=== PATIENT | male | born 1945 | race Caucasian/White ===

== ENCOUNTER 2024-11-17 19:44 | Inpatient (IN) | payer MEDICARE, OTHER, SELFPAY ==
--- NOTE | ~2024-11-17 | XR_ITS ---
EXAMINATION: XR chest 1V portable DATE: 11/17/2024 20:12 INDICATION: Cough and congestion. TECHNIQUE: A single frontal view of the chest was obtained. COMPARISON: None. FINDINGS: There is no pneumonia, pleural effusion, or pneumothorax. The heart size is normal. Median sternotomy wires and mediastinal surgical clips are seen, likely from prior coronary artery bypass gr afting. IMPRESSION: 1. No acute cardiopulmonary disease. Reviewed, dictated and finalized at location A. O JOURNALIST
[2024-11-17 19:53] VITALS: BP 142/80; PULSE 105; RESP 20; TEMP 37.6; O2SAT 100
--- OUTSIDE RECORDS SUMMARY | 2024-11-17 19:53 | XMS_ITS ---
Author Organization [facility] Ryan hernández ([facility]) Address [address] [place] [id number] Care Team Providers Care Lead Project Manager Name Role Phone Unavailable Unavailable Unavailable Allergies, Adverse Reactions, Alerts Allergy Name Allergy Type Status Severity Reaction(s) Onset Date Inactive Date Treating Clinician Comments Viagra Allergy Active Severe Allergy Shortness of Breath 2022-12 14:09:1 9 Viagra Allergy Active Severe Allergy 2022-12 14:09:1 9 Viagra Allergy Active Severe Allergy Irregular Heartbeat 2022-12 14:09:1 9 Ritalin Allergy Active Moderate Allergy 2022-12 14:08:5 2 Nitrates, Organic Allergy Active Moderate Allergy 2022-12 14:08:2 9 Clonidine Allergy Active Moderate Allergy 2022-12 14:07:4 0 Aggie Allergy Active Unknown 2022-12 14:07:2 0 Medications Ordered Medication Name Filled Medication Name Start Date Stop Date Current Medication? Ordering Clinician Indication Dosage Frequency Signature (SIG) Comments Components Mircera 11-07 20:30: 45 Yes [id number] Number of Repeats Allowed: Frequency: MELISSA dosing, every three to four weeks Venofer 2023-09 18:35: 12 Yes [id number] Number of Repeats Allowed: Frequency: Two times a monthDoses Ordered: Maintenanc e Dose 200 Milligram Route: Intravenou s Cardura 05-02 15:38: 37 Yes Number of Repeats Allowed: Frequency: Two times a day Furosemide 01-26 17:16: 15 Yes Number of Repeats Allowed: Frequency: One time a day Benadryl Allergy 2022-09 15:06: 41 Yes Number of Repeats Allowed: Frequency: As needed Vitamin D3 2022-09 15:05: 59 Yes Number of Repeats Allowed: Frequency: One time a day Aspirin 81 2022-09 15:04: 37 Yes Number of Repeats Allowed: Frequency: One time a day Dialyvite 2022-09 15:03: 52 Yes Number of Repeats Allowed: Frequency: One time a day Atorvastati n Calcium 2022-09 15:03: 20 Yes Number of Repeats Allowed: Frequency: One time a day HumaLOG 2022-09 15:02: 39 Yes Number of Repeats Allowed: Frequency: Three times a day Lantus 2022-09 15:00: 08 Yes Number of Repeats Allowed: Frequency: One time a day amLODIPine Besylate 2022-09 14:59: 27 Yes Number of Repeats Allowed: Frequency: Every evening Januvia 2022-09 14:55: 29 Yes Number of Repeats Allowed: Frequency: Every evening Pantoprazol e Sodium 2022-09 13:55: 10 Yes Number of Repeats Allowed: Frequency: One time a day Synthroid 2022-09 13:54: 20 Yes Number of Repeats Allowed: Frequency: One time a day Problems This patient has no known problems. Procedures Procedure Date / Time Performed Performing Clinician Ammy marcelino Details PD Catheter 2022-09-03 05:00:00 Access Surgeon MARTITA SAEED A..M ([id number]),KELLI HUSAIN Access Site Middle Quadrant (Rig ht) Access Use Start Date 2022-10-08 05:00:0 0 AV [id number] 04:00:00 Access Surgeon MARTITA SAEED A..M ([id number]),KELLI HUSAIN Access Site Forearm (Left) Access Use Start Date 2022-07-29 04:00:0 0 DIALYSIS TREATMENT INFORMATION Conventional Hemodialysis Date Type Treatment Start Date Treatment End Date Pre-Treatment Vitals Post-Treatment Vitals Weight Gain BFR DFR Actual UF Dialysis Access November 16, 2024 CAPD November 14, 2024 CAPD BP Sitting (Pre-Dialysis) 165/62 mmHg Sitting Heart Rate Pre-Dialysis 70 BPM Temperature Pre-Dialysis 97.9 degF Weight Pre-Dialysis 114.3 kg November 14, 2024 CAPD November 11, 2024 CAPD November 09, 2024 CAPD November 07, 2024 CAPD November 04, 2024 CAPD November 02, 2024 CAP BP Sitting (Pre-Dialysis) 180/65 mmHg BP Standing (Pre-Dialysis) 155/64 mmHg Sitting Heart Rate Pre-Dialysis 73 BPM Standing Heart Rate Pre-Dialysis 80 BPM Temperature Pre-Dialysis 98.4 degF Weight Pre-Dialysis 115.6 kg November 02, 2024 CAPD October 31, 2024 CAPD October 28, 2024 CAPD October 26, 2024 CAPD October 24, 2024 CAPD October 21, 2024 CAPD October 20, 2024 CAPD BP Sitting (Pre-Dialysis) 156/59 mmHg Sitting Heart Rate Pre-Dialysis 79 BPM Temperature Pre-Dialysis 98.1 degF Weight Pre-Dialysis 114 kg October 19, 2024 CAPD October 17, 2024 CAPD October 14, 2024 CAPD October 12, 2024 CAPD October 10, 2024 CAPD October 07, 2024 CAPD October 05, 2024 CAPD BP Sitting (Pre-Dialysis) 153/64 mmHg BP Standing (Pre-Dialysis) 126/61 mmHg Sitting Heart Rate Pre-Dialysis 80 BPM Standing Heart Rate Pre-Dialysis 88 BPM Temperature Pre-Dialysis 98.8 degF Weight Pre-Dialysis 111.2 kg October 05, 2024 CAPD October 03, 2024 CAPD September 30, 2024 CAPD September 28, 2024 CAPD September 26, 2024 CAPD September 23, 2024 CAPD September 21, 2024 CAPD September 19, 2024 CAPD September 16, 2024 CAPD September 15, 2024 CAPD BP Sitting (Pre-Dialysis) 179/62 mmHg BP Standing (Pre-Dialysis) 134/51 mmHg Sitting Heart Rate Pre-Dialysis 84 BPM Standing Heart Rate Pre-Dialysis 93 BPM Temperature Pre-Dialysis 98.4 degF Weight Pre-Dialysis 110.6 kg September 14, 2024 CAPD September 12, 2024 CAPD September 09, 2024 CAPD September 07, 2024 CAPD September 05, 2024 CAPD September 02, 2024 CAPD August 31, 2024 CAPD August 29, 2024 CAPD August 26, 2024 CAPD August 24, 2024 CAPD August 22, 2024 CAPD August 19, 2024 CAPD August 17, 2024 CAPD August 15, 2024 CAPD August 12, 2024 CAPD August 10, 2024 CAPD August 08, 2024 CAPD August 05, 2024 CAPD August 03, 2024 CAPD August 02, 2024 CAP BP Sitting (Pre-Dialysis) 163/88 mmHg BP Standing (Pre-Dialysis) 161/87 mmHg Sitting Heart Rate Pre-Dialysis 82 BPM Standing Heart Rate Pre-Dialysis 89 BPM Temperature Pre-Dialysis 97.9 degF Weight Pre-Dialysis 116.9 kg August 01, 2024 CAPD July 29, 2024 CAPD July 27, 2024 CAPD July 25, 2024 CAPD July 22, 2024 CAPD July 20, 2024 CAPD July 18, 2024 CAPD July 15, 2024 CAPD July 13, 2024 CAPD July 11, 2024 CAPD July 08, 2024 CAPD July 06, 2024 CAPD July 04, 2024 CAPD July 01, 2024 CAPD June 29, 2024 CAP BP Sitting (Pre-Dialysis) 152/65 mmHg BP Standing (Pre-Dialysis) 144/61 mmHg Sitting Heart Rate Pre-Dialysis 78 BPM Standing Heart Rate Pre-Dialysis 86 BPM Temperature Pre-Dialysis 97.7 degF Weight Pre-Dialysis 115.1 kg June 29, 2024 CAPD June 27, 2024 CAPD June 24, 2024 CAPD June 22, 2024 CAPD June 20, 2024 CAP BP Sitting (Pre-Dialysis) 165/68 mmH g BP Standing (Pre-Dialysis) 160/68 mmHg Sitting Heart Rate Pre-Dialysis 76 BPM Standing Heart Rate Pre-Dialysis 82 BPM Temperature Pre-Dialysis 99.3 degF Weight Pre-Dialysis 114.3 kg June 20, 2024 CAPD June 17, 2024 CAPD June 15, 2024 CAPD June 13, 2024 CAPD June 10, 2024 CAPD June 08, 2024 CAPD June 06, 2024 CAPD June 03, 2024 CAPD June 01, 2024 CAP BP Sitting (Pre-Dialysis) 156/70 mmH g BP Standing (Pre-Dialysis) 134/68 mmHg Sitting Heart Rate Pre-Dialysis 84 BPM Standing Heart Rate Pre-Dialysis 84 BPM Temperature Pre-Dialysis 98.1 degF Weight Pre-Dialysis 113.4 kg June 01, 2024 CAPD May 30, 2024 CAPD May 27, 2024 CAPD May 25, 2024 CAPD May 23, 2024 CAPD May 20, 2024 CAPD May 18, 2024 CAPD May 16, 2024 CAPD May 13, 2024 CAPD May 11, 2024 CAPD May 09, 2024 CAPD May 06, 2024 CAPD May 04, 2024 CAPD May 02, 2024 CAP BP Sitting (Pre-Dialysis) 150/71 mmHg BP Standing (Pre-Dialysis) 139/63 mmHg Sitting Heart Rate Pre-Dialysis 75 BPM Standing Heart Rate Pre-Dialysis 80 BPM Temperature Pre-Dialysis 99.5 degF Weight Pre-Dialysis 113.2 kg May 02, 2024 CAPD April 29, 2024 CAPD April 27, 2024 CAPD April 25, 2024 CAPD April 22, 2024 CAPD April 20, 2024 CAPD April 18, 2024 CAPD April 15, 2024 CAPD April 13, 2024 CAPD April 11, 2024 CAPD April 08, 2024 CAPD April 06, 2024 CAPD April 04, 2024 CAPD April 01, 2024 CAPD March 30, 2024 CAPD March 28, 2024 CAPD BP Sitting (Pre-Dialysis) 161/80 mmHg BP Standing (Pre-Dialysis) 157/78 mmHg Sitting Heart Rate Pre-Dialysis 77 BPM Standing Heart Rate Pre-Dialysis 86 BPM Temperature Pre-Dialysis 97.9 degF Weight Pre-Dialysis 112.7 kg March 28, 2024 CAPD March 25, 2024 CAPD March 23, 2024 CAPD March 21, 2024 CAPD March 18, 2024 CAPD March 16, 2024 CAPD March 15, 2024 CAPD BP Sitting (Pre-Dialysis) 157/70 mmHg BP Standing (Pre-Dialysis) 148/73 mmHg Sitting Heart Rate Pre-Dialysis 77 BPM Standing Heart Rate Pre-Dialysis 77 BPM Temperature Pre-Dialysis 97.8 degF Weight Pre-Dialysis 113 kg March 14, 2024 CAPD March 11, 2024 CAPD March 09, 2024 CAPD March 07, 2024 CAPD March 04, 2024 CAPD March 02, 2024 CAPD February 29, 2024 CAPD February 26, 2024 CAPD February 24, 2024 CAPD February 22, 2024 CAPD February 19, 2024 CAPD February 17, 2024 CAPD February 15, 2024 CAPD February 12, 2024 CAPD February 10, 2024 CAPD February 08, 2024 CAPD February 05, 2024 CAPD February 03, 2024 CAPD February 01, 2024 CAPD January 29, 2024 CAPD January 27, 2024 CAPD BP Sitting (Pre-Dialysis) 165/81 mmHg BP Standing (Pre-Dialysis) 174/71 mmHg Sitting Heart Rate Pre-Dialysis 82 BPM Standing Heart Rate Pre-Dialysis 82 BPM Temperature Pre-Dialysis 99.5 degF Weight Pre-Dialysis 113.6 kg January 27, 2024 CAPD January 25, 2024 CAPD January 22, 2024 CAPD January 20, 2024 CAPD BP Sitting (Pre-Dialysis) 172/67 mmHg BP Standing (Pre-Dialysis) 162/68 mmHg Sitting Heart Rate Pre-Dialysis 74 BPM Standing Heart Rate Pre-Dialysis 82 BPM Temperature Pre-Dialysis 98.2 degF Weight Pre-Dialysis 113 kg January 20, 2024 CAPD January 18, 2024 CAPD January 15, 2024 CAPD January 13, 2024 CAPD January 11, 2024 CAPD January 08, 2024 CAPD January 06, 2024 CAPD January 04, 2024 CAPD BP Sitting (Pre-Dialysis) 161/71 mmHg BP Standing (Pre-Dialysis) 160/69 mmHg Sitting Heart Rate Pre-Dialysis 74 BPM Standing Heart Rate Pre-Dialysis 79 BPM Temperature Pre-Dialysis 98.6 degF Weight Pre-Dialysis 116.3 kg January 04, 2024 CAPD January 01, 2024 CAPD December 30, 2023 CAPD December 28, 2023 CAPD December 25, 2023 CAPD December 23, 2023 CAPD December 21, 2023 CAPD December 18, 2023 CAPD December 16, 2023 CAPD December 14, 2023 CAPD December 11, 2023 CAPD December 09, 2023 CAPD BP Sitting (Pre-Dialysis) 155/80 mmHg BP Standing (Pre-Dialysis) 154/70 mmHg Sitting Heart Rate Pre-Dialysis 70 BPM Standing Heart Rate Pre-Dialysis 76 BPM Temperature Pre-Dialysis 98.4 degF Weight Pre-Dialysis 113 kg December 09, 2023 CAPD December 07, 2023 CAPD December 04, 2023 CAPD December 02, 2023 CAPD December 01, 2023 CAPD BP Sitting (Pre-Dialysis) 152/70 mmHg BP Standing (Pre-Dialysis) 156/74 mmHg Sitting Heart Rate Pre-Dialysis 79 BPM Standing Heart Rate Pre-Dialysis 85 BPM Temperature Pre-Dialysis 98.1 degF Weight Pre-Dialysis 115 kg November 30, 2023 CAPD November 27, 2023 CAPD November 25, 2023 CAPD November 23, 2023 CAPD November 20, 2023 CAPD November 18, 2023 CAPD November 16, 2023 CAPD November 13, 2023 CAPD November 11, 2023 CAPD BP Sitting (Pre-Dialysis) 157/69 mmHg BP Standing (Pre-Dialysis) 148/74 mmHg Sitting Heart Rate Pre-Dialysis 77 BPM Standing Heart Rate Pre-Dialysis 82 BPM Temperature Pre-Dialysis 99.7 degF Weight Pre-Dialysis 112.6 kg November 11, 2023 CAPD November 09, 2023 CAPD November 06, 2023 CAPD November 04, 2023 CAPD November 02, 2023 CAPD October 30, 2023 CAPD October 28, 2023 CAPD October 26, 2023 CAPD October 23, 2023 CAPD October 21, 2023 CAPD October 19, 2023 CAPD October 16, 2023 CAPD October 15, 2023 CAPD Retraining BP Sitting (Pre-Dialysis ) 162/80 mmHg Weight Post-Dialysi s 112.5 kg BP Standing (Pre-Dialysis) 161/73 mmHg Sitting Heart Rate Pre-Dialysis 78 BPM Standing Heart Rate Pre-Dialysis 78 BPM Temperature Pre-Dialysis 98.4 degF Weight Pre-Dialysis 112.6 kg October 14, 2023 CAPD Retraining BP Sitting (Pre-Dialysis) 180/69 mmHg Weight Post-Dialysis 112.7 kg BP Standing (Pre-Dialysis) 155/69 mmHg Sitting Heart Rate Pre-Dialysis 76 BPM Standing Heart Rate Pre-Dialysis 80 BPM Temperature Pre-Dialysis 97.7 degF Weight Pre-Dialysis 112.7 kg October 14, 2023 CAPD October 12, 2023 CAPD October 09, 2023 CAPD October 07, 2023 CAPD October 05, 2023 CAPD October 02, 2023 CAPD September 30, 2023 CAPD BP Sitting (Pre-Dialysis) 143/65 mmHg BP Standing (Pre-Dialysis) 123/62 mmHg Sitting Heart Rate Pre-Dialysis 72 BPM Standing Heart Rate Pre-Dialysis 85 BPM Temperature Pre-Dialysis 98.1 degF Weight Pre-Dialysis 114.2 kg September 30, 2023 CAPD September 28, 2023 CAPD September 25, 2023 CAPD September 23, 2023 CAPD September 21, 2023 CAPD September 18, 2023 CAPD September 16, 2023 CAPD September 14, 2023 CAPD September 11, 2023 CAPD September 09, 2023 CAPD September 07, 2023 CAPD September 04, 2023 CAPD September 02, 2023 CAP BP Sitting (Pre-Dialysis) 164/70 mmHg BP Standing (Pre-Dialysis) 149/70 mmHg Sitting Heart Rate Pre-Dialysis 74 BPM Standing Heart Rate Pre-Dialysis 78 BPM Temperature Pre-Dialysis 97.3 degF Weight Pre-Dialysis 109.9 kg September 02, 2023 CAPD August 31, 2023 CAPD August 28, 2023 CAPD August 26, 2023 CAPD August 24, 2023 CAPD August 21, 2023 CAPD August 19, 2023 CAPD August 18, 2023 CAPD August 17, 2023 CAPD August 14, 2023 CAP BP Sitting (Pre-Dialysis) 188/73 mmHg BP Standing (Pre-Dialysis) 170/73 mmHg Sitting Heart Rate Pre-Dialysis 74 BPM Standing Heart Rate Pre-Dialysis 79 BPM Temperature Pre-Dialysis 98.4 degF Weight Pre-Dialysis 114.1 kg August 14, 2023 CAPD August 12, 2023 CAPD August 10, 2023 CAPD August 07, 2023 CAPD August 05, 2023 CAPD August 03, 2023 CAPD July 31, 2023 CAPD July 29, 2023 CAP BP Sitting (Pre-Dialysis) 156/73 mmHg BP Standing (Pre-Dialysis) 144/75 mmHg Sitting Heart Rate Pre-Dialysis 83 BPM Standing Heart Rate Pre-Dialysis 88 BPM Temperature Pre-Dialysis 97.5 degF Weight Pre-Dialysis 111.5 kg July 29, 2023 CAPD July 27, 2023 CAPD July 24, 2023 CAPD July 22, 2023 CAPD July 20, 2023 CAPD July 17, 2023 CAPD July 15, 2023 CAPD July 13, 2023 CAPD July 10, 2023 CAPD July 08, 2023 CAPD July 06, 2023 CAPD July 03, 2023 CAPD July 01, 2023 CAPD BP Sitting (Pre-Dialysis) 159/83 mmHg BP Standing (Pre-Dialysis) 154/77 mmHg Sitting Heart Rate Pre-Dialysis 80 BPM Standing Heart Rate Pre-Dialysis 80 BPM Temperature Pre-Dialysis 98.1 degF Weight Pre-Dialysis 113.3 kg July 01, 2023 CAPD June 29, 2023 CAPD June 26, 2023 CAPD June 24, 2023 CAPD June 22, 2023 CAPD June 19, 2023 CAPD June 17, 2023 CAPD June 15, 2023 CAPD June 12, 2023 CAPD June 10, 2023 CAP BP Sitting (Pre-Dialysis) 140/71 mmH g BP Standing (Pre-Dialysis) 134/70 mmHg Sitting Heart Rate Pre-Dialysis 80 BPM Standing Heart Rate Pre-Dialysis 87 BPM Temperature Pre-Dialysis 97.3 degF Weight Pre-Dialysis 110.4 kg June 10, 2023 CAPD June 08, 2023 CAPD June 05, 2023 CAPD June 03, 2023 CAP BP Sitting (Pre-Dialysis) 156/67 mmH g BP Standing (Pre-Dialysis) 152/66 mmHg Sitting Heart Rate Pre-Dialysis 76 BPM Standing Heart Rate Pre-Dialysis 82 BPM Temperature Pre-Dialysis 98.4 degF Weight Pre-Dialysis 112.9 kg June 03, 2023 CAPD June 01, 2023 CAPD May 29, 2023 CAPD May 27, 2023 CAPD May 25, 2023 CAPD May 22, 2023 CAPD May 20, 2023 CAPD May 19, 2023 CAP BP Sitting (Pre-Dialysis) 174/76 mmHg BP Standing (Pre-Dialysis) 159/69 mmHg Sitting Heart Rate Pre-Dialysis 79 BPM Standing Heart Rate Pre-Dialysis 85 BPM Temperature Pre-Dialysis 98.1 degF Weight Pre-Dialysis 116 kg May 18, 2023 CAPD May 15, 2023 CAPD May 13, 2023 CAPD May 11, 2023 CAPD May 08, 2023 CAPD May 06, 2023 CAPD May 05, 2023 CAPD BP Sitting (Pre-Dialysis) 153/64 mmHg BP Standing (Pre-Dialysis) 140/66 mmHg Sitting Heart Rate Pre-Dialysis 80 BPM Standing Heart Rate Pre-Dialysis 85 BPM Temperature Pre-Dialysis 98.9 degF Weight Pre-Dialysis 113.4 kg May 04, 2023 CAPD May 01, 2023 CAPD April 29, 2023 CAPD April 27, 2023 CAPD April 24, 2023 CAPD April 22, 2023 CAPD April 20, 2023 CAPD April 17, 2023 CAPD April 15, 2023 CAPD April 14, 2023 CAPD BP Sitting (Pre-Dialysis) 151/70 mmHg BP Standing (Pre-Dialysis) 177/66 mmHg Sitting Heart Rate Pre-Dialysis 77 BPM Standing Heart Rate Pre-Dialysis 84 BPM Temperature Pre-Dialysis 98.2 degF Weight Pre-Dialysis 115.7 kg April 13, 2023 CAPD April 10, 2023 CAPD April 08, 2023 CAPD April 06, 2023 CAPD April 03, 2023 CAPD April 02, 2023 CAPD BP Sitting (Pre-Dialysis) 133/60 mmHg BP Standing (Pre-Dialysis) 139/61 mmHg Sitting Heart Rate Pre-Dialysis 75 BPM Standing Heart Rate Pre-Dialysis 81 BPM Temperature Pre-Dialysis 98.4 degF Weight Pre-Dialysis 113 kg April 01, 2023 CAPD March 30, 2023 CAPD March 27, 2023 CAPD March 25, 2023 CAPD March 24, 2023 CAPD BP Sitting (Pre-Dialysis) 127/65 mmHg BP Standing (Pre-Dialysis) 121/61 mmHg Sitting Heart Rate Pre-Dialysis 74 BPM Standing Heart Rate Pre-Dialysis 81 BPM Temperature Pre-Dialysis 99.5 degF Weight Pre-Dialysis 113 kg March 23, 2023 CAPD March 21, 2023 CAPD March 20, 2023 CAPD March 18, 2023 CAPD March 16, 2023 CAPD March 14, 2023 CAPD March 13, 2023 CAPD March 11, 2023 CAPD March 09, 2023 CAPD March 07, 2023 CAPD March 06, 2023 CAPD March 04, 2023 CAPD March 03, 2023 CAPD BP Sitting (Pre-Dialysis) 154/70 mmHg BP Standing (Pre-Dialysis) 143/75 mmHg Sitting Heart Rate Pre-Dialysis 73 BPM Standing Heart Rate Pre-Dialysis 75 BPM Temperature Pre-Dialysis 98.1 degF Weight Pre-Dialysis 114.3 kg March 02, 2023 CAPD DIALYSIS ORDER Dialysis Procedure Orders Type of Dialysis Procedure Order Order Date/Time Observations CAPD March 29, 2024 Target Weight 111 kg Ordered Access Type Peritoneal dialysis catheter Vendor [employer] Total Fill Volume per 24 Hour 1500 mL Treatment Location Display At Patient's Home Target Weight with Prescribed Day Fill N o Training Element No Training Incremental Increase Flag No Day Exchange Delivery Method Manual Day Exchange Number of Exchanges 1 Day Exchange Calcium 2.5 mEq/L Day Exchange Magnesium 0.5 mEq/L Day Exchange Target Dwell Time 4 hr 0 Mi n Overnight Exchange Delivery MethodDaytim e Exchange Info No Overnight Exchange Fill Number: 1 pd_solution_strength_[email or web address] Varied-See Instruction(s) fill_instruction based on weight and blood pressures Results Adequacy Description Draw Date Result/Unit Status Ref Range Result Comments NPCR PD MALE 2024-11-04 08:31:29 1.18 G/KG/D F PNA (PD) 2024-11-04 08:31:29 123.9 g/day F nPNA (PD MALE) 2024-11-04 08:31:29 1.33 G/KG/D F PCR PD MALE 2024-11-04 08:31:29 110 g/day F Urea Gen Rate 2024-11-04 08:31:29 21.7 GM/D F CRE CLR UR/BSA 2024-11-04 08:31:29 22 mL/min F 85.0-125.0 UREA CLR UR/BSA 2024-11-04 08:31:29 12.5 mL/min F 64.0-99.0 UREA CLR UR 2024-11-04 08:31:29 17.4 mL/min F CRE CLR UR 2024-11-04 08:31:29 30 mL/min F 97.0-137.0 L/WK/1.73 RESID 2024-11-04 08:31:29 171.5 L/WK/B F L/WK/1.73 TOTAL 2024-11-04 08:31:29 178.11 L/WK/B F KT/V RESID (M) 2024-11-04 08:31:29 3.24 Kt/V F L/WK RESID CC 2024-11-04 08:31:29 239.04 L/wk F KT/V TOTAL (M) 2024-11-04 08:31:29 3.49 Kt/V F Urea nitrogen [Mass/volume] in Urine 2024-11-04 08:30:14 541 mg/dL F Creatinine [Mass/volume] in Urine 2024-11-04 08:30:14 79.06 mg/dL F L/WK PDF CC 2024-11-04 08:23:13 9.21 L/wk F KT/V PDF (M) 2024-11-04 08:23:13 0.25 Kt/V F L/WK/1.73 PDF 2024-11-04 08:23:13 6.61 L/WK/B F Creatinine [Mass/volume] in Peritoneal dialysis fluid 2024-11-04 08:16:15 3.34 mg/dL F Urea nitrogen [Mass/volume] in Peritoneal fluid --24 hours post peritoneal dialysis 2024-11-04 08:16:15 58 mg/dL F BUN/CREAT 2024-11-04 05:25:22 11.8 Calc F 6.9-32.9 BSA EMMANUEL 2024-11-04 05:25:22 2.41 sq m F TBW RENEE MALE 2024-11-04 05:25:22 54.16 Liters F Urea nitrogen [Mass/volume] in Serum or Plasma 2024-11-04 05:24:24 54 mg/dL F 9.0-23.0 Creatinine [Mass/volume] in Serum or Plasma 2024-11-04 05:24:24 4.57 mg/dL F 0.7-1.3 COLLECTION TIME FOR URINE 2024-11-02 18:05:04 1440 min F TOTAL VOLUME-24 HR URINE 2024-11-02 18:05:04 2500 mL F Total Volume of EFFL/DIAL 2024-11-02 18:05:04 1800 mLs F MINIMUM GOAL: KT/V PD 2024-11-02 18:05:04 1.7 F PATIENT AGE 2024-11-02 18:05:04 79 Years F HEIGHT IN INCHES 2024-11-02 18:05:04 74 Inches F BODY WEIGHT (LBS) 2024-11-02 18:05:04 254.9 lbs F AMPUTATE FACTOR 2024-11-02 18:05:04 0 F BUN/CREAT 2024-10-07 00:57:21 12 Calc F 6.9-32.9 Urea nitrogen [Mass/volume] in Serum or Plasma 2024-10-07 00:55:28 52 mg/dL F 9.0-23.0 Creatinine [Mass/volume] in Serum or Plasma 2024-10-07 00:55:28 4.35 mg/dL F 0.7-1.3 UREA CLR UR/BSA 2024-09-17 01:03:01 13.4 mL/min F 64.0-99.0 CRE CLR UR/BSA 2024-09-17 01:03:01 25 mL/min F 85.0-125.0 UREA CLR UR 2024-09-17 01:03:01 18.4 mL/min F CRE CLR UR 2024-09-17 01:03:01 34 mL/min F 97.0-137.0 L/WK/1.73 RESID 2024-09-17 01:03:01 191.85 L/WK/B F L/WK/1.73 TOTAL 2024-09-17 01:03:01 197.81 L/WK/B F KT/V RESID (M) 2024-09-17 01:03:01 3.53 Kt/V F KT/V TOTAL (M) 2024-09-17 01:03:01 3.71 Kt/V F L/WK RESID CC 2024-09-17 01:03:01 262.3 L/wk F NPCR PD MALE 2024-09-17 01:03:01 1.39 G/KG/D F PNA (PD) 2024-09-17 01:03:01 141.7 g/day F nPNA (PD MALE) 2024-09-17 01:03:01 1.57 G/KG/D F PCR PD MALE 2024-09-17 01:03:01 126 g/day F Urea Gen Rate 2024-09-17 01:03:01 25.2 GM/D F Urea nitrogen [Mass/volume] in Urine 2024-09-17 01:02:15 645 mg/dL F Creatinine [Mass/volume] in Urine 2024-09-17 01:02:15 81.88 mg/dL F L/WK PDF CC 2024-09-17 00:09:44 8.15 L/wk F KT/V PDF (M) 2024-09-17 00:09:44 0.18 Kt/V F L/WK/1.73 PDF 2024-09-17 00:09:44 5.96 L/WK/B F Creatinine [Mass/volume] in Peritoneal dialysis fluid 2024-09-17 00:08:18 3.51 mg/dL F Urea nitrogen [Mass/volume] in Peritoneal fluid --24 hours post peritoneal dialysis 2024-09-17 00:08:18 60 mg/dL F BUN/CREAT 2024-09-16 16:55:42 14.5 Calc F 6.9-32.9 BSA EMMANUEL 2024-09-16 16:55:42 2.37 sq m F TBW VÍCTOR MALE 2024-09-16 16:55:42 52.44 Liters F Creatinine [Mass/volume] in Serum or Plasma 2024-09-16 16:53:25 4.22 mg/dL F 0.7-1.3 Urea nitrogen [Mass/volume] in Serum or Plasma 2024-09-16 16:53:23 61 mg/dL F 9.0-23.0 PATIENT AGE 2024-09-15 17:41:36 79 Years F BODY WEIGHT (LBS) 2024-09-15 17:41:36 243.6 lbs F HEIGHT IN INCHES 2024-09-15 17:41:36 74 Inches F AMPUTATE FACTOR 2024-09-15 17:41:36 0 F Total Volume of EFFL/DIAL 2024-09-15 17:41:36 1400 mLs F MINIMUM GOAL: KT/V PD 2024-09-15 17:41:36 1.7 F COLLECTION TIME FOR URINE 2024-09-15 17:41:36 1440 min F TOTAL VOLUME-24 HR URINE 2024-09-15 17:41:36 2500 mL F BUN/CREAT 2024-08-04 02:02:01 12.3 Calc F 6.9-32.9 BUN/CREAT 2024-08-04 02:02:01 12.3 Calc F 6.9-32.9 Creatinine [Mass/volume] in Serum or Plasma 2024-08-04 02:01:20 4.57 mg/dL F 0.7-1.3 Urea nitrogen [Mass/volume] in Serum or Plasma 2024-08-04 02:01:20 56 mg/dL F 9.0-23.0 Urea nitrogen [Mass/volume] in Serum or Plasma 2024-08-04 02:01:20 56 mg/dL F 9.0-23.0 Creatinine [Mass/volume] in Serum or Plasma 2024-08-04 02:01:20 4.57 mg/dL F 0.7-1.3 BUN/CREAT 2024-06-30 14:27:57 12.1 Calc F 6.9-32.9 BUN/CREAT 2024-06-30 14:27:57 12.1 Calc F 6.9-32.9 BUN/CREAT 2024-06-30 14:27:57 12.1 Calc F 6.9-32.9 Creatinine [Mass/volume] in Serum or Plasma 2024-06-30 14:27:10 4.37 mg/dL F 0.7-1.3 Urea nitrogen [Mass/volume] in Serum or Plasma 2024-06-30 14:27:10 53 mg/dL F 9.0-23.0 Urea nitrogen [Mass/volume] in Serum or Plasma 2024-06-30 14:27:10 53 mg/dL F 9.0-23.0 Creatinine [Mass/volume] in Serum or Plasma 2024-06-30 14:27:10 4.37 mg/dL F 0.7-1.3 Urea nitrogen [Mass/volume] in Serum or Plasma 2024-06-30 14:27:10 53 mg/dL F 9.0-23.0 Creatinine [Mass/volume] in Serum or Plasma 2024-06-30 14:27:10 4.37 mg/dL F 0.7-1.3 NPCR PD MALE 2024-06-04 15:10:16 1.31 G/KG/D F PNA (PD) 2024-06-04 15:10:16 136.1 g/day F nPNA (PD MALE) 2024-06-04 15:10:16 1.48 G/KG/D F PCR PD MALE 2024-06-04 15:10:16 121 g/day F Urea Gen Rate 2024-06-04 15:10:16 24.1 GM/D F L/WK PDF CC 2024-06-04 15:10:16 7.76 L/wk F L/WK/1.73 TOTAL 2024-06-04 15:10:16 195.43 L/WK/B F KT/V PDF (M) 2024-06-04 15:10:16 0.2 Kt/V F KT/V TOTAL (M) 2024-06-04 15:10:16 3.8 Kt/V F L/WK/1.73 PDF 2024-06-04 15:10:16 5.62 L/WK/B F Creatinine [Mass/volume] in Peritoneal dialysis fluid 2024-06-04 15:09:20 3.2 mg/dL F Urea nitrogen [Mass/volume] in Peritoneal fluid --24 hours post peritoneal dialysis 2024-06-04 15:09:20 57 mg/dL F CRE CLR UR 2024-06-04 14:16:33 33 mL/min F 97.0-137.0 UREA CLR UR/BSA 2024-06-04 14:16:33 13.8 mL/min F 64.0-99.0 CRE CLR UR/BSA 2024-06-04 14:16:33 24 mL/min F 85.0-125.0 UREA CLR UR 2024-06-04 14:16:33 19 mL/min F L/WK/1.73 RESID 2024-06-04 14:16:33 189.81 L/WK/B F KT/V RESID (M) 2024-06-04 14:16:33 3.6 Kt/V F L/WK RESID CC 2024-06-04 14:16:33 262.21 L/wk F Urea nitrogen [Mass/volume] in Urine 2024-06-04 14:16:20 512 mg/dL F Creatinine [Mass/volume] in Urine 2024-06-04 14:16:20 68.54 mg/dL F BUN/CREAT 2024-06-04 06:18:03 12.9 Calc F 6.9-32.9 TBW RENEE MALE 2024-06-04 06:18:03 53.35 Liters F BSA EMMANUEL 2024-06-04 06:18:03 2.39 sq m F Urea nitrogen [Mass/volume] in Serum or Plasma 2024-06-04 06:08:34 56 mg/dL F 9.0-23.0 Creatinine [Mass/volume] in Serum or Plasma 2024-06-04 06:08:34 4.33 mg/dL F 0.7-1.3 COLLECTION TIME FOR URINE 2024-06-02 17:41:47 1440 min F Total Volume of EFFL/DIAL 2024-06-02 17:41:47 1500 mLs F TOTAL VOLUME-24 HR URINE 2024-06-02 17:41:47 3000 mL F PATIENT AGE 2024-06-02 17:41:47 79 Years F BODY WEIGHT (LBS) 2024-06-02 17:41:47 249.6 lbs F HEIGHT IN INCHES 2024-06-02 17:41:47 74 Inches F AMPUTATE FACTOR 2024-06-02 17:41:47 0 F MINIMUM GOAL: KT/V PD 2024-06-02 17:41:47 1.7 F BUN/CREAT 2024-05-03 16:38:19 12.6 Calc F 6.9-32.9 BUN/CREAT 2024-05-03 16:38:19 12.6 Calc F 6.9-32.9 Urea nitrogen [Mass/volume] in Serum or Plasma 2024-05-03 16:37:31 53 mg/dL F 9.0-23.0 Creatinine [Mass/volume] in Serum or Plasma 2024-05-03 16:37:31 4.21 mg/dL F 0.7-1.3 Urea nitrogen [Mass/volume] in Serum or Plasma 2024-05-03 16:37:31 53 mg/dL F 9.0-23.0 Creatinine [Mass/volume] in Serum or Plasma 2024-05-03 16:37:31 4.21 mg/dL F 0.7-1.3 BUN/CREAT 2024-03-29 18:01:57 13.8 Calc F 6.9-32.9 BUN/CREAT 2024-03-29 18:01:57 13.8 Calc F 6.9-32.9 BUN/CREAT 2024-03-29 18:01:57 13.8 Calc F 6.9-32.9 Creatinine [Mass/volume] in Serum or Plasma 2024-03-29 18:01:29 4.06 mg/dL F 0.7-1.3 Urea nitrogen [Mass/volume] in Serum or Plasma 2024-03-29 18:01:29 56 mg/dL F 9.0-23.0 Creatinine [Mass/volume] in Serum or Plasma 2024-03-29 18:01:29 4.06 mg/dL F 0.7-1.3 Urea nitrogen [Mass/volume] in Serum or Plasma 2024-03-29 18:01:29 56 mg/dL F 9.0-23.0 Urea nitrogen [Mass/volume] in Serum or Plasma 2024-03-29 18:01:29 56 mg/dL F 9.0-23.0 Creatinine [Mass/volume] in Serum or Plasma 2024-03-29 18:01:29 4.06 mg/dL F 0.7-1.3 KT/V PDF (M) 2024-03-17 01:53:55 0.23 Kt/V F L/WK/1.73 PDF 2024-03-17 01:53:55 5.35 L/WK/B F L/WK/1.73 RESID 2024-03-17 01:53:55 198.05 L/WK/B F KT/V TOTAL () 2024-03-17 01:53:55 4.25 Kt/V F L/WK PDF CC 2024-03-17 01:53:55 7.38 L/wk F L/WK RESID CC 2024-03-17 01:53:55 273.3 L/wk F UREA CLR UR 2024-03-17 01:53:55 21.2 mL/min F L/WK/1.73 TOTAL 2024-03-17 01:53:55 203.39 L/WK/B F KT/V RESID () 2024-03-17 01:53:55 4.02 Kt/V F BUN/CREAT 2024-03-17 01:53:55 13 Calc F 6.9-32.9 UREA CLR UR/BSA 2024-03-17 01:53:55 15.4 mL/min F 64.0-99.0 CRE CLR UR/BSA 2024-03-17 01:53:55 24 mL/min F 85.0-125.0 CRE CLR UR 2024-03-17 01:53:55 33 mL/min F 97.0-137.0 BUN/CREAT 2024-03-17 01:53:55 13 Calc F 6.9-32.9 UREA CLR UR/BSA 2024-03-17 01:53:55 15.4 mL/min F 64.0-99.0 UREA CLR UR 2024-03-17 01:53:55 21.2 mL/min F CRE CLR UR/BSA 2024-03-17 01:53:55 24 mL/min F 85.0-125.0 CRE CLR UR 2024-03-17 01:53:55 33 mL/min F 97.0-137.0 L/WK/1.73 RESID 2024-03-17 01:53:55 198.05 L/WK/B F L/WK PDF CC 2024-03-17 01:53:55 7.38 L/wk F L/WK/1.73 TOTAL 2024-03-17 01:53:55 203.39 L/WK/B F KT/V PDF (M) 2024-03-17 01:53:55 0.23 Kt/V F KT/V RESID (M) 2024-03-17 01:53:55 4.02 Kt/V F L/WK RESID CC 2024-03-17 01:53:55 273.3 L/wk F L/WK/1.73 PDF 2024-03-17 01:53:55 5.35 L/WK/B F KT/V TOTAL (M) 2024-03-17 01:53:55 4.25 Kt/V F CRE CLR UR 2024-03-17 01:53:55 33 mL/min F 97.0-137.0 BUN/CREAT 2024-03-17 01:53:55 13 Calc F 6.9-32.9 UREA CLR UR/BSA 2024-03-17 01:53:55 15.4 mL/min F 64.0-99.0 UREA CLR UR 2024-03-17 01:53:55 21.2 mL/min F CRE CLR UR/BSA 2024-03-17 01:53:55 24 mL/min F 85.0-125.0 L/WK/1.73 RESID 2024-03-17 01:53:55 198.05 L/WK/B F L/WK PDF CC 2024-03-17 01:53:55 7.38 L/wk F L/WK/.73 TOTAL 2024-03-17 01:53:55 203.39 L/WK/B F L/WK RESID CC 2024-03-17 01:53:55 273.3 L/wk F KT/V TOTAL (M) 2024-03-17 01:53:55 4.25 Kt/V F KT/V PDF (M) 2024-03-17 01:53:55 0.23 Kt/V F KT/V RESID (M) 2024-03-17 01:53:55 4.02 Kt/V F L/WK/1.73 PDF 2024-03-17 01:53:55 5.35 L/WK/B F Creatinine [Mass/volume] in Serum or Plasma 2024-03-17 01:53:28 4.08 mg/dL F 0.7-1.3 Urea nitrogen [Mass/volume] in Serum or Plasma 2024-03-17 01:53:28 53 mg/dL F 9.0-23.0 Urea nitrogen [Mass/volume] in Serum or Plasma 2024-03-17 01:53:28 53 mg/dL F 9.0-23.0 Creatinine [Mass/volume] in Serum or Plasma 2024-03-17 01:53:28 4.08 mg/dL F 0.7-1.3 Urea nitrogen [Mass/volume] in Serum or Plasma 2024-03-17 01:53:28 53 mg/dL F 9.0-23.0 Creatinine [Mass/volume] in Serum or Plasma 2024-03-17 01:53:28 4.08 mg/dL F 0.7-1.3 NPCR PD MALE 2024-03-16 17:12:17 1.38 G/KG/D F Urea Gen Rate 2024-03-16 17:12:17 25.5 GM/D F PCR PD MALE 2024-03-16 17:12:17 127 g/day F PNA (PD) 2024-03-16 17:12:17 143 g/day F nPNA (PD MALE) 2024-03-16 17:12:17 1.56 G/KG/D F NPCR PD MALE 2024-03-16 17:12:17 1.38 G/KG/D F PNA (PD) 2024-03-16 17:12:17 143 g/day F nPNA (PD MALE) 2024-03-16 17:12:17 1.56 G/KG/D F PCR PD MALE 2024-03-16 17:12:17 127 g/day F Urea Gen Rate 2024-03-16 17:12:17 25.5 GM/D F NPCR PD MALE 2024-03-16 17:12:17 1.38 G/KG/D F PNA (PD) 2024-03-16 17:12:17 143 g/day F nPNA (PD MALE) 2024-03-16 17:12:17 1.56 G/KG/D F PCR PD MALE 2024-03-16 17:12:17 127 g/day F Urea Gen Rate 2024-03-16 17:12:17 25.5 GM/D F Urea nitrogen [Mass/volume] in Urine 2024-03-16 17:11:34 579 mg/dL F Creatinine [Mass/volume] in Urine 2024-03-16 17:11:34 69.21 mg/dL F Urea nitrogen [Mass/volume] in Urine 2024-03-16 17:11:34 579 mg/dL F Creatinine [Mass/volume] in Urine 2024-03-16 17:11:34 69.21 mg/dL F Urea nitrogen [Mass/volume] in Urine 2024-03-16 17:11:34 579 mg/dL F Creatinine [Mass/volume] in Urine 2024-03-16 17:11:34 69.21 mg/dL F BSA EMMANUEL 2024-03-16 14:37:45 2.39 sq m F TBW VÍCTOR MALE 2024-03-16 14:37:45 53.26 Liters F ADEN BENITEZ 2024-03-16 14:37:45 2.39 sq m F TBW VÍCTOR MALE 2024-03-16 14:37:45 53.26 Liters F TBW VÍCTOR MALE 2024-03-16 14:37:45 53.26 Liters F BSA EMMANUEL 2024-03-16 14:37:45 2.39 sq m F Creatinine [Mass/volume] in Peritoneal dialysis fluid 2024-03-16 14:37:36 2.53 mg/dL F Urea nitrogen [Mass/volume] in Peritoneal fluid --24 hours post peritoneal dialysis 2024-03-16 14:37:36 55 mg/dL F Creatinine [Mass/volume] in Peritoneal dialysis fluid 2024-03-16 14:37:36 2.53 mg/dL F Urea nitrogen [Mass/volume] in Peritoneal fluid --24 hours post peritoneal dialysis 2024-03-16 14:37:36 55 mg/dL F Urea nitrogen [Mass/volume] in Peritoneal fluid --24 hours post peritoneal dialysis 2024-03-16 14:37:36 55 mg/dL F Creatinine [Mass/volume] in Peritoneal dialysis fluid 2024-03-16 14:37:36 2.53 mg/dL F PATIENT AGE 2024-03-15 18:37:13 79 Years F HEIGHT IN INCHES 2024-03-15 18:37:13 74 Inches F BODY WEIGHT (LBS) 2024-03-15 18:37:13 249 lbs F AMPUTATE FACTOR 2024-03-15 18:37:13 0 F PATIENT AGE 2024-03-15 18:37:13 79 Years F BODY WEIGHT (LBS) 2024-03-15 18:37:13 249 lbs F HEIGHT IN INCHES 2024-03-15 18:37:13 74 Inches F AMPUTATE FACTOR 2024-03-15 18:37:13 0 F PATIENT AGE 2024-03-15 18:37:13 79 Years F BODY WEIGHT (LBS) 2024-03-15 18:37:13 249 lbs F HEIGHT IN INCHES 2024-03-15 18:37:13 74 Inches F AMPUTATE FACTOR 2024-03-15 18:37:13 0 F COLLECTION TIME FOR URINE 2024-03-15 18:37:13 1440 min F TOTAL VOLUME-24 HR URINE 2024-03-15 18:37:13 2800 mL F TOTAL VOLUME-24 HR URINE 2024-03-15 18:37:13 2800 mL F COLLECTION TIME FOR URINE 2024-03-15 18:37:13 1440 min F TOTAL VOLUME-24 HR URINE 2024-03-15 18:37:13 2800 mL F COLLECTION TIME FOR URINE 2024-03-15 18:37:13 1440 min F MINIMUM GOAL: KT/V PD 2024-03-15 18:37:13 1.7 F Total Volume of EFFL/DIAL 2024-03-15 18:37:13 1700 mLs F Total Volume of EFFL/DIAL 2024-03-15 18:37:13 1700 mLs F MINIMUM GOAL: KT/V PD 2024-03-15 18:37:13 1.7 F Total Volume of EFFL/DIAL 2024-03-15 18:37:13 1700 mLs F MINIMUM GOAL: KT/V PD 2024-03-15 18:37:13 1.7 F BUN/CREAT 2024-01-29 02:16:12 15.7 Calc F 6.9-32.9 BUN/CREAT 2024-01-29 02:16:12 15.7 Calc F 6.9-32.9 BUN/CREAT 2024-01-29 02:16:12 15.7 Calc F 6.9-32.9 Urea nitrogen [Mass/volume] in Serum or Plasma 2024-01-29 02:15:28 64 mg/dL F 9.0-23.0 Creatinine [Mass/volume] in Serum or Plasma 2024-01-29 02:15:28 4.08 mg/dL F 0.7-1.3 Urea nitrogen [Mass/volume] in Serum or Plasma 2024-01-29 02:15:28 64 mg/dL F 9.0-23.0 Creatinine [Mass/volume] in Serum or Plasma 2024-01-29 02:15:28 4.08 mg/dL F 0.7-1.3 Urea nitrogen [Mass/volume] in Serum or Plasma 2024-01-29 02:15:28 64 mg/dL F 9.0-23.0 Creatinine [Mass/volume] in Serum or Plasma 2024-01-29 02:15:28 4.08 mg/dL F 0.7-1.3 BUN/CREAT 2024-01-05 22:42:25 12.7 Calc F 6.9-32.9 BUN/CREAT 2024-01-05 22:42:25 12.7 Calc F 6.9-32.9 BUN/CREAT 2024-01-05 22:42:25 12.7 Calc F 6.9-32.9 Urea nitrogen [Mass/volume] in Serum or Plasma 2024-01-05 22:41:34 51 mg/dL F 9.0-23.0 Creatinine [Mass/volume] in Serum or Plasma 2024-01-05 22:41:34 4.03 mg/dL F 0.7-1.3 Creatinine [Mass/volume] in Serum or Plasma 2024-01-05 22:41:34 4.03 mg/dL F 0.7-1.3 Urea nitrogen [Mass/volume] in Serum or Plasma 2024-01-05 22:41:34 51 mg/dL F 9.0-23.0 Urea nitrogen [Mass/volume] in Serum or Plasma 2024-01-05 22:41:34 51 mg/dL F 9.0-23.0 Creatinine [Mass/volume] in Serum or Plasma 2024-01-05 22:41:34 4.03 mg/dL F 0.7-1.3 L/WK RESID CC 2023-12-02 18:05:34 284.45 L/wk F UREA CLR UR/BSA 2023-12-02 18:05:34 15.1 mL/min F 64.0-99.0 CRE CLR UR/BSA 2023-12-02 18:05:34 25 mL/min F 85.0-125.0 CRE CLR UR 2023-12-02 18:05:34 35 mL/min F 97.0-137.0 KT/V RESID (M) 2023-12-02 18:05:34 3.93 Kt/V F L/WK/1.73 RESID 2023-12-02 18:05:34 204.7 L/WK/B F L/WK/1.73 TOTAL 2023-12-02 18:05:34 210.13 L/WK/B F UREA CLR UR 2023-12-02 18:05:34 21 mL/min F KT/V TOTAL (M) 2023-12-02 18:05:34 4.14 Kt/V F UREA CLR UR/BSA 2023-12-02 18:05:34 15.1 mL/min F 64.0-99.0 CRE CLR UR/BSA 2023-12-02 18:05:34 25 mL/min F 85.0-125.0 UREA CLR UR 2023-12-02 18:05:34 21 mL/min F CRE CLR UR 2023-12-02 18:05:34 35 mL/min F 97.0-137.0 L/WK/1.73 RESID 2023-12-02 18:05:34 204.7 L/WK/B F L/WK/1.73 TOTAL 2023-12-02 18:05:34 210.13 L/WK/B F KT/V RESID (M) 2023-12-02 18:05:34 3.93 Kt/V F KT/V TOTAL (M) 2023-12-02 18:05:34 4.14 Kt/V F L/WK RESID CC 2023-12-02 18:05:34 284.45 L/wk F UREA CLR UR/BSA 2023-12-02 18:05:34 15.1 mL/min F 64.0-99.0 CRE CLR UR/BSA 2023-12-02 18:05:34 25 mL/min F 85.0-125.0 UREA CLR UR 2023-12-02 18:05:34 21 mL/min F CRE CLR UR 2023-12-02 18:05:34 35 mL/min F 97.0-137.0 L/WK/1.73 RESID 2023-12-02 18:05:34 204.7 L/WK/B F L/WK/1.73 TOTAL 2023-12-02 18:05:34 210.13 L/WK/B F KT/V RESID (M) 2023-12-02 18:05:34 3.93 Kt/V F L/WK RESID CC 2023-12-02 18:05:34 284.45 L/wk F KT/V TOTAL (M) 2023-12-02 18:05:34 4.14 Kt/V F Urea Gen Rate 2023-12-02 18:05:34 24.7 GM/D F NPCR PD MALE 2023-12-02 18:05:34 1.33 G/KG/D F PNA (PD) 2023-12-02 18:05:34 138.9 g/day F PCR PD MALE 2023-12-02 18:05:34 124 g/day F nPNA (PD MALE) 2023-12-02 18:05:34 1.49 G/KG/D F NPCR PD MALE 2023-12-02 18:05:34 1.33 G/KG/D F PNA (PD) 2023-12-02 18:05:34 138.9 g/day F nPNA (PD MALE) 2023-12-02 18:05:34 1.49 G/KG/D F PCR PD MALE 2023-12-02 18:05:34 124 g/day F Urea Gen Rate 2023-12-02 18:05:34 24.7 GM/D F NPCR PD MALE 2023-12-02 18:05:34 1.33 G/KG/D F PNA (PD) 2023-12-02 18:05:34 138.9 g/day F nPNA (PD MALE) 2023-12-02 18:05:34 1.49 G/KG/D F Urea Gen Rate 2023-12-02 18:05:34 24.7 GM/D F PCR PD MALE 2023-12-02 18:05:34 124 g/day F Urea nitrogen [Mass/volume] in Urine 2023-12-02 18:05:17 477 mg/dL F Creatinine [Mass/volume] in Urine 2023-12-02 18:05:17 62.9 mg/dL F Urea nitrogen [Mass/volume] in Urine 2023-12-02 18:05:17 477 mg/dL F Creatinine [Mass/volume] in Urine 2023-12-02 18:05:17 62.9 mg/dL F Urea nitrogen [Mass/volume] in Urine 2023-12-02 18:05:17 477 mg/dL F Creatinine [Mass/volume] in Urine 2023-12-02 18:05:17 62.9 mg/dL F L/WK [facility] 2023-12-02 15:35:07 7.55 L/wk F L/WK/1.73 [facility] 2023-12-02 15:35:07 5.43 L/WK/B F KT/V PDF (M) 2023-12-02 15:35:07 0.21 Kt/V F L/WK [facility] 2023-12-02 15:35:07 7.55 L/wk F KT/V PDF (M) 2023-12-02 15:35:07 0.21 Kt/V F L/WK/1.73 [facility] 2023-12-02 15:35:07 5.43 L/WK/B F L/WK [facility] 2023-12-02 15:35:07 7.55 L/wk F KT/V PDF (M) 2023-12-02 15:35:07 0.21 Kt/V F L/WK/1.73 PDF 2023-12-02 15:35:07 5.43 L/WK/B F Urea nitrogen [Mass/volume] in Peritoneal fluid --24 hours post peritoneal dialysis 2023-12-02 15:34:53 52 mg/dL F Creatinine [Mass/volume] in Peritoneal dialysis fluid 2023-12-02 15:34:53 2.66 mg/dL F Creatinine [Mass/volume] in Peritoneal dialysis fluid 2023-12-02 15:34:53 2.66 mg/dL F Urea nitrogen [Mass/volume] in Peritoneal fluid --24 hours post peritoneal dialysis 2023-12-02 15:34:53 52 mg/dL F Urea nitrogen [Mass/volume] in Peritoneal fluid --24 hours post peritoneal dialysis 2023-12-02 15:34:53 52 mg/dL F Creatinine [Mass/volume] in Peritoneal dialysis fluid 2023-12-02 15:34:53 2.66 mg/dL F TBW VÍCTOR TAPIA 2023-12-02 14:38:44 53.98 Liters F BUN/CREAT 2023-12-02 14:38:44 12.8 Calc F 6.9-32.9 BSA EMMANUEL 2023-12-02 14:38:44 2.4 sq m F BUN/CREAT 2023-12-02 14:38:44 12.8 Calc F 6.9-32.9 BSA FILLMORE 2023-12-02 14:38:44 2.4 sq m F TBW VÍCTOR TAPIA 2023-12-02 14:38:44 53.98 Liters F BUN/CREAT 2023-12-02 14:38:44 12.8 Calc F 6.9-32.9 BSA FILLMORE 2023-12-02 14:38:44 2.4 sq m F TBW VÍCTOR TAPIA 2023-12-02 14:38:44 53.98 Liters F Urea nitrogen [Mass/volume] in Serum or Plasma 2023-12-02 14:38:33 52 mg/dL F 9.0-23.0 Urea nitrogen [Mass/volume] in Serum or Plasma 2023-12-02 14:38:33 52 mg/dL F 9.0-23.0 Urea nitrogen [Mass/volume] in Serum or Plasma 2023-12-02 14:38:33 52 mg/dL F 9.0-23.0 Creatinine [Mass/volume] in Serum or Plasma 2023-12-02 14:38:32 4.07 mg/dL F 0.7-1.3 Creatinine [Mass/volume] in Serum or Plasma 2023-12-02 14:38:32 4.07 mg/dL F 0.7-1.3 Creatinine [Mass/volume] in Serum or Plasma 2023-12-02 14:38:32 4.07 mg/dL F 0.7-1.3 AMPUTATE FACTOR 2023-12-01 18:00:58 0 F BODY WEIGHT (LBS) 2023-12-01 18:00:58 253.1 lbs F PATIENT AGE 2023-12-01 18:00:58 78 Years F HEIGHT IN INCHES 2023-12-01 18:00:58 74 Inches F PATIENT AGE 2023-12-01 18:00:58 78 Years F BODY WEIGHT (LBS) 2023-12-01 18:00:58 253.1 lbs F HEIGHT IN INCHES 2023-12-01 18:00:58 74 Inches F AMPUTATE FACTOR 2023-12-01 18:00:58 0 F PATIENT AGE 2023-12-01 18:00:58 78 Years F BODY WEIGHT (LBS) 2023-12-01 18:00:58 253.1 lbs F HEIGHT IN INCHES 2023-12-01 18:00:58 74 Inches F AMPUTATE FACTOR 2023-12-01 18:00:58 0 F MINIMUM GOAL: KT/V PD 2023-12-01 18:00:58 1.7 F Total Volume of EFFL/DIAL 2023-12-01 18:00:58 1650 mLs F Total Volume of EFFL/DIAL 2023-12-01 18:00:58 1650 mLs F MINIMUM GOAL: KT/V PD 2023-12-01 18:00:58 1.7 F Total Volume of EFFL/DIAL 2023-12-01 18:00:58 1650 mLs F MINIMUM GOAL: KT/V PD 2023-12-01 18:00:58 1.7 F COLLECTION TIME FOR URINE 2023-12-01 18:00:58 1440 min F TOTAL VOLUME-24 HR URINE 2023-12-01 18:00:58 3300 mL F TOTAL VOLUME-24 HR URINE 2023-12-01 18:00:58 3300 mL F COLLECTION TIME FOR URINE 2023-12-01 18:00:58 1440 min F TOTAL VOLUME-24 HR URINE 2023-12-01 18:00:58 3300 mL F COLLECTION TIME FOR URINE 2023-12-01 18:00:58 1440 min F BUN/CREAT 2023-11-12 15:23:15 16.3 Calc F 6.9-32.9 BUN/CREAT 2023-11-12 15:23:15 16.3 Calc F 6.9-32.9 BUN/CREAT 2023-11-12 15:23:15 16.3 Calc F 6.9-32.9 Creatinine [Mass/volume] in Serum or Plasma 2023-11-12 15:23:04 3.86 mg/dL F 0.7-1.3 Creatinine [Mass/volume] in Serum or Plasma 2023-11-12 15:23:04 3.86 mg/dL F 0.7-1.3 Creatinine [Mass/volume] in Serum or Plasma 2023-11-12 15:23:04 3.86 mg/dL F 0.7-1.3 Urea nitrogen [Mass/volume] in Serum or Plasma 2023-11-12 15:23:03 63 mg/dL F 9.0-23.0 Urea nitrogen [Mass/volume] in Serum or Plasma 2023-11-12 15:23:03 63 mg/dL F 9.0-23.0 Urea nitrogen [Mass/volume] in Serum or Plasma 2023-11-12 15:23:03 63 mg/dL F 9.0-23.0 UREA CLR UR/BSA 2023-10-02 00:40:25 13.6 mL/min F 64.0-99.0 UREA CLR UR 2023-10-02 00:40:25 18.8 mL/min F CRE CLR UR/BSA 2023-10-02 00:40:25 29 mL/min F 85.0-125.0 CRE CLR UR 2023-10-02 00:40:25 41 mL/min F 97.0-137.0 L/WK/1.73 RESID 2023-10-02 00:40:25 216.93 L/WK/B F L/WK/1.73 TOTAL 2023-10-02 00:40:25 224.35 L/WK/B F KT/V RESID (M) 2023-10-02 00:40:25 3.53 Kt/V F KT/V TOTAL (M) 2023-10-02 00:40:25 3.81 Kt/V F L/WK RESID CC 2023-10-02 00:40:25 300.79 L/wk F L/WK RESID CC 2023-10-02 00:40:25 300.79 L/wk F L/WK/1.73 RESID 2023-10-02 00:40:25 216.93 L/WK/B F L/WK/1.73 TOTAL 2023-10-02 00:40:25 224.35 L/WK/B F UREA CLR UR 2023-10-02 00:40:25 18.8 mL/min F KT/V TOTAL (M) 2023-10-02 00:40:25 3.81 Kt/V F KT/V RESID (M) 2023-10-02 00:40:25 3.53 Kt/V F UREA CLR UR/BSA 2023-10-02 00:40:25 13.6 mL/min F 64.0-99.0 CRE CLR UR/BSA 2023-10-02 00:40:25 29 mL/min F 85.0-125.0 CRE CLR UR 2023-10-02 00:40:25 41 mL/min F 97.0-137.0 L/WK/1.73 TOTAL 2023-10-02 00:40:25 224.35 L/WK/B F KT/V RESID (M) 2023-10-02 00:40:25 3.53 Kt/V F UREA CLR UR 2023-10-02 00:40:25 18.8 mL/min F KT/V TOTAL (M) 2023-10-02 00:40:25 3.81 Kt/V F L/WK RESID CC 2023-10-02 00:40:25 300.79 L/wk F L/WK/1.73 RESID 2023-10-02 00:40:25 216.93 L/WK/B F UREA CLR UR/BSA 2023-10-02 00:40:25 13.6 mL/min F 64.0-99.0 CRE CLR UR/BSA 2023-10-02 00:40:25 29 mL/min F 85.0-125.0 CRE CLR UR 2023-10-02 00:40:25 41 mL/min F 97.0-137.0 UREA CLR UR/BSA 2023-10-02 00:40:25 13.6 mL/min F 64.0-99.0 CRE CLR UR/BSA 2023-10-02 00:40:25 29 mL/min F 85.0-125.0 UREA CLR UR 2023-10-02 00:40:25 18.8 mL/min F CRE CLR UR 2023-10-02 00:40:25 41 mL/min F 97.0-137.0 L/WK/1.73 RESID 2023-10-02 00:40:25 216.93 L/WK/B F KT/V RESID (M) 2023-10-02 00:40:25 3.53 Kt/V F KT/V TOTAL (M) 2023-10-02 00:40:25 3.81 Kt/V F L/WK/1.73 TOTAL 2023-10-02 00:40:25 224.35 L/WK/B F L/WK RESID CC 2023-10-02 00:40:25 300.79 L/wk F CRE CLR UR/BSA 2023-10-02 00:40:25 29 mL/min F 85.0-125.0 UREA CLR UR/BSA 2023-10-02 00:40:25 13.6 mL/min F 64.0-99.0 UREA CLR UR 2023-10-02 00:40:25 18.8 mL/min F L/WK/1.73 TOTAL 2023-10-02 00:40:25 224.35 L/WK/B F KT/V RESID (M) 2023-10-02 00:40:25 3.53 Kt/V F CRE CLR UR 2023-10-02 00:40:25 41 mL/min F 97.0-137.0 L/WK/1.73 RESID 2023-10-02 00:40:25 216.93 L/WK/B F KT/V TOTAL (M) 2023-10-02 00:40:25 3.81 Kt/V F L/WK RESID CC 2023-10-02 00:40:25 300.79 L/wk F NPCR PD MALE 2023-10-02 00:40:25 1.2 G/KG/D F PNA (PD) 2023-10-02 00:40:25 124.5 g/day F PCR PD MALE 2023-10-02 00:40:25 111 g/day F nPNA (PD MALE) 2023-10-02 00:40:25 1.34 G/KG/D F Urea Gen Rate 2023-10-02 00:40:25 21.8 GM/D F PNA (PD) 2023-10-02 00:40:25 124.5 g/day F nPNA (PD MALE) 2023-10-02 00:40:25 1.34 G/KG/D F PCR PD MALE 2023-10-02 00:40:25 111 g/day F Urea Gen Rate 2023-10-02 00:40:25 21.8 GM/D F NPCR PD MALE 2023-10-02 00:40:25 1.2 G/KG/D F PCR PD MALE 2023-10-02 00:40:25 111 g/day F nPNA (PD MALE) 2023-10-02 00:40:25 1.34 G/KG/D F NPCR PD MALE 2023-10-02 00:40:25 1.2 G/KG/D F PNA (PD) 2023-10-02 00:40:25 124.5 g/day F Urea Gen Rate 2023-10-02 00:40:25 21.8 GM/D F NPCR PD MALE 2023-10-02 00:40:25 1.2 G/KG/D F PNA (PD) 2023-10-02 00:40:25 124.5 g/day F nPNA (PD MALE) 2023-10-02 00:40:25 1.34 G/KG/D F PCR PD MALE 2023-10-02 00:40:25 111 g/day F Urea Gen Rate 2023-10-02 00:40:25 21.8 GM/D F nPNA (PD MALE) 2023-10-02 00:40:25 1.34 G/KG/D F PNA (PD) 2023-10-02 00:40:25 124.5 g/day F PCR PD MALE 2023-10-02 00:40:25 111 g/day F Urea Gen Rate 2023-10-02 00:40:25 21.8 GM/D F NPCR PD MALE 2023-10-02 00:40:25 1.2 G/KG/D F Urea nitrogen [Mass/volume] in Urine 2023-10-02 00:40:02 437 mg/dL F Creatinine [Mass/volume] in Urine 2023-10-02 00:40:02 74.41 mg/dL F Urea nitrogen [Mass/volume] in Urine 2023-10-02 00:40:02 437 mg/dL F Creatinine [Mass/volume] in Urine 2023-10-02 00:40:02 74.41 mg/dL F Creatinine [Mass/volume] in Urine 2023-10-02 00:40:02 74.41 mg/dL F Urea nitrogen [Mass/volume] in Urine 2023-10-02 00:40:02 437 mg/dL F Urea nitrogen [Mass/volume] in Urine 2023-10-02 00:40:02 437 mg/dL F Creatinine [Mass/volume] in Urine 2023-10-02 00:40:02 74.41 mg/dL F Urea nitrogen [Mass/volume] in Urine 2023-10-02 00:40:02 437 mg/dL F Creatinine [Mass/volume] in Urine 2023-10-02 00:40:02 74.41 mg/dL F L/WK PDF CC 2023-10-01 21:30:05 10.29 L/wk F KT/V PDF (M) 2023-10-01 21:30:05 0.29 Kt/V F L/WK/1.73 PDF 2023-10-01 21:30:05 7.42 L/WK/B F L/WK/1.73 PDF 2023-10-01 21:30:05 7.42 L/WK/B F KT/V PDF () 2023-10-01 21:30:05 0.29 Kt/V F L/WK [facility] 2023-10-01 21:30:05 10.29 L/wk F L/WK/1.73 [facility] 2023-10-01 21:30:05 7.42 L/WK/B F KT/V [facility] () 2023-10-01 21:30:05 0.29 Kt/V F L/WK [facility] 2023-10-01 21:30:05 10.29 L/wk F L/WK [facility] 2023-10-01 21:30:05 10.29 L/wk F KT/V [facility] () 2023-10-01 21:30:05 0.29 Kt/V F L/WK/1.73 [facility] 2023-10-01 21:30:05 7.42 L/WK/B F L/WK [facility] 2023-10-01 21:30:05 10.29 L/wk F KT/V [facility] () 2023-10-01 21:30:05 0.29 Kt/V F L/WK/1.73 [facility] 2023-10-01 21:30:05 7.42 L/WK/B F Creatinine [Mass/volume] in Peritoneal dialysis fluid 2023-10-01 21:29:31 2.62 mg/dL F Urea nitrogen [Mass/volume] in Peritoneal fluid --24 hours post peritoneal dialysis 2023-10-01 21:29:31 50 mg/dL F Urea nitrogen [Mass/volume] in Peritoneal fluid --24 hours post peritoneal dialysis 2023-10-01 21:29:31 50 mg/dL F Creatinine [Mass/volume] in Peritoneal dialysis fluid 2023-10-01 21:29:31 2.62 mg/dL F Urea nitrogen [Mass/volume] in Peritoneal fluid --24 hours post peritoneal dialysis 2023-10-01 21:29:31 50 mg/dL F Creatinine [Mass/volume] in Peritoneal dialysis fluid 2023-10-01 21:29:31 2.62 mg/dL F Creatinine [Mass/volume] in Peritoneal dialysis fluid 2023-10-01 21:29:31 2.62 mg/dL F Urea nitrogen [Mass/volume] in Peritoneal fluid --24 hours post peritoneal dialysis 2023-10-01 21:29:31 50 mg/dL F Urea nitrogen [Mass/volume] in Peritoneal fluid --24 hours post peritoneal dialysis 2023-10-01 21:29:31 50 mg/dL F Creatinine [Mass/volume] in Peritoneal dialysis fluid 2023-10-01 21:29:31 2.62 mg/dL F BUN/CREAT 2023-10-01 17:02:01 12.8 Calc F 6.9-32.9 BSA EMMANUEL 2023-10-01 17:02:01 2.4 sq m F TBW VÍCTOR TAPIA 2023-10-01 17:02:01 53.79 Liters F BSA EMMANUEL 2023-10-01 17:02:01 2.4 sq m F TBW VÍCTOR TAPIA 2023-10-01 17:02:01 53.79 Liters F BUN/CREAT 2023-10-01 17:02:01 12.8 Calc F 6.9-32.9 BSA EMMANUEL 2023-10-01 17:02:01 2.4 sq m F TBW VÍCTOR TAPIA 2023-10-01 17:02:01 53.79 Liters F BUN/CREAT 2023-10-01 17:02:01 12.8 Calc F 6.9-32.9 BUN/CREAT 2023-10-01 17:02:01 12.8 Calc F 6.9-32.9 BSA EMMANUEL 2023-10-01 17:02:01 2.4 sq m F TBW VÍCTOR TAPIA 2023-10-01 17:02:01 53.79 Liters F BUN/CREAT 2023-10-01 17:02:01 12.8 Calc F 6.9-32.9 TBW VÍCTOR TAPIA 2023-10-01 17:02:01 53.79 Liters F BSA EMMANUEL 2023-10-01 17:02:01 2.4 sq m F Creatinine [Mass/volume] in Serum or Plasma 2023-10-01 17:01:07 3.92 mg/dL F 0.7-1.3 Creatinine [Mass/volume] in Serum or Plasma 2023-10-01 17:01:07 3.92 mg/dL F 0.7-1.3 Creatinine [Mass/volume] in Serum or Plasma 2023-10-01 17:01:07 3.92 mg/dL F 0.7-1.3 Creatinine [Mass/volume] in Serum or Plasma 2023-10-01 17:01:07 3.92 mg/dL F 0.7-1.3 Creatinine [Mass/volume] in Serum or Plasma 2023-10-01 17:01:07 3.92 mg/dL F 0.7-1.3 Urea nitrogen [Mass/volume] in Serum or Plasma 2023-10-01 17:01:05 50 mg/dL F 9.0-23.0 Urea nitrogen [Mass/volume] in Serum or Plasma 2023-10-01 17:01:05 50 mg/dL F 9.0-23.0 Urea nitrogen [Mass/volume] in Serum or Plasma 2023-10-01 17:01:05 50 mg/dL F 9.0-23.0 Urea nitrogen [Mass/volume] in Serum or Plasma 2023-10-01 17:01:05 50 mg/dL F 9.0-23.0 Urea nitrogen [Mass/volume] in Serum or Plasma 2023-10-01 17:01:05 50 mg/dL F 9.0-23.0 BODY WEIGHT (LBS) 2023-09-30 19:32:32 251.8 lbs F BODY WEIGHT (LBS) 2023-09-30 19:32:32 251.8 lbs F BODY WEIGHT (LBS) 2023-09-30 19:32:32 251.8 lbs F BODY WEIGHT (LBS) 2023-09-30 19:32:32 251.8 lbs F BODY WEIGHT (LBS) 2023-09-30 19:32:32 251.8 lbs F PATIENT AGE 2023-09-30 18:46:42 78 Years F HEIGHT IN INCHES 2023-09-30 18:46:42 74 Inches F AMPUTATE FACTOR 2023-09-30 18:46:42 0 F AMPUTATE FACTOR 2023-09-30 18:46:42 0 F PATIENT AGE 2023-09-30 18:46:42 78 Years F HEIGHT IN INCHES 2023-09-30 18:46:42 74 Inches F PATIENT AGE 2023-09-30 18:46:42 78 Years F HEIGHT IN INCHES 2023-09-30 18:46:42 74 Inches F AMPUTATE FACTOR 2023-09-30 18:46:42 0 F PATIENT AGE 2023-09-30 18:46:42 78 Years F HEIGHT IN INCHES 2023-09-30 18:46:42 74 Inches F AMPUTATE FACTOR 2023-09-30 18:46:42 0 F PATIENT AGE 2023-09-30 18:46:42 78 Years F HEIGHT IN INCHES 2023-09-30 18:46:42 74 Inches F AMPUTATE FACTOR 2023-09-30 18:46:42 0 F COLLECTION TIME FOR URINE 2023-09-30 18:46:42 1440 min F TOTAL VOLUME-24 HR URINE 2023-09-30 18:46:42 3100 mL F TOTAL VOLUME-24 HR URINE 2023-09-30 18:46:42 3100 mL F COLLECTION TIME FOR URINE 2023-09-30 18:46:42 1440 min F TOTAL VOLUME-24 HR URINE 2023-09-30 18:46:42 3100 mL F COLLECTION TIME FOR URINE 2023-09-30 18:46:42 1440 min F COLLECTION TIME FOR URINE 2023-09-30 18:46:42 1440 min F TOTAL VOLUME-24 HR URINE 2023-09-30 18:46:42 3100 mL F TOTAL VOLUME-24 HR URINE 2023-09-30 18:46:42 3100 mL F COLLECTION TIME FOR URINE 2023-09-30 18:46:42 1440 min F Total Volume of EFFL/DIAL 2023-09-30 18:46:42 2200 mLs F MINIMUM GOAL: KT/V PD 2023-09-30 18:46:42 1.7 F MINIMUM GOAL: KT/V PD 2023-09-30 18:46:42 1.7 F Total Volume of EFFL/DIAL 2023-09-30 18:46:42 2200 mLs F Total Volume of EFFL/DIAL 2023-09-30 18:46:42 2200 mLs F MINIMUM GOAL: KT/V PD 2023-09-30 18:46:42 1.7 F Total Volume of EFFL/DIAL 2023-09-30 18:46:42 2200 mLs F MINIMUM GOAL: KT/V PD 2023-09-30 18:46:42 1.7 F Total Volume of EFFL/DIAL 2023-09-30 18:46:42 2200 mLs F MINIMUM GOAL: KT/V PD 2023-09-30 18:46:42 1.7 F BUN/CREAT 2023-09-03 13:40:17 14.7 Calc F 6.9-32.9 BUN/CREAT 2023-09-03 13:40:17 14.7 Calc F 6.9-32.9 BUN/CREAT 2023-09-03 13:40:17 14.7 Calc F 6.9-32.9 Creatinine [Mass/volume] in Serum or Plasma 2023-09-03 13:39:31 4.15 mg/dL F 0.7-1.3 Urea nitrogen [Mass/volume] in Serum or Plasma 2023-09-03 13:39:31 61 mg/dL F 9.0-23.0 Urea nitrogen [Mass/volume] in Serum or Plasma 2023-09-03 13:39:31 61 mg/dL F 9.0-23.0 Creatinine [Mass/volume] in Serum or Plasma 2023-09-03 13:39:31 4.15 mg/dL F 0.7-1.3 Urea nitrogen [Mass/volume] in Serum or Plasma 2023-09-03 13:39:31 61 mg/dL F 9.0-23.0 Creatinine [Mass/volume] in Serum or Plasma 2023-09-03 13:39:31 4.15 mg/dL F 0.7-1.3 BUN/CREAT 2023-07-30 19:25:52 13.8 Calc F 6.9-32.9 Urea nitrogen [Mass/volume] in Serum or Plasma 2023-07-30 19:25:39 52 mg/dL F 9.0-23.0 Creatinine [Mass/volume] in Serum or Plasma 2023-07-30 19:25:39 3.77 mg/dL F 0.7-1.3 BUN/CREAT 2023-07-02 18:16:45 13.1 Calc F 6.9-32.9 UREA CLR UR/BSA 2023-07-02 18:16:45 17.7 mL/min F 64.0-99.0 CRE CLR UR/BSA 2023-07-02 18:16:45 30 mL/min F 85.0-125.0 UREA CLR UR 2023-07-02 18:16:45 24.4 mL/min F L/WK/1.73 RESID 2023-07-02 18:16:45 240.2 L/WK/B F CRE CLR UR 2023-07-02 18:16:45 41 mL/min F 97.0-137.0 L/WK PDF CC 2023-07-02 18:16:45 11.65 L/wk F KT/V PDF (M) 2023-07-02 18:16:45 0.31 Kt/V F L/WK/1.73 TOTAL 2023-07-02 18:16:45 248.63 L/WK/B F KT/V RESID (M) 2023-07-02 18:16:45 4.61 Kt/V F L/WK/1.73 PDF 2023-07-02 18:16:45 8.43 L/WK/B F KT/V TOTAL (M) 2023-07-02 18:16:45 4.91 Kt/V F L/WK RESID CC 2023-07-02 18:16:45 331.93 L/wk F L/WK RESID CC 2023-07-02 18:16:45 331.93 L/wk F UREA CLR UR 2023-07-02 18:16:45 24.4 mL/min F KT/V PDF (M) 2023-07-02 18:16:45 0.31 Kt/V F KT/V RESID (M) 2023-07-02 18:16:45 4.61 Kt/V F L/WK/1.73 TOTAL 2023-07-02 18:16:45 248.63 L/WK/B F BUN/CREAT 2023-07-02 18:16:45 13.1 Calc F 6.9-32.9 L/WK/1.73 PDF 2023-07-02 18:16:45 8.43 L/WK/B F KT/V TOTAL (M) 2023-07-02 18:16:45 4.91 Kt/V F L/WK/1.73 RESID 2023-07-02 18:16:45 240.2 L/WK/B F L/WK PDF CC 2023-07-02 18:16:45 11.65 L/wk F UREA CLR UR/BSA 2023-07-02 18:16:45 17.7 mL/min F 64.0-99.0 CRE CLR UR/BSA 2023-07-02 18:16:45 30 mL/min F 85.0-125.0 CRE CLR UR 2023-07-02 18:16:45 41 mL/min F 97.0-137.0 BUN/CREAT 2023-07-02 18:16:45 13.1 Calc F 6.9-32.9 UREA CLR UR/BSA 2023-07-02 18:16:45 17.7 mL/min F 64.0-99.0 CRE CLR UR/BSA 2023-07-02 18:16:45 30 mL/min F 85.0-125.0 UREA CLR UR 2023-07-02 18:16:45 24.4 mL/min F CRE CLR UR 2023-07-02 18:16:45 41 mL/min F 97.0-137.0 L/WK/1.73 RESID 2023-07-02 18:16:45 240.2 L/WK/B F L/WK PDF CC 2023-07-02 18:16:45 11.65 L/wk F L/WK/1.73 TOTAL 2023-07-02 18:16:45 248.63 L/WK/B F KT/V PDF (M) 2023-07-02 18:16:45 0.31 Kt/V F KT/V RESID (M) 2023-07-02 18:16:45 4.61 Kt/V F L/WK RESID CC 2023-07-02 18:16:45 331.93 L/wk F L/WK/1.73 PDF 2023-07-02 18:16:45 8.43 L/WK/B F KT/V TOTAL (M) 2023-07-02 18:16:45 4.91 Kt/V F Urea nitrogen [Mass/volume] in Serum or Plasma 2023-07-02 18:16:29 51 mg/dL F 9.0-23.0 Creatinine [Mass/volume] in Serum or Plasma 2023-07-02 18:16:29 3.88 mg/dL F 0.7-1.3 Creatinine [Mass/volume] in Serum or Plasma 2023-07-02 18:16:29 3.88 mg/dL F 0.7-1.3 Urea nitrogen [Mass/volume] in Serum or Plasma 2023-07-02 18:16:29 51 mg/dL F 9.0-23.0 Urea nitrogen [Mass/volume] in Serum or Plasma 2023-07-02 18:16:29 51 mg/dL F 9.0-23.0 Creatinine [Mass/volume] in Serum or Plasma 2023-07-02 18:16:29 3.88 mg/dL F 0.7-1.3 NPCR PD MALE 2023-07-02 16:47:45 1.52 G/KG/D F PNA (PD) 2023-07-02 16:47:45 157.9 g/day F nPNA (PD MALE) 2023-07-02 16:47:45 1.71 G/KG/D F PCR PD MALE 2023-07-02 16:47:45 140 g/day F Urea Gen Rate 2023-07-02 16:47:45 28.5 GM/D F PCR PD MALE 2023-07-02 16:47:45 140 g/day F NPCR PD MALE 2023-07-02 16:47:45 1.52 G/KG/D F nPNA (PD MALE) 2023-07-02 16:47:45 1.71 G/KG/D F PNA (PD) 2023-07-02 16:47:45 157.9 g/day F Urea Gen Rate 2023-07-02 16:47:45 28.5 GM/D F NPCR PD MALE 2023-07-02 16:47:45 1.52 G/KG/D F PNA (PD) 2023-07-02 16:47:45 157.9 g/day F nPNA (PD MALE) 2023-07-02 16:47:45 1.71 G/KG/D F PCR PD MALE 2023-07-02 16:47:45 140 g/day F Urea Gen Rate 2023-07-02 16:47:45 28.5 GM/D F Creatinine [Mass/volume] in Peritoneal dialysis fluid 2023-07-02 16:47:32 2.69 mg/dL F Urea nitrogen [Mass/volume] in Peritoneal fluid --24 hours post peritoneal dialysis 2023-07-02 16:47:32 50 mg/dL F Creatinine [Mass/volume] in Peritoneal dialysis fluid 2023-07-02 16:47:32 2.69 mg/dL F Urea nitrogen [Mass/volume] in Peritoneal fluid --24 hours post peritoneal dialysis 2023-07-02 16:47:32 50 mg/dL F Creatinine [Mass/volume] in Peritoneal dialysis fluid 2023-07-02 16:47:32 2.69 mg/dL F Urea nitrogen [Mass/volume] in Peritoneal fluid --24 hours post peritoneal dialysis 2023-07-02 16:47:32 50 mg/dL F BSA EMMANUEL 2023-07-02 16:46:03 2.39 sq m F TBW VÍCTOR TAPIA 2023-07-02 16:46:03 53.48 Liters F ADEN BENITEZ 2023-07-02 16:46:03 2.39 sq m F TBW VÍCTOR TAPIA 2023-07-02 16:46:03 53.48 Liters F ADEN BENITEZ 2023-07-02 16:46:03 2.39 sq m F TBW VÍCTOR TAPIA 2023-07-02 16:46:03 53.48 Liters F Urea nitrogen [Mass/volume] in Urine 2023-07-02 16:45:29 579 mg/dL F Creatinine [Mass/volume] in Urine 2023-07-02 16:45:29 74.65 mg/dL F Creatinine [Mass/volume] in Urine 2023-07-02 16:45:29 74.65 mg/dL F Urea nitrogen [Mass/volume] in Urine 2023-07-02 16:45:29 579 mg/dL F Creatinine [Mass/volume] in Urine 2023-07-02 16:45:29 74.65 mg/dL F Urea nitrogen [Mass/volume] in Urine 2023-07-02 16:45:29 579 mg/dL F PATIENT AGE 2023-07-01 18:18:39 78 Years F BODY WEIGHT (LBS) 2023-07-01 18:18:39 249.8 lbs F HEIGHT IN INCHES 2023-07-01 18:18:39 74 Inches F AMPUTATE FACTOR 2023-07-01 18:18:39 0 F PATIENT AGE 2023-07-01 18:18:39 78 Years F AMPUTATE FACTOR 2023-07-01 18:18:39 0 F HEIGHT IN INCHES 2023-07-01 18:18:39 74 Inches F BODY WEIGHT (LBS) 2023-07-01 18:18:39 249.8 lbs F PATIENT AGE 2023-07-01 18:18:39 78 Years F BODY WEIGHT (LBS) 2023-07-01 18:18:39 249.8 lbs F HEIGHT IN INCHES 2023-07-01 18:18:39 74 Inches F AMPUTATE FACTOR 2023-07-01 18:18:39 0 F Total Volume of EFFL/DIAL 2023-07-01 18:18:39 2400 mLs F MINIMUM GOAL: KT/V PD 2023-07-01 18:18:39 1.7 F MINIMUM GOAL: KT/V PD 2023-07-01 18:18:39 1.7 F Total Volume of EFFL/DIAL 2023-07-01 18:18:39 2400 mLs F Total Volume of EFFL/DIAL 2023-07-01 18:18:39 2400 mLs F MINIMUM GOAL: KT/V PD 2023-07-01 18:18:39 1.7 F COLLECTION TIME FOR URINE 2023-07-01 18:18:39 1440 min F TOTAL VOLUME-24 HR URINE 2023-07-01 18:18:39 3100 mL F COLLECTION TIME FOR URINE 2023-07-01 18:18:39 1440 min F TOTAL VOLUME-24 HR URINE 2023-07-01 18:18:39 3100 mL F TOTAL VOLUME-24 HR URINE 2023-07-01 18:18:39 3100 mL F COLLECTION TIME FOR URINE 2023-07-01 18:18:39 1440 min F BUN/CREAT 2023-06-05 20:45:01 13.4 Calc F 6.9-32.9 BUN/CREAT 2023-06-05 20:45:01 13.4 Calc F 6.9-32.9 BUN/CREAT 2023-06-05 20:45:01 13.4 Calc F 6.9-32.9 BUN/CREAT 2023-06-05 20:45:01 13.4 Calc F 6.9-32.9 Creatinine [Mass/volume] in Serum or Plasma 2023-06-05 20:44:27 3.95 mg/dL F 0.7-1.3 Urea nitrogen [Mass/volume] in Serum or Plasma 2023-06-05 20:44:27 53 mg/dL F 9.0-23.0 Urea nitrogen [Mass/volume] in Serum or Plasma 2023-06-05 20:44:27 53 mg/dL F 9.0-23.0 Creatinine [Mass/volume] in Serum or Plasma 2023-06-05 20:44:27 3.95 mg/dL F 0.7-1.3 Urea nitrogen [Mass/volume] in Serum or Plasma 2023-06-05 20:44:27 53 mg/dL F 9.0-23.0 Creatinine [Mass/volume] in Serum or Plasma 2023-06-05 20:44:27 3.95 mg/dL F 0.7-1.3 Urea nitrogen [Mass/volume] in Serum or Plasma 2023-06-05 20:44:27 53 mg/dL F 9.0-23.0 Creatinine [Mass/volume] in Serum or Plasma 2023-06-05 20:44:27 3.95 mg/dL F 0.7-1.3 BSA EMMANUEL 2023-06-05 05:04:09 0 sq m F TBW VÍCTOR MALE 2023-06-05 05:04:09 15.31 Liters F TBW VÍCTOR MALE 2023-06-05 05:04:09 15.31 Liters F BSA EMMANUEL 2023-06-05 05:04:09 0 sq m F BSA EMMANUEL 2023-06-05 05:04:09 0 sq m F TBW VÍCTOR MALE 2023-06-05 05:04:09 15.31 Liters F BSA EMMANUEL 2023-06-05 05:04:09 0 sq m F TBW VÍCTOR TAPIA 2023-06-05 05:04:09 15.31 Liters F BUN/CREAT 2023-05-06 21:17:16 14.6 Calc F 6.9-32.9 BUN/CREAT 2023-05-06 21:17:16 14.6 Calc F 6.9-32.9 BUN/CREAT 2023-05-06 21:17:16 14.6 Calc F 6.9-32.9 Creatinine [Mass/volume] in Serum or Plasma 2023-05-06 21:16:32 3.77 mg/dL F 0.7-1.3 Urea nitrogen [Mass/volume] in Serum or Plasma 2023-05-06 21:16:32 55 mg/dL F 9.0-23.0 Urea nitrogen [Mass/volume] in Serum or Plasma 2023-05-06 21:16:32 55 mg/dL F 9.0-23.0 Creatinine [Mass/volume] in Serum or Plasma 2023-05-06 21:16:32 3.77 mg/dL F 0.7-1.3 Urea nitrogen [Mass/volume] in Serum or Plasma 2023-05-06 21:16:32 55 mg/dL F 9.0-23.0 Creatinine [Mass/volume] in Serum or Plasma 2023-05-06 21:16:32 3.77 mg/dL F 0.7-1.3 BUN/CREAT 2023-04-04 20:06:33 13.3 Calc F 6.9-32.9 BUN/CREAT 2023-04-04 20:06:33 13.3 Calc F 6.9-32.9 BUN/CREAT 2023-04-04 20:06:33 13.3 Calc F 6.9-32.9 BUN/CREAT 2023-04-04 20:06:33 13.3 Calc F 6.9-32.9 Creatinine [Mass/volume] in Serum or Plasma 2023-04-04 20:06:14 3.84 mg/dL F 0.7-1.3 Urea nitrogen [Mass/volume] in Serum or Plasma 2023-04-04 20:06:14 51 mg/dL F 9.0-23.0 Urea nitrogen [Mass/volume] in Serum or Plasma 2023-04-04 20:06:14 51 mg/dL F 9.0-23.0 Creatinine [Mass/volume] in Serum or Plasma 2023-04-04 20:06:14 3.84 mg/dL F 0.7-1.3 Urea nitrogen [Mass/volume] in Serum or Plasma 2023-04-04 20:06:14 51 mg/dL F 9.0-23.0 Creatinine [Mass/volume] in Serum or Plasma 2023-04-04 20:06:14 3.84 mg/dL F 0.7-1.3 Urea nitrogen [Mass/volume] in Serum or Plasma 2023-04-04 20:06:14 51 mg/dL F 9.0-23.0 Creatinine [Mass/volume] in Serum or Plasma 2023-04-04 20:06:14 3.84 mg/dL F 0.7-1.3 UREA CLR UR/BSA 2023-03-06 00:42:18 see comments F 64.0-99.0 Unable to Calculate.Clearanc e is reported PER 1.73m^2 if height and weight are provided. CRE CLR UR/BSA 2023-03-06 00:42:18 see comments F 85.0-125.0 Unable to Calculate.Clearanc e is reported PER 1.73m^2 if height and weight are provided. UREA CLR UR 2023-03-06 00:42:18 19.7 mL/min F CRE CLR UR 2023-03-06 00:42:18 34 mL/min F 97.0-137.0 L/WK PDF CC 2023-03-06 00:42:18 10.08 L/wk F KT/V PDF (M) 2023-03-06 00:42:18 0.95 Kt/V F L/WK RESID CC 2023-03-06 00:42:18 271.75 L/wk F KT/V TOTAL (M) 2023-03-06 00:42:18 13.93 Kt/V F KT/V RESID (M) 2023-03-06 00:42:18 12.98 Kt/V F KT/V RESID (M) 2023-03-06 00:42:18 12.98 Kt/V F UREA CLR UR 2023-03-06 00:42:18 19.7 mL/min F KT/V TOTAL (M) 2023-03-06 00:42:18 13.93 Kt/V F L/WK RESID CC 2023-03-06 00:42:18 271.75 L/wk F KT/V PDF (M) 2023-03-06 00:42:18 0.95 Kt/V F L/WK PDF CC 2023-03-06 00:42:18 10.08 L/wk F UREA CLR UR/BSA 2023-03-06 00:42:18 see comments F 64.0-99.0 Unable to Calculate.Clearanc e is reported PER 1.73m^2 if height and weight are provided. CRE CLR UR/BSA 2023-03-06 00:42:18 see comments F 85.0-125.0 Unable to Calculate.Clearanc e is reported PER 1.73m^2 if height and weight are provided. CRE CLR UR 2023-03-06 00:42:18 34 mL/min F 97.0-137.0 UREA CLR UR/BSA 2023-03-06 00:42:18 see comments F 64.0-99.0 Unable to Calculate.Clearanc e is reported PER 1.73m^2 if height and weight are provided. UREA CLR UR 2023-03-06 00:42:18 19.7 mL/min F CRE CLR UR/BSA 2023-03-06 00:42:18 see comments F 85.0-125.0 Unable to Calculate.Clearanc e is reported PER 1.73m^2 if height and weight are provided. CRE CLR UR 2023-03-06 00:42:18 34 mL/min F 97.0-137.0 L/WK PDF 2023-03-06 00:42:18 10.08 L/wk F KT/V RESID (M) 2023-03-06 00:42:18 12.98 Kt/V F KT/V PDF (M) 2023-03-06 00:42:18 0.95 Kt/V F L/WK RESID 2023-03-06 00:42:18 271.75 L/wk F KT/V TOTAL (M) 2023-03-06 00:42:18 13.93 Kt/V F KT/V PDF (M) 2023-03-06 00:42:18 0.95 Kt/V F UREA CLR UR/BSA 2023-03-06 00:42:18 see comments F 64.0-99.0 Unable to Calculate.Clearanc e is reported PER 1.73m^2 if height and weight are provided. CRE CLR UR/BSA 2023-03-06 00:42:18 see comments F 85.0-125.0 Unable to Calculate.Clearanc e is reported PER 1.73m^2 if height and weight are provided. UREA CLR UR 2023-03-06 00:42:18 19.7 mL/min F CRE CLR UR 2023-03-06 00:42:18 34 mL/min F 97.0-137.0 L/WK PDF CC 2023-03-06 00:42:18 10.08 L/wk F KT/V TOTAL (M) 2023-03-06 00:42:18 13.93 Kt/V F KT/V RESID (M) 2023-03-06 00:42:18 12.98 Kt/V F L/WK RESID CC 2023-03-06 00:42:18 271.75 L/wk F Urea nitrogen [Mass/volume] in Serum or Plasma 2023-03-06 00:42:07 57 mg/dL F 9.0-23.0 Creatinine [Mass/volume] in Serum or Plasma 2023-03-06 00:42:07 4.04 mg/dL F 0.7-1.3 BUN/CREAT 2023-03-06 00:42:07 14.1 Calc F 6.9-32.9 Creatinine [Mass/volume] in Serum or Plasma 2023-03-06 00:42:07 4.04 mg/dL F 0.7-1.3 BUN/CREAT 2023-03-06 00:42:07 14.1 Calc F 6.9-32.9 Urea nitrogen [Mass/volume] in Serum or Plasma 2023-03-06 00:42:07 57 mg/dL F 9.0-23.0 Urea nitrogen [Mass/volume] in Serum or Plasma 2023-03-06 00:42:07 57 mg/dL F 9.0-23.0 Creatinine [Mass/volume] in Serum or Plasma 2023-03-06 00:42:07 4.04 mg/dL F 0.7-1.3 BUN/CREAT 2023-03-06 00:42:07 14.1 Calc F 6.9-32.9 Urea nitrogen [Mass/volume] in Serum or Plasma 2023-03-06 00:42:07 57 mg/dL F 9.0-23.0 Creatinine [Mass/volume] in Serum or Plasma 2023-03-06 00:42:07 4.04 mg/dL F 0.7-1.3 BUN/CREAT 2023-03-06 00:42:07 14.1 Calc F 6.9-32.9 NPCR PD MALE 2023-03-05 21:42:19 4.44 G/KG/D F nPNA (PD MALE) 2023-03-05 21:42:19 5.48 G/KG/D F PNA (PD) 2023-03-05 21:42:19 144.6 g/day F PCR PD MALE 2023-03-05 21:42:19 117 g/day F Urea Gen Rate 2023-03-05 21:42:19 25.8 GM/D F PCR PD MALE 2023-03-05 21:42:19 117 g/day F PNA (PD) 2023-03-05 21:42:19 144.6 g/day F NPCR PD MALE 2023-03-05 21:42:19 4.44 G/KG/D F Urea Gen Rate 2023-03-05 21:42:19 25.8 GM/D F nPNA (PD MALE) 2023-03-05 21:42:19 5.48 G/KG/D F NPCR PD MALE 2023-03-05 21:42:19 4.44 G/KG/D F PNA (PD) 2023-03-05 21:42:19 144.6 g/day F nPNA (PD MALE) 2023-03-05 21:42:19 5.48 G/KG/D F PCR PD MALE 2023-03-05 21:42:19 117 g/day F Urea Gen Rate 2023-03-05 21:42:19 25.8 GM/D F NPCR PD MALE 2023-03-05 21:42:19 4.44 G/KG/D F PNA (PD) 2023-03-05 21:42:19 144.6 g/day F PCR PD MALE 2023-03-05 21:42:19 117 g/day F nPNA (PD MALE) 2023-03-05 21:42:19 5.48 G/KG/D F Urea Gen Rate 2023-03-05 21:42:19 25.8 GM/D F Urea nitrogen [Mass/volume] in Urine 2023-03-05 21:41:09 522 mg/dL F Creatinine [Mass/volume] in Urine 2023-03-05 21:41:09 64.19 mg/dL F Urea nitrogen [Mass/volume] in Urine 2023-03-05 21:41:09 522 mg/dL F Creatinine [Mass/volume] in Urine 2023-03-05 21:41:09 64.19 mg/dL F Urea nitrogen [Mass/volume] in Urine 2023-03-05 21:41:09 522 mg/dL F Creatinine [Mass/volume] in Urine 2023-03-05 21:41:09 64.19 mg/dL F Creatinine [Mass/volume] in Urine 2023-03-05 21:41:09 64.19 mg/dL F Urea nitrogen [Mass/volume] in Urine 2023-03-05 21:41:09 522 mg/dL F L/WK/1.73 RESID 2023-03-05 17:27:49 see comments F Unable to Calculate. L/WK/1.73 TOTAL 2023-03-05 17:27:49 see comments F Unable to Calculate. L/WK/1.73 PDF 2023-03-05 17:27:49 see comments F Unable to Calculate. L/WK/1.73 PDF 2023-03-05 17:27:49 see comments F Unable to Calculate. L/WK/1.73 TOTAL 2023-03-05 17:27:49 see comments F Unable to Calculate. L/WK/1.73 RESID 2023-03-05 17:27:49 see comments F Unable to Calculate. L/WK/1.73 RESID 2023-03-05 17:27:49 see comments F Unable to Calculate. L/WK/1.73 TOTAL 2023-03-05 17:27:49 see comments F Unable to Calculate. L/WK/1.73 PDF 2023-03-05 17:27:49 see comments F Unable to Calculate. L/WK/1.73 RESID 2023-03-05 17:27:49 see comments F Unable to Calculate. L/WK/1.73 TOTAL 2023-03-05 17:27:49 see comments F Unable to Calculate. L/WK/1.73 PDF 2023-03-05 17:27:49 see comments F Unable to Calculate. Creatinine [Mass/volume] in Peritoneal dialysis fluid 2023-03-05 17:27:11 2.91 mg/dL F Urea nitrogen [Mass/volume] in Peritoneal fluid --24 hours post peritoneal dialysis 2023-03-05 17:27:11 59 mg/dL F Creatinine [Mass/volume] in Peritoneal dialysis fluid 2023-03-05 17:27:11 2.91 mg/dL F Urea nitrogen [Mass/volume] in Peritoneal fluid --24 hours post peritoneal dialysis 2023-03-05 17:27:11 59 mg/dL F Creatinine [Mass/volume] in Peritoneal dialysis fluid 2023-03-05 17:27:11 2.91 mg/dL F Urea nitrogen [Mass/volume] in Peritoneal fluid --24 hours post peritoneal dialysis 2023-03-05 17:27:11 59 mg/dL F Creatinine [Mass/volume] in Peritoneal dialysis fluid 2023-03-05 17:27:11 2.91 mg/dL F Urea nitrogen [Mass/volume] in Peritoneal fluid --24 hours post peritoneal dialysis 2023-03-05 17:27:11 59 mg/dL F BODY WEIGHT (LBS) 2023-03-04 07:29:16 0 lbs F HEIGHT IN INCHES 2023-03-04 07:29:16 74 Inches F PATIENT AGE 2023-03-04 07:29:16 78 Years F AMPUTATE FACTOR 2023-03-04 07:29:16 0 F HEIGHT IN INCHES 2023-03-04 07:29:16 74 Inches F BODY WEIGHT (LBS) 2023-03-04 07:29:16 0 lbs F PATIENT AGE 2023-03-04 07:29:16 78 Years F AMPUTATE FACTOR 2023-03-04 07:29:16 0 F PATIENT AGE 2023-03-04 07:29:16 78 Years F HEIGHT IN INCHES 2023-03-04 07:29:16 74 Inches F BODY WEIGHT (LBS) 2023-03-04 07:29:16 0 lbs F AMPUTATE FACTOR 2023-03-04 07:29:16 0 F PATIENT AGE 2023-03-04 07:29:16 78 Years F AMPUTATE FACTOR 2023-03-04 07:29:16 0 F BODY WEIGHT (LBS) 2023-03-04 07:29:16 0 lbs F HEIGHT IN INCHES 2023-03-04 07:29:16 74 Inches F Total Volume of EFFL/DIAL 2023-03-04 07:29:16 2000 mLs F MINIMUM GOAL: KT/V PD 2023-03-04 07:29:16 1.7 F Total Volume of EFFL/DIAL 2023-03-04 07:29:16 2000 mLs F MINIMUM GOAL: KT/V PD 2023-03-04 07:29:16 1.7 F Total Volume of EFFL/DIAL 2023-03-04 07:29:16 2000 mLs F MINIMUM GOAL: KT/V PD 2023-03-04 07:29:16 1.7 F MINIMUM GOAL: KT/V PD 2023-03-04 07:29:16 1.7 F Total Volume of EFFL/DIAL 2023-03-04 07:29:16 2000 mLs F COLLECTION TIME FOR URINE 2023-03-04 07:29:16 1440 min F TOTAL VOLUME-24 HR URINE 2023-03-04 07:29:16 3100 mL F TOTAL VOLUME-24 HR URINE 2023-03-04 07:29:16 3100 mL F COLLECTION TIME FOR URINE 2023-03-04 07:29:16 1440 min F COLLECTION TIME FOR URINE 2023-03-04 07:29:16 1440 min F TOTAL VOLUME-24 HR URINE 2023-03-04 07:29:16 3100 mL F COLLECTION TIME FOR URINE 2023-03-04 07:29:16 1440 min F TOTAL VOLUME-24 HR URINE 2023-03-04 07:29:16 3100 mL F Anemia Description Draw Date Result/Unit Status Ref Range Result Comments Ferritin [Mass/volume] in Serum or Plasma 2024-11-05 08:05:41 58 ng/mL F 22.0-322.0 IRON SATURATION 2024-11-04 08:26:52 11 % F 21.0-49.0 TIBC 2024-11-04 08:26:52 274 ug/dL F 250.0-425.0 Iron [Mass/volume] in Serum or Plasma 2024-11-04 08:25:16 31 ug/dL F 65.0-175.0 Iron binding capacity.unsaturated [Mass/volume] in Serum or Plasma 2024-11-04 08:25:16 243 ug/dL F 75.0-360.0 HCT CALC HGBX3 2024-11-04 08:23:13 29.7 % F 42.0-52.0 Erythrocyte distribution width [Ratio] by Automated count 2024-11-04 08:07:12 18 % F 11.0-15.0 Hematocrit [Volume Fraction] of Blood by Automated count 2024-11-04 08:07:12 32.6 % F 41.0-53.0 Erythrocytes [#/volume] in Blood by Automated count 2024-11-04 08:07:12 3.87 x 10^6 cells/uL F 4.6-6.2 Hemoglobin [Mass/volume] in Blood 2024-11-04 08:07:12 9.9 g/dL F 14.0-18.0 MCV [Entitic volume] by Automated count 2024-11-04 08:07:12 84.1 fL F 80.0-100.0 MCH [Entitic mass] by Automated count 2024-11-04 08:07:12 25.6 pg F 25.9-34.2 Platelets [#/volume] in Blood by Automated count 2024-11-04 08:07:12 181 x 10^3 cells/uL F 140.0-450.0 MCHC [Mass/volume] by Automated count 2024-11-04 08:07:12 30.5 g/dL F 29.6-35.3 Reticulocytes/100 erythrocytes in Blood by Automated count 2024-11-04 08:07:12 1.88 % F 0.7-2.5 IRON SATURATION 2024-10-07 09:00:02 4 % F 21.0-49.0 TIBC 2024-10-07 09:00:02 285 ug/dL F 250.0-425.0 Iron [Mass/volume] in Serum or Plasma 2024-10-07 08:26:39 12 ug/dL F 65.0-175.0 Iron binding capacity.unsaturated [Mass/volume] in Serum or Plasma 2024-10-07 08:26:37 273 ug/dL F 75.0-360.0 Ferritin [Mass/volume] in Serum or Plasma 2024-10-07 07:13:20 27 ng/mL F 22.0-322.0 HCT CALC HGBX3 2024-10-07 05:40:53 24.3 % F 42.0-52.0 Erythrocyte distribution width [Ratio] by Automated count 2024-10-07 05:39:09 16.9 % F 11.0-15.0 Hematocrit [Volume Fraction] of Blood by Automated count 2024-10-07 05:39:09 25.6 % F 41.0-53.0 Erythrocytes [#/volume] in Blood by Automated count 2024-10-07 05:39:09 2.96 x 10^6 cells/uL F 4.6-6.2 Hemoglobin [Mass/volume] in Blood 2024-10-07 05:39:09 8.1 g/dL F 14.0-18.0 MCV [Entitic volume] by Automated count 2024-10-07 05:39:09 86.5 fL F 80.0-100.0 MCH [Entitic mass] by Automated count 2024-10-07 05:39:09 27.2 pg F 25.9-34.2 Platelets [#/volume] in Blood by Automated count 2024-10-07 05:39:09 212 x 10^3 cells/uL F 140.0-450.0 MCHC [Mass/volume] by Automated count 2024-10-07 05:39:09 31.5 g/dL F 29.6-35.3 HCT CALC HGBX3 2024-09-17 07:37:47 24 % F 42.0-52.0 Erythrocyte distribution width [Ratio] by Automated count 2024-09-17 07:30:03 15.2 % F 11.0-15.0 Erythrocytes [#/volume] in Blood by Automated count 2024-09-17 07:30:03 2.8 x 10'6 cells/uL F 4.6-6.2 Hematocrit [Volume Fraction] of Blood by Automated count 2024-09-17 07:30:03 25.8 % F 41.0-53.0 MCV [Entitic volume] by Automated count 2024-09-17 07:30:03 92.4 fL F 80.0-100.0 MCH [Entitic mass] by Automated count 2024-09-17 07:30:03 28.8 pg F 25.9-34.2 MCHC [Mass/volume] by Automated count 2024-09-17 07:30:03 31.1 g/dL F 29.6-35.3 Platelets [#/volume] in Blood by Automated count 2024-09-17 07:30:03 191 x 10^3 cells/uL F 140.0-450.0 Hemoglobin [Mass/volume] in Blood 2024-09-17 07:30:03 8 g/dL F 14.0-18.0 Reticulocytes/100 erythrocytes in Blood by Automated count 2024-09-17 07:30:03 4.07 % F 0.7-2.5 Ferritin [Mass/volume] in Serum or Plasma 2024-09-17 06:18:01 33 ng/mL F 22.0-322.0 IRON SATURATION 2024-09-16 19:25:40 16 % F 21.0-49.0 TIBC 2024-09-16 19:25:40 254 ug/dL F 250.0-425.0 Iron [Mass/volume] in Serum or Plasma 2024-09-16 19:22:15 40 ug/dL F 65.0-175.0 Iron binding capacity.unsaturated [Mass/volume] in Serum or Plasma 2024-09-16 19:22:15 214 ug/dL F 75.0-360.0 Ferritin [Mass/volume] in Serum or Plasma 2024-08-05 07:44:20 57 ng/mL F 22.0-322.0 Ferritin [Mass/volume] in Serum or Plasma 2024-08-05 07:44:20 57 ng/mL F 22.0-322.0 IRON SATURATION 2024-08-04 08:11:48 29 % F 21.0-49.0 TIBC 2024-08-04 08:11:48 259 ug/dL F 250.0-425.0 TIBC 2024-08-04 08:11:48 259 ug/dL F 250.0-425.0 IRON SATURATION 2024-08-04 08:11:48 29 % F 21.0-49.0 Iron [Mass/volume] in Serum or Plasma 2024-08-04 07:43:39 75 ug/dL F 65.0-175.0 Iron binding capacity.unsaturated [Mass/volume] in Serum or Plasma 2024-08-04 07:43:39 184 ug/dL F 75.0-360.0 Iron [Mass/volume] in Serum or Plasma 2024-08-04 07:43:39 75 ug/dL F 65.0-175.0 Iron binding capacity.unsaturated [Mass/volume] in Serum or Plasma 2024-08-04 07:43:39 184 ug/dL F 75.0-360.0 HCT CALC HGBX3 2024-08-03 20:01:01 37.8 % F 42.0-52.0 HCT CALC HGBX3 2024-08-03 20:01:01 37.8 % F 42.0-52.0 Erythrocytes [#/volume] in Blood by Automated count 2024-08-03 19:59:13 4.34 x 10'6 cells/uL F 4.6-6.2 Erythrocyte distribution width [Ratio] by Automated count 2024-08-03 19:59:13 14.3 % F 11.0-15.0 Hemoglobin [Mass/volume] in Blood 2024-08-03 19:59:13 12.6 g/dL F 14.0-18.0 MCH [Entitic mass] by Automated count 2024-08-03 19:59:13 29.1 pg F 25.9-34.2 MCHC [Mass/volume] by Automated count 2024-08-03 19:59:13 32.2 g/dL F 29.6-35.3 Hematocrit [Volume Fraction] of Blood by Automated count 2024-08-03 19:59:13 39.2 % F 41.0-53.0 MCV [Entitic volume] by Automated count 2024-08-03 19:59:13 90.3 fL F 80.0-100.0 Platelets [#/volume] in Blood by Automated count 2024-08-03 19:59:13 207 x 10'3 cells/uL F 140.0-450.0 Erythrocyte distribution width [Ratio] by Automated count 2024-08-03 19:59:13 14.3 % F 11.0-15.0 Erythrocytes [#/volume] in Blood by Automated count 2024-08-03 19:59:13 4.34 x 10'6 cells/uL F 4.6-6.2 Hemoglobin [Mass/volume] in Blood 2024-08-03 19:59:13 12.6 g/dL F 14.0-18.0 Hematocrit [Volume Fraction] of Blood by Automated count 2024-08-03 19:59:13 39.2 % F 41.0-53.0 MCV [Entitic volume] by Automated count 2024-08-03 19:59:13 90.3 fL F 80.0-100.0 MCHC [Mass/volume] by Automated count 2024-08-03 19:59:13 32.2 g/dL F 29.6-35.3 Platelets [#/volume] in Blood by Automated count 2024-08-03 19:59:13 207 x 10^3 cells/uL F 140.0-450.0 MCH [Entitic mass] by Automated count 2024-08-03 19:59:13 29.1 pg F 25.9-34.2 Ferritin [Mass/volume] in Serum or Plasma 2024-07-01 04:47:22 99 ng/mL F 22.0-322.0 Ferritin [Mass/volume] in Serum or Plasma 2024-07-01 04:47:22 99 ng/mL F 22.0-322.0 Ferritin [Mass/volume] in Serum or Plasma 2024-07-01 04:47:22 99 ng/mL F 22.0-322.0 IRON SATURATION 2024-07-01 02:49:14 24 % F 21.0-49.0 TIBC 2024-07-01 02:49:14 237 ug/dL F 250.0-425.0 IRON SATURATION 2024-07-01 02:49:14 24 % F 21.0-49.0 TIBC 2024-07-01 02:49:14 237 ug/dL F 250.0-425.0 IRON SATURATION 2024-07-01 02:49:14 24 % F 21.0-49.0 TIBC 2024-07-01 02:49:14 237 ug/dL F 250.0-425.0 Iron [Mass/volume] in Serum or Plasma 2024-07-01 02:47:36 58 ug/dL F 65.0-175.0 Iron binding capacity.unsaturated [Mass/volume] in Serum or Plasma 2024-07-01 02:47:36 179 ug/dL F 75.0-360.0 Iron [Mass/volume] in Serum or Plasma 2024-07-01 02:47:36 58 ug/dL F 65.0-175.0 Iron binding capacity.unsaturated [Mass/volume] in Serum or Plasma 2024-07-01 02:47:36 179 ug/dL F 75.0-360.0 Iron [Mass/volume] in Serum or Plasma 2024-07-01 02:47:36 58 ug/dL F 65.0-175.0 Iron binding capacity.unsaturated [Mass/volume] in Serum or Plasma 2024-07-01 02:47:36 179 ug/dL F 75.0-360.0 HCT CALC HGBX3 2024-06-30 20:24:38 37.8 % F 42.0-52.0 HCT CALC HGBX3 2024-06-30 20:24:38 37.8 % F 42.0-52.0 HCT CALC HGBX3 2024-06-30 20:24:38 37.8 % F 42.0-52.0 Erythrocytes [#/volume] in Blood by Automated count 2024-06-30 20:24:12 4.36 x 10'6 cells/uL F 4.6-6.2 Erythrocyte distribution width [Ratio] by Automated count 2024-06-30 20:24:12 14.4 % F 11.0-15.0 Hemoglobin [Mass/volume] in Blood 2024-06-30 20:24:12 12.6 g/dL F 14.0-18.0 MCH [Entitic mass] by Automated count 2024-06-30 20:24:12 29 pg F 25.9-34.2 MCHC [Mass/volume] by Automated count 2024-06-30 20:24:12 31.7 g/dL F 29.6-35.3 Hematocrit [Volume Fraction] of Blood by Automated count 2024-06-30 20:24:12 39.9 % F 41.0-53.0 MCV [Entitic volume] by Automated count 2024-06-30 20:24:12 91.4 fL F 80.0-100.0 Platelets [#/volume] in Blood by Automated count 2024-06-30 20:24:12 186 x 10'3 cells/uL F 140.0-450.0 Erythrocyte distribution width [Ratio] by Automated count 2024-06-30 20:24:12 14.4 % F 11.0-15.0 Erythrocytes [#/volume] in Blood by Automated count 2024-06-30 20:24:12 4.36 x 10'6 cells/uL F 4.6-6.2 Hematocrit [Volume Fraction] of Blood by Automated count 2024-06-30 20:24:12 39.9 % F 41.0-53.0 Hemoglobin [Mass/volume] in Blood 2024-06-30 20:24:12 12.6 g/dL F 14.0-18.0 MCV [Entitic volume] by Automated count 2024-06-30 20:24:12 91.4 fL F 80.0-100.0 MCH [Entitic mass] by Automated count 2024-06-30 20:24:12 29 pg F 25.9-34.2 MCHC [Mass/volume] by Automated count 2024-06-30 20:24:12 31.7 g/dL F 29.6-35.3 Platelets [#/volume] in Blood by Automated count 2024-06-30 20:24:12 186 x 10^3 cells/uL F 140.0-450.0 Erythrocyte distribution width [Ratio] by Automated count 2024-06-30 20:24:12 14.4 % F 11.0-15.0 Erythrocytes [#/volume] in Blood by Automated count 2024-06-30 20:24:12 4.36 x 10'6 cells/uL F 4.6-6.2 Hematocrit [Volume Fraction] of Blood by Automated count 2024-06-30 20:24:12 39.9 % F 41.0-53.0 Hemoglobin [Mass/volume] in Blood 2024-06-30 20:24:12 12.6 g/dL F 14.0-18.0 MCH [Entitic mass] by Automated count 2024-06-30 20:24:12 29 pg F 25.9-34.2 MCV [Entitic volume] by Automated count 2024-06-30 20:24:12 91.4 fL F 80.0-100.0 Platelets [#/volume] in Blood by Automated count 2024-06-30 20:24:12 186 x 10'3 cells/uL F 140.0-450.0 MCHC [Mass/volume] by Automated count 2024-06-30 20:24:12 31.7 g/dL F 29.6-35.3 Ferritin [Mass/volume] in Serum or Plasma 2024-06-04 07:26:56 91 ng/mL F 22.0-322.0 TIBC 2024-06-04 06:18:03 248 ug/dL F 250.0-425.0 IRON SATURATION 2024-06-04 06:18:03 19 % F 21.0-49.0 Iron [Mass/volume] in Serum or Plasma 2024-06-04 06:13:13 48 ug/dL F 65.0-175.0 Iron binding capacity.unsaturated [Mass/volume] in Serum or Plasma 2024-06-04 06:13:13 200 ug/dL F 75.0-360.0 HCT CALC HGBX3 2024-06-04 03:47:29 39.3 % F 42.0-52.0 Reticulocytes/100 erythrocytes in Blood by Automated count 2024-06-04 03:47:21 F RECOLLECT - OUTDATED SPECIMEN MCV [Entitic volume] by Automated count 2024-06-04 03:46:45 91.2 fL F 80.0-100.0 Erythrocyte distribution width [Ratio] by Automated count 2024-06-04 03:46:42 14.2 % F 11.0-15.0 Erythrocytes [#/volume] in Blood by Automated count 2024-06-04 03:46:42 4.53 x 10'6 cells/uL F 4.6-6.2 Hematocrit [Volume Fraction] of Blood by Automated count 2024-06-04 03:46:42 41.3 % F 41.0-53.0 Hemoglobin [Mass/volume] in Blood 2024-06-04 03:46:42 13.1 g/dL F 14.0-18.0 MCH [Entitic mass] by Automated count 2024-06-04 03:46:42 28.8 pg F 25.9-34.2 Platelets [#/volume] in Blood by Automated count 2024-06-04 03:46:42 192 x 10^3 cells/uL F 140.0-450.0 MCHC [Mass/volume] by Automated count 2024-06-04 03:46:42 31.6 g/dL F 29.6-35.3 Ferritin [Mass/volume] in Serum or Plasma 2024-05-04 07:25:14 74 ng/mL F 22.0-322.0 Ferritin [Mass/volume] in Serum or Plasma 2024-05-04 07:25:14 74 ng/mL F 22.0-322.0 IRON SATURATION 2024-05-04 06:58:25 21 % F 21.0-49.0 TIBC 2024-05-04 06:58:25 255 ug/dL F 250.0-425.0 IRON SATURATION 2024-05-04 06:58:25 21 % F 21.0-49.0 TIBC 2024-05-04 06:58:25 255 ug/dL F 250.0-425.0 Iron [Mass/volume] in Serum or Plasma 2024-05-04 06:56:24 54 ug/dL F 65.0-175.0 Iron binding capacity.unsaturated [Mass/volume] in Serum or Plasma 2024-05-04 06:56:24 201 ug/dL F 75.0-360.0 Iron [Mass/volume] in Serum or Plasma 2024-05-04 06:56:24 54 ug/dL F 65.0-175.0 Iron binding capacity.unsaturated [Mass/volume] in Serum or Plasma 2024-05-04 06:56:24 201 ug/dL F 75.0-360.0 HCT CALC HGBX3 2024-05-03 20:28:16 39.9 % F 42.0-52.0 HCT CALC HGBX3 2024-05-03 20:28:16 39.9 % F 42.0-52.0 Erythrocyte distribution width [Ratio] by Automated count 2024-05-03 20:27:31 14 % F 11.0-15.0 Erythrocytes [#/volume] in Blood by Automated count 2024-05-03 20:27:31 4.63 x 10'6 cells/uL F 4.6-6.2 Hematocrit [Volume Fraction] of Blood by Automated count 2024-05-03 20:27:31 41 % F 41.0-53.0 MCV [Entitic volume] by Automated count 2024-05-03 20:27:31 88.5 fL F 80.0-100.0 Hemoglobin [Mass/volume] in Blood 2024-05-03 20:27:31 13.3 g/dL F 14.0-18.0 MCH [Entitic mass] by Automated count 2024-05-03 20:27:31 28.8 pg F 25.9-34.2 MCHC [Mass/volume] by Automated count 2024-05-03 20:27:31 32.5 g/dL F 29.6-35.3 Platelets [#/volume] in Blood by Automated count 2024-05-03 20:27:31 174 x 10^3 cells/uL F 140.0-450.0 Erythrocyte distribution width [Ratio] by Automated count 2024-05-03 20:27:31 14 % F 11.0-15.0 Erythrocytes [#/volume] in Blood by Automated count 2024-05-03 20:27:31 4.63 x 10'6 cells/uL F 4.6-6.2 MCV [Entitic volume] by Automated count 2024-05-03 20:27:31 88.5 fL F 80.0-100.0 Hemoglobin [Mass/volume] in Blood 2024-05-03 20:27:31 13.3 g/dL F 14.0-18.0 Hematocrit [Volume Fraction] of Blood by Automated count 2024-05-03 20:27:31 41 % F 41.0-53.0 MCH [Entitic mass] by Automated count 2024-05-03 20:27:31 28.8 pg F 25.9-34.2 MCHC [Mass/volume] by Automated count 2024-05-03 20:27:31 32.5 g/dL F 29.6-35.3 Platelets [#/volume] in Blood by Automated count 2024-05-03 20:27:31 174 x 10'3 cells/uL F 140.0-450.0 HCT CALC HGBX3 2024-03-31 12:56:08 38.7 % F 42.0-52.0 HCT CALC HGBX3 2024-03-31 12:56:08 38.7 % F 42.0-52.0 HCT CALC HGBX3 2024-03-31 12:56:08 38.7 % F 42.0-52.0 Erythrocytes [#/volume] in Blood by Automated count 2024-03-31 12:55:32 4.36 x 10'6 cells/uL F 4.6-6.2 Erythrocyte distribution width [Ratio] by Automated count 2024-03-31 12:55:32 15.1 % F 11.0-15.0 Hemoglobin [Mass/volume] in Blood 2024-03-31 12:55:32 12.9 g/dL F 14.0-18.0 Hematocrit [Volume Fraction] of Blood by Automated count 2024-03-31 12:55:32 40.8 % F 41.0-53.0 MCHC [Mass/volume] by Automated count 2024-03-31 12:55:32 31.7 g/dL F 29.6-35.3 Platelets [#/volume] in Blood by Automated count 2024-03-31 12:55:32 176 x 10'3 cells/uL F 140.0-450.0 MCH [Entitic mass] by Automated count 2024-03-31 12:55:32 29.7 pg F 25.9-34.2 MCV [Entitic volume] by Automated count 2024-03-31 12:55:32 93.5 fL F 80.0-100.0 Erythrocytes [#/volume] in Blood by Automated count 2024-03-31 12:55:32 4.36 x 10'6 cells/uL F 4.6-6.2 Hemoglobin [Mass/volume] in Blood 2024-03-31 12:55:32 12.9 g/dL F 14.0-18.0 Erythrocyte distribution width [Ratio] by Automated count 2024-03-31 12:55:32 15.1 % F 11.0-15.0 MCHC [Mass/volume] by Automated count 2024-03-31 12:55:32 31.7 g/dL F 29.6-35.3 Hematocrit [Volume Fraction] of Blood by Automated count 2024-03-31 12:55:32 40.8 % F 41.0-53.0 MCH [Entitic mass] by Automated count 2024-03-31 12:55:32 29.7 pg F 25.9-34.2 MCV [Entitic volume] by Automated count 2024-03-31 12:55:32 93.5 fL F 80.0-100.0 Platelets [#/volume] in Blood by Automated count 2024-03-31 12:55:32 176 x 10'3 cells/uL F 140.0-450.0 Erythrocyte distribution width [Ratio] by Automated count 2024-03-31 12:55:32 15.1 % F 11.0-15.0 Hematocrit [Volume Fraction] of Blood by Automated count 2024-03-31 12:55:32 40.8 % F 41.0-53.0 Hemoglobin [Mass/volume] in Blood 2024-03-31 12:55:32 12.9 g/dL F 14.0-18.0 Erythrocytes [#/volume] in Blood by Automated count 2024-03-31 12:55:32 4.36 x 10'6 cells/uL F 4.6-6.2 MCV [Entitic volume] by Automated count 2024-03-31 12:55:32 93.5 fL F 80.0-100.0 MCH [Entitic mass] by Automated count 2024-03-31 12:55:32 29.7 pg F 25.9-34.2 MCHC [Mass/volume] by Automated count 2024-03-31 12:55:32 31.7 g/dL F 29.6-35.3 Platelets [#/volume] in Blood by Automated count 2024-03-31 12:55:32 176 x 10^3 cells/uL F 140.0-450.0 Ferritin [Mass/volume] in Serum or Plasma 2024-03-31 07:11:42 91 ng/mL F 22.0-322.0 Ferritin [Mass/volume] in Serum or Plasma 2024-03-31 07:11:42 91 ng/mL F 22.0-322.0 Ferritin [Mass/volume] in Serum or Plasma 2024-03-31 07:11:42 91 ng/mL F 22.0-322.0 IRON SATURATION 2024-03-30 03:59:09 16 % F 21.0-49.0 TIBC 2024-03-30 03:59:09 239 ug/dL F 250.0-425.0 IRON SATURATION 2024-03-30 03:59:09 16 % F 21.0-49.0 TIBC 2024-03-30 03:59:09 239 ug/dL F 250.0-425.0 IRON SATURATION 2024-03-30 03:59:09 16 % F 21.0-49.0 TIBC 2024-03-30 03:59:09 239 ug/dL F 250.0-425.0 Iron binding capacity.unsaturated [Mass/volume] in Serum or Plasma 2024-03-30 03:55:41 201 ug/dL F 75.0-360.0 Iron [Mass/volume] in Serum or Plasma 2024-03-30 03:55:41 38 ug/dL F 65.0-175.0 Iron binding capacity.unsaturated [Mass/volume] in Serum or Plasma 2024-03-30 03:55:41 201 ug/dL F 75.0-360.0 Iron [Mass/volume] in Serum or Plasma 2024-03-30 03:55:41 38 ug/dL F 65.0-175.0 Iron [Mass/volume] in Serum or Plasma 2024-03-30 03:55:41 38 ug/dL F 65.0-175.0 Iron binding capacity.unsaturated [Mass/volume] in Serum or Plasma 2024-03-30 03:55:41 201 ug/dL F 75.0-360.0 Ferritin [Mass/volume] in Serum or Plasma 2024-03-17 05:18:01 120 ng/mL F 22.0-322.0 Ferritin [Mass/volume] in Serum or Plasma 2024-03-17 05:18:01 120 ng/mL F 22.0-322.0 Ferritin [Mass/volume] in Serum or Plasma 2024-03-17 05:18:01 120 ng/mL F 22.0-322.0 IRON SATURATION 2024-03-17 04:16:20 24 % F 21.0-49.0 TIBC 2024-03-17 04:16:20 252 ug/dL F 250.0-425.0 IRON SATURATION 2024-03-17 04:16:20 24 % F 21.0-49.0 TIBC 2024-03-17 04:16:20 252 ug/dL F 250.0-425.0 IRON SATURATION 2024-03-17 04:16:20 24 % F 21.0-49.0 TIBC 2024-03-17 04:16:20 252 ug/dL F 250.0-425.0 Iron [Mass/volume] in Serum or Plasma 2024-03-17 04:10:08 60 ug/dL F 65.0-175.0 Iron binding capacity.unsaturated [Mass/volume] in Serum or Plasma 2024-03-17 04:10:08 192 ug/dL F 75.0-360.0 Iron [Mass/volume] in Serum or Plasma 2024-03-17 04:10:08 60 ug/dL F 65.0-175.0 Iron binding capacity.unsaturated [Mass/volume] in Serum or Plasma 2024-03-17 04:10:08 192 ug/dL F 75.0-360.0 Iron [Mass/volume] in Serum or Plasma 2024-03-17 04:10:08 60 ug/dL F 65.0-175.0 Iron binding capacity.unsaturated [Mass/volume] in Serum or Plasma 2024-03-17 04:10:08 192 ug/dL F 75.0-360.0 HCT CALC HGBX3 2024-03-16 14:55:56 38.7 % F 42.0-52.0 HCT CALC HGBX3 2024-03-16 14:55:56 38.7 % F 42.0-52.0 HCT CALC HGBX3 2024-03-16 14:55:56 38.7 % F 42.0-52.0 Reticulocytes/100 erythrocytes in Blood by Automated count 2024-03-16 14:55:25 1.98 % F 0.7-2.5 Erythrocytes [#/volume] in Blood by Automated count 2024-03-16 14:55:25 4.48 x 10'6 cells/uL F 4.6-6.2 Erythrocyte distribution width [Ratio] by Automated count 2024-03-16 14:55:25 14.5 % F 11.0-15.0 Hemoglobin [Mass/volume] in Blood 2024-03-16 14:55:25 12.9 g/dL F 14.0-18.0 MCH [Entitic mass] by Automated count 2024-03-16 14:55:25 28.8 pg F 25.9-34.2 Hematocrit [Volume Fraction] of Blood by Automated count 2024-03-16 14:55:25 39.7 % F 41.0-53.0 MCHC [Mass/volume] by Automated count 2024-03-16 14:55:25 32.5 g/dL F 29.6-35.3 MCV [Entitic volume] by Automated count 2024-03-16 14:55:25 88.6 fL F 80.0-100.0 Platelets [#/volume] in Blood by Automated count 2024-03-16 14:55:25 203 x 10'3 cells/uL F 140.0-450.0 Erythrocyte distribution width [Ratio] by Automated count 2024-03-16 14:55:25 14.5 % F 11.0-15.0 Erythrocytes [#/volume] in Blood by Automated count 2024-03-16 14:55:25 4.48 x 10'6 cells/uL F 4.6-6.2 Hematocrit [Volume Fraction] of Blood by Automated count 2024-03-16 14:55:25 39.7 % F 41.0-53.0 Hemoglobin [Mass/volume] in Blood 2024-03-16 14:55:25 12.9 g/dL F 14.0-18.0 MCV [Entitic volume] by Automated count 2024-03-16 14:55:25 88.6 fL F 80.0-100.0 Platelets [#/volume] in Blood by Automated count 2024-03-16 14:55:25 203 x 10'3 cells/uL F 140.0-450.0 MCHC [Mass/volume] by Automated count 2024-03-16 14:55:25 32.5 g/dL F 29.6-35.3 MCH [Entitic mass] by Automated count 2024-03-16 14:55:25 28.8 pg F 25.9-34.2 Reticulocytes/100 erythrocytes in Blood by Automated count 2024-03-16 14:55:25 1.98 % F 0.7-2.5 Erythrocyte distribution width [Ratio] by Automated count 2024-03-16 14:55:25 14.5 % F 11.0-15.0 Erythrocytes [#/volume] in Blood by Automated count 2024-03-16 14:55:25 4.48 x 10'6 cells/uL F 4.6-6.2 Hemoglobin [Mass/volume] in Blood 2024-03-16 14:55:25 12.9 g/dL F 14.0-18.0 MCV [Entitic volume] by Automated count 2024-03-16 14:55:25 88.6 fL F 80.0-100.0 Hematocrit [Volume Fraction] of Blood by Automated count 2024-03-16 14:55:25 39.7 % F 41.0-53.0 Platelets [#/volume] in Blood by Automated count 2024-03-16 14:55:25 203 x 10^3 cells/uL F 140.0-450.0 MCHC [Mass/volume] by Automated count 2024-03-16 14:55:25 32.5 g/dL F 29.6-35.3 MCH [Entitic mass] by Automated count 2024-03-16 14:55:25 28.8 pg F 25.9-34.2 Reticulocytes/100 erythrocytes in Blood by Automated count 2024-03-16 14:55:25 1.98 % F 0.7-2.5 IRON SATURATION 2024-01-29 05:19:13 24 % F 21.0-49.0 TIBC 2024-01-29 05:19:13 247 ug/dL F 250.0-425.0 IRON SATURATION 2024-01-29 05:19:13 24 % F 21.0-49.0 TIBC 2024-01-29 05:19:13 247 ug/dL F 250.0-425.0 IRON SATURATION 2024-01-29 05:19:13 24 % F 21.0-49.0 TIBC 2024-01-29 05:19:13 247 ug/dL F 250.0-425.0 Ferritin [Mass/volume] in Serum or Plasma 2024-01-29 05:05:28 162 ng/mL F 22.0-322.0 Ferritin [Mass/volume] in Serum or Plasma 2024-01-29 05:05:28 162 ng/mL F 22.0-322.0 Ferritin [Mass/volume] in Serum or Plasma 2024-01-29 05:05:28 162 ng/mL F 22.0-322.0 Iron [Mass/volume] in Serum or Plasma 2024-01-29 04:56:42 59 ug/dL F 65.0-175.0 Iron binding capacity.unsaturated [Mass/volume] in Serum or Plasma 2024-01-29 04:56:42 188 ug/dL F 75.0-360.0 Iron [Mass/volume] in Serum or Plasma 2024-01-29 04:56:42 59 ug/dL F 65.0-175.0 Iron binding capacity.unsaturated [Mass/volume] in Serum or Plasma 2024-01-29 04:56:42 188 ug/dL F 75.0-360.0 Iron [Mass/volume] in Serum or Plasma 2024-01-29 04:56:42 59 ug/dL F 65.0-175.0 Iron binding capacity.unsaturated [Mass/volume] in Serum or Plasma 2024-01-29 04:56:42 188 ug/dL F 75.0-360.0 HCT CALC HGBX3 2024-01-28 13:17:47 38.7 % F 42.0-52.0 HCT CALC HGBX3 2024-01-28 13:17:47 38.7 % F 42.0-52.0 HCT CALC HGBX3 2024-01-28 13:17:47 38.7 % F 42.0-52.0 MCV [Entitic volume] by Automated count 2024-01-28 13:17:35 87.7 fL F 80.0-100.0 MCHC [Mass/volume] by Automated count 2024-01-28 13:17:35 32.6 g/dL F 29.6-35.3 MCH [Entitic mass] by Automated count 2024-01-28 13:17:35 28.6 pg F 25.9-34.2 MCV [Entitic volume] by Automated count 2024-01-28 13:17:35 87.7 fL F 80.0-100.0 MCHC [Mass/volume] by Automated count 2024-01-28 13:17:35 32.6 g/dL F 29.6-35.3 MCH [Entitic mass] by Automated count 2024-01-28 13:17:35 28.6 pg F 25.9-34.2 MCV [Entitic volume] by Automated count 2024-01-28 13:17:35 87.7 fL F 80.0-100.0 MCH [Entitic mass] by Automated count 2024-01-28 13:17:35 28.6 pg F 25.9-34.2 MCHC [Mass/volume] by Automated count 2024-01-28 13:17:35 32.6 g/dL F 29.6-35.3 Erythrocytes [#/volume] in Blood by Automated count 2024-01-28 13:17:34 4.51 x 10'6 cells/uL F 4.6-6.2 Erythrocyte distribution width [Ratio] by Automated count 2024-01-28 13:17:34 13.5 % F 11.0-15.0 Hematocrit [Volume Fraction] of Blood by Automated count 2024-01-28 13:17:34 39.5 % F 41.0-53.0 Hemoglobin [Mass/volume] in Blood 2024-01-28 13:17:34 12.9 g/dL F 14.0-18.0 Platelets [#/volume] in Blood by Automated count 2024-01-28 13:17:34 196 x 10'3 cells/uL F 140.0-450.0 Erythrocyte distribution width [Ratio] by Automated count 2024-01-28 13:17:34 13.5 % F 11.0-15.0 Erythrocytes [#/volume] in Blood by Automated count 2024-01-28 13:17:34 4.51 x 10'6 cells/uL F 4.6-6.2 Hematocrit [Volume Fraction] of Blood by Automated count 2024-01-28 13:17:34 39.5 % F 41.0-53.0 Hemoglobin [Mass/volume] in Blood 2024-01-28 13:17:34 12.9 g/dL F 14.0-18.0 Platelets [#/volume] in Blood by Automated count 2024-01-28 13:17:34 196 x 10^3 cells/uL F 140.0-450.0 Erythrocyte distribution width [Ratio] by Automated count 2024-01-28 13:17:34 13.5 % F 11.0-15.0 Erythrocytes [#/volume] in Blood by Automated count 2024-01-28 13:17:34 4.51 x 10'6 cells/uL F 4.6-6.2 Hematocrit [Volume Fraction] of Blood by Automated count 2024-01-28 13:17:34 39.5 % F 41.0-53.0 Hemoglobin [Mass/volume] in Blood 2024-01-28 13:17:34 12.9 g/dL F 14.0-18.0 Platelets [#/volume] in Blood by Automated count 2024-01-28 13:17:34 196 x 10'3 cells/uL F 140.0-450.0 HCT CALC HGBX3 2024-01-06 15:13:44 38.4 % F 42.0-52.0 HCT CALC HGBX3 2024-01-06 15:13:44 38.4 % F 42.0-52.0 HCT CALC HGBX3 2024-01-06 15:13:44 38.4 % F 42.0-52.0 Erythrocytes [#/volume] in Blood by Automated count 2024-01-06 15:13:31 4.49 x 10'6 cells/uL F 4.6-6.2 Hemoglobin [Mass/volume] in Blood 2024-01-06 15:13:31 12.8 g/dL F 14.0-18.0 Hematocrit [Volume Fraction] of Blood by Automated count 2024-01-06 15:13:31 41.3 % F 41.0-53.0 MCV [Entitic volume] by Automated count 2024-01-06 15:13:31 92 fL F 80.0-100.0 Erythrocyte distribution width [Ratio] by Automated count 2024-01-06 15:13:31 14.5 % F 11.0-15.0 MCH [Entitic mass] by Automated count 2024-01-06 15:13:31 28.4 pg F 25.9-34.2 MCHC [Mass/volume] by Automated count 2024-01-06 15:13:31 30.9 g/dL F 29.6-35.3 Platelets [#/volume] in Blood by Automated count 2024-01-06 15:13:31 174 x 10'3 cells/uL F 140.0-450.0 Erythrocytes [#/volume] in Blood by Automated count 2024-01-06 15:13:31 4.49 x 10'6 cells/uL F 4.6-6.2 Erythrocyte distribution width [Ratio] by Automated count 2024-01-06 15:13:31 14.5 % F 11.0-15.0 Hemoglobin [Mass/volume] in Blood 2024-01-06 15:13:31 12.8 g/dL F 14.0-18.0 MCH [Entitic mass] by Automated count 2024-01-06 15:13:31 28.4 pg F 25.9-34.2 MCHC [Mass/volume] by Automated count 2024-01-06 15:13:31 30.9 g/dL F 29.6-35.3 Hematocrit [Volume Fraction] of Blood by Automated count 2024-01-06 15:13:31 41.3 % F 41.0-53.0 MCV [Entitic volume] by Automated count 2024-01-06 15:13:31 92 fL F 80.0-100.0 Platelets [#/volume] in Blood by Automated count 2024-01-06 15:13:31 174 x 10'3 cells/uL F 140.0-450.0 Erythrocyte distribution width [Ratio] by Automated count 2024-01-06 15:13:31 14.5 % F 11.0-15.0 Erythrocytes [#/volume] in Blood by Automated count 2024-01-06 15:13:31 4.49 x 10'6 cells/uL F 4.6-6.2 Hematocrit [Volume Fraction] of Blood by Automated count 2024-01-06 15:13:31 41.3 % F 41.0-53.0 MCV [Entitic volume] by Automated count 2024-01-06 15:13:31 92 fL F 80.0-100.0 Hemoglobin [Mass/volume] in Blood 2024-01-06 15:13:31 12.8 g/dL F 14.0-18.0 MCH [Entitic mass] by Automated count 2024-01-06 15:13:31 28.4 pg F 25.9-34.2 MCHC [Mass/volume] by Automated count 2024-01-06 15:13:31 30.9 g/dL F 29.6-35.3 Platelets [#/volume] in Blood by Automated count 2024-01-06 15:13:31 174 x 10^3 cells/uL F 140.0-450.0 IRON SATURATION 2024-01-06 06:41:44 23 % F 21.0-49.0 TIBC 2024-01-06 06:41:44 238 ug/dL F 250.0-425.0 IRON SATURATION 2024-01-06 06:41:44 23 % F 21.0-49.0 TIBC 2024-01-06 06:41:44 238 ug/dL F 250.0-425.0 IRON SATURATION 2024-01-06 06:41:44 23 % F 21.0-49.0 TIBC 2024-01-06 06:41:44 238 ug/dL F 250.0-425.0 Iron binding capacity.unsaturated [Mass/volume] in Serum or Plasma 2024-01-06 06:38:35 183 ug/dL F 75.0-360.0 Iron [Mass/volume] in Serum or Plasma 2024-01-06 06:38:35 55 ug/dL F 65.0-175.0 Iron [Mass/volume] in Serum or Plasma 2024-01-06 06:38:35 55 ug/dL F 65.0-175.0 Iron binding capacity.unsaturated [Mass/volume] in Serum or Plasma 2024-01-06 06:38:35 183 ug/dL F 75.0-360.0 Iron [Mass/volume] in Serum or Plasma 2024-01-06 06:38:35 55 ug/dL F 65.0-175.0 Iron binding capacity.unsaturated [Mass/volume] in Serum or Plasma 2024-01-06 06:38:35 183 ug/dL F 75.0-360.0 Ferritin [Mass/volume] in Serum or Plasma 2024-01-06 04:19:05 152 ng/mL F 22.0-322.0 Ferritin [Mass/volume] in Serum or Plasma 2024-01-06 04:19:05 152 ng/mL F 22.0-322.0 Ferritin [Mass/volume] in Serum or Plasma 2024-01-06 04:19:05 152 ng/mL F 22.0-322.0 Ferritin [Mass/volume] in Serum or Plasma 2023-12-04 08:12:23 203 ng/mL F 22.0-322.0 Ferritin [Mass/volume] in Serum or Plasma 2023-12-04 08:12:23 203 ng/mL F 22.0-322.0 Ferritin [Mass/volume] in Serum or Plasma 2023-12-04 08:12:23 203 ng/mL F 22.0-322.0 TIBC 2023-12-03 03:48:39 246 ug/dL F 250.0-425.0 IRON SATURATION 2023-12-03 03:48:39 24 % F 21.0-49.0 IRON SATURATION 2023-12-03 03:48:39 24 % F 21.0-49.0 TIBC 2023-12-03 03:48:39 246 ug/dL F 250.0-425.0 IRON SATURATION 2023-12-03 03:48:39 24 % F 21.0-49.0 TIBC 2023-12-03 03:48:39 246 ug/dL F 250.0-425.0 Iron [Mass/volume] in Serum or Plasma 2023-12-03 03:46:31 60 ug/dL F 65.0-175.0 Iron binding capacity.unsaturated [Mass/volume] in Serum or Plasma 2023-12-03 03:46:31 186 ug/dL F 75.0-360.0 Iron [Mass/volume] in Serum or Plasma 2023-12-03 03:46:31 60 ug/dL F 65.0-175.0 Iron binding capacity.unsaturated [Mass/volume] in Serum or Plasma 2023-12-03 03:46:31 186 ug/dL F 75.0-360.0 Iron [Mass/volume] in Serum or Plasma 2023-12-03 03:46:31 60 ug/dL F 65.0-175.0 Iron binding capacity.unsaturated [Mass/volume] in Serum or Plasma 2023-12-03 03:46:31 186 ug/dL F 75.0-360.0 HCT CALC HGBX3 2023-12-02 22:41:12 38.7 % F 42.0-52.0 HCT CALC HGBX3 2023-12-02 22:41:12 38.7 % F 42.0-52.0 HCT CALC HGBX3 2023-12-02 22:41:12 38.7 % F 42.0-52.0 Reticulocytes/100 erythrocytes in Blood by Automated count 2023-12-02 22:40:35 2.39 % F 0.7-2.5 Erythrocytes [#/volume] in Blood by Automated count 2023-12-02 22:40:35 4.67 x 10'6 cells/uL F 4.6-6.2 MCH [Entitic mass] by Automated count 2023-12-02 22:40:35 27.7 pg F 25.9-34.2 MCV [Entitic volume] by Automated count 2023-12-02 22:40:35 90.2 fL F 80.0-100.0 Hemoglobin [Mass/volume] in Blood 2023-12-02 22:40:35 12.9 g/dL F 14.0-18.0 Erythrocyte distribution width [Ratio] by Automated count 2023-12-02 22:40:35 13.3 % F 11.0-15.0 MCHC [Mass/volume] by Automated count 2023-12-02 22:40:35 30.7 g/dL F 29.6-35.3 Hematocrit [Volume Fraction] of Blood by Automated count 2023-12-02 22:40:35 42.2 % F 41.0-53.0 Platelets [#/volume] in Blood by Automated count 2023-12-02 22:40:35 198 x 10'3 cells/uL F 140.0-450.0 Erythrocytes [#/volume] in Blood by Automated count 2023-12-02 22:40:35 4.67 x 10'6 cells/uL F 4.6-6.2 Erythrocyte distribution width [Ratio] by Automated count 2023-12-02 22:40:35 13.3 % F 11.0-15.0 Hemoglobin [Mass/volume] in Blood 2023-12-02 22:40:35 12.9 g/dL F 14.0-18.0 Hematocrit [Volume Fraction] of Blood by Automated count 2023-12-02 22:40:35 42.2 % F 41.0-53.0 MCV [Entitic volume] by Automated count 2023-12-02 22:40:35 90.2 fL F 80.0-100.0 MCH [Entitic mass] by Automated count 2023-12-02 22:40:35 27.7 pg F 25.9-34.2 MCHC [Mass/volume] by Automated count 2023-12-02 22:40:35 30.7 g/dL F 29.6-35.3 Platelets [#/volume] in Blood by Automated count 2023-12-02 22:40:35 198 x 10'3 cells/uL F 140.0-450.0 Reticulocytes/100 erythrocytes in Blood by Automated count 2023-12-02 22:40:35 2.39 % F 0.7-2.5 Erythrocyte distribution width [Ratio] by Automated count 2023-12-02 22:40:35 13.3 % F 11.0-15.0 Erythrocytes [#/volume] in Blood by Automated count 2023-12-02 22:40:35 4.67 x 10'6 cells/uL F 4.6-6.2 Hematocrit [Volume Fraction] of Blood by Automated count 2023-12-02 22:40:35 42.2 % F 41.0-53.0 MCH [Entitic mass] by Automated count 2023-12-02 22:40:35 27.7 pg F 25.9-34.2 Hemoglobin [Mass/volume] in Blood 2023-12-02 22:40:35 12.9 g/dL F 14.0-18.0 MCHC [Mass/volume] by Automated count 2023-12-02 22:40:35 30.7 g/dL F 29.6-35.3 MCV [Entitic volume] by Automated count 2023-12-02 22:40:35 90.2 fL F 80.0-100.0 Platelets [#/volume] in Blood by Automated count 2023-12-02 22:40:35 198 x 10^3 cells/uL F 140.0-450.0 Reticulocytes/100 erythrocytes in Blood by Automated count 2023-12-02 22:40:35 2.39 % F 0.7-2.5 Ferritin [Mass/volume] in Serum or Plasma 2023-11-13 05:06:24 206 ng/mL F 22.0-322.0 Ferritin [Mass/volume] in Serum or Plasma 2023-11-13 05:06:24 206 ng/mL F 22.0-322.0 Ferritin [Mass/volume] in Serum or Plasma 2023-11-13 05:06:24 206 ng/mL F 22.0-322.0 IRON SATURATION 2023-11-12 22:27:32 18 % F 21.0-49.0 TIBC 2023-11-12 22:27:32 248 ug/dL F 250.0-425.0 IRON SATURATION 2023-11-12 22:27:32 18 % F 21.0-49.0 TIBC 2023-11-12 22:27:32 248 ug/dL F 250.0-425.0 IRON SATURATION 2023-11-12 22:27:32 18 % F 21.0-49.0 TIBC 2023-11-12 22:27:32 248 ug/dL F 250.0-425.0 Iron binding capacity.unsaturated [Mass/volume] in Serum or Plasma 2023-11-12 22:24:47 204 ug/dL F 75.0-360.0 Iron [Mass/volume] in Serum or Plasma 2023-11-12 22:24:47 44 ug/dL F 65.0-175.0 Iron [Mass/volume] in Serum or Plasma 2023-11-12 22:24:47 44 ug/dL F 65.0-175.0 Iron binding capacity.unsaturated [Mass/volume] in Serum or Plasma 2023-11-12 22:24:47 204 ug/dL F 75.0-360.0 Iron [Mass/volume] in Serum or Plasma 2023-11-12 22:24:47 44 ug/dL F 65.0-175.0 Iron binding capacity.unsaturated [Mass/volume] in Serum or Plasma 2023-11-12 22:24:47 204 ug/dL F 75.0-360.0 HCT CALC HGBX3 2023-11-12 15:42:27 39 % F 42.0-52.0 HCT CALC HGBX3 2023-11-12 15:42:27 39 % F 42.0-52.0 HCT CALC HGBX3 2023-11-12 15:42:27 39 % F 42.0-52.0 Reticulocytes/100 erythrocytes in Blood by Automated count 2023-11-12 15:42:03 2.03 % F 0.7-2.5 MCHC [Mass/volume] by Automated count 2023-11-12 15:42:03 32.7 g/dL F 29.6-35.3 Hematocrit [Volume Fraction] of Blood by Automated count 2023-11-12 15:42:03 39.7 % F 41.0-53.0 MCV [Entitic volume] by Automated count 2023-11-12 15:42:03 88.4 fL F 80.0-100.0 Erythrocytes [#/volume] in Blood by Automated count 2023-11-12 15:42:03 4.49 x 10'6 cells/uL F 4.6-6.2 MCH [Entitic mass] by Automated count 2023-11-12 15:42:03 28.9 pg F 25.9-34.2 Erythrocytes [#/volume] in Blood by Automated count 2023-11-12 15:42:03 4.49 x 10'6 cells/uL F 4.6-6.2 Hematocrit [Volume Fraction] of Blood by Automated count 2023-11-12 15:42:03 39.7 % F 41.0-53.0 MCV [Entitic volume] by Automated count 2023-11-12 15:42:03 88.4 fL F 80.0-100.0 MCH [Entitic mass] by Automated count 2023-11-12 15:42:03 28.9 pg F 25.9-34.2 MCHC [Mass/volume] by Automated count 2023-11-12 15:42:03 32.7 g/dL F 29.6-35.3 Reticulocytes/100 erythrocytes in Blood by Automated count 2023-11-12 15:42:03 2.03 % F 0.7-2.5 Hematocrit [Volume Fraction] of Blood by Automated count 2023-11-12 15:42:03 39.7 % F 41.0-53.0 MCV [Entitic volume] by Automated count 2023-11-12 15:42:03 88.4 fL F 80.0-100.0 Erythrocytes [#/volume] in Blood by Automated count 2023-11-12 15:42:03 4.49 x 10'6 cells/uL F 4.6-6.2 MCH [Entitic mass] by Automated count 2023-11-12 15:42:03 28.9 pg F 25.9-34.2 MCHC [Mass/volume] by Automated count 2023-11-12 15:42:03 32.7 g/dL F 29.6-35.3 Reticulocytes/100 erythrocytes in Blood by Automated count 2023-11-12 15:42:03 2.03 % F 0.7-2.5 Hemoglobin [Mass/volume] in Blood 2023-11-12 15:42:02 13 g/dL F 14.0-18.0 Erythrocyte distribution width [Ratio] by Automated count 2023-11-12 15:42:02 13.5 % F 11.0-15.0 Platelets [#/volume] in Blood by Automated count 2023-11-12 15:42:02 184 x 10'3 cells/uL F 140.0-450.0 Erythrocyte distribution width [Ratio] by Automated count 2023-11-12 15:42:02 13.5 % F 11.0-15.0 Hemoglobin [Mass/volume] in Blood 2023-11-12 15:42:02 13 g/dL F 14.0-18.0 Platelets [#/volume] in Blood by Automated count 2023-11-12 15:42:02 184 x 10^3 cells/uL F 140.0-450.0 Hemoglobin [Mass/volume] in Blood 2023-11-12 15:42:02 13 g/dL F 14.0-18.0 Erythrocyte distribution width [Ratio] by Automated count 2023-11-12 15:42:02 13.5 % F 11.0-15.0 Platelets [#/volume] in Blood by Automated count 2023-11-12 15:42:02 184 x 10'3 cells/uL F 140.0-450.0 Ferritin [Mass/volume] in Serum or Plasma 2023-10-02 05:25:34 253 ng/mL F 22.0-322.0 Ferritin [Mass/volume] in Serum or Plasma 2023-10-02 05:25:34 253 ng/mL F 22.0-322.0 Ferritin [Mass/volume] in Serum or Plasma 2023-10-02 05:25:34 253 ng/mL F 22.0-322.0 Ferritin [Mass/volume] in Serum or Plasma 2023-10-02 05:25:34 253 ng/mL F 22.0-322.0 Ferritin [Mass/volume] in Serum or Plasma 2023-10-02 05:25:34 253 ng/mL F 22.0-322.0 HCT CALC HGBX3 2023-10-02 03:52:40 40.5 % F 42.0-52.0 HCT CALC HGBX3 2023-10-02 03:52:40 40.5 % F 42.0-52.0 HCT CALC HGBX3 2023-10-02 03:52:40 40.5 % F 42.0-52.0 HCT CALC HGBX3 2023-10-02 03:52:40 40.5 % F 42.0-52.0 HCT CALC HGBX3 2023-10-02 03:52:40 40.5 % F 42.0-52.0 Erythrocyte distribution width [Ratio] by Automated count 2023-10-02 03:52:21 14 % F 11.0-15.0 Hematocrit [Volume Fraction] of Blood by Automated count 2023-10-02 03:52:21 41 % F 41.0-53.0 Hemoglobin [Mass/volume] in Blood 2023-10-02 03:52:21 13.5 g/dL F 14.0-18.0 Erythrocytes [#/volume] in Blood by Automated count 2023-10-02 03:52:21 4.53 x 10'6 cells/uL F 4.6-6.2 MCH [Entitic mass] by Automated count 2023-10-02 03:52:21 29.8 pg F 25.9-34.2 MCV [Entitic volume] by Automated count 2023-10-02 03:52:21 90.5 fL F 80.0-100.0 MCHC [Mass/volume] by Automated count 2023-10-02 03:52:21 32.9 g/dL F 29.6-35.3 Platelets [#/volume] in Blood by Automated count 2023-10-02 03:52:21 169 x 10'3 cells/uL F 140.0-450.0 Erythrocyte distribution width [Ratio] by Automated count 2023-10-02 03:52:21 14 % F 11.0-15.0 MCH [Entitic mass] by Automated count 2023-10-02 03:52:21 29.8 pg F 25.9-34.2 MCV [Entitic volume] by Automated count 2023-10-02 03:52:21 90.5 fL F 80.0-100.0 Platelets [#/volume] in Blood by Automated count 2023-10-02 03:52:21 169 x 10^3 cells/uL F 140.0-450.0 Erythrocytes [#/volume] in Blood by Automated count 2023-10-02 03:52:21 4.53 x 10'6 cells/uL F 4.6-6.2 Hemoglobin [Mass/volume] in Blood 2023-10-02 03:52:21 13.5 g/dL F 14.0-18.0 MCHC [Mass/volume] by Automated count 2023-10-02 03:52:21 32.9 g/dL F 29.6-35.3 Hematocrit [Volume Fraction] of Blood by Automated count 2023-10-02 03:52:21 41 % F 41.0-53.0 Erythrocytes [#/volume] in Blood by Automated count 2023-10-02 03:52:21 4.53 x 10'6 cells/uL F 4.6-6.2 Erythrocyte distribution width [Ratio] by Automated count 2023-10-02 03:52:21 14 % F 11.0-15.0 Hemoglobin [Mass/volume] in Blood 2023-10-02 03:52:21 13.5 g/dL F 14.0-18.0 MCH [Entitic mass] by Automated count 2023-10-02 03:52:21 29.8 pg F 25.9-34.2 Hematocrit [Volume Fraction] of Blood by Automated count 2023-10-02 03:52:21 41 % F 41.0-53.0 MCHC [Mass/volume] by Automated count 2023-10-02 03:52:21 32.9 g/dL F 29.6-35.3 MCV [Entitic volume] by Automated count 2023-10-02 03:52:21 90.5 fL F 80.0-100.0 Platelets [#/volume] in Blood by Automated count 2023-10-02 03:52:21 169 x 10'3 cells/uL F 140.0-450.0 Erythrocyte distribution width [Ratio] by Automated count 2023-10-02 03:52:21 14 % F 11.0-15.0 Hematocrit [Volume Fraction] of Blood by Automated count 2023-10-02 03:52:21 41 % F 41.0-53.0 Erythrocytes [#/volume] in Blood by Automated count 2023-10-02 03:52:21 4.53 x 10'6 cells/uL F 4.6-6.2 MCV [Entitic volume] by Automated count 2023-10-02 03:52:21 90.5 fL F 80.0-100.0 Hemoglobin [Mass/volume] in Blood 2023-10-02 03:52:21 13.5 g/dL F 14.0-18.0 MCHC [Mass/volume] by Automated count 2023-10-02 03:52:21 32.9 g/dL F 29.6-35.3 Platelets [#/volume] in Blood by Automated count 2023-10-02 03:52:21 169 x 10'3 cells/uL F 140.0-450.0 MCH [Entitic mass] by Automated count 2023-10-02 03:52:21 29.8 pg F 25.9-34.2 Erythrocyte distribution width [Ratio] by Automated count 2023-10-02 03:52:21 14 % F 11.0-15.0 Hematocrit [Volume Fraction] of Blood by Automated count 2023-10-02 03:52:21 41 % F 41.0-53.0 Hemoglobin [Mass/volume] in Blood 2023-10-02 03:52:21 13.5 g/dL F 14.0-18.0 Erythrocytes [#/volume] in Blood by Automated count 2023-10-02 03:52:21 4.53 x 10'6 cells/uL F 4.6-6.2 MCV [Entitic volume] by Automated count 2023-10-02 03:52:21 90.5 fL F 80.0-100.0 MCH [Entitic mass] by Automated count 2023-10-02 03:52:21 29.8 pg F 25.9-34.2 MCHC [Mass/volume] by Automated count 2023-10-02 03:52:21 32.9 g/dL F 29.6-35.3 Platelets [#/volume] in Blood by Automated count 2023-10-02 03:52:21 169 x 10'3 cells/uL F 140.0-450.0 IRON SATURATION 2023-10-02 00:52:55 34 % F 21.0-49.0 TIBC 2023-10-02 00:52:55 250 ug/dL F 250.0-425.0 IRON SATURATION 2023-10-02 00:52:55 34 % F 21.0-49.0 TIBC 2023-10-02 00:52:55 250 ug/dL F 250.0-425.0 IRON SATURATION 2023-10-02 00:52:55 34 % F 21.0-49.0 TIBC 2023-10-02 00:52:55 250 ug/dL F 250.0-425.0 IRON SATURATION 2023-10-02 00:52:55 34 % F 21.0-49.0 TIBC 2023-10-02 00:52:55 250 ug/dL F 250.0-425.0 IRON SATURATION 2023-10-02 00:52:55 34 % F 21.0-49.0 TIBC 2023-10-02 00:52:55 250 ug/dL F 250.0-425.0 Iron [Mass/volume] in Serum or Plasma 2023-10-02 00:51:46 84 ug/dL F 65.0-175.0 Iron binding capacity.unsaturated [Mass/volume] in Serum or Plasma 2023-10-02 00:51:46 166 ug/dL F 75.0-360.0 Iron [Mass/volume] in Serum or Plasma 2023-10-02 00:51:46 84 ug/dL F 65.0-175.0 Iron binding capacity.unsaturated [Mass/volume] in Serum or Plasma 2023-10-02 00:51:46 166 ug/dL F 75.0-360.0 Iron [Mass/volume] in Serum or Plasma 2023-10-02 00:51:46 84 ug/dL F 65.0-175.0 Iron binding capacity.unsaturated [Mass/volume] in Serum or Plasma 2023-10-02 00:51:46 166 ug/dL F 75.0-360.0 Iron [Mass/volume] in Serum or Plasma 2023-10-02 00:51:46 84 ug/dL F 65.0-175.0 Iron binding capacity.unsaturated [Mass/volume] in Serum or Plasma 2023-10-02 00:51:46 166 ug/dL F 75.0-360.0 Iron [Mass/volume] in Serum or Plasma 2023-10-02 00:51:46 84 ug/dL F 65.0-175.0 Iron binding capacity.unsaturated [Mass/volume] in Serum or Plasma 2023-10-02 00:51:46 166 ug/dL F 75.0-360.0 HCT CALC HGBX3 2023-09-03 22:31:09 41.4 % F 42.0-52.0 HCT CALC HGBX3 2023-09-03 22:31:09 41.4 % F 42.0-52.0 HCT CALC HGBX3 2023-09-03 22:31:09 41.4 % F 42.0-52.0 Erythrocytes [#/volume] in Blood by Automated count 2023-09-03 22:30:32 4.61 x 10'6 cells/uL F 4.6-6.2 Erythrocyte distribution width [Ratio] by Automated count 2023-09-03 22:30:32 14.1 % F 11.0-15.0 Hematocrit [Volume Fraction] of Blood by Automated count 2023-09-03 22:30:32 40.7 % F 41.0-53.0 MCV [Entitic volume] by Automated count 2023-09-03 22:30:32 88.3 fL F 80.0-100.0 Reticulocytes/100 erythrocytes in Blood by Automated count 2023-09-03 22:30:32 1.79 % F 0.7-2.5 Hemoglobin [Mass/volume] in Blood 2023-09-03 22:30:32 13.8 g/dL F 14.0-18.0 MCHC [Mass/volume] by Automated count 2023-09-03 22:30:32 33.8 g/dL F 29.6-35.3 MCH [Entitic mass] by Automated count 2023-09-03 22:30:32 29.8 pg F 25.9-34.2 Platelets [#/volume] in Blood by Automated count 2023-09-03 22:30:32 172 x 10'3 cells/uL F 140.0-450.0 Hemoglobin [Mass/volume] in Blood 2023-09-03 22:30:32 13.8 g/dL F 14.0-18.0 Erythrocyte distribution width [Ratio] by Automated count 2023-09-03 22:30:32 14.1 % F 11.0-15.0 Erythrocytes [#/volume] in Blood by Automated count 2023-09-03 22:30:32 4.61 x 10'6 cells/uL F 4.6-6.2 Hematocrit [Volume Fraction] of Blood by Automated count 2023-09-03 22:30:32 40.7 % F 41.0-53.0 MCH [Entitic mass] by Automated count 2023-09-03 22:30:32 29.8 pg F 25.9-34.2 MCV [Entitic volume] by Automated count 2023-09-03 22:30:32 88.3 fL F 80.0-100.0 Platelets [#/volume] in Blood by Automated count 2023-09-03 22:30:32 172 x 10^3 cells/uL F 140.0-450.0 MCHC [Mass/volume] by Automated count 2023-09-03 22:30:32 33.8 g/dL F 29.6-35.3 Reticulocytes/100 erythrocytes in Blood by Automated count 2023-09-03 22:30:32 1.79 % F 0.7-2.5 Erythrocyte distribution width [Ratio] by Automated count 2023-09-03 22:30:32 14.1 % F 11.0-15.0 Erythrocytes [#/volume] in Blood by Automated count 2023-09-03 22:30:32 4.61 x 10'6 cells/uL F 4.6-6.2 Hematocrit [Volume Fraction] of Blood by Automated count 2023-09-03 22:30:32 40.7 % F 41.0-53.0 MCV [Entitic volume] by Automated count 2023-09-03 22:30:32 88.3 fL F 80.0-100.0 MCH [Entitic mass] by Automated count 2023-09-03 22:30:32 29.8 pg F 25.9-34.2 Hemoglobin [Mass/volume] in Blood 2023-09-03 22:30:32 13.8 g/dL F 14.0-18.0 Platelets [#/volume] in Blood by Automated count 2023-09-03 22:30:32 172 x 10'3 cells/uL F 140.0-450.0 MCHC [Mass/volume] by Automated count 2023-09-03 22:30:32 33.8 g/dL F 29.6-35.3 Reticulocytes/100 erythrocytes in Blood by Automated count 2023-09-03 22:30:32 1.79 % F 0.7-2.5 Ferritin [Mass/volume] in Serum or Plasma 2023-09-03 21:13:50 310 ng/mL F 22.0-322.0 Ferritin [Mass/volume] in Serum or Plasma 2023-09-03 21:13:50 310 ng/mL F 22.0-322.0 Ferritin [Mass/volume] in Serum or Plasma 2023-09-03 21:13:50 310 ng/mL F 22.0-322.0 IRON SATURATION 2023-09-03 18:58:19 34 % F 21.0-49.0 TIBC 2023-09-03 18:58:19 238 ug/dL F 250.0-425.0 IRON SATURATION 2023-09-03 18:58:19 34 % F 21.0-49.0 TIBC 2023-09-03 18:58:19 238 ug/dL F 250.0-425.0 IRON SATURATION 2023-09-03 18:58:19 34 % F 21.0-49.0 TIBC 2023-09-03 18:58:19 238 ug/dL F 250.0-425.0 Iron binding capacity.unsaturated [Mass/volume] in Serum or Plasma 2023-09-03 18:58:05 157 ug/dL F 75.0-360.0 Iron [Mass/volume] in Serum or Plasma 2023-09-03 18:58:05 81 ug/dL F 65.0-175.0 Iron [Mass/volume] in Serum or Plasma 2023-09-03 18:58:05 81 ug/dL F 65.0-175.0 Iron binding capacity.unsaturated [Mass/volume] in Serum or Plasma 2023-09-03 18:58:05 157 ug/dL F 75.0-360.0 Iron [Mass/volume] in Serum or Plasma 2023-09-03 18:58:05 81 ug/dL F 65.0-175.0 Iron binding capacity.unsaturated [Mass/volume] in Serum or Plasma 2023-09-03 18:58:05 157 ug/dL F 75.0-360.0 Ferritin [Mass/volume] in Serum or Plasma 2023-07-31 05:01:12 318 ng/mL F 22.0-322.0 IRON SATURATION 2023-07-31 03:59:14 24 % F 21.0-49.0 TIBC 2023-07-31 03:59:14 255 ug/dL F 250.0-425.0 Iron [Mass/volume] in Serum or Plasma 2023-07-31 03:57:28 62 ug/dL F 65.0-175.0 Iron binding capacity.unsaturated [Mass/volume] in Serum or Plasma 2023-07-31 03:57:28 193 ug/dL F 75.0-360.0 HCT CALC HGBX3 2023-07-30 21:22:48 41.4 % F 42.0-52.0 Erythrocyte distribution width [Ratio] by Automated count 2023-07-30 21:22:40 14.6 % F 11.0-15.0 Erythrocytes [#/volume] in Blood by Automated count 2023-07-30 21:22:40 4.57 x 10'6 cells/uL F 4.6-6.2 Hemoglobin [Mass/volume] in Blood 2023-07-30 21:22:40 13.8 g/dL F 14.0-18.0 Hematocrit [Volume Fraction] of Blood by Automated count 2023-07-30 21:22:40 40.4 % F 41.0-53.0 MCV [Entitic volume] by Automated count 2023-07-30 21:22:40 88.4 fL F 80.0-100.0 MCH [Entitic mass] by Automated count 2023-07-30 21:22:40 30.2 pg F 25.9-34.2 MCHC [Mass/volume] by Automated count 2023-07-30 21:22:40 34.1 g/dL F 29.6-35.3 Platelets [#/volume] in Blood by Automated count 2023-07-30 21:22:40 173 x 10^3 cells/uL F 140.0-450.0 IRON SATURATION 2023-07-03 07:22:31 22 % F 21.0-49.0 TIBC 2023-07-03 07:22:31 254 ug/dL F 250.0-425.0 IRON SATURATION 2023-07-03 07:22:31 22 % F 21.0-49.0 TIBC 2023-07-03 07:22:31 254 ug/dL F 250.0-425.0 IRON SATURATION 2023-07-03 07:22:31 22 % F 21.0-49.0 TIBC 2023-07-03 07:22:31 254 ug/dL F 250.0-425.0 Iron [Mass/volume] in Serum or Plasma 2023-07-03 07:16:18 55 ug/dL F 65.0-175.0 Iron binding capacity.unsaturated [Mass/volume] in Serum or Plasma 2023-07-03 07:16:18 199 ug/dL F 75.0-360.0 Iron binding capacity.unsaturated [Mass/volume] in Serum or Plasma 2023-07-03 07:16:18 199 ug/dL F 75.0-360.0 Iron [Mass/volume] in Serum or Plasma 2023-07-03 07:16:18 55 ug/dL F 65.0-175.0 Iron [Mass/volume] in Serum or Plasma 2023-07-03 07:16:18 55 ug/dL F 65.0-175.0 Iron binding capacity.unsaturated [Mass/volume] in Serum or Plasma 2023-07-03 07:16:18 199 ug/dL F 75.0-360.0 HCT CALC HGBX3 2023-07-03 01:07:29 38.1 % F 42.0-52.0 HCT CALC HGBX3 2023-07-03 01:07:29 38.1 % F 42.0-52.0 HCT CALC HGBX3 2023-07-03 01:07:29 38.1 % F 42.0-52.0 Erythrocytes [#/volume] in Blood by Automated count 2023-07-03 01:06:27 4.33 x 10'6 cells/uL F 4.6-6.2 Erythrocyte distribution width [Ratio] by Automated count 2023-07-03 01:06:27 14.4 % F 11.0-15.0 Hematocrit [Volume Fraction] of Blood by Automated count 2023-07-03 01:06:27 39.5 % F 41.0-53.0 Hemoglobin [Mass/volume] in Blood 2023-07-03 01:06:27 12.7 g/dL F 14.0-18.0 MCV [Entitic volume] by Automated count 2023-07-03 01:06:27 91.1 fL F 80.0-100.0 MCH [Entitic mass] by Automated count 2023-07-03 01:06:27 29.2 pg F 25.9-34.2 Platelets [#/volume] in Blood by Automated count 2023-07-03 01:06:27 143 x 10^3 cells/uL F 140.0-450.0 MCHC [Mass/volume] by Automated count 2023-07-03 01:06:27 32.1 g/dL F 29.6-35.3 Hemoglobin [Mass/volume] in Blood 2023-07-03 01:06:27 12.7 g/dL F 14.0-18.0 MCH [Entitic mass] by Automated count 2023-07-03 01:06:27 29.2 pg F 25.9-34.2 MCHC [Mass/volume] by Automated count 2023-07-03 01:06:27 32.1 g/dL F 29.6-35.3 Erythrocytes [#/volume] in Blood by Automated count 2023-07-03 01:06:27 4.33 x 10'6 cells/uL F 4.6-6.2 Erythrocyte distribution width [Ratio] by Automated count 2023-07-03 01:06:27 14.4 % F 11.0-15.0 Hematocrit [Volume Fraction] of Blood by Automated count 2023-07-03 01:06:27 39.5 % F 41.0-53.0 MCV [Entitic volume] by Automated count 2023-07-03 01:06:27 91.1 fL F 80.0-100.0 Platelets [#/volume] in Blood by Automated count 2023-07-03 01:06:27 143 x 10'3 cells/uL F 140.0-450.0 Erythrocytes [#/volume] in Blood by Automated count 2023-07-03 01:06:27 4.33 x 10'6 cells/uL F 4.6-6.2 Erythrocyte distribution width [Ratio] by Automated count 2023-07-03 01:06:27 14.4 % F 11.0-15.0 Hematocrit [Volume Fraction] of Blood by Automated count 2023-07-03 01:06:27 39.5 % F 41.0-53.0 Hemoglobin [Mass/volume] in Blood 2023-07-03 01:06:27 12.7 g/dL F 14.0-18.0 MCV [Entitic volume] by Automated count 2023-07-03 01:06:27 91.1 fL F 80.0-100.0 MCH [Entitic mass] by Automated count 2023-07-03 01:06:27 29.2 pg F 25.9-34.2 Platelets [#/volume] in Blood by Automated count 2023-07-03 01:06:27 143 x 10'3 cells/uL F 140.0-450.0 MCHC [Mass/volume] by Automated count 2023-07-03 01:06:27 32.1 g/dL F 29.6-35.3 Ferritin [Mass/volume] in Serum or Plasma 2023-07-02 22:49:45 245 ng/mL F 22.0-322.0 Ferritin [Mass/volume] in Serum or Plasma 2023-07-02 22:49:45 245 ng/mL F 22.0-322.0 Ferritin [Mass/volume] in Serum or Plasma 2023-07-02 22:49:45 245 ng/mL F 22.0-322.0 IRON SATURATION 2023-06-05 21:47:21 29 % F 21.0-49.0 TIBC 2023-06-05 21:47:21 234 ug/dL F 250.0-425.0 IRON SATURATION 2023-06-05 21:47:21 29 % F 21.0-49.0 TIBC 2023-06-05 21:47:21 234 ug/dL F 250.0-425.0 IRON SATURATION 2023-06-05 21:47:21 29 % F 21.0-49.0 TIBC 2023-06-05 21:47:21 234 ug/dL F 250.0-425.0 IRON SATURATION 2023-06-05 21:47:21 29 % F 21.0-49.0 TIBC 2023-06-05 21:47:21 234 ug/dL F 250.0-425.0 Iron binding capacity.unsaturated [Mass/volume] in Serum or Plasma 2023-06-05 21:44:13 165 ug/dL F 75.0-360.0 Iron [Mass/volume] in Serum or Plasma 2023-06-05 21:44:13 69 ug/dL F 65.0-175.0 Iron binding capacity.unsaturated [Mass/volume] in Serum or Plasma 2023-06-05 21:44:13 165 ug/dL F 75.0-360.0 Iron [Mass/volume] in Serum or Plasma 2023-06-05 21:44:13 69 ug/dL F 65.0-175.0 Iron binding capacity.unsaturated [Mass/volume] in Serum or Plasma 2023-06-05 21:44:13 165 ug/dL F 75.0-360.0 Iron [Mass/volume] in Serum or Plasma 2023-06-05 21:44:13 69 ug/dL F 65.0-175.0 Iron binding capacity.unsaturated [Mass/volume] in Serum or Plasma 2023-06-05 21:44:13 165 ug/dL F 75.0-360.0 Iron [Mass/volume] in Serum or Plasma 2023-06-05 21:44:13 69 ug/dL F 65.0-175.0 Ferritin [Mass/volume] in Serum or Plasma 2023-06-05 05:04:17 257 ng/mL F 22.0-322.0 Ferritin [Mass/volume] in Serum or Plasma 2023-06-05 05:04:17 257 ng/mL F 22.0-322.0 Ferritin [Mass/volume] in Serum or Plasma 2023-06-05 05:04:17 257 ng/mL F 22.0-322.0 Ferritin [Mass/volume] in Serum or Plasma 2023-06-05 05:04:17 257 ng/mL F 22.0-322.0 HCT CALC HGBX3 2023-06-05 00:44:19 40.2 % F 42.0-52.0 HCT CALC HGBX3 2023-06-05 00:44:19 40.2 % F 42.0-52.0 HCT CALC HGBX3 2023-06-05 00:44:19 40.2 % F 42.0-52.0 HCT CALC HGBX3 2023-06-05 00:44:19 40.2 % F 42.0-52.0 Erythrocyte distribution width [Ratio] by Automated count 2023-06-05 00:43:40 14.3 % F 11.0-15.0 Hematocrit [Volume Fraction] of Blood by Automated count 2023-06-05 00:43:40 41 % F 41.0-53.0 Hemoglobin [Mass/volume] in Blood 2023-06-05 00:43:40 13.4 g/dL F 14.0-18.0 Erythrocytes [#/volume] in Blood by Automated count 2023-06-05 00:43:40 4.52 x 10'6 cells/uL F 4.6-6.2 MCH [Entitic mass] by Automated count 2023-06-05 00:43:40 29.6 pg F 25.9-34.2 MCV [Entitic volume] by Automated count 2023-06-05 00:43:40 90.9 fL F 80.0-100.0 MCHC [Mass/volume] by Automated count 2023-06-05 00:43:40 32.6 g/dL F 29.6-35.3 Platelets [#/volume] in Blood by Automated count 2023-06-05 00:43:40 182 x 10'3 cells/uL F 140.0-450.0 Reticulocytes/100 erythrocytes in Blood by Automated count 2023-06-05 00:43:40 2.15 % F 0.7-2.5 Reticulocytes/100 erythrocytes in Blood by Automated count 2023-06-05 00:43:40 2.15 % F 0.7-2.5 Erythrocytes [#/volume] in Blood by Automated count 2023-06-05 00:43:40 4.52 x 10'6 cells/uL F 4.6-6.2 Erythrocyte distribution width [Ratio] by Automated count 2023-06-05 00:43:40 14.3 % F 11.0-15.0 Hemoglobin [Mass/volume] in Blood 2023-06-05 00:43:40 13.4 g/dL F 14.0-18.0 MCH [Entitic mass] by Automated count 2023-06-05 00:43:40 29.6 pg F 25.9-34.2 MCHC [Mass/volume] by Automated count 2023-06-05 00:43:40 32.6 g/dL F 29.6-35.3 Hematocrit [Volume Fraction] of Blood by Automated count 2023-06-05 00:43:40 41 % F 41.0-53.0 MCV [Entitic volume] by Automated count 2023-06-05 00:43:40 90.9 fL F 80.0-100.0 Platelets [#/volume] in Blood by Automated count 2023-06-05 00:43:40 182 x 10'3 cells/uL F 140.0-450.0 Erythrocyte distribution width [Ratio] by Automated count 2023-06-05 00:43:40 14.3 % F 11.0-15.0 Erythrocytes [#/volume] in Blood by Automated count 2023-06-05 00:43:40 4.52 x 10'6 cells/uL F 4.6-6.2 Hemoglobin [Mass/volume] in Blood 2023-06-05 00:43:40 13.4 g/dL F 14.0-18.0 Hematocrit [Volume Fraction] of Blood by Automated count 2023-06-05 00:43:40 41 % F 41.0-53.0 MCV [Entitic volume] by Automated count 2023-06-05 00:43:40 90.9 fL F 80.0-100.0 MCH [Entitic mass] by Automated count 2023-06-05 00:43:40 29.6 pg F 25.9-34.2 Platelets [#/volume] in Blood by Automated count 2023-06-05 00:43:40 182 x 10^3 cells/uL F 140.0-450.0 MCHC [Mass/volume] by Automated count 2023-06-05 00:43:40 32.6 g/dL F 29.6-35.3 Reticulocytes/100 erythrocytes in Blood by Automated count 2023-06-05 00:43:40 2.15 % F 0.7-2.5 Erythrocyte distribution width [Ratio] by Automated count 2023-06-05 00:43:40 14.3 % F 11.0-15.0 Erythrocytes [#/volume] in Blood by Automated count 2023-06-05 00:43:40 4.52 x 10'6 cells/uL F 4.6-6.2 Hemoglobin [Mass/volume] in Blood 2023-06-05 00:43:40 13.4 g/dL F 14.0-18.0 Hematocrit [Volume Fraction] of Blood by Automated count 2023-06-05 00:43:40 41 % F 41.0-53.0 MCH [Entitic mass] by Automated count 2023-06-05 00:43:40 29.6 pg F 25.9-34.2 MCHC [Mass/volume] by Automated count 2023-06-05 00:43:40 32.6 g/dL F 29.6-35.3 Platelets [#/volume] in Blood by Automated count 2023-06-05 00:43:40 182 x 10'3 cells/uL F 140.0-450.0 MCV [Entitic volume] by Automated count 2023-06-05 00:43:40 90.9 fL F 80.0-100.0 Reticulocytes/100 erythrocytes in Blood by Automated count 2023-06-05 00:43:40 2.15 % F 0.7-2.5 IRON SATURATION 2023-05-07 05:08:58 27 % F 21.0-49.0 TIBC 2023-05-07 05:08:58 248 ug/dL F 250.0-425.0 IRON SATURATION 2023-05-07 05:08:58 27 % F 21.0-49.0 TIBC 2023-05-07 05:08:58 248 ug/dL F 250.0-425.0 IRON SATURATION 2023-05-07 05:08:58 27 % F 21.0-49.0 TIBC 2023-05-07 05:08:58 248 ug/dL F 250.0-425.0 Iron binding capacity.unsaturated [Mass/volume] in Serum or Plasma 2023-05-07 05:02:26 182 ug/dL F 75.0-360.0 Iron [Mass/volume] in Serum or Plasma 2023-05-07 05:02:26 66 ug/dL F 65.0-175.0 Iron [Mass/volume] in Serum or Plasma 2023-05-07 05:02:26 66 ug/dL F 65.0-175.0 Iron binding capacity.unsaturated [Mass/volume] in Serum or Plasma 2023-05-07 05:02:26 182 ug/dL F 75.0-360.0 Iron [Mass/volume] in Serum or Plasma 2023-05-07 05:02:26 66 ug/dL F 65.0-175.0 Iron binding capacity.unsaturated [Mass/volume] in Serum or Plasma 2023-05-07 05:02:26 182 ug/dL F 75.0-360.0 Ferritin [Mass/volume] in Serum or Plasma 2023-05-06 18:03:35 226 ng/mL F 22.0-322.0 Ferritin [Mass/volume] in Serum or Plasma 2023-05-06 18:03:35 226 ng/mL F 22.0-322.0 Ferritin [Mass/volume] in Serum or Plasma 2023-05-06 18:03:35 226 ng/mL F 22.0-322.0 HCT CALC HGBX3 2023-05-06 15:23:34 39.3 % F 42.0-52.0 HCT CALC HGBX3 2023-05-06 15:23:34 39.3 % F 42.0-52.0 HCT CALC HGBX3 2023-05-06 15:23:34 39.3 % F 42.0-52.0 Erythrocytes [#/volume] in Blood by Automated count 2023-05-06 15:23:25 4.47 x 10'6 cells/uL F 4.6-6.2 Erythrocyte distribution width [Ratio] by Automated count 2023-05-06 15:23:25 14.3 % F 11.0-15.0 Hemoglobin [Mass/volume] in Blood 2023-05-06 15:23:25 13.1 g/dL F 14.0-18.0 MCH [Entitic mass] by Automated count 2023-05-06 15:23:25 29.2 pg F 25.9-34.2 MCHC [Mass/volume] by Automated count 2023-05-06 15:23:25 32.9 g/dL F 29.6-35.3 Platelets [#/volume] in Blood by Automated count 2023-05-06 15:23:25 177 x 10'3 cells/uL F 140.0-450.0 MCV [Entitic volume] by Automated count 2023-05-06 15:23:25 89 fL F 80.0-100.0 Hematocrit [Volume Fraction] of Blood by Automated count 2023-05-06 15:23:25 39.8 % F 41.0-53.0 Erythrocyte distribution width [Ratio] by Automated count 2023-05-06 15:23:25 14.3 % F 11.0-15.0 Erythrocytes [#/volume] in Blood by Automated count 2023-05-06 15:23:25 4.47 x 10'6 cells/uL F 4.6-6.2 Hematocrit [Volume Fraction] of Blood by Automated count 2023-05-06 15:23:25 39.8 % F 41.0-53.0 Hemoglobin [Mass/volume] in Blood 2023-05-06 15:23:25 13.1 g/dL F 14.0-18.0 MCV [Entitic volume] by Automated count 2023-05-06 15:23:25 89 fL F 80.0-100.0 MCH [Entitic mass] by Automated count 2023-05-06 15:23:25 29.2 pg F 25.9-34.2 Platelets [#/volume] in Blood by Automated count 2023-05-06 15:23:25 177 x 10^3 cells/uL F 140.0-450.0 MCHC [Mass/volume] by Automated count 2023-05-06 15:23:25 32.9 g/dL F 29.6-35.3 Erythrocyte distribution width [Ratio] by Automated count 2023-05-06 15:23:25 14.3 % F 11.0-15.0 Hematocrit [Volume Fraction] of Blood by Automated count 2023-05-06 15:23:25 39.8 % F 41.0-53.0 Hemoglobin [Mass/volume] in Blood 2023-05-06 15:23:25 13.1 g/dL F 14.0-18.0 Erythrocytes [#/volume] in Blood by Automated count 2023-05-06 15:23:25 4.47 x 10'6 cells/uL F 4.6-6.2 MCV [Entitic volume] by Automated count 2023-05-06 15:23:25 89 fL F 80.0-100.0 MCH [Entitic mass] by Automated count 2023-05-06 15:23:25 29.2 pg F 25.9-34.2 Platelets [#/volume] in Blood by Automated count 2023-05-06 15:23:25 177 x 10'3 cells/uL F 140.0-450.0 MCHC [Mass/volume] by Automated count 2023-05-06 15:23:25 32.9 g/dL F 29.6-35.3 IRON SATURATION 2023-04-05 05:48:15 21 % F 21.0-49.0 TIBC 2023-04-05 05:48:15 257 ug/dL F 250.0-425.0 IRON SATURATION 2023-04-05 05:48:15 21 % F 21.0-49.0 TIBC 2023-04-05 05:48:15 257 ug/dL F 250.0-425.0 IRON SATURATION 2023-04-05 05:48:15 21 % F 21.0-49.0 TIBC 2023-04-05 05:48:15 257 ug/dL F 250.0-425.0 IRON SATURATION 2023-04-05 05:48:15 21 % F 21.0-49.0 TIBC 2023-04-05 05:48:15 257 ug/dL F 250.0-425.0 Iron [Mass/volume] in Serum or Plasma 2023-04-05 05:37:15 54 ug/dL F 65.0-175.0 Iron binding capacity.unsaturated [Mass/volume] in Serum or Plasma 2023-04-05 05:37:15 203 ug/dL F 75.0-360.0 Iron [Mass/volume] in Serum or Plasma 2023-04-05 05:37:15 54 ug/dL F 65.0-175.0 Iron binding capacity.unsaturated [Mass/volume] in Serum or Plasma 2023-04-05 05:37:15 203 ug/dL F 75.0-360.0 Iron [Mass/volume] in Serum or Plasma 2023-04-05 05:37:15 54 ug/dL F 65.0-175.0 Iron binding capacity.unsaturated [Mass/volume] in Serum or Plasma 2023-04-05 05:37:15 203 ug/dL F 75.0-360.0 Iron [Mass/volume] in Serum or Plasma 2023-04-05 05:37:15 54 ug/dL F 65.0-175.0 Iron binding capacity.unsaturated [Mass/volume] in Serum or Plasma 2023-04-05 05:37:15 203 ug/dL F 75.0-360.0 Ferritin [Mass/volume] in Serum or Plasma 2023-04-04 20:33:11 216 ng/mL F 22.0-322.0 Ferritin [Mass/volume] in Serum or Plasma 2023-04-04 20:33:11 216 ng/mL F 22.0-322.0 Ferritin [Mass/volume] in Serum or Plasma 2023-04-04 20:33:11 216 ng/mL F 22.0-322.0 Ferritin [Mass/volume] in Serum or Plasma 2023-04-04 20:33:11 216 ng/mL F 22.0-322.0 HCT CALC HGBX3 2023-04-04 15:11:58 37.5 % F 42.0-52.0 HCT CALC HGBX3 2023-04-04 15:11:58 37.5 % F 42.0-52.0 HCT CALC HGBX3 2023-04-04 15:11:58 37.5 % F 42.0-52.0 HCT CALC HGBX3 2023-04-04 15:11:58 37.5 % F 42.0-52.0 Reticulocytes/100 erythrocytes in Blood by Automated count 2023-04-04 15:11:20 2.76 % F 0.7-2.5 Erythrocytes [#/volume] in Blood by Automated count 2023-04-04 15:11:20 4.21 x 10'6 cells/uL F 4.6-6.2 Hemoglobin [Mass/volume] in Blood 2023-04-04 15:11:20 12.5 g/dL F 14.0-18.0 MCH [Entitic mass] by Automated count 2023-04-04 15:11:20 29.6 pg F 25.9-34.2 Hematocrit [Volume Fraction] of Blood by Automated count 2023-04-04 15:11:20 39.2 % F 41.0-53.0 Platelets [#/volume] in Blood by Automated count 2023-04-04 15:11:20 172 x 10^3 cells/uL F 140.0-450.0 Erythrocyte distribution width [Ratio] by Automated count 2023-04-04 15:11:20 13.5 % F 11.0-15.0 MCHC [Mass/volume] by Automated count 2023-04-04 15:11:20 31.8 g/dL F 29.6-35.3 MCV [Entitic volume] by Automated count 2023-04-04 15:11:20 93.1 fL F 80.0-100.0 Erythrocyte distribution width [Ratio] by Automated count 2023-04-04 15:11:20 13.5 % F 11.0-15.0 Hematocrit [Volume Fraction] of Blood by Automated count 2023-04-04 15:11:20 39.2 % F 41.0-53.0 Hemoglobin [Mass/volume] in Blood 2023-04-04 15:11:20 12.5 g/dL F 14.0-18.0 Erythrocytes [#/volume] in Blood by Automated count 2023-04-04 15:11:20 4.21 x 10'6 cells/uL F 4.6-6.2 MCV [Entitic volume] by Automated count 2023-04-04 15:11:20 93.1 fL F 80.0-100.0 MCH [Entitic mass] by Automated count 2023-04-04 15:11:20 29.6 pg F 25.9-34.2 MCHC [Mass/volume] by Automated count 2023-04-04 15:11:20 31.8 g/dL F 29.6-35.3 Platelets [#/volume] in Blood by Automated count 2023-04-04 15:11:20 172 x 10'3 cells/uL F 140.0-450.0 Reticulocytes/100 erythrocytes in Blood by Automated count 2023-04-04 15:11:20 2.76 % F 0.7-2.5 Erythrocyte distribution width [Ratio] by Automated count 2023-04-04 15:11:20 13.5 % F 11.0-15.0 Hematocrit [Volume Fraction] of Blood by Automated count 2023-04-04 15:11:20 39.2 % F 41.0-53.0 Erythrocytes [#/volume] in Blood by Automated count 2023-04-04 15:11:20 4.21 x 10'6 cells/uL F 4.6-6.2 MCV [Entitic volume] by Automated count 2023-04-04 15:11:20 93.1 fL F 80.0-100.0 MCH [Entitic mass] by Automated count 2023-04-04 15:11:20 29.6 pg F 25.9-34.2 Hemoglobin [Mass/volume] in Blood 2023-04-04 15:11:20 12.5 g/dL F 14.0-18.0 MCHC [Mass/volume] by Automated count 2023-04-04 15:11:20 31.8 g/dL F 29.6-35.3 Platelets [#/volume] in Blood by Automated count 2023-04-04 15:11:20 172 x 10'3 cells/uL F 140.0-450.0 Reticulocytes/100 erythrocytes in Blood by Automated count 2023-04-04 15:11:20 2.76 % F 0.7-2.5 Erythrocytes [#/volume] in Blood by Automated count 2023-04-04 15:11:20 4.21 x 10'6 cells/uL F 4.6-6.2 Erythrocyte distribution width [Ratio] by Automated count 2023-04-04 15:11:20 13.5 % F 11.0-15.0 Hematocrit [Volume Fraction] of Blood by Automated count 2023-04-04 15:11:20 39.2 % F 41.0-53.0 Hemoglobin [Mass/volume] in Blood 2023-04-04 15:11:20 12.5 g/dL F 14.0-18.0 MCV [Entitic volume] by Automated count 2023-04-04 15:11:20 93.1 fL F 80.0-100.0 MCH [Entitic mass] by Automated count 2023-04-04 15:11:20 29.6 pg F 25.9-34.2 MCHC [Mass/volume] by Automated count 2023-04-04 15:11:20 31.8 g/dL F 29.6-35.3 Platelets [#/volume] in Blood by Automated count 2023-04-04 15:11:20 172 x 10'3 cells/uL F 140.0-450.0 Reticulocytes/100 erythrocytes in Blood by Automated count 2023-04-04 15:11:20 2.76 % F 0.7-2.5 IRON SATURATION 2023-03-06 06:45:54 16 % F 21.0-49.0 TIBC 2023-03-06 06:45:54 252 ug/dL F 250.0-425.0 IRON SATURATION 2023-03-06 06:45:54 16 % F 21.0-49.0 TIBC 2023-03-06 06:45:54 252 ug/dL F 250.0-425.0 IRON SATURATION 2023-03-06 06:45:54 16 % F 21.0-49.0 TIBC 2023-03-06 06:45:54 252 ug/dL F 250.0-425.0 IRON SATURATION 2023-03-06 06:45:54 16 % F 21.0-49.0 TIBC 2023-03-06 06:45:54 252 ug/dL F 250.0-425.0 Iron [Mass/volume] in Serum or Plasma 2023-03-06 06:35:39 40 ug/dL F 65.0-175.0 Iron binding capacity.unsaturated [Mass/volume] in Serum or Plasma 2023-03-06 06:35:39 212 ug/dL F 75.0-360.0 Iron binding capacity.unsaturated [Mass/volume] in Serum or Plasma 2023-03-06 06:35:39 212 ug/dL F 75.0-360.0 Iron [Mass/volume] in Serum or Plasma 2023-03-06 06:35:39 40 ug/dL F 65.0-175.0 Iron [Mass/volume] in Serum or Plasma 2023-03-06 06:35:39 40 ug/dL F 65.0-175.0 Iron binding capacity.unsaturated [Mass/volume] in Serum or Plasma 2023-03-06 06:35:39 212 ug/dL F 75.0-360.0 Iron [Mass/volume] in Serum or Plasma 2023-03-06 06:35:39 40 ug/dL F 65.0-175.0 Iron binding capacity.unsaturated [Mass/volume] in Serum or Plasma 2023-03-06 06:35:39 212 ug/dL F 75.0-360.0 Ferritin [Mass/volume] in Serum or Plasma 2023-03-05 15:47:07 126 ng/mL F 22.0-322.0 Ferritin [Mass/volume] in Serum or Plasma 2023-03-05 15:47:07 126 ng/mL F 22.0-322.0 Ferritin [Mass/volume] in Serum or Plasma 2023-03-05 15:47:07 126 ng/mL F 22.0-322.0 Ferritin [Mass/volume] in Serum or Plasma 2023-03-05 15:47:07 126 ng/mL F 22.0-322.0 HCT CALC HGBX3 2023-03-05 14:34:57 35.7 % F 42.0-52.0 HCT CALC HGBX3 2023-03-05 14:34:57 35.7 % F 42.0-52.0 HCT CALC HGBX3 2023-03-05 14:34:57 35.7 % F 42.0-52.0 HCT CALC HGBX3 2023-03-05 14:34:57 35.7 % F 42.0-52.0 Erythrocyte distribution width [Ratio] by Automated count 2023-03-05 14:34:11 14 % F 11.0-15.0 Hematocrit [Volume Fraction] of Blood by Automated count 2023-03-05 14:34:11 37.4 % F 41.0-53.0 Erythrocytes [#/volume] in Blood by Automated count 2023-03-05 14:34:11 4.06 x 10'6 cells/uL F 4.6-6.2 Hemoglobin [Mass/volume] in Blood 2023-03-05 14:34:11 11.9 g/dL F 14.0-18.0 MCV [Entitic volume] by Automated count 2023-03-05 14:34:11 92 fL F 80.0-100.0 MCH [Entitic mass] by Automated count 2023-03-05 14:34:11 29.4 pg F 25.9-34.2 MCHC [Mass/volume] by Automated count 2023-03-05 14:34:11 31.9 g/dL F 29.6-35.3 Platelets [#/volume] in Blood by Automated count 2023-03-05 14:34:11 162 x 10'3 cells/uL F 140.0-450.0 Reticulocytes/100 erythrocytes in Blood by Automated count 2023-03-05 14:34:11 2.72 % F 0.7-2.5 Reticulocytes/100 erythrocytes in Blood by Automated count 2023-03-05 14:34:11 2.72 % F 0.7-2.5 Erythrocytes [#/volume] in Blood by Automated count 2023-03-05 14:34:11 4.06 x 10'6 cells/uL F 4.6-6.2 Erythrocyte distribution width [Ratio] by Automated count 2023-03-05 14:34:11 14 % F 11.0-15.0 Hemoglobin [Mass/volume] in Blood 2023-03-05 14:34:11 11.9 g/dL F 14.0-18.0 MCHC [Mass/volume] by Automated count 2023-03-05 14:34:11 31.9 g/dL F 29.6-35.3 MCH [Entitic mass] by Automated count 2023-03-05 14:34:11 29.4 pg F 25.9-34.2 Hematocrit [Volume Fraction] of Blood by Automated count 2023-03-05 14:34:11 37.4 % F 41.0-53.0 MCV [Entitic volume] by Automated count 2023-03-05 14:34:11 92 fL F 80.0-100.0 Platelets [#/volume] in Blood by Automated count 2023-03-05 14:34:11 162 x 10'3 cells/uL F 140.0-450.0 Erythrocyte distribution width [Ratio] by Automated count 2023-03-05 14:34:11 14 % F 11.0-15.0 Hematocrit [Volume Fraction] of Blood by Automated count 2023-03-05 14:34:11 37.4 % F 41.0-53.0 Erythrocytes [#/volume] in Blood by Automated count 2023-03-05 14:34:11 4.06 x 10'6 cells/uL F 4.6-6.2 Hemoglobin [Mass/volume] in Blood 2023-03-05 14:34:11 11.9 g/dL F 14.0-18.0 MCV [Entitic volume] by Automated count 2023-03-05 14:34:11 92 fL F 80.0-100.0 MCH [Entitic mass] by Automated count 2023-03-05 14:34:11 29.4 pg F 25.9-34.2 MCHC [Mass/volume] by Automated count 2023-03-05 14:34:11 31.9 g/dL F 29.6-35.3 Platelets [#/volume] in Blood by Automated count 2023-03-05 14:34:11 162 x 10^3 cells/uL F 140.0-450.0 Reticulocytes/100 erythrocytes in Blood by Automated count 2023-03-05 14:34:11 2.72 % F 0.7-2.5 Erythrocytes [#/volume] in Blood by Automated count 2023-03-05 14:34:11 4.06 x 10'6 cells/uL F 4.6-6.2 Erythrocyte distribution width [Ratio] by Automated count 2023-03-05 14:34:11 14 % F 11.0-15.0 Hematocrit [Volume Fraction] of Blood by Automated count 2023-03-05 14:34:11 37.4 % F 41.0-53.0 MCV [Entitic volume] by Automated count 2023-03-05 14:34:11 92 fL F 80.0-100.0 MCH [Entitic mass] by Automated count 2023-03-05 14:34:11 29.4 pg F 25.9-34.2 Hemoglobin [Mass/volume] in Blood 2023-03-05 14:34:11 11.9 g/dL F 14.0-18.0 MCHC [Mass/volume] by Automated count 2023-03-05 14:34:11 31.9 g/dL F 29.6-35.3 Platelets [#/volume] in Blood by Automated count 2023-03-05 14:34:11 162 x 10'3 cells/uL F 140.0-450.0 Reticulocytes/100 erythrocytes in Blood by Automated count 2023-03-05 14:34:11 2.72 % F 0.7-2.5 Comorbidities Description Draw Date Result/Unit Status Ref Range Result Comments Hemoglobin A1c/Hemoglobin.total in Blood 2024-09-17 16:37:15 5.6 %A1c F 0.0-5.6 Thyrotropin [Units/volume] in Serum or Plasma by Detection limit <= 0.05 mIU/L 2024-06-04 07:26:40 1.78 uIU/mL F 0.55-4.78 Hemoglobin A1c/Hemoglobin.total in Blood 2024-06-04 03:55:33 6.8 %A1c F 0.0-5.6 Hemoglobin A1c/Hemoglobin.total in Blood 2024-03-17 06:10:43 6.9 %A1c F 0.0-5.6 Hemoglobin A1c/Hemoglobin.total in Blood 2024-03-17 06:10:43 6.9 %A1c F 0.0-5.6 Hemoglobin A1c/Hemoglobin.total in Blood 2024-03-17 06:10:43 6.9 %A1c F 0.0-5.6 Hemoglobin A1c/Hemoglobin.total in Blood 2023-12-03 01:30:07 7.6 %A1c F 0.0-5.6 Hemoglobin A1c/Hemoglobin.total in Blood 2023-12-03 01:30:07 7.6 %A1c F 0.0-5.6 Hemoglobin A1c/Hemoglobin.total in Blood 2023-12-03 01:30:07 7.6 %A1c F 0.0-5.6 Hemoglobin A1c/Hemoglobin.total in Blood 2023-11-12 19:20:30 7.8 %A1c F 0.0-5.6 Hemoglobin A1c/Hemoglobin.total in Blood 2023-11-12 19:20:30 7.8 %A1c F 0.0-5.6 Hemoglobin A1c/Hemoglobin.total in Blood 2023-11-12 19:20:30 7.8 %A1c F 0.0-5.6 Hemoglobin A1c/Hemoglobin.total in Blood 2023-09-04 04:38:36 7.1 %A1c F 0.0-5.6 Hemoglobin A1c/Hemoglobin.total in Blood 2023-09-04 04:38:36 7.1 %A1c F 0.0-5.6 Hemoglobin A1c/Hemoglobin.total in Blood 2023-09-04 04:38:36 7.1 %A1c F 0.0-5.6 Hemoglobin A1c/Hemoglobin.total in Blood 2023-06-05 05:34:56 7.5 %A1c F 0.0-5.6 Hemoglobin A1c/Hemoglobin.total in Blood 2023-06-05 05:34:56 7.5 %A1c F 0.0-5.6 Hemoglobin A1c/Hemoglobin.total in Blood 2023-06-05 05:34:56 7.5 %A1c F 0.0-5.6 Hemoglobin A1c/Hemoglobin.total in Blood 2023-06-05 05:34:56 7.5 %A1c F 0.0-5.6 Thyrotropin [Units/volume] in Serum or Plasma by Detection limit <= 0.05 mIU/L 2023-06-05 05:03:44 2.13 uIU/mL F 0.55-4.78 Thyrotropin [Units/volume] in Serum or Plasma by Detection limit <= 0.05 mIU/L 2023-06-05 05:03:44 2.13 uIU/mL F 0.55-4.78 Thyrotropin [Units/volume] in Serum or Plasma by Detection limit <= 0.05 mIU/L 2023-06-05 05:03:44 2.13 uIU/mL F 0.55-4.78 Thyrotropin [Units/volume] in Serum or Plasma by Detection limit <= 0.05 mIU/L 2023-06-05 05:03:44 2.13 uIU/mL F 0.55-4.78 Hemoglobin A1c/Hemoglobin.total in Blood 2023-04-04 18:44:27 6.6 %A1c F 0.0-5.6 Hemoglobin A1c/Hemoglobin.total in Blood 2023-04-04 18:44:27 6.6 %A1c F 0.0-5.6 Hemoglobin A1c/Hemoglobin.total in Blood 2023-04-04 18:44:27 6.6 %A1c F 0.0-5.6 Hemoglobin A1c/Hemoglobin.total in Blood 2023-04-04 18:44:27 6.6 %A1c F 0.0-5.6 Hemoglobin A1c/Hemoglobin.total in Blood 2023-03-05 17:52:47 6.4 %A1c F 0.0-5.6 Hemoglobin A1c/Hemoglobin.total in Blood 2023-03-05 17:52:47 6.4 %A1c F 0.0-5.6 Hemoglobin A1c/Hemoglobin.total in Blood 2023-03-05 17:52:47 6.4 %A1c F 0.0-5.6 Hemoglobin A1c/Hemoglobin.total in Blood 2023-03-05 17:52:47 6.4 %A1c F 0.0-5.6 FluidBP Description Draw Date Result/Unit Status Ref Range Result Comments Sodium [Moles/volume] in Serum or Plasma 2024-11-04 08:25:16 139 mEq/L F 132.0-146.0 Sodium [Moles/volume] in Serum or Plasma 2024-10-07 08:26:39 140 mEq/L F 132.0-146.0 Sodium [Moles/volume] in Serum or Plasma 2024-09-17 05:26:36 141 mEq/L F 132.0-146.0 Sodium [Moles/volume] in Serum or Plasma 2024-08-04 07:43:39 136 mEq/L F 132.0-146.0 Sodium [Moles/volume] in Serum or Plasma 2024-08-04 07:43:39 136 mEq/L F 132.0-146.0 Sodium [Moles/volume] in Serum or Plasma 2024-07-01 02:47:36 139 mEq/L F 132.0-146.0 Sodium [Moles/volume] in Serum or Plasma 2024-07-01 02:47:36 139 mEq/L F 132.0-146.0 Sodium [Moles/volume] in Serum or Plasma 2024-07-01 02:47:36 139 mEq/L F 132.0-146.0 Sodium [Moles/volume] in Serum or Plasma 2024-06-04 06:13:13 137 mEq/L F 132.0-146.0 Sodium [Moles/volume] in Serum or Plasma 2024-05-04 06:56:24 141 mEq/L F 132.0-146.0 Sodium [Moles/volume] in Serum or Plasma 2024-05-04 06:56:24 141 mEq/L F 132.0-146.0 Sodium [Moles/volume] in Serum or Plasma 2024-03-30 03:55:41 138 mEq/L F 132.0-146.0 Sodium [Moles/volume] in Serum or Plasma 2024-03-30 03:55:41 138 mEq/L F 132.0-146.0 Sodium [Moles/volume] in Serum or Plasma 2024-03-30 03:55:41 138 mEq/L F 132.0-146.0 Sodium [Moles/volume] in Serum or Plasma 2024-03-17 04:10:08 140 mEq/L F 132.0-146.0 Sodium [Moles/volume] in Serum or Plasma 2024-03-17 04:10:08 140 mEq/L F 132.0-146.0 Sodium [Moles/volume] in Serum or Plasma 2024-03-17 04:10:08 140 mEq/L F 132.0-146.0 Sodium [Moles/volume] in Serum or Plasma 2024-01-29 04:56:42 138 mEq/L F 132.0-146.0 Sodium [Moles/volume] in Serum or Plasma 2024-01-29 04:56:42 138 mEq/L F 132.0-146.0 Sodium [Moles/volume] in Serum or Plasma 2024-01-29 04:56:42 138 mEq/L F 132.0-146.0 Sodium [Moles/volume] in Serum or Plasma 2024-01-06 06:38:35 139 mEq/L F 132.0-146.0 Sodium [Moles/volume] in Serum or Plasma 2024-01-06 06:38:35 139 mEq/L F 132.0-146.0 Sodium [Moles/volume] in Serum or Plasma 2024-01-06 06:38:35 139 mEq/L F 132.0-146.0 Sodium [Moles/volume] in Serum or Plasma 2023-12-03 03:46:31 140 mEq/L F 132.0-146.0 Sodium [Moles/volume] in Serum or Plasma 2023-12-03 03:46:31 140 mEq/L F 132.0-146.0 Sodium [Moles/volume] in Serum or Plasma 2023-12-03 03:46:31 140 mEq/L F 132.0-146.0 Sodium [Moles/volume] in Serum or Plasma 2023-11-12 22:24:47 140 mEq/L F 132.0-146.0 Sodium [Moles/volume] in Serum or Plasma 2023-11-12 22:24:47 140 mEq/L F 132.0-146.0 Sodium [Moles/volume] in Serum or Plasma 2023-11-12 22:24:47 140 mEq/L F 132.0-146.0 Sodium [Moles/volume] in Serum or Plasma 2023-10-02 00:51:46 142 mEq/L F 132.0-146.0 Sodium [Moles/volume] in Serum or Plasma 2023-10-02 00:51:46 142 mEq/L F 132.0-146.0 Sodium [Moles/volume] in Serum or Plasma 2023-10-02 00:51:46 142 mEq/L F 132.0-146.0 Sodium [Moles/volume] in Serum or Plasma 2023-10-02 00:51:46 142 mEq/L F 132.0-146.0 Sodium [Moles/volume] in Serum or Plasma 2023-10-02 00:51:46 142 mEq/L F 132.0-146.0 Sodium [Moles/volume] in Serum or Plasma 2023-09-03 18:58:05 139 mEq/L F 132.0-146.0 Sodium [Moles/volume] in Serum or Plasma 2023-09-03 18:58:05 139 mEq/L F 132.0-146.0 Sodium [Moles/volume] in Serum or Plasma 2023-09-03 18:58:05 139 mEq/L F 132.0-146.0 Sodium [Moles/volume] in Serum or Plasma 2023-07-30 19:25:39 138 mEq/L F 132.0-146.0 Sodium [Moles/volume] in Serum or Plasma 2023-07-02 18:16:29 139 mEq/L F 132.0-146.0 Sodium [Moles/volume] in Serum or Plasma 2023-07-02 18:16:29 139 mEq/L F 132.0-146.0 Sodium [Moles/volume] in Serum or Plasma 2023-07-02 18:16:29 139 mEq/L F 132.0-146.0 Sodium [Moles/volume] in Serum or Plasma 2023-06-05 20:44:27 137 mEq/L F 132.0-146.0 Sodium [Moles/volume] in Serum or Plasma 2023-06-05 20:44:27 137 mEq/L F 132.0-146.0 Sodium [Moles/volume] in Serum or Plasma 2023-06-05 20:44:27 137 mEq/L F 132.0-146.0 Sodium [Moles/volume] in Serum or Plasma 2023-06-05 20:44:27 137 mEq/L F 132.0-146.0 Sodium [Moles/volume] in Serum or Plasma 2023-05-06 21:16:32 137 mEq/L F 132.0-146.0 Sodium [Moles/volume] in Serum or Plasma 2023-05-06 21:16:32 137 mEq/L F 132.0-146.0 Sodium [Moles/volume] in Serum or Plasma 2023-05-06 21:16:32 137 mEq/L F 132.0-146.0 Sodium [Moles/volume] in Serum or Plasma 2023-04-04 20:06:14 136 mEq/L F 132.0-146.0 Sodium [Moles/volume] in Serum or Plasma 2023-04-04 20:06:14 136 mEq/L F 132.0-146.0 Sodium [Moles/volume] in Serum or Plasma 2023-04-04 20:06:14 136 mEq/L F 132.0-146.0 Sodium [Moles/volume] in Serum or Plasma 2023-04-04 20:06:14 136 mEq/L F 132.0-146.0 Sodium [Moles/volume] in Serum or Plasma 2023-03-06 00:42:07 140 mEq/L F 132.0-146.0 Sodium [Moles/volume] in Serum or Plasma 2023-03-06 00:42:07 140 mEq/L F 132.0-146.0 Sodium [Moles/volume] in Serum or Plasma 2023-03-06 00:42:07 140 mEq/L F 132.0-146.0 Sodium [Moles/volume] in Serum or Plasma 2023-03-06 00:42:07 140 mEq/L F 132.0-146.0 General Description Draw Date Result/Unit Status Ref Range Result Comments JESSICA PD 2024-11-04 08:31:29 14.6 g/day F Chloride [Moles/volume] in Serum or Plasma 2024-11-04 08:25:16 112 mEq/L F 99.0-109.0 Alanine aminotransferase [Enzymatic activity/volume] in Serum or Plasma 2024-11-04 05:24:24 18 U/L F 10.0-49.0 Aspartate aminotransferase [Enzymatic activity/volume] in Serum or Plasma 2024-11-04 05:24:24 18 U/L F 0.0-33.0 Chloride [Moles/volume] in Serum or Plasma 2024-10-07 08:26:39 111 mEq/L F 99.0-109.0 Alanine aminotransferase [Enzymatic activity/volume] in Serum or Plasma 2024-10-07 00:55:28 20 U/L F 10.0-49.0 Aspartate aminotransferase [Enzymatic activity/volume] in Serum or Plasma 2024-10-07 00:55:28 15 U/L F 0.0-33.0 Chloride [Moles/volume] in Serum or Plasma 2024-09-17 05:26:36 113 mEq/L F 99.0-109.0 JESSICA PD 2024-09-17 01:03:01 17 g/day F Alanine aminotransferase [Enzymatic activity/volume] in Serum or Plasma 2024-09-16 16:53:25 20 U/L F 10.0-49.0 Aspartate aminotransferase [Enzymatic activity/volume] in Serum or Plasma 2024-09-16 16:53:25 18 U/L F 0.0-33.0 Chloride [Moles/volume] in Serum or Plasma 2024-08-04 07:43:39 106 mEq/L F 99.0-109.0 Chloride [Moles/volume] in Serum or Plasma 2024-08-04 07:43:39 106 mEq/L F 99.0-109.0 Aspartate aminotransferase [Enzymatic activity/volume] in Serum or Plasma 2024-08-04 02:01:20 19 U/L F 0.0-33.0 Alanine aminotransferase [Enzymatic activity/volume] in Serum or Plasma 2024-08-04 02:01:20 25 U/L F 10.0-49.0 Alanine aminotransferase [Enzymatic activity/volume] in Serum or Plasma 2024-08-04 02:01:20 25 U/L F 10.0-49.0 Aspartate aminotransferase [Enzymatic activity/volume] in Serum or Plasma 2024-08-04 02:01:20 19 U/L F 0.0-33.0 Chloride [Moles/volume] in Serum or Plasma 2024-07-01 02:47:36 108 mEq/L F 99.0-109.0 Chloride [Moles/volume] in Serum or Plasma 2024-07-01 02:47:36 108 mEq/L F 99.0-109.0 Chloride [Moles/volume] in Serum or Plasma 2024-07-01 02:47:36 108 mEq/L F 99.0-109.0 Aspartate aminotransferase [Enzymatic activity/volume] in Serum or Plasma 2024-06-30 14:27:10 24 U/L F 0.0-33.0 Alanine aminotransferase [Enzymatic activity/volume] in Serum or Plasma 2024-06-30 14:27:10 30 U/L F 10.0-49.0 Alanine aminotransferase [Enzymatic activity/volume] in Serum or Plasma 2024-06-30 14:27:10 30 U/L F 10.0-49.0 Aspartate aminotransferase [Enzymatic activity/volume] in Serum or Plasma 2024-06-30 14:27:10 24 U/L F 0.0-33.0 Alanine aminotransferase [Enzymatic activity/volume] in Serum or Plasma 2024-06-30 14:27:10 30 U/L F 10.0-49.0 Aspartate aminotransferase [Enzymatic activity/volume] in Serum or Plasma 2024-06-30 14:27:10 24 U/L F 0.0-33.0 JESSICA PD 2024-06-04 15:10:16 16.2 g/day F Chloride [Moles/volume] in Serum or Plasma 2024-06-04 06:13:13 109 mEq/L F 99.0-109.0 Alanine aminotransferase [Enzymatic activity/volume] in Serum or Plasma 2024-06-04 06:08:34 33 U/L F 10.0-49.0 Aspartate aminotransferase [Enzymatic activity/volume] in Serum or Plasma 2024-06-04 06:08:34 23 U/L F 0.0-33.0 Aluminum [Mass/volume] in Serum or Plasma 2024-06-03 17:59:07 10 ug/L F 0.0-9.0 Chloride [Moles/volume] in Serum or Plasma 2024-05-04 06:56:24 110 mEq/L F 99.0-109.0 Chloride [Moles/volume] in Serum or Plasma 2024-05-04 06:56:24 110 mEq/L F 99.0-109.0 Alanine aminotransferase [Enzymatic activity/volume] in Serum or Plasma 2024-05-03 16:37:31 35 U/L F 10.0-49.0 Aspartate aminotransferase [Enzymatic activity/volume] in Serum or Plasma 2024-05-03 16:37:31 22 U/L F 0.0-33.0 Alanine aminotransferase [Enzymatic activity/volume] in Serum or Plasma 2024-05-03 16:37:31 35 U/L F 10.0-49.0 Aspartate aminotransferase [Enzymatic activity/volume] in Serum or Plasma 2024-05-03 16:37:31 22 U/L F 0.0-33.0 Chloride [Moles/volume] in Serum or Plasma 2024-03-30 03:55:41 107 mEq/L F 99.0-109.0 Chloride [Moles/volume] in Serum or Plasma 2024-03-30 03:55:41 107 mEq/L F 99.0-109.0 Chloride [Moles/volume] in Serum or Plasma 2024-03-30 03:55:41 107 mEq/L F 99.0-109.0 Aspartate aminotransferase [Enzymatic activity/volume] in Serum or Plasma 2024-03-29 18:01:29 25 U/L F 0.0-33.0 Alanine aminotransferase [Enzymatic activity/volume] in Serum or Plasma 2024-03-29 18:01:29 36 U/L F 10.0-49.0 Aspartate aminotransferase [Enzymatic activity/volume] in Serum or Plasma 2024-03-29 18:01:29 25 U/L F 0.0-33.0 Alanine aminotransferase [Enzymatic activity/volume] in Serum or Plasma 2024-03-29 18:01:29 36 U/L F 10.0-49.0 Alanine aminotransferase [Enzymatic activity/volume] in Serum or Plasma 2024-03-29 18:01:29 36 U/L F 10.0-49.0 Aspartate aminotransferase [Enzymatic activity/volume] in Serum or Plasma 2024-03-29 18:01:29 25 U/L F 0.0-33.0 Chloride [Moles/volume] in Serum or Plasma 2024-03-17 04:10:08 109 mEq/L F 99.0-109.0 Chloride [Moles/volume] in Serum or Plasma 2024-03-17 04:10:08 109 mEq/L F 99.0-109.0 Chloride [Moles/volume] in Serum or Plasma 2024-03-17 04:10:08 109 mEq/L F 99.0-109.0 Aspartate aminotransferase [Enzymatic activity/volume] in Serum or Plasma 2024-03-17 01:53:28 29 U/L F 0.0-33.0 Alanine aminotransferase [Enzymatic activity/volume] in Serum or Plasma 2024-03-17 01:53:28 32 U/L F 10.0-49.0 Alanine aminotransferase [Enzymatic activity/volume] in Serum or Plasma 2024-03-17 01:53:28 32 U/L F 10.0-49.0 Aspartate aminotransferase [Enzymatic activity/volume] in Serum or Plasma 2024-03-17 01:53:28 29 U/L F 0.0-33.0 Alanine aminotransferase [Enzymatic activity/volume] in Serum or Plasma 2024-03-17 01:53:28 32 U/L F 10.0-49.0 Aspartate aminotransferase [Enzymatic activity/volume] in Serum or Plasma 2024-03-17 01:53:28 29 U/L F 0.0-33.0 JESSICA PD 2024-03-16 17:12:17 17.1 g/day F JESSICA PD 2024-03-16 17:12:17 17.1 g/day F JESSICA PD 2024-03-16 17:12:17 17.1 g/day F Chloride [Moles/volume] in Serum or Plasma 2024-01-29 04:56:42 108 mEq/L F 99.0-109.0 Chloride [Moles/volume] in Serum or Plasma 2024-01-29 04:56:42 108 mEq/L F 99.0-109.0 Chloride [Moles/volume] in Serum or Plasma 2024-01-29 04:56:42 108 mEq/L F 99.0-109.0 Alanine aminotransferase [Enzymatic activity/volume] in Serum or Plasma 2024-01-29 02:15:28 36 U/L F 10.0-49.0 Aspartate aminotransferase [Enzymatic activity/volume] in Serum or Plasma 2024-01-29 02:15:28 29 U/L F 0.0-33.0 Alanine aminotransferase [Enzymatic activity/volume] in Serum or Plasma 2024-01-29 02:15:28 36 U/L F 10.0-49.0 Aspartate aminotransferase [Enzymatic activity/volume] in Serum or Plasma 2024-01-29 02:15:28 29 U/L F 0.0-33.0 Alanine aminotransferase [Enzymatic activity/volume] in Serum or Plasma 2024-01-29 02:15:28 36 U/L F 10.0-49.0 Aspartate aminotransferase [Enzymatic activity/volume] in Serum or Plasma 2024-01-29 02:15:28 29 U/L F 0.0-33.0 Chloride [Moles/volume] in Serum or Plasma 2024-01-06 06:38:35 109 mEq/L F 99.0-109.0 Chloride [Moles/volume] in Serum or Plasma 2024-01-06 06:38:35 109 mEq/L F 99.0-109.0 Chloride [Moles/volume] in Serum or Plasma 2024-01-06 06:38:35 109 mEq/L F 99.0-109.0 Aspartate aminotransferase [Enzymatic activity/volume] in Serum or Plasma 2024-01-05 22:41:34 28 U/L F 0.0-33.0 Alanine aminotransferase [Enzymatic activity/volume] in Serum or Plasma 2024-01-05 22:41:34 32 U/L F 10.0-49.0 Aspartate aminotransferase [Enzymatic activity/volume] in Serum or Plasma 2024-01-05 22:41:34 28 U/L F 0.0-33.0 Alanine aminotransferase [Enzymatic activity/volume] in Serum or Plasma 2024-01-05 22:41:34 32 U/L F 10.0-49.0 Alanine aminotransferase [Enzymatic activity/volume] in Serum or Plasma 2024-01-05 22:41:34 32 U/L F 10.0-49.0 Aspartate aminotransferase [Enzymatic activity/volume] in Serum or Plasma 2024-01-05 22:41:34 28 U/L F 0.0-33.0 Chloride [Moles/volume] in Serum or Plasma 2023-12-03 03:46:31 110 mEq/L F 99.0-109.0 Chloride [Moles/volume] in Serum or Plasma 2023-12-03 03:46:31 110 mEq/L F 99.0-109.0 Chloride [Moles/volume] in Serum or Plasma 2023-12-03 03:46:31 110 mEq/L F 99.0-109.0 Aluminum [Mass/volume] in Serum or Plasma 2023-12-02 18:19:17 10 ug/L F 0.0-9.0 Aluminum [Mass/volume] in Serum or Plasma 2023-12-02 18:19:17 10 ug/L F 0.0-9.0 Aluminum [Mass/volume] in Serum or Plasma 2023-12-02 18:19:17 10 ug/L F 0.0-9.0 JESSICA PD 2023-12-02 18:05:34 16.6 g/day F JESS[facility] PD 2023-12-02 18:05:34 16.6 g/day F JESSICA PD 2023-12-02 18:05:34 16.6 g/day F Aspartate aminotransferase [Enzymatic activity/volume] in Serum or Plasma 2023-12-02 14:38:33 31 U/L F 0.0-33.0 Alanine aminotransferase [Enzymatic activity/volume] in Serum or Plasma 2023-12-02 14:38:33 40 U/L F 10.0-49.0 Alanine aminotransferase [Enzymatic activity/volume] in Serum or Plasma 2023-12-02 14:38:33 40 U/L F 10.0-49.0 Aspartate aminotransferase [Enzymatic activity/volume] in Serum or Plasma 2023-12-02 14:38:33 31 U/L F 0.0-33.0 Alanine aminotransferase [Enzymatic activity/volume] in Serum or Plasma 2023-12-02 14:38:33 40 U/L F 10.0-49.0 Aspartate aminotransferase [Enzymatic activity/volume] in Serum or Plasma 2023-12-02 14:38:33 31 U/L F 0.0-33.0 Chloride [Moles/volume] in Serum or Plasma 2023-11-12 22:24:47 110 mEq/L F 99.0-109.0 Chloride [Moles/volume] in Serum or Plasma 2023-11-12 22:24:47 110 mEq/L F 99.0-109.0 Chloride [Moles/volume] in Serum or Plasma 2023-11-12 22:24:47 110 mEq/L F 99.0-109.0 Alanine aminotransferase [Enzymatic activity/volume] in Serum or Plasma 2023-11-12 15:23:03 38 U/L F 10.0-49.0 Aspartate aminotransferase [Enzymatic activity/volume] in Serum or Plasma 2023-11-12 15:23:03 27 U/L F 0.0-33.0 Alanine aminotransferase [Enzymatic activity/volume] in Serum or Plasma 2023-11-12 15:23:03 38 U/L F 10.0-49.0 Aspartate aminotransferase [Enzymatic activity/volume] in Serum or Plasma 2023-11-12 15:23:03 27 U/L F 0.0-33.0 Alanine aminotransferase [Enzymatic activity/volume] in Serum or Plasma 2023-11-12 15:23:03 38 U/L F 10.0-49.0 Aspartate aminotransferase [Enzymatic activity/volume] in Serum or Plasma 2023-11-12 15:23:03 27 U/L F 0.0-33.0 Chloride [Moles/volume] in Serum or Plasma 2023-10-02 00:51:46 111 mEq/L F 99.0-109.0 Chloride [Moles/volume] in Serum or Plasma 2023-10-02 00:51:46 111 mEq/L F 99.0-109.0 Chloride [Moles/volume] in Serum or Plasma 2023-10-02 00:51:46 111 mEq/L F 99.0-109.0 Chloride [Moles/volume] in Serum or Plasma 2023-10-02 00:51:46 111 mEq/L F 99.0-109.0 Chloride [Moles/volume] in Serum or Plasma 2023-10-02 00:51:46 111 mEq/L F 99.0-109.0 JESSICA PD 2023-10-02 00:40:25 14.6 g/day F JESS[facility] PD 2023-10-02 00:40:25 14.6 g/day F JESSICA PD 2023-10-02 00:40:25 14.6 g/day F JESSICA PD 2023-10-02 00:40:25 14.6 g/day F JESSICA PD 2023-10-02 00:40:25 14.6 g/day F Alanine aminotransferase [Enzymatic activity/volume] in Serum or Plasma 2023-10-01 17:01:07 35 U/L F 10.0-49.0 Aspartate aminotransferase [Enzymatic activity/volume] in Serum or Plasma 2023-10-01 17:01:07 27 U/L F 0.0-33.0 Aspartate aminotransferase [Enzymatic activity/volume] in Serum or Plasma 2023-10-01 17:01:07 27 U/L F 0.0-33.0 Alanine aminotransferase [Enzymatic activity/volume] in Serum or Plasma 2023-10-01 17:01:07 35 U/L F 10.0-49.0 Aspartate aminotransferase [Enzymatic activity/volume] in Serum or Plasma 2023-10-01 17:01:07 27 U/L F 0.0-33.0 Alanine aminotransferase [Enzymatic activity/volume] in Serum or Plasma 2023-10-01 17:01:07 35 U/L F 10.0-49.0 Alanine aminotransferase [Enzymatic activity/volume] in Serum or Plasma 2023-10-01 17:01:07 35 U/L F 10.0-49.0 Aspartate aminotransferase [Enzymatic activity/volume] in Serum or Plasma 2023-10-01 17:01:07 27 U/L F 0.0-33.0 Aspartate aminotransferase [Enzymatic activity/volume] in Serum or Plasma 2023-10-01 17:01:07 27 U/L F 0.0-33.0 Alanine aminotransferase [Enzymatic activity/volume] in Serum or Plasma 2023-10-01 17:01:07 35 U/L F 10.0-49.0 Chloride [Moles/volume] in Serum or Plasma 2023-09-03 18:58:05 107 mEq/L F 99.0-109.0 Chloride [Moles/volume] in Serum or Plasma 2023-09-03 18:58:05 107 mEq/L F 99.0-109.0 Chloride [Moles/volume] in Serum or Plasma 2023-09-03 18:58:05 107 mEq/L F 99.0-109.0 Aspartate aminotransferase [Enzymatic activity/volume] in Serum or Plasma 2023-09-03 13:39:31 25 U/L F 0.0-33.0 Aspartate aminotransferase [Enzymatic activity/volume] in Serum or Plasma 2023-09-03 13:39:31 25 U/L F 0.0-33.0 Aspartate aminotransferase [Enzymatic activity/volume] in Serum or Plasma 2023-09-03 13:39:31 25 U/L F 0.0-33.0 Chloride [Moles/volume] in Serum or Plasma 2023-07-30 19:25:39 109 mEq/L F 99.0-109.0 Alanine aminotransferase [Enzymatic activity/volume] in Serum or Plasma 2023-07-30 19:25:39 36 U/L F 10.0-49.0 Chloride [Moles/volume] in Serum or Plasma 2023-07-02 18:16:29 108 mEq/L F 99.0-109.0 Alanine aminotransferase [Enzymatic activity/volume] in Serum or Plasma 2023-07-02 18:16:29 37 U/L F 10.0-49.0 Aspartate aminotransferase [Enzymatic activity/volume] in Serum or Plasma 2023-07-02 18:16:29 27 U/L F 0.0-33.0 Aspartate aminotransferase [Enzymatic activity/volume] in Serum or Plasma 2023-07-02 18:16:29 27 U/L F 0.0-33.0 Alanine aminotransferase [Enzymatic activity/volume] in Serum or Plasma 2023-07-02 18:16:29 37 U/L F 10.0-49.0 Chloride [Moles/volume] in Serum or Plasma 2023-07-02 18:16:29 108 mEq/L F 99.0-109.0 Chloride [Moles/volume] in Serum or Plasma 2023-07-02 18:16:29 108 mEq/L F 99.0-109.0 Alanine aminotransferase [Enzymatic activity/volume] in Serum or Plasma 2023-07-02 18:16:29 37 U/L F 10.0-49.0 Aspartate aminotransferase [Enzymatic activity/volume] in Serum or Plasma 2023-07-02 18:16:29 27 U/L F 0.0-33.0 JESSICA PD 2023-07-02 16:47:45 19.1 g/day F JESS[facility] PD 2023-07-02 16:47:45 19.1 g/day F JESS[facility] PD 2023-07-02 16:47:45 19.1 g/day F Aspartate aminotransferase [Enzymatic activity/volume] in Serum or Plasma 2023-06-05 20:44:27 26 U/L F 0.0-33.0 Alanine aminotransferase [Enzymatic activity/volume] in Serum or Plasma 2023-06-05 20:44:27 33 U/L F 10.0-49.0 Chloride [Moles/volume] in Serum or Plasma 2023-06-05 20:44:27 107 mEq/L F 99.0-109.0 Chloride [Moles/volume] in Serum or Plasma 2023-06-05 20:44:27 107 mEq/L F 99.0-109.0 Alanine aminotransferase [Enzymatic activity/volume] in Serum or Plasma 2023-06-05 20:44:27 33 U/L F 10.0-49.0 Aspartate aminotransferase [Enzymatic activity/volume] in Serum or Plasma 2023-06-05 20:44:27 26 U/L F 0.0-33.0 Chloride [Moles/volume] in Serum or Plasma 2023-06-05 20:44:27 107 mEq/L F 99.0-109.0 Alanine aminotransferase [Enzymatic activity/volume] in Serum or Plasma 2023-06-05 20:44:27 33 U/L F 10.0-49.0 Aspartate aminotransferase [Enzymatic activity/volume] in Serum or Plasma 2023-06-05 20:44:27 26 U/L F 0.0-33.0 Chloride [Moles/volume] in Serum or Plasma 2023-06-05 20:44:27 107 mEq/L F 99.0-109.0 Alanine aminotransferase [Enzymatic activity/volume] in Serum or Plasma 2023-06-05 20:44:27 33 U/L F 10.0-49.0 Aspartate aminotransferase [Enzymatic activity/volume] in Serum or Plasma 2023-06-05 20:44:27 26 U/L F 0.0-33.0 Aluminum [Mass/volume] in Serum or Plasma 2023-06-04 17:32:34 10 ug/L F 0.0-9.0 Aluminum [Mass/volume] in Serum or Plasma 2023-06-04 17:32:34 10 ug/L F 0.0-9.0 Aluminum [Mass/volume] in Serum or Plasma 2023-06-04 17:32:34 10 ug/L F 0.0-9.0 Aluminum [Mass/volume] in Serum or Plasma 2023-06-04 17:32:34 10 ug/L F 0.0-9.0 Aspartate aminotransferase [Enzymatic activity/volume] in Serum or Plasma 2023-05-06 21:16:32 30 U/L F 0.0-33.0 Alanine aminotransferase [Enzymatic activity/volume] in Serum or Plasma 2023-05-06 21:16:32 39 U/L F 10.0-49.0 Chloride [Moles/volume] in Serum or Plasma 2023-05-06 21:16:32 105 mEq/L F 99.0-109.0 Chloride [Moles/volume] in Serum or Plasma 2023-05-06 21:16:32 105 mEq/L F 99.0-109.0 Alanine aminotransferase [Enzymatic activity/volume] in Serum or Plasma 2023-05-06 21:16:32 39 U/L F 10.0-49.0 Aspartate aminotransferase [Enzymatic activity/volume] in Serum or Plasma 2023-05-06 21:16:32 30 U/L F 0.0-33.0 Chloride [Moles/volume] in Serum or Plasma 2023-05-06 21:16:32 105 mEq/L F 99.0-109.0 Alanine aminotransferase [Enzymatic activity/volume] in Serum or Plasma 2023-05-06 21:16:32 39 U/L F 10.0-49.0 Aspartate aminotransferase [Enzymatic activity/volume] in Serum or Plasma 2023-05-06 21:16:32 30 U/L F 0.0-33.0 Aspartate aminotransferase [Enzymatic activity/volume] in Serum or Plasma 2023-04-04 20:06:14 26 U/L F 0.0-33.0 Chloride [Moles/volume] in Serum or Plasma 2023-04-04 20:06:14 106 mEq/L F 99.0-109.0 Alanine aminotransferase [Enzymatic activity/volume] in Serum or Plasma 2023-04-04 20:06:14 38 U/L F 10.0-49.0 Chloride [Moles/volume] in Serum or Plasma 2023-04-04 20:06:14 106 mEq/L F 99.0-109.0 Alanine aminotransferase [Enzymatic activity/volume] in Serum or Plasma 2023-04-04 20:06:14 38 U/L F 10.0-49.0 Aspartate aminotransferase [Enzymatic activity/volume] in Serum or Plasma 2023-04-04 20:06:14 26 U/L F 0.0-33.0 Chloride [Moles/volume] in Serum or Plasma 2023-04-04 20:06:14 106 mEq/L F 99.0-109.0 Alanine aminotransferase [Enzymatic activity/volume] in Serum or Plasma 2023-04-04 20:06:14 38 U/L F 10.0-49.0 Aspartate aminotransferase [Enzymatic activity/volume] in Serum or Plasma 2023-04-04 20:06:14 26 U/L F 0.0-33.0 Chloride [Moles/volume] in Serum or Plasma 2023-04-04 20:06:14 106 mEq/L F 99.0-109.0 Alanine aminotransferase [Enzymatic activity/volume] in Serum or Plasma 2023-04-04 20:06:14 38 U/L F 10.0-49.0 Aspartate aminotransferase [Enzymatic activity/volume] in Serum or Plasma 2023-04-04 20:06:14 26 U/L F 0.0-33.0 Chloride [Moles/volume] in Serum or Plasma 2023-03-06 00:42:07 115 mEq/L F 99.0-109.0 Aspartate aminotransferase [Enzymatic activity/volume] in Serum or Plasma 2023-03-06 00:42:07 22 U/L F 0.0-33.0 Aspartate aminotransferase [Enzymatic activity/volume] in Serum or Plasma 2023-03-06 00:42:07 22 U/L F 0.0-33.0 Chloride [Moles/volume] in Serum or Plasma 2023-03-06 00:42:07 115 mEq/L F 99.0-109.0 Chloride [Moles/volume] in Serum or Plasma 2023-03-06 00:42:07 115 mEq/L F 99.0-109.0 Aspartate aminotransferase [Enzymatic activity/volume] in Serum or Plasma 2023-03-06 00:42:07 22 U/L F 0.0-33.0 Chloride [Moles/volume] in Serum or Plasma 2023-03-06 00:42:07 115 mEq/L F 99.0-109.0 Aspartate aminotransferase [Enzymatic activity/volume] in Serum or Plasma 2023-03-06 00:42:07 22 U/L F 0.0-33.0 JESSICA PD 2023-03-05 21:42:19 17.4 g/day F JESSICA PD 2023-03-05 21:42:19 17.4 g/day F JESSICA PD 2023-03-05 21:42:19 17.4 g/day F JESSICA PD 2023-03-05 21:42:19 17.4 g/day F InfectionVaccination Description Draw Date Result/Unit Status Ref Range Result Comments Basophils/100 leukocytes in Blood by Automated count 2024-11-04 08:07:12 1.8 % F Neutrophils/100 leukocytes in Blood by Automated count 2024-11-04 08:07:12 77.7 % F Lymphocytes/100 leukocytes in Blood by Automated count 2024-11-04 08:07:12 8 % F Eosinophils/100 leukocytes in Blood by Automated count 2024-11-04 08:07:12 3.8 % F Leukocytes [#/volume] in Blood by Automated count 2024-11-04 08:07:12 7.5 x 10^3 cells/uL F 4.0-11.0 Monocytes/100 leukocytes in Blood by Automated count 2024-11-04 08:07:12 8.7 % F Lymphocytes [#/volume] in Blood by Automated count 2024-11-04 08:07:12 601 Cells/uL F 620.0-3660.0 Monocytes [#/volume] in Blood by Automated count 2024-11-04 08:07:12 653 Cells/uL F 0.0-1100.0 Neutrophils [#/volume] in Blood by Automated count 2024-11-04 08:07:12 5835 Cells/uL F 2000.0-8800.0 Basophils [#/volume] in Blood by Automated count 2024-11-04 08:07:12 135 Cells/uL F 0.0-400.0 Eosinophils [#/volume] in Blood by Automated count 2024-11-04 08:07:12 285 Cells/uL F 0.0-700.0 Basophils/100 leukocytes in Blood by Automated count 2024-10-07 05:39:09 2.5 % F Neutrophils/100 leukocytes in Blood by Automated count 2024-10-07 05:39:09 72.3 % F Lymphocytes/100 leukocytes in Blood by Automated count 2024-10-07 05:39:09 11 % F Monocytes/100 leukocytes in Blood by Automated count 2024-10-07 05:39:09 6.8 % F Eosinophils/100 leukocytes in Blood by Automated count 2024-10-07 05:39:09 7.5 % F Leukocytes [#/volume] in Blood by Automated count 2024-10-07 05:39:09 6.2 x 10^3 cells/uL F 4.0-11.0 Lymphocytes [#/volume] in Blood by Automated count 2024-10-07 05:39:09 679 Cells/uL F 620.0-3660.0 Neutrophils [#/volume] in Blood by Automated count 2024-10-07 05:39:09 4461 Cells/uL F 2000.0-8800.0 Monocytes [#/volume] in Blood by Automated count 2024-10-07 05:39:09 420 Cells/uL F 0.0-1100.0 Basophils [#/volume] in Blood by Automated count 2024-10-07 05:39:09 154 Cells/uL F 0.0-400.0 Eosinophils [#/volume] in Blood by Automated count 2024-10-07 05:39:09 463 Cells/uL F 0.0-700.0 Neutrophils/100 leukocytes in Blood by Automated count 2024-09-17 07:30:03 78.1 % F Basophils/100 leukocytes in Blood by Automated count 2024-09-17 07:30:03 1.5 % F Monocytes/100 leukocytes in Blood by Automated count 2024-09-17 07:30:03 5.6 % F Lymphocytes/100 leukocytes in Blood by Automated count 2024-09-17 07:30:03 9.6 % F Eosinophils/100 leukocytes in Blood by Automated count 2024-09-17 07:30:03 5.3 % F Leukocytes [#/volume] in Blood by Automated count 2024-09-17 07:30:03 6.5 x 10^3 cells/uL F 4.0-11.0 Neutrophils [#/volume] in Blood by Automated count 2024-09-17 07:30:03 5076 Cells/uL F 2000.0-8800.0 Lymphocytes [#/volume] in Blood by Automated count 2024-09-17 07:30:03 624 Cells/uL F 620.0-3660.0 Monocytes [#/volume] in Blood by Automated count 2024-09-17 07:30:03 364 Cells/uL F 0.0-1100.0 Basophils [#/volume] in Blood by Automated count 2024-09-17 07:30:03 98 Cells/uL F 0.0-400.0 Eosinophils [#/volume] in Blood by Automated count 2024-09-17 07:30:03 344 Cells/uL F 0.0-700.0 Lymphocytes/100 leukocytes in Blood by Automated count 2024-08-03 19:59:13 10.6 % F Eosinophils/100 leukocytes in Blood by Automated count 2024-08-03 19:59:13 6.5 % F Monocytes/100 leukocytes in Blood by Automated count 2024-08-03 19:59:13 6.2 % F Neutrophils/100 leukocytes in Blood by Automated count 2024-08-03 19:59:13 75.6 % F Basophils/100 leukocytes in Blood by Automated count 2024-08-03 19:59:13 1.1 % F Leukocytes [#/volume] in Blood by Automated count 2024-08-03 19:59:13 7.9 x 10'3 cells/uL F 4.0-11.0 Basophils [#/volume] in Blood by Automated count 2024-08-03 19:59:13 86 Cells/uL F 0.0-400.0 Eosinophils [#/volume] in Blood by Automated count 2024-08-03 19:59:13 511 Cells/uL F 0.0-700.0 Monocytes [#/volume] in Blood by Automated count 2024-08-03 19:59:13 487 Cells/uL F 0.0-1100.0 Lymphocytes [#/volume] in Blood by Automated count 2024-08-03 19:59:13 833 Cells/uL F 620.0-3660.0 Neutrophils [#/volume] in Blood by Automated count 2024-08-03 19:59:13 5942 Cells/uL F 2000.0-8800.0 Basophils/100 leukocytes in Blood by Automated count 2024-08-03 19:59:13 1.1 % F Lymphocytes/100 leukocytes in Blood by Automated count 2024-08-03 19:59:13 10.6 % F Neutrophils/100 leukocytes in Blood by Automated count 2024-08-03 19:59:13 75.6 % F Monocytes/100 leukocytes in Blood by Automated count 2024-08-03 19:59:13 6.2 % F Leukocytes [#/volume] in Blood by Automated count 2024-08-03 19:59:13 7.9 x 10^3 cells/uL F 4.0-11.0 Eosinophils/100 leukocytes in Blood by Automated count 2024-08-03 19:59:13 6.5 % F Neutrophils [#/volume] in Blood by Automated count 2024-08-03 19:59:13 5942 Cells/uL F 2000.0-8800.0 Lymphocytes [#/volume] in Blood by Automated count 2024-08-03 19:59:13 833 Cells/uL F 620.0-3660.0 Basophils [#/volume] in Blood by Automated count 2024-08-03 19:59:13 86 Cells/uL F 0.0-400.0 Monocytes [#/volume] in Blood by Automated count 2024-08-03 19:59:13 487 Cells/uL F 0.0-1100.0 Eosinophils [#/volume] in Blood by Automated count 2024-08-03 19:59:13 511 Cells/uL F 0.0-700.0 Neutrophils/100 leukocytes in Blood by Automated count 2024-06-30 20:24:12 80.1 % F Lymphocytes/100 leukocytes in Blood by Automated count 2024-06-30 20:24:12 9.5 % F Basophils/100 leukocytes in Blood by Automated count 2024-06-30 20:24:12 1.4 % F Monocytes/100 leukocytes in Blood by Automated count 2024-06-30 20:24:12 5 % F Eosinophils/100 leukocytes in Blood by Automated count 2024-06-30 20:24:12 4 % F Leukocytes [#/volume] in Blood by Automated count 2024-06-30 20:24:12 9.2 x 10'3 cells/uL F 4.0-11.0 Basophils [#/volume] in Blood by Automated count 2024-06-30 20:24:12 129 Cell/uL F 0.0-400.0 Eosinophils [#/volume] in Blood by Automated count 2024-06-30 20:24:12 368 Cell/uL F 0.0-700.0 Monocytes [#/volume] in Blood by Automated count 2024-06-30 20:24:12 460 Cell/uL F 0.0-1100.0 Lymphocytes [#/volume] in Blood by Automated count 2024-06-30 20:24:12 875 Cell/uL F 620.0-3660.0 Neutrophils [#/volume] in Blood by Automated count 2024-06-30 20:24:12 7377 Cell/uL F 2000.0-8800.0 Basophils/100 leukocytes in Blood by Automated count 2024-06-30 20:24:12 1.4 % F Neutrophils/100 leukocytes in Blood by Automated count 2024-06-30 20:24:12 80.1 % F Monocytes/100 leukocytes in Blood by Automated count 2024-06-30 20:24:12 5 % F Lymphocytes/100 leukocytes in Blood by Automated count 2024-06-30 20:24:12 9.5 % F Eosinophils/100 leukocytes in Blood by Automated count 2024-06-30 20:24:12 4 % F Leukocytes [#/volume] in Blood by Automated count 2024-06-30 20:24:12 9.2 x 10^3 cells/uL F 4.0-11.0 Neutrophils [#/volume] in Blood by Automated count 2024-06-30 20:24:12 7377 Cell/uL F 2000.0-8800.0 Monocytes [#/volume] in Blood by Automated count 2024-06-30 20:24:12 460 Cell/uL F 0.0-1100.0 Basophils [#/volume] in Blood by Automated count 2024-06-30 20:24:12 129 Cell/uL F 0.0-400.0 Lymphocytes [#/volume] in Blood by Automated count 2024-06-30 20:24:12 875 Cell/uL F 620.0-3660.0 Eosinophils [#/volume] in Blood by Automated count 2024-06-30 20:24:12 368 Cell/uL F 0.0-700.0 Basophils/100 leukocytes in Blood by Automated count 2024-06-30 20:24:12 1.4 % F Neutrophils/100 leukocytes in Blood by Automated count 2024-06-30 20:24:12 80.1 % F Lymphocytes/100 leukocytes in Blood by Automated count 2024-06-30 20:24:12 9.5 % F Monocytes/100 leukocytes in Blood by Automated count 2024-06-30 20:24:12 5 % F Eosinophils/100 leukocytes in Blood by Automated count 2024-06-30 20:24:12 4 % F Leukocytes [#/volume] in Blood by Automated count 2024-06-30 20:24:12 9.2 x 10'3 cells/uL F 4.0-11.0 Neutrophils [#/volume] in Blood by Automated count 2024-06-30 20:24:12 7377 Cell/uL F 2000.0-8800.0 Lymphocytes [#/volume] in Blood by Automated count 2024-06-30 20:24:12 875 Cell/uL F 620.0-3660.0 Monocytes [#/volume] in Blood by Automated count 2024-06-30 20:24:12 460 Cell/uL F 0.0-1100.0 Eosinophils [#/volume] in Blood by Automated count 2024-06-30 20:24:12 368 Cell/uL F 0.0-700.0 Basophils [#/volume] in Blood by Automated count 2024-06-30 20:24:12 129 Cell/uL F 0.0-400.0 Neutrophils/100 leukocytes in Blood by Automated count 2024-06-04 03:46:42 82.8 % F Basophils/100 leukocytes in Blood by Automated count 2024-06-04 03:46:42 1.2 % F Lymphocytes/100 leukocytes in Blood by Automated count 2024-06-04 03:46:42 7.3 % F Monocytes/100 leukocytes in Blood by Automated count 2024-06-04 03:46:42 5.4 % F Eosinophils/100 leukocytes in Blood by Automated count 2024-06-04 03:46:42 3.3 % F Leukocytes [#/volume] in Blood by Automated count 2024-06-04 03:46:42 9.7 x 10^3 cells/uL F 4.0-11.0 Neutrophils [#/volume] in Blood by Automated count 2024-06-04 03:46:42 8032 Cell/uL F 2000.0-8800.0 Lymphocytes [#/volume] in Blood by Automated count 2024-06-04 03:46:42 708 Cell/uL F 620.0-3660.0 Monocytes [#/volume] in Blood by Automated count 2024-06-04 03:46:42 524 Cell/uL F 0.0-1100.0 Basophils [#/volume] in Blood by Automated count 2024-06-04 03:46:42 116 Cell/uL F 0.0-400.0 Eosinophils [#/volume] in Blood by Automated count 2024-06-04 03:46:42 320 Cell/uL F 0.0-700.0 Basophils/100 leukocytes in Blood by Automated count 2024-05-03 20:27:31 0.9 % F Neutrophils/100 leukocytes in Blood by Automated count 2024-05-03 20:27:31 76.9 % F Lymphocytes/100 leukocytes in Blood by Automated count 2024-05-03 20:27:31 10.7 % F Monocytes/100 leukocytes in Blood by Automated count 2024-05-03 20:27:31 6.5 % F Eosinophils/100 leukocytes in Blood by Automated count 2024-05-03 20:27:31 5 % F Leukocytes [#/volume] in Blood by Automated count 2024-05-03 20:27:31 9.5 x 10^3 cells/uL F 4.0-11.0 Neutrophils [#/volume] in Blood by Automated count 2024-05-03 20:27:31 7282 Cell/uL F 2000.0-8800.0 Lymphocytes [#/volume] in Blood by Automated count 2024-05-03 20:27:31 1013 Cell/uL F 620.0-3660.0 Monocytes [#/volume] in Blood by Automated count 2024-05-03 20:27:31 616 Cell/uL F 0.0-1100.0 Basophils [#/volume] in Blood by Automated count 2024-05-03 20:27:31 85 Cell/uL F 0.0-400.0 Eosinophils [#/volume] in Blood by Automated count 2024-05-03 20:27:31 474 Cell/uL F 0.0-700.0 Monocytes/100 leukocytes in Blood by Automated count 2024-05-03 20:27:31 6.5 % F Eosinophils/100 leukocytes in Blood by Automated count 2024-05-03 20:27:31 5 % F Basophils/100 leukocytes in Blood by Automated count 2024-05-03 20:27:31 0.9 % F Neutrophils/100 leukocytes in Blood by Automated count 2024-05-03 20:27:31 76.9 % F Lymphocytes/100 leukocytes in Blood by Automated count 2024-05-03 20:27:31 10.7 % F Leukocytes [#/volume] in Blood by Automated count 2024-05-03 20:27:31 9.5 x 10'3 cells/uL F 4.0-11.0 Neutrophils [#/volume] in Blood by Automated count 2024-05-03 20:27:31 7282 Cell/uL F 2000.0-8800.0 Lymphocytes [#/volume] in Blood by Automated count 2024-05-03 20:27:31 1013 Cell/uL F 620.0-3660.0 Eosinophils [#/volume] in Blood by Automated count 2024-05-03 20:27:31 474 Cell/uL F 0.0-700.0 Monocytes [#/volume] in Blood by Automated count 2024-05-03 20:27:31 616 Cell/uL F 0.0-1100.0 Basophils [#/volume] in Blood by Automated count 2024-05-03 20:27:31 85 Cell/uL F 0.0-400.0 Lymphocytes/100 leukocytes in Blood by Automated count 2024-03-31 12:55:32 8.7 % F Neutrophils/100 leukocytes in Blood by Automated count 2024-03-31 12:55:32 79.4 % F Eosinophils/100 leukocytes in Blood by Automated count 2024-03-31 12:55:32 3.4 % F Monocytes/100 leukocytes in Blood by Automated count 2024-03-31 12:55:32 6.8 % F Basophils/100 leukocytes in Blood by Automated count 2024-03-31 12:55:32 1.7 % F Leukocytes [#/volume] in Blood by Automated count 2024-03-31 12:55:32 9.2 x 10'3 cells/uL F 4.0-11.0 Basophils [#/volume] in Blood by Automated count 2024-03-31 12:55:32 156 Cell/uL F 0.0-400.0 Eosinophils [#/volume] in Blood by Automated count 2024-03-31 12:55:32 312 Cell/uL F 0.0-700.0 Monocytes [#/volume] in Blood by Automated count 2024-03-31 12:55:32 624 Cell/uL F 0.0-1100.0 Lymphocytes [#/volume] in Blood by Automated count 2024-03-31 12:55:32 798 Cell/uL F 620.0-3660.0 Neutrophils [#/volume] in Blood by Automated count 2024-03-31 12:55:32 7281 Cell/uL F 2000.0-8800.0 Eosinophils/100 leukocytes in Blood by Automated count 2024-03-31 12:55:32 3.4 % F Monocytes/100 leukocytes in Blood by Automated count 2024-03-31 12:55:32 6.8 % F Neutrophils/100 leukocytes in Blood by Automated count 2024-03-31 12:55:32 79.4 % F Lymphocytes/100 leukocytes in Blood by Automated count 2024-03-31 12:55:32 8.7 % F Basophils/100 leukocytes in Blood by Automated count 2024-03-31 12:55:32 1.7 % F Leukocytes [#/volume] in Blood by Automated count 2024-03-31 12:55:32 9.2 x 10'3 cells/uL F 4.0-11.0 Basophils [#/volume] in Blood by Automated count 2024-03-31 12:55:32 156 Cell/uL F 0.0-400.0 Eosinophils [#/volume] in Blood by Automated count 2024-03-31 12:55:32 312 Cell/uL F 0.0-700.0 Monocytes [#/volume] in Blood by Automated count 2024-03-31 12:55:32 624 Cell/uL F 0.0-1100.0 Lymphocytes [#/volume] in Blood by Automated count 2024-03-31 12:55:32 798 Cell/uL F 620.0-3660.0 Neutrophils [#/volume] in Blood by Automated count 2024-03-31 12:55:32 7281 Cell/uL F 2000.0-8800.0 Neutrophils/100 leukocytes in Blood by Automated count 2024-03-31 12:55:32 79.4 % F Basophils/100 leukocytes in Blood by Automated count 2024-03-31 12:55:32 1.7 % F Lymphocytes/100 leukocytes in Blood by Automated count 2024-03-31 12:55:32 8.7 % F Monocytes/100 leukocytes in Blood by Automated count 2024-03-31 12:55:32 6.8 % F Eosinophils/100 leukocytes in Blood by Automated count 2024-03-31 12:55:32 3.4 % F Leukocytes [#/volume] in Blood by Automated count 2024-03-31 12:55:32 9.2 x 10^3 cells/uL F 4.0-11.0 Neutrophils [#/volume] in Blood by Automated count 2024-03-31 12:55:32 7281 Cell/uL F 2000.0-8800.0 Monocytes [#/volume] in Blood by Automated count 2024-03-31 12:55:32 624 Cell/uL F 0.0-1100.0 Basophils [#/volume] in Blood by Automated count 2024-03-31 12:55:32 156 Cell/uL F 0.0-400.0 Lymphocytes [#/volume] in Blood by Automated count 2024-03-31 12:55:32 798 Cell/uL F 620.0-3660.0 Eosinophils [#/volume] in Blood by Automated count 2024-03-31 12:55:32 312 Cell/uL F 0.0-700.0 Lymphocytes/100 leukocytes in Blood by Automated count 2024-03-16 14:55:25 9.9 % F Eosinophils/100 leukocytes in Blood by Automated count 2024-03-16 14:55:25 5.3 % F Neutrophils/100 leukocytes in Blood by Automated count 2024-03-16 14:55:25 78.6 % F Monocytes/100 leukocytes in Blood by Automated count 2024-03-16 14:55:25 5.4 % F Basophils/100 leukocytes in Blood by Automated count 2024-03-16 14:55:25 0.8 % F Leukocytes [#/volume] in Blood by Automated count 2024-03-16 14:55:25 10.5 x 10'3 cells/uL F 4.0-11.0 Basophils [#/volume] in Blood by Automated count 2024-03-16 14:55:25 84 Cell/uL F 0.0-400.0 Eosinophils [#/volume] in Blood by Automated count 2024-03-16 14:55:25 556 Cell/uL F 0.0-700.0 Monocytes [#/volume] in Blood by Automated count 2024-03-16 14:55:25 567 Cell/uL F 0.0-1100.0 Lymphocytes [#/volume] in Blood by Automated count 2024-03-16 14:55:25 1040 Cell/uL F 620.0-3660.0 Neutrophils [#/volume] in Blood by Automated count 2024-03-16 14:55:25 8253 Cell/uL F 2000.0-8800.0 Neutrophils/100 leukocytes in Blood by Automated count 2024-03-16 14:55:25 78.6 % F Basophils/100 leukocytes in Blood by Automated count 2024-03-16 14:55:25 0.8 % F Monocytes/100 leukocytes in Blood by Automated count 2024-03-16 14:55:25 5.4 % F Eosinophils/100 leukocytes in Blood by Automated count 2024-03-16 14:55:25 5.3 % F Lymphocytes/100 leukocytes in Blood by Automated count 2024-03-16 14:55:25 9.9 % F Leukocytes [#/volume] in Blood by Automated count 2024-03-16 14:55:25 10.5 x 10'3 cells/uL F 4.0-11.0 Neutrophils [#/volume] in Blood by Automated count 2024-03-16 14:55:25 8253 Cell/uL F 2000.0-8800.0 Lymphocytes [#/volume] in Blood by Automated count 2024-03-16 14:55:25 1040 Cell/uL F 620.0-3660.0 Monocytes [#/volume] in Blood by Automated count 2024-03-16 14:55:25 567 Cell/uL F 0.0-1100.0 Basophils [#/volume] in Blood by Automated count 2024-03-16 14:55:25 84 Cell/uL F 0.0-400.0 Eosinophils [#/volume] in Blood by Automated count 2024-03-16 14:55:25 556 Cell/uL F 0.0-700.0 Basophils/100 leukocytes in Blood by Automated count 2024-03-16 14:55:25 0.8 % F Neutrophils/100 leukocytes in Blood by Automated count 2024-03-16 14:55:25 78.6 % F Lymphocytes/100 leukocytes in Blood by Automated count 2024-03-16 14:55:25 9.9 % F Monocytes/100 leukocytes in Blood by Automated count 2024-03-16 14:55:25 5.4 % F Leukocytes [#/volume] in Blood by Automated count 2024-03-16 14:55:25 10.5 x 10^3 cells/uL F 4.0-11.0 Eosinophils/100 leukocytes in Blood by Automated count 2024-03-16 14:55:25 5.3 % F Neutrophils [#/volume] in Blood by Automated count 2024-03-16 14:55:25 8253 Cell/uL F 2000.0-8800.0 Lymphocytes [#/volume] in Blood by Automated count 2024-03-16 14:55:25 1040 Cell/uL F 620.0-3660.0 Basophils [#/volume] in Blood by Automated count 2024-03-16 14:55:25 84 Cell/uL F 0.0-400.0 Eosinophils [#/volume] in Blood by Automated count 2024-03-16 14:55:25 556 Cell/uL F 0.0-700.0 Monocytes [#/volume] in Blood by Automated count 2024-03-16 14:55:25 567 Cell/uL F 0.0-1100.0 Neutrophils [#/volume] in Blood by Automated count 2024-01-28 13:17:42 8111 Cell/uL F 2000.0-8800.0 Neutrophils [#/volume] in Blood by Automated count 2024-01-28 13:17:42 8111 Cell/uL F 2000.0-8800.0 Neutrophils [#/volume] in Blood by Automated count 2024-01-28 13:17:42 8111 Cell/uL F 2000.0-8800.0 Basophils/100 leukocytes in Blood by Automated count 2024-01-28 13:17:35 1.1 % F Monocytes/100 leukocytes in Blood by Automated count 2024-01-28 13:17:35 4.9 % F Lymphocytes [#/volume] in Blood by Automated count 2024-01-28 13:17:35 1090 Cell/uL F 620.0-3660.0 Basophils/100 leukocytes in Blood by Automated count 2024-01-28 13:17:35 1.1 % F Monocytes/100 leukocytes in Blood by Automated count 2024-01-28 13:17:35 4.9 % F Lymphocytes [#/volume] in Blood by Automated count 2024-01-28 13:17:35 1090 Cell/uL F 620.0-3660.0 Basophils/100 leukocytes in Blood by Automated count 2024-01-28 13:17:35 1.1 % F Monocytes/100 leukocytes in Blood by Automated count 2024-01-28 13:17:35 4.9 % F Lymphocytes [#/volume] in Blood by Automated count 2024-01-28 13:17:35 1090 Cell/uL F 620.0-3660.0 Neutrophils/100 leukocytes in Blood by Automated count 2024-01-28 13:17:34 78.9 % F Lymphocytes/100 leukocytes in Blood by Automated count 2024-01-28 13:17:34 10.6 % F Eosinophils/100 leukocytes in Blood by Automated count 2024-01-28 13:17:34 4.5 % F Leukocytes [#/volume] in Blood by Automated count 2024-01-28 13:17:34 10.3 x 10'3 cells/uL F 4.0-11.0 Monocytes [#/volume] in Blood by Automated count 2024-01-28 13:17:34 504 Cell/uL F 0.0-1100.0 Basophils [#/volume] in Blood by Automated count 2024-01-28 13:17:34 113 Cell/uL F 0.0-400.0 Eosinophils [#/volume] in Blood by Automated count 2024-01-28 13:17:34 463 Cell/uL F 0.0-700.0 Neutrophils/100 leukocytes in Blood by Automated count 2024-01-28 13:17:34 78.9 % F Lymphocytes/100 leukocytes in Blood by Automated count 2024-01-28 13:17:34 10.6 % F Leukocytes [#/volume] in Blood by Automated count 2024-01-28 13:17:34 10.3 x 10^3 cells/uL F 4.0-11.0 Eosinophils/100 leukocytes in Blood by Automated count 2024-01-28 13:17:34 4.5 % F Monocytes [#/volume] in Blood by Automated count 2024-01-28 13:17:34 504 Cell/uL F 0.0-1100.0 Basophils [#/volume] in Blood by Automated count 2024-01-28 13:17:34 113 Cell/uL F 0.0-400.0 Eosinophils [#/volume] in Blood by Automated count 2024-01-28 13:17:34 463 Cell/uL F 0.0-700.0 Neutrophils/100 leukocytes in Blood by Automated count 2024-01-28 13:17:34 78.9 % F Lymphocytes/100 leukocytes in Blood by Automated count 2024-01-28 13:17:34 10.6 % F Eosinophils/100 leukocytes in Blood by Automated count 2024-01-28 13:17:34 4.5 % F Leukocytes [#/volume] in Blood by Automated count 2024-01-28 13:17:34 10.3 x 10'3 cells/uL F 4.0-11.0 Monocytes [#/volume] in Blood by Automated count 2024-01-28 13:17:34 504 Cell/uL F 0.0-1100.0 Basophils [#/volume] in Blood by Automated count 2024-01-28 13:17:34 113 Cell/uL F 0.0-400.0 Eosinophils [#/volume] in Blood by Automated count 2024-01-28 13:17:34 463 Cell/uL F 0.0-700.0 Basophils/100 leukocytes in Blood by Automated count 2024-01-06 15:13:31 1.4 % F Neutrophils/100 leukocytes in Blood by Automated count 2024-01-06 15:13:31 81.6 % F Leukocytes [#/volume] in Blood by Automated count 2024-01-06 15:13:31 10.5 x 10'3 cells/uL F 4.0-11.0 Eosinophils [#/volume] in Blood by Automated count 2024-01-06 15:13:31 305 Cell/uL F 0.0-700.0 Monocytes [#/volume] in Blood by Automated count 2024-01-06 15:13:31 716 Cell/uL F 0.0-1100.0 Lymphocytes [#/volume] in Blood by Automated count 2024-01-06 15:13:31 779 Cell/uL F 620.0-3660.0 Eosinophils/100 leukocytes in Blood by Automated count 2024-01-06 15:13:31 2.9 % F Monocytes/100 leukocytes in Blood by Automated count 2024-01-06 15:13:31 6.8 % F Lymphocytes/100 leukocytes in Blood by Automated count 2024-01-06 15:13:31 7.4 % F Basophils [#/volume] in Blood by Automated count 2024-01-06 15:13:31 147 Cell/uL F 0.0-400.0 Neutrophils [#/volume] in Blood by Automated count 2024-01-06 15:13:31 8592 Cell/uL F 2000.0-8800.0 Basophils/100 leukocytes in Blood by Automated count 2024-01-06 15:13:31 1.4 % F Lymphocytes/100 leukocytes in Blood by Automated count 2024-01-06 15:13:31 7.4 % F Eosinophils/100 leukocytes in Blood by Automated count 2024-01-06 15:13:31 2.9 % F Monocytes/100 leukocytes in Blood by Automated count 2024-01-06 15:13:31 6.8 % F Neutrophils/100 leukocytes in Blood by Automated count 2024-01-06 15:13:31 81.6 % F Leukocytes [#/volume] in Blood by Automated count 2024-01-06 15:13:31 10.5 x 10'3 cells/uL F 4.0-11.0 Eosinophils [#/volume] in Blood by Automated count 2024-01-06 15:13:31 305 Cell/uL F 0.0-700.0 Basophils [#/volume] in Blood by Automated count 2024-01-06 15:13:31 147 Cell/uL F 0.0-400.0 Monocytes [#/volume] in Blood by Automated count 2024-01-06 15:13:31 716 Cell/uL F 0.0-1100.0 Lymphocytes [#/volume] in Blood by Automated count 2024-01-06 15:13:31 779 Cell/uL F 620.0-3660.0 Neutrophils [#/volume] in Blood by Automated count 2024-01-06 15:13:31 8592 Cell/uL F 2000.0-8800.0 Basophils/100 leukocytes in Blood by Automated count 2024-01-06 15:13:31 1.4 % F Neutrophils/100 leukocytes in Blood by Automated count 2024-01-06 15:13:31 81.6 % F Lymphocytes/100 leukocytes in Blood by Automated count 2024-01-06 15:13:31 7.4 % F Monocytes/100 leukocytes in Blood by Automated count 2024-01-06 15:13:31 6.8 % F Eosinophils/100 leukocytes in Blood by Automated count 2024-01-06 15:13:31 2.9 % F Leukocytes [#/volume] in Blood by Automated count 2024-01-06 15:13:31 10.5 x 10^3 cells/uL F 4.0-11.0 Neutrophils [#/volume] in Blood by Automated count 2024-01-06 15:13:31 8592 Cell/uL F 2000.0-8800.0 Lymphocytes [#/volume] in Blood by Automated count 2024-01-06 15:13:31 779 Cell/uL F 620.0-3660.0 Basophils [#/volume] in Blood by Automated count 2024-01-06 15:13:31 147 Cell/uL F 0.0-400.0 Monocytes [#/volume] in Blood by Automated count 2024-01-06 15:13:31 716 Cell/uL F 0.0-1100.0 Eosinophils [#/volume] in Blood by Automated count 2024-01-06 15:13:31 305 Cell/uL F 0.0-700.0 Lymphocytes/100 leukocytes in Blood by Automated count 2023-12-02 22:40:35 11 % F Eosinophils [#/volume] in Blood by Automated count 2023-12-02 22:40:35 402 Cell/uL F 0.0-700.0 Leukocytes [#/volume] in Blood by Automated count 2023-12-02 22:40:35 9.6 x 10'3 cells/uL F 4.0-11.0 Monocytes [#/volume] in Blood by Automated count 2023-12-02 22:40:35 632 Cell/uL F 0.0-1100.0 Lymphocytes [#/volume] in Blood by Automated count 2023-12-02 22:40:35 1054 Cell/uL F 620.0-3660.0 Monocytes/100 leukocytes in Blood by Automated count 2023-12-02 22:40:35 6.6 % F Basophils/100 leukocytes in Blood by Automated count 2023-12-02 22:40:35 0.9 % F Neutrophils/100 leukocytes in Blood by Automated count 2023-12-02 22:40:35 77.2 % F Eosinophils/100 leukocytes in Blood by Automated count 2023-12-02 22:40:35 4.2 % F Basophils [#/volume] in Blood by Automated count 2023-12-02 22:40:35 86 Cell/uL F 0.0-400.0 Neutrophils [#/volume] in Blood by Automated count 2023-12-02 22:40:35 7396 Cell/uL F 2000.0-8800.0 Basophils/100 leukocytes in Blood by Automated count 2023-12-02 22:40:35 0.9 % F Monocytes/100 leukocytes in Blood by Automated count 2023-12-02 22:40:35 6.6 % F Lymphocytes/100 leukocytes in Blood by Automated count 2023-12-02 22:40:35 11 % F Neutrophils/100 leukocytes in Blood by Automated count 2023-12-02 22:40:35 77.2 % F Eosinophils/100 leukocytes in Blood by Automated count 2023-12-02 22:40:35 4.2 % F Leukocytes [#/volume] in Blood by Automated count 2023-12-02 22:40:35 9.6 x 10'3 cells/uL F 4.0-11.0 Neutrophils [#/volume] in Blood by Automated count 2023-12-02 22:40:35 7396 Cell/uL F 2000.0-8800.0 Monocytes [#/volume] in Blood by Automated count 2023-12-02 22:40:35 632 Cell/uL F 0.0-1100.0 Basophils [#/volume] in Blood by Automated count 2023-12-02 22:40:35 86 Cell/uL F 0.0-400.0 Lymphocytes [#/volume] in Blood by Automated count 2023-12-02 22:40:35 1054 Cell/uL F 620.0-3660.0 Eosinophils [#/volume] in Blood by Automated count 2023-12-02 22:40:35 402 Cell/uL F 0.0-700.0 Basophils/100 leukocytes in Blood by Automated count 2023-12-02 22:40:35 0.9 % F Neutrophils/100 leukocytes in Blood by Automated count 2023-12-02 22:40:35 77.2 % F Lymphocytes/100 leukocytes in Blood by Automated count 2023-12-02 22:40:35 11 % F Eosinophils/100 leukocytes in Blood by Automated count 2023-12-02 22:40:35 4.2 % F Monocytes/100 leukocytes in Blood by Automated count 2023-12-02 22:40:35 6.6 % F Leukocytes [#/volume] in Blood by Automated count 2023-12-02 22:40:35 9.6 x 10^3 cells/uL F 4.0-11.0 Neutrophils [#/volume] in Blood by Automated count 2023-12-02 22:40:35 7396 Cell/uL F 2000.0-8800.0 Lymphocytes [#/volume] in Blood by Automated count 2023-12-02 22:40:35 1054 Cell/uL F 620.0-3660.0 Monocytes [#/volume] in Blood by Automated count 2023-12-02 22:40:35 632 Cell/uL F 0.0-1100.0 Basophils [#/volume] in Blood by Automated count 2023-12-02 22:40:35 86 Cell/uL F 0.0-400.0 Eosinophils [#/volume] in Blood by Automated count 2023-12-02 22:40:35 402 Cell/uL F 0.0-700.0 Leukocytes [#/volume] in Blood by Automated count 2023-11-12 15:42:03 9.4 x 10'3 cells/uL F 4.0-11.0 Basophils [#/volume] in Blood by Automated count 2023-11-12 15:42:03 75 Cell/uL F 0.0-400.0 Eosinophils [#/volume] in Blood by Automated count 2023-11-12 15:42:03 452 Cell/uL F 0.0-700.0 Monocytes [#/volume] in Blood by Automated count 2023-11-12 15:42:03 641 Cell/uL F 0.0-1100.0 Lymphocytes [#/volume] in Blood by Automated count 2023-11-12 15:42:03 1008 Cell/uL F 620.0-3660.0 Leukocytes [#/volume] in Blood by Automated count 2023-11-12 15:42:03 9.4 x 10^3 cells/uL F 4.0-11.0 Lymphocytes [#/volume] in Blood by Automated count 2023-11-12 15:42:03 1008 Cell/uL F 620.0-3660.0 Monocytes [#/volume] in Blood by Automated count 2023-11-12 15:42:03 641 Cell/uL F 0.0-1100.0 Eosinophils [#/volume] in Blood by Automated count 2023-11-12 15:42:03 452 Cell/uL F 0.0-700.0 Basophils [#/volume] in Blood by Automated count 2023-11-12 15:42:03 75 Cell/uL F 0.0-400.0 Leukocytes [#/volume] in Blood by Automated count 2023-11-12 15:42:03 9.4 x 10'3 cells/uL F 4.0-11.0 Lymphocytes [#/volume] in Blood by Automated count 2023-11-12 15:42:03 1008 Cell/uL F 620.0-3660.0 Monocytes [#/volume] in Blood by Automated count 2023-11-12 15:42:03 641 Cell/uL F 0.0-1100.0 Eosinophils [#/volume] in Blood by Automated count 2023-11-12 15:42:03 452 Cell/uL F 0.0-700.0 Basophils [#/volume] in Blood by Automated count 2023-11-12 15:42:03 75 Cell/uL F 0.0-400.0 Monocytes/100 leukocytes in Blood by Automated count 2023-11-12 15:42:02 6.8 % F Basophils/100 leukocytes in Blood by Automated count 2023-11-12 15:42:02 0.8 % F Lymphocytes/100 leukocytes in Blood by Automated count 2023-11-12 15:42:02 10.7 % F Eosinophils/100 leukocytes in Blood by Automated count 2023-11-12 15:42:02 4.8 % F Neutrophils/100 leukocytes in Blood by Automated count 2023-11-12 15:42:02 76.9 % F Neutrophils [#/volume] in Blood by Automated count 2023-11-12 15:42:02 7244 Cell/uL F 2000.0-8800.0 Neutrophils/100 leukocytes in Blood by Automated count 2023-11-12 15:42:02 76.9 % F Basophils/100 leukocytes in Blood by Automated count 2023-11-12 15:42:02 0.8 % F Lymphocytes/100 leukocytes in Blood by Automated count 2023-11-12 15:42:02 10.7 % F Monocytes/100 leukocytes in Blood by Automated count 2023-11-12 15:42:02 6.8 % F Eosinophils/100 leukocytes in Blood by Automated count 2023-11-12 15:42:02 4.8 % F Neutrophils [#/volume] in Blood by Automated count 2023-11-12 15:42:02 7244 Cell/uL F 2000.0-8800.0 Basophils/100 leukocytes in Blood by Automated count 2023-11-12 15:42:02 0.8 % F Neutrophils/100 leukocytes in Blood by Automated count 2023-11-12 15:42:02 76.9 % F Lymphocytes/100 leukocytes in Blood by Automated count 2023-11-12 15:42:02 10.7 % F Monocytes/100 leukocytes in Blood by Automated count 2023-11-12 15:42:02 6.8 % F Eosinophils/100 leukocytes in Blood by Automated count 2023-11-12 15:42:02 4.8 % F Neutrophils [#/volume] in Blood by Automated count 2023-11-12 15:42:02 7244 Cell/uL F 2000.0-8800.0 Neutrophils/100 leukocytes in Blood by Automated count 2023-10-02 03:52:21 81.6 % F Basophils/100 leukocytes in Blood by Automated count 2023-10-02 03:52:21 1.5 % F Lymphocytes/100 leukocytes in Blood by Automated count 2023-10-02 03:52:21 8.2 % F Monocytes/100 leukocytes in Blood by Automated count 2023-10-02 03:52:21 3.8 % F Eosinophils/100 leukocytes in Blood by Automated count 2023-10-02 03:52:21 4.8 % F Leukocytes [#/volume] in Blood by Automated count 2023-10-02 03:52:21 7.8 x 10'3 cells/uL F 4.0-11.0 Neutrophils [#/volume] in Blood by Automated count 2023-10-02 03:52:21 6348 Cell/uL F 2000.0-8800.0 Monocytes [#/volume] in Blood by Automated count 2023-10-02 03:52:21 296 Cell/uL F 0.0-1100.0 Eosinophils [#/volume] in Blood by Automated count 2023-10-02 03:52:21 373 Cell/uL F 0.0-700.0 Lymphocytes [#/volume] in Blood by Automated count 2023-10-02 03:52:21 638 Cell/uL F 620.0-3660.0 Basophils [#/volume] in Blood by Automated count 2023-10-02 03:52:21 117 Cell/uL F 0.0-400.0 Lymphocytes/100 leukocytes in Blood by Automated count 2023-10-02 03:52:21 8.2 % F Basophils/100 leukocytes in Blood by Automated count 2023-10-02 03:52:21 1.5 % F Lymphocytes [#/volume] in Blood by Automated count 2023-10-02 03:52:21 638 Cell/uL F 620.0-3660.0 Neutrophils [#/volume] in Blood by Automated count 2023-10-02 03:52:21 6348 Cell/uL F 2000.0-8800.0 Neutrophils/100 leukocytes in Blood by Automated count 2023-10-02 03:52:21 81.6 % F Monocytes/100 leukocytes in Blood by Automated count 2023-10-02 03:52:21 3.8 % F Eosinophils/100 leukocytes in Blood by Automated count 2023-10-02 03:52:21 4.8 % F Leukocytes [#/volume] in Blood by Automated count 2023-10-02 03:52:21 7.8 x 10^3 cells/uL F 4.0-11.0 Basophils [#/volume] in Blood by Automated count 2023-10-02 03:52:21 117 Cell/uL F 0.0-400.0 Eosinophils [#/volume] in Blood by Automated count 2023-10-02 03:52:21 373 Cell/uL F 0.0-700.0 Monocytes [#/volume] in Blood by Automated count 2023-10-02 03:52:21 296 Cell/uL F 0.0-1100.0 Neutrophils/100 leukocytes in Blood by Automated count 2023-10-02 03:52:21 81.6 % F Lymphocytes/100 leukocytes in Blood by Automated count 2023-10-02 03:52:21 8.2 % F Basophils/100 leukocytes in Blood by Automated count 2023-10-02 03:52:21 1.5 % F Eosinophils/100 leukocytes in Blood by Automated count 2023-10-02 03:52:21 4.8 % F Monocytes/100 leukocytes in Blood by Automated count 2023-10-02 03:52:21 3.8 % F Leukocytes [#/volume] in Blood by Automated count 2023-10-02 03:52:21 7.8 x 10'3 cells/uL F 4.0-11.0 Basophils [#/volume] in Blood by Automated count 2023-10-02 03:52:21 117 Cell/uL F 0.0-400.0 Eosinophils [#/volume] in Blood by Automated count 2023-10-02 03:52:21 373 Cell/uL F 0.0-700.0 Monocytes [#/volume] in Blood by Automated count 2023-10-02 03:52:21 296 Cell/uL F 0.0-1100.0 Neutrophils [#/volume] in Blood by Automated count 2023-10-02 03:52:21 6348 Cell/uL F 2000.0-8800.0 Lymphocytes [#/volume] in Blood by Automated count 2023-10-02 03:52:21 638 Cell/uL F 620.0-3660.0 Neutrophils/100 leukocytes in Blood by Automated count 2023-10-02 03:52:21 81.6 % F Monocytes/100 leukocytes in Blood by Automated count 2023-10-02 03:52:21 3.8 % F Eosinophils/100 leukocytes in Blood by Automated count 2023-10-02 03:52:21 4.8 % F Basophils/100 leukocytes in Blood by Automated count 2023-10-02 03:52:21 1.5 % F Lymphocytes/100 leukocytes in Blood by Automated count 2023-10-02 03:52:21 8.2 % F Leukocytes [#/volume] in Blood by Automated count 2023-10-02 03:52:21 7.8 x 10'3 cells/uL F 4.0-11.0 Neutrophils [#/volume] in Blood by Automated count 2023-10-02 03:52:21 6348 Cell/uL F 2000.0-8800.0 Lymphocytes [#/volume] in Blood by Automated count 2023-10-02 03:52:21 638 Cell/uL F 620.0-3660.0 Basophils [#/volume] in Blood by Automated count 2023-10-02 03:52:21 117 Cell/uL F 0.0-400.0 Eosinophils [#/volume] in Blood by Automated count 2023-10-02 03:52:21 373 Cell/uL F 0.0-700.0 Monocytes [#/volume] in Blood by Automated count 2023-10-02 03:52:21 296 Cell/uL F 0.0-1100.0 Monocytes/100 leukocytes in Blood by Automated count 2023-10-02 03:52:21 3.8 % F Neutrophils/100 leukocytes in Blood by Automated count 2023-10-02 03:52:21 81.6 % F Basophils/100 leukocytes in Blood by Automated count 2023-10-02 03:52:21 1.5 % F Lymphocytes/100 leukocytes in Blood by Automated count 2023-10-02 03:52:21 8.2 % F Eosinophils/100 leukocytes in Blood by Automated count 2023-10-02 03:52:21 4.8 % F Leukocytes [#/volume] in Blood by Automated count 2023-10-02 03:52:21 7.8 x 10'3 cells/uL F 4.0-11.0 Monocytes [#/volume] in Blood by Automated count 2023-10-02 03:52:21 296 Cell/uL F 0.0-1100.0 Neutrophils [#/volume] in Blood by Automated count 2023-10-02 03:52:21 6348 Cell/uL F 2000.0-8800.0 Lymphocytes [#/volume] in Blood by Automated count 2023-10-02 03:52:21 638 Cell/uL F 620.0-3660.0 Basophils [#/volume] in Blood by Automated count 2023-10-02 03:52:21 117 Cell/uL F 0.0-400.0 Eosinophils [#/volume] in Blood by Automated count 2023-10-02 03:52:21 373 Cell/uL F 0.0-700.0 Neutrophils/100 leukocytes in Blood by Automated count 2023-09-03 22:30:32 77.2 % F Basophils/100 leukocytes in Blood by Automated count 2023-09-03 22:30:32 2.7 % F Basophils [#/volume] in Blood by Automated count 2023-09-03 22:30:32 234 Cell/uL F 0.0-400.0 Monocytes [#/volume] in Blood by Automated count 2023-09-03 22:30:32 582 Cell/uL F 0.0-1100.0 Lymphocytes [#/volume] in Blood by Automated count 2023-09-03 22:30:32 703 Cell/uL F 620.0-3660.0 Lymphocytes/100 leukocytes in Blood by Automated count 2023-09-03 22:30:32 8.1 % F Eosinophils/100 leukocytes in Blood by Automated count 2023-09-03 22:30:32 5.3 % F Monocytes/100 leukocytes in Blood by Automated count 2023-09-03 22:30:32 6.7 % F Leukocytes [#/volume] in Blood by Automated count 2023-09-03 22:30:32 8.7 x 10'3 cells/uL F 4.0-11.0 Eosinophils [#/volume] in Blood by Automated count 2023-09-03 22:30:32 460 Cell/uL F 0.0-700.0 Neutrophils [#/volume] in Blood by Automated count 2023-09-03 22:30:32 6701 Cell/uL F 2000.0-8800.0 Basophils/100 leukocytes in Blood by Automated count 2023-09-03 22:30:32 2.7 % F Lymphocytes/100 leukocytes in Blood by Automated count 2023-09-03 22:30:32 8.1 % F Monocytes/100 leukocytes in Blood by Automated count 2023-09-03 22:30:32 6.7 % F Neutrophils/100 leukocytes in Blood by Automated count 2023-09-03 22:30:32 77.2 % F Eosinophils/100 leukocytes in Blood by Automated count 2023-09-03 22:30:32 5.3 % F Leukocytes [#/volume] in Blood by Automated count 2023-09-03 22:30:32 8.7 x 10^3 cells/uL F 4.0-11.0 Lymphocytes [#/volume] in Blood by Automated count 2023-09-03 22:30:32 703 Cell/uL F 620.0-3660.0 Neutrophils [#/volume] in Blood by Automated count 2023-09-03 22:30:32 6701 Cell/uL F 2000.0-8800.0 Monocytes [#/volume] in Blood by Automated count 2023-09-03 22:30:32 582 Cell/uL F 0.0-1100.0 Eosinophils [#/volume] in Blood by Automated count 2023-09-03 22:30:32 460 Cell/uL F 0.0-700.0 Basophils [#/volume] in Blood by Automated count 2023-09-03 22:30:32 234 Cell/uL F 0.0-400.0 Basophils/100 leukocytes in Blood by Automated count 2023-09-03 22:30:32 2.7 % F Lymphocytes/100 leukocytes in Blood by Automated count 2023-09-03 22:30:32 8.1 % F Monocytes/100 leukocytes in Blood by Automated count 2023-09-03 22:30:32 6.7 % F Neutrophils/100 leukocytes in Blood by Automated count 2023-09-03 22:30:32 77.2 % F Leukocytes [#/volume] in Blood by Automated count 2023-09-03 22:30:32 8.7 x 10'3 cells/uL F 4.0-11.0 Eosinophils/100 leukocytes in Blood by Automated count 2023-09-03 22:30:32 5.3 % F Neutrophils [#/volume] in Blood by Automated count 2023-09-03 22:30:32 6701 Cell/uL F 2000.0-8800.0 Lymphocytes [#/volume] in Blood by Automated count 2023-09-03 22:30:32 703 Cell/uL F 620.0-3660.0 Monocytes [#/volume] in Blood by Automated count 2023-09-03 22:30:32 582 Cell/uL F 0.0-1100.0 Basophils [#/volume] in Blood by Automated count 2023-09-03 22:30:32 234 Cell/uL F 0.0-400.0 Eosinophils [#/volume] in Blood by Automated count 2023-09-03 22:30:32 460 Cell/uL F 0.0-700.0 Basophils/100 leukocytes in Blood by Automated count 2023-07-30 21:22:40 1.3 % F Neutrophils/100 leukocytes in Blood by Automated count 2023-07-30 21:22:40 79.4 % F Lymphocytes/100 leukocytes in Blood by Automated count 2023-07-30 21:22:40 8.3 % F Monocytes/100 leukocytes in Blood by Automated count 2023-07-30 21:22:40 6.1 % F Eosinophils/100 leukocytes in Blood by Automated count 2023-07-30 21:22:40 4.9 % F Leukocytes [#/volume] in Blood by Automated count 2023-07-30 21:22:40 9.9 x 10^3 cells/uL F 4.0-11.0 Neutrophils [#/volume] in Blood by Automated count 2023-07-30 21:22:40 7829 Cell/uL F 2000.0-8800.0 Lymphocytes [#/volume] in Blood by Automated count 2023-07-30 21:22:40 818 Cell/uL F 620.0-3660.0 Monocytes [#/volume] in Blood by Automated count 2023-07-30 21:22:40 601 Cell/uL F 0.0-1100.0 Basophils [#/volume] in Blood by Automated count 2023-07-30 21:22:40 128 Cell/uL F 0.0-400.0 Eosinophils [#/volume] in Blood by Automated count 2023-07-30 21:22:40 483 Cell/uL F 0.0-700.0 Basophils/100 leukocytes in Blood by Automated count 2023-07-03 01:06:27 0.5 % F Neutrophils/100 leukocytes in Blood by Automated count 2023-07-03 01:06:27 83.3 % F Lymphocytes/100 leukocytes in Blood by Automated count 2023-07-03 01:06:27 8.4 % F Monocytes/100 leukocytes in Blood by Automated count 2023-07-03 01:06:27 4.5 % F Eosinophils/100 leukocytes in Blood by Automated count 2023-07-03 01:06:27 3.3 % F Leukocytes [#/volume] in Blood by Automated count 2023-07-03 01:06:27 8.5 x 10^3 cells/uL F 4.0-11.0 Neutrophils [#/volume] in Blood by Automated count 2023-07-03 01:06:27 7097 Cell/uL F 2000.0-8800.0 Lymphocytes [#/volume] in Blood by Automated count 2023-07-03 01:06:27 716 Cell/uL F 620.0-3660.0 Basophils [#/volume] in Blood by Automated count 2023-07-03 01:06:27 43 Cell/uL F 0.0-400.0 Monocytes [#/volume] in Blood by Automated count 2023-07-03 01:06:27 383 Cell/uL F 0.0-1100.0 Eosinophils [#/volume] in Blood by Automated count 2023-07-03 01:06:27 281 Cell/uL F 0.0-700.0 Monocytes/100 leukocytes in Blood by Automated count 2023-07-03 01:06:27 4.5 % F Eosinophils [#/volume] in Blood by Automated count 2023-07-03 01:06:27 281 Cell/uL F 0.0-700.0 Monocytes [#/volume] in Blood by Automated count 2023-07-03 01:06:27 383 Cell/uL F 0.0-1100.0 Eosinophils/100 leukocytes in Blood by Automated count 2023-07-03 01:06:27 3.3 % F Basophils/100 leukocytes in Blood by Automated count 2023-07-03 01:06:27 0.5 % F Neutrophils/100 leukocytes in Blood by Automated count 2023-07-03 01:06:27 83.3 % F Lymphocytes/100 leukocytes in Blood by Automated count 2023-07-03 01:06:27 8.4 % F Basophils [#/volume] in Blood by Automated count 2023-07-03 01:06:27 43 Cell/uL F 0.0-400.0 Leukocytes [#/volume] in Blood by Automated count 2023-07-03 01:06:27 8.5 x 10'3 cells/uL F 4.0-11.0 Neutrophils [#/volume] in Blood by Automated count 2023-07-03 01:06:27 7097 Cell/uL F 2000.0-8800.0 Lymphocytes [#/volume] in Blood by Automated count 2023-07-03 01:06:27 716 Cell/uL F 620.0-3660.0 Basophils/100 leukocytes in Blood by Automated count 2023-07-03 01:06:27 0.5 % F Neutrophils/100 leukocytes in Blood by Automated count 2023-07-03 01:06:27 83.3 % F Lymphocytes/100 leukocytes in Blood by Automated count 2023-07-03 01:06:27 8.4 % F Monocytes/100 leukocytes in Blood by Automated count 2023-07-03 01:06:27 4.5 % F Eosinophils/100 leukocytes in Blood by Automated count 2023-07-03 01:06:27 3.3 % F Leukocytes [#/volume] in Blood by Automated count 2023-07-03 01:06:27 8.5 x 10'3 cells/uL F 4.0-11.0 Neutrophils [#/volume] in Blood by Automated count 2023-07-03 01:06:27 7097 Cell/uL F 2000.0-8800.0 Lymphocytes [#/volume] in Blood by Automated count 2023-07-03 01:06:27 716 Cell/uL F 620.0-3660.0 Monocytes [#/volume] in Blood by Automated count 2023-07-03 01:06:27 383 Cell/uL F 0.0-1100.0 Basophils [#/volume] in Blood by Automated count 2023-07-03 01:06:27 43 Cell/uL F 0.0-400.0 Eosinophils [#/volume] in Blood by Automated count 2023-07-03 01:06:27 281 Cell/uL F 0.0-700.0 Basophils/100 leukocytes in Blood by Automated count 2023-06-05 00:43:40 0.9 % F Neutrophils/100 leukocytes in Blood by Automated count 2023-06-05 00:43:40 82.8 % F Eosinophils/100 leukocytes in Blood by Automated count 2023-06-05 00:43:40 4.6 % F Lymphocytes/100 leukocytes in Blood by Automated count 2023-06-05 00:43:40 8.7 % F Monocytes/100 leukocytes in Blood by Automated count 2023-06-05 00:43:40 3 % F Leukocytes [#/volume] in Blood by Automated count 2023-06-05 00:43:40 9.6 x 10'3 cells/uL F 4.0-11.0 Monocytes [#/volume] in Blood by Automated count 2023-06-05 00:43:40 286 Cell/uL F 0.0-1100.0 Lymphocytes [#/volume] in Blood by Automated count 2023-06-05 00:43:40 831 Cell/uL F 620.0-3660.0 Neutrophils [#/volume] in Blood by Automated count 2023-06-05 00:43:40 7907 Cell/uL F 2000.0-8800.0 Basophils [#/volume] in Blood by Automated count 2023-06-05 00:43:40 86 Cell/uL F 0.0-400.0 Eosinophils [#/volume] in Blood by Automated count 2023-06-05 00:43:40 439 Cell/uL F 0.0-700.0 Neutrophils/100 leukocytes in Blood by Automated count 2023-06-05 00:43:40 82.8 % F Lymphocytes/100 leukocytes in Blood by Automated count 2023-06-05 00:43:40 8.7 % F Basophils/100 leukocytes in Blood by Automated count 2023-06-05 00:43:40 0.9 % F Eosinophils/100 leukocytes in Blood by Automated count 2023-06-05 00:43:40 4.6 % F Monocytes/100 leukocytes in Blood by Automated count 2023-06-05 00:43:40 3 % F Leukocytes [#/volume] in Blood by Automated count 2023-06-05 00:43:40 9.6 x 10'3 cells/uL F 4.0-11.0 Eosinophils [#/volume] in Blood by Automated count 2023-06-05 00:43:40 439 Cell/uL F 0.0-700.0 Basophils [#/volume] in Blood by Automated count 2023-06-05 00:43:40 86 Cell/uL F 0.0-400.0 Monocytes [#/volume] in Blood by Automated count 2023-06-05 00:43:40 286 Cell/uL F 0.0-1100.0 Lymphocytes [#/volume] in Blood by Automated count 2023-06-05 00:43:40 831 Cell/uL F 620.0-3660.0 Neutrophils [#/volume] in Blood by Automated count 2023-06-05 00:43:40 7907 Cell/uL F 2000.0-8800.0 Basophils/100 leukocytes in Blood by Automated count 2023-06-05 00:43:40 0.9 % F Neutrophils/100 leukocytes in Blood by Automated count 2023-06-05 00:43:40 82.8 % F Eosinophils/100 leukocytes in Blood by Automated count 2023-06-05 00:43:40 4.6 % F Lymphocytes/100 leukocytes in Blood by Automated count 2023-06-05 00:43:40 8.7 % F Leukocytes [#/volume] in Blood by Automated count 2023-06-05 00:43:40 9.6 x 10^3 cells/uL F 4.0-11.0 Monocytes/100 leukocytes in Blood by Automated count 2023-06-05 00:43:40 3 % F Neutrophils [#/volume] in Blood by Automated count 2023-06-05 00:43:40 7907 Cell/uL F 2000.0-8800.0 Monocytes [#/volume] in Blood by Automated count 2023-06-05 00:43:40 286 Cell/uL F 0.0-1100.0 Lymphocytes [#/volume] in Blood by Automated count 2023-06-05 00:43:40 831 Cell/uL F 620.0-3660.0 Basophils [#/volume] in Blood by Automated count 2023-06-05 00:43:40 86 Cell/uL F 0.0-400.0 Eosinophils [#/volume] in Blood by Automated count 2023-06-05 00:43:40 439 Cell/uL F 0.0-700.0 Monocytes/100 leukocytes in Blood by Automated count 2023-06-05 00:43:40 3 % F Basophils/100 leukocytes in Blood by Automated count 2023-06-05 00:43:40 0.9 % F Lymphocytes/100 leukocytes in Blood by Automated count 2023-06-05 00:43:40 8.7 % F Eosinophils/100 leukocytes in Blood by Automated count 2023-06-05 00:43:40 4.6 % F Neutrophils/100 leukocytes in Blood by Automated count 2023-06-05 00:43:40 82.8 % F Leukocytes [#/volume] in Blood by Automated count 2023-06-05 00:43:40 9.6 x 10'3 cells/uL F 4.0-11.0 Neutrophils [#/volume] in Blood by Automated count 2023-06-05 00:43:40 7907 Cell/uL F 2000.0-8800.0 Monocytes [#/volume] in Blood by Automated count 2023-06-05 00:43:40 286 Cell/uL F 0.0-1100.0 Lymphocytes [#/volume] in Blood by Automated count 2023-06-05 00:43:40 831 Cell/uL F 620.0-3660.0 Basophils [#/volume] in Blood by Automated count 2023-06-05 00:43:40 86 Cell/uL F 0.0-400.0 Eosinophils [#/volume] in Blood by Automated count 2023-06-05 00:43:40 439 Cell/uL F 0.0-700.0 Basophils/100 leukocytes in Blood by Automated count 2023-05-06 15:23:25 0.9 % F Monocytes/100 leukocytes in Blood by Automated count 2023-05-06 15:23:25 6 % F Eosinophils [#/volume] in Blood by Automated count 2023-05-06 15:23:25 554 Cell/uL F 0.0-700.0 Basophils [#/volume] in Blood by Automated count 2023-05-06 15:23:25 86 Cell/uL F 0.0-400.0 Lymphocytes/100 leukocytes in Blood by Automated count 2023-05-06 15:23:25 9 % F Eosinophils/100 leukocytes in Blood by Automated count 2023-05-06 15:23:25 5.8 % F Neutrophils/100 leukocytes in Blood by Automated count 2023-05-06 15:23:25 78.2 % F Leukocytes [#/volume] in Blood by Automated count 2023-05-06 15:23:25 9.6 x 10'3 cells/uL F 4.0-11.0 Monocytes [#/volume] in Blood by Automated count 2023-05-06 15:23:25 573 Cell/uL F 0.0-1100.0 Lymphocytes [#/volume] in Blood by Automated count 2023-05-06 15:23:25 860 Cell/uL F 620.0-3660.0 Neutrophils [#/volume] in Blood by Automated count 2023-05-06 15:23:25 7468 Cell/uL F 2000.0-8800.0 Basophils/100 leukocytes in Blood by Automated count 2023-05-06 15:23:25 0.9 % F Neutrophils/100 leukocytes in Blood by Automated count 2023-05-06 15:23:25 78.2 % F Eosinophils/100 leukocytes in Blood by Automated count 2023-05-06 15:23:25 5.8 % F Lymphocytes/100 leukocytes in Blood by Automated count 2023-05-06 15:23:25 9 % F Monocytes/100 leukocytes in Blood by Automated count 2023-05-06 15:23:25 6 % F Leukocytes [#/volume] in Blood by Automated count 2023-05-06 15:23:25 9.6 x 10^3 cells/uL F 4.0-11.0 Neutrophils [#/volume] in Blood by Automated count 2023-05-06 15:23:25 7468 Cell/uL F 2000.0-8800.0 Basophils [#/volume] in Blood by Automated count 2023-05-06 15:23:25 86 Cell/uL F 0.0-400.0 Lymphocytes [#/volume] in Blood by Automated count 2023-05-06 15:23:25 860 Cell/uL F 620.0-3660.0 Monocytes [#/volume] in Blood by Automated count 2023-05-06 15:23:25 573 Cell/uL F 0.0-1100.0 Eosinophils [#/volume] in Blood by Automated count 2023-05-06 15:23:25 554 Cell/uL F 0.0-700.0 Neutrophils/100 leukocytes in Blood by Automated count 2023-05-06 15:23:25 78.2 % F Basophils/100 leukocytes in Blood by Automated count 2023-05-06 15:23:25 0.9 % F Lymphocytes/100 leukocytes in Blood by Automated count 2023-05-06 15:23:25 9 % F Monocytes/100 leukocytes in Blood by Automated count 2023-05-06 15:23:25 6 % F Leukocytes [#/volume] in Blood by Automated count 2023-05-06 15:23:25 9.6 x 10'3 cells/uL F 4.0-11.0 Eosinophils/100 leukocytes in Blood by Automated count 2023-05-06 15:23:25 5.8 % F Neutrophils [#/volume] in Blood by Automated count 2023-05-06 15:23:25 7468 Cell/uL F 2000.0-8800.0 Basophils [#/volume] in Blood by Automated count 2023-05-06 15:23:25 86 Cell/uL F 0.0-400.0 Monocytes [#/volume] in Blood by Automated count 2023-05-06 15:23:25 573 Cell/uL F 0.0-1100.0 Lymphocytes [#/volume] in Blood by Automated count 2023-05-06 15:23:25 860 Cell/uL F 620.0-3660.0 Eosinophils [#/volume] in Blood by Automated count 2023-05-06 15:23:25 554 Cell/uL F 0.0-700.0 Lymphocytes/100 leukocytes in Blood by Automated count 2023-04-04 15:11:20 10.9 % F Leukocytes [#/volume] in Blood by Automated count 2023-04-04 15:11:20 7.9 x 10^3 cells/uL F 4.0-11.0 Neutrophils/100 leukocytes in Blood by Automated count 2023-04-04 15:11:20 77.2 % F Basophils/100 leukocytes in Blood by Automated count 2023-04-04 15:11:20 0.8 % F Monocytes/100 leukocytes in Blood by Automated count 2023-04-04 15:11:20 6.5 % F Eosinophils/100 leukocytes in Blood by Automated count 2023-04-04 15:11:20 4.7 % F Eosinophils [#/volume] in Blood by Automated count 2023-04-04 15:11:20 372 Cell/uL F 0.0-700.0 Basophils [#/volume] in Blood by Automated count 2023-04-04 15:11:20 63 Cell/uL F 0.0-400.0 Monocytes [#/volume] in Blood by Automated count 2023-04-04 15:11:20 514 Cell/uL F 0.0-1100.0 Lymphocytes [#/volume] in Blood by Automated count 2023-04-04 15:11:20 862 Cell/uL F 620.0-3660.0 Neutrophils [#/volume] in Blood by Automated count 2023-04-04 15:11:20 6107 Cell/uL F 2000.0-8800.0 Basophils/100 leukocytes in Blood by Automated count 2023-04-04 15:11:20 0.8 % F Neutrophils/100 leukocytes in Blood by Automated count 2023-04-04 15:11:20 77.2 % F Lymphocytes/100 leukocytes in Blood by Automated count 2023-04-04 15:11:20 10.9 % F Monocytes/100 leukocytes in Blood by Automated count 2023-04-04 15:11:20 6.5 % F Eosinophils/100 leukocytes in Blood by Automated count 2023-04-04 15:11:20 4.7 % F Leukocytes [#/volume] in Blood by Automated count 2023-04-04 15:11:20 7.9 x 10'3 cells/uL F 4.0-11.0 Monocytes [#/volume] in Blood by Automated count 2023-04-04 15:11:20 514 Cell/uL F 0.0-1100.0 Basophils [#/volume] in Blood by Automated count 2023-04-04 15:11:20 63 Cell/uL F 0.0-400.0 Lymphocytes [#/volume] in Blood by Automated count 2023-04-04 15:11:20 862 Cell/uL F 620.0-3660.0 Neutrophils [#/volume] in Blood by Automated count 2023-04-04 15:11:20 6107 Cell/uL F 2000.0-8800.0 Eosinophils [#/volume] in Blood by Automated count 2023-04-04 15:11:20 372 Cell/uL F 0.0-700.0 Basophils/100 leukocytes in Blood by Automated count 2023-04-04 15:11:20 0.8 % F Neutrophils/100 leukocytes in Blood by Automated count 2023-04-04 15:11:20 77.2 % F Eosinophils/100 leukocytes in Blood by Automated count 2023-04-04 15:11:20 4.7 % F Lymphocytes/100 leukocytes in Blood by Automated count 2023-04-04 15:11:20 10.9 % F Leukocytes [#/volume] in Blood by Automated count 2023-04-04 15:11:20 7.9 x 10'3 cells/uL F 4.0-11.0 Monocytes/100 leukocytes in Blood by Automated count 2023-04-04 15:11:20 6.5 % F Neutrophils [#/volume] in Blood by Automated count 2023-04-04 15:11:20 6107 Cell/uL F 2000.0-8800.0 Lymphocytes [#/volume] in Blood by Automated count 2023-04-04 15:11:20 862 Cell/uL F 620.0-3660.0 Monocytes [#/volume] in Blood by Automated count 2023-04-04 15:11:20 514 Cell/uL F 0.0-1100.0 Basophils [#/volume] in Blood by Automated count 2023-04-04 15:11:20 63 Cell/uL F 0.0-400.0 Eosinophils [#/volume] in Blood by Automated count 2023-04-04 15:11:20 372 Cell/uL F 0.0-700.0 Neutrophils/100 leukocytes in Blood by Automated count 2023-04-04 15:11:20 77.2 % F Monocytes/100 leukocytes in Blood by Automated count 2023-04-04 15:11:20 6.5 % F Eosinophils/100 leukocytes in Blood by Automated count 2023-04-04 15:11:20 4.7 % F Lymphocytes/100 leukocytes in Blood by Automated count 2023-04-04 15:11:20 10.9 % F Basophils/100 leukocytes in Blood by Automated count 2023-04-04 15:11:20 0.8 % F Leukocytes [#/volume] in Blood by Automated count 2023-04-04 15:11:20 7.9 x 10'3 cells/uL F 4.0-11.0 Lymphocytes [#/volume] in Blood by Automated count 2023-04-04 15:11:20 862 Cell/uL F 620.0-3660.0 Neutrophils [#/volume] in Blood by Automated count 2023-04-04 15:11:20 6107 Cell/uL F 2000.0-8800.0 Monocytes [#/volume] in Blood by Automated count 2023-04-04 15:11:20 514 Cell/uL F 0.0-1100.0 Eosinophils [#/volume] in Blood by Automated count 2023-04-04 15:11:20 372 Cell/uL F 0.0-700.0 Basophils [#/volume] in Blood by Automated count 2023-04-04 15:11:20 63 Cell/uL F 0.0-400.0 Basophils/100 leukocytes in Blood by Automated count 2023-03-05 14:34:11 0.7 % F Neutrophils/100 leukocytes in Blood by Automated count 2023-03-05 14:34:11 76.3 % F Lymphocytes/100 leukocytes in Blood by Automated count 2023-03-05 14:34:11 10.6 % F Monocytes/100 leukocytes in Blood by Automated count 2023-03-05 14:34:11 5.5 % F Eosinophils/100 leukocytes in Blood by Automated count 2023-03-05 14:34:11 6.9 % F Leukocytes [#/volume] in Blood by Automated count 2023-03-05 14:34:11 8.2 x 10'3 cells/uL F 4.0-11.0 Neutrophils [#/volume] in Blood by Automated count 2023-03-05 14:34:11 6287.12 Cell/uL F 2000.0-8800.0 Lymphocytes [#/volume] in Blood by Automated count 2023-03-05 14:34:11 873.44 Cell/uL F 620.0-3660.0 Monocytes [#/volume] in Blood by Automated count 2023-03-05 14:34:11 453.2 Cell/uL F 0.0-1100.0 Basophils [#/volume] in Blood by Automated count 2023-03-05 14:34:11 57.68 Cell/uL F 0.0-400.0 Eosinophils [#/volume] in Blood by Automated count 2023-03-05 14:34:11 568.56 Cell/uL F 0.0-700.0 Lymphocytes/100 leukocytes in Blood by Automated count 2023-03-05 14:34:11 10.6 % F Monocytes/100 leukocytes in Blood by Automated count 2023-03-05 14:34:11 5.5 % F Eosinophils/100 leukocytes in Blood by Automated count 2023-03-05 14:34:11 6.9 % F Neutrophils/100 leukocytes in Blood by Automated count 2023-03-05 14:34:11 76.3 % F Basophils/100 leukocytes in Blood by Automated count 2023-03-05 14:34:11 0.7 % F Leukocytes [#/volume] in Blood by Automated count 2023-03-05 14:34:11 8.2 x 10'3 cells/uL F 4.0-11.0 Eosinophils [#/volume] in Blood by Automated count 2023-03-05 14:34:11 568.56 Cell/uL F 0.0-700.0 Basophils [#/volume] in Blood by Automated count 2023-03-05 14:34:11 57.68 Cell/uL F 0.0-400.0 Monocytes [#/volume] in Blood by Automated count 2023-03-05 14:34:11 453.2 Cell/uL F 0.0-1100.0 Neutrophils [#/volume] in Blood by Automated count 2023-03-05 14:34:11 6287.12 Cell/uL F 2000.0-8800.0 Lymphocytes [#/volume] in Blood by Automated count 2023-03-05 14:34:11 873.44 Cell/uL F 620.0-3660.0 Neutrophils/100 leukocytes in Blood by Automated count 2023-03-05 14:34:11 76.3 % F Lymphocytes/100 leukocytes in Blood by Automated count 2023-03-05 14:34:11 10.6 % F Basophils/100 leukocytes in Blood by Automated count 2023-03-05 14:34:11 0.7 % F Monocytes/100 leukocytes in Blood by Automated count 2023-03-05 14:34:11 5.5 % F Eosinophils/100 leukocytes in Blood by Automated count 2023-03-05 14:34:11 6.9 % F Leukocytes [#/volume] in Blood by Automated count 2023-03-05 14:34:11 8.2 x 10^3 cells/uL F 4.0-11.0 Neutrophils [#/volume] in Blood by Automated count 2023-03-05 14:34:11 6287.12 Cell/uL F 2000.0-8800.0 Lymphocytes [#/volume] in Blood by Automated count 2023-03-05 14:34:11 873.44 Cell/uL F 620.0-3660.0 Monocytes [#/volume] in Blood by Automated count 2023-03-05 14:34:11 453.2 Cell/uL F 0.0-1100.0 Basophils [#/volume] in Blood by Automated count 2023-03-05 14:34:11 57.68 Cell/uL F 0.0-400.0 Eosinophils [#/volume] in Blood by Automated count 2023-03-05 14:34:11 568.56 Cell/uL F 0.0-700.0 Basophils/100 leukocytes in Blood by Automated count 2023-03-05 14:34:11 0.7 % F Lymphocytes/100 leukocytes in Blood by Automated count 2023-03-05 14:34:11 10.6 % F Monocytes/100 leukocytes in Blood by Automated count 2023-03-05 14:34:11 5.5 % F Neutrophils/100 leukocytes in Blood by Automated count 2023-03-05 14:34:11 76.3 % F Eosinophils/100 leukocytes in Blood by Automated count 2023-03-05 14:34:11 6.9 % F Leukocytes [#/volume] in Blood by Automated count 2023-03-05 14:34:11 8.2 x 10'3 cells/uL F 4.0-11.0 Neutrophils [#/volume] in Blood by Automated count 2023-03-05 14:34:11 6287.12 Cell/uL F 2000.0-8800.0 Lymphocytes [#/volume] in Blood by Automated count 2023-03-05 14:34:11 873.44 Cell/uL F 620.0-3660.0 Monocytes [#/volume] in Blood by Automated count 2023-03-05 14:34:11 453.2 Cell/uL F 0.0-1100.0 Eosinophils [#/volume] in Blood by Automated count 2023-03-05 14:34:11 568.56 Cell/uL F 0.0-700.0 Basophils [#/volume] in Blood by Automated count 2023-03-05 14:34:11 57.68 Cell/uL F 0.0-400.0 MineralBone Disorder Description Draw Date Result/Unit Status Ref Range Result Comments CA CORRECTED 2024-11-04 08:30:00 8.6 mg/dL F CA/PHOS PRODUCT 2024-11-04 08:26:52 41.7 Calc F 21.0-53.0 CA*PO4 CORRCTD 2024-11-04 08:26:52 42 Calc F 21.0-53.0 Calcium [Mass/volume] in Serum or Plasma 2024-11-04 08:25:16 8.5 mg/dL F 8.7-10.4 Phosphate [Mass/volume] in Serum or Plasma 2024-11-04 08:25:16 4.9 mg/dL F 2.4-5.1 Parathyrin.intact [Mass/volume] in Serum or Plasma 2024-11-04 05:34:31 162 pg/mL F 18.0-80.0 Alkaline phosphatase [Enzymatic activity/volume] in Serum or Plasma 2024-11-04 05:24:24 57 U/L F 46.0-116.0 Magnesium [Mass/volume] in Serum or Plasma 2024-11-04 05:24:24 3.4 mg/dL F 1.3-2.7 CA CORRECTED 2024-10-07 09:03:30 8.3 mg/dL F CA/PHOS PRODUCT 2024-10-07 09:00:02 31.2 Calc F 21.0-53.0 CA*PO4 CORRCTD 2024-10-07 09:00:02 31.5 Calc F 21.0-53.0 Calcium [Mass/volume] in Serum or Plasma 2024-10-07 08:26:39 8.2 mg/dL F 8.7-10.4 Phosphate [Mass/volume] in Serum or Plasma 2024-10-07 08:26:39 3.8 mg/dL F 2.4-5.1 Parathyrin.intact [Mass/volume] in Serum or Plasma 2024-10-07 01:11:27 181 pg/mL F 18.0-80.0 Alkaline phosphatase [Enzymatic activity/volume] in Serum or Plasma 2024-10-07 00:55:28 66 U/L F 46.0-116.0 Magnesium [Mass/volume] in Serum or Plasma 2024-10-07 00:55:28 1.8 mg/dL F 1.3-2.7 25-Hydroxyvitamin D3+25-Hydroxyvitamin D2 [Mass/volume] in Serum or Plasma 2024-09-17 07:28:35 53.4 ng/mL F CA CORRECTED 2024-09-17 05:33:32 8.7 mg/dL F CA/PHOS PRODUCT 2024-09-17 05:31:20 29.1 Calc F 21.0-53.0 CA*PO4 CORRCTD 2024-09-17 05:31:20 30.5 Calc F 21.0-53.0 Calcium [Mass/volume] in Serum or Plasma 2024-09-17 05:26:36 8.3 mg/dL F 8.7-10.4 Phosphate [Mass/volume] in Serum or Plasma 2024-09-17 05:26:36 3.5 mg/dL F 2.4-5.1 Parathyrin.intact [Mass/volume] in Serum or Plasma 2024-09-16 22:10:19 134 pg/mL F 18.0-80.0 Alkaline phosphatase [Enzymatic activity/volume] in Serum or Plasma 2024-09-16 16:53:23 57 U/L F 46.0-116.0 Magnesium [Mass/volume] in Serum or Plasma 2024-09-16 16:53:23 2 mg/dL F 1.3-2.7 Parathyrin.intact [Mass/volume] in Serum or Plasma 2024-08-04 17:36:21 164 pg/mL F 18.0-80.0 Parathyrin.intact [Mass/volume] in Serum or Plasma 2024-08-04 17:36:21 164 pg/mL F 18.0-80.0 CA CORRECTED 2024-08-04 08:14:38 9.1 mg/dL F CA CORRECTED 2024-08-04 08:14:38 9.1 mg/dL F CA/PHOS PRODUCT 2024-08-04 08:11:48 33.3 Calc F 21.0-53.0 CA*PO4 CORRCTD 2024-08-04 08:11:48 33.6 Calc F 21.0-53.0 CA/PHOS PRODUCT 2024-08-04 08:11:48 33.3 Calc F 21.0-53.0 CA*PO4 CORRCTD 2024-08-04 08:11:48 33.6 Calc F 21.0-53.0 Calcium [Mass/volume] in Serum or Plasma 2024-08-04 07:43:39 9 mg/dL F 8.7-10.4 Calcium [Mass/volume] in Serum or Plasma 2024-08-04 07:43:39 9 mg/dL F 8.7-10.4 Magnesium [Mass/volume] in Serum or Plasma 2024-08-04 02:01:20 1.8 mg/dL F 1.3-2.7 Phosphate [Mass/volume] in Serum or Plasma 2024-08-04 02:01:20 3.7 mg/dL F 2.4-5.1 Alkaline phosphatase [Enzymatic activity/volume] in Serum or Plasma 2024-08-04 02:01:20 69 U/L F 46.0-116.0 Alkaline phosphatase [Enzymatic activity/volume] in Serum or Plasma 2024-08-04 02:01:20 69 U/L F 46.0-116.0 Phosphate [Mass/volume] in Serum or Plasma 2024-08-04 02:01:20 3.7 mg/dL F 2.4-5.1 Magnesium [Mass/volume] in Serum or Plasma 2024-08-04 02:01:20 1.8 mg/dL F 1.3-2.7 CA CORRECTED 2024-07-01 02:52:57 8.8 mg/dL F CA CORRECTED 2024-07-01 02:52:57 8.8 mg/dL F CA CORRECTED 2024-07-01 02:52:57 8.8 mg/dL F CA/PHOS PRODUCT 2024-07-01 02:49:14 33.4 Calc F 21.0-53.0 CA*PO4 CORRCTD 2024-07-01 02:49:14 33.4 Calc F 21.0-53.0 CA/PHOS PRODUCT 2024-07-01 02:49:14 33.4 Calc F 21.0-53.0 CA*PO4 CORRCTD 2024-07-01 02:49:14 33.4 Calc F 21.0-53.0 CA/PHOS PRODUCT 2024-07-01 02:49:14 33.4 Calc F 21.0-53.0 CA*PO4 CORRCTD 2024-07-01 02:49:14 33.4 Calc F 21.0-53.0 Calcium [Mass/volume] in Serum or Plasma 2024-07-01 02:47:36 8.8 mg/dL F 8.7-10.4 Calcium [Mass/volume] in Serum or Plasma 2024-07-01 02:47:36 8.8 mg/dL F 8.7-10.4 Calcium [Mass/volume] in Serum or Plasma 2024-07-01 02:47:36 8.8 mg/dL F 8.7-10.4 Parathyrin.intact [Mass/volume] in Serum or Plasma 2024-06-30 16:07:12 148 pg/mL F 18.0-80.0 Parathyrin.intact [Mass/volume] in Serum or Plasma 2024-06-30 16:07:12 148 pg/mL F 18.0-80.0 Parathyrin.intact [Mass/volume] in Serum or Plasma 2024-06-30 16:07:12 148 pg/mL F 18.0-80.0 Magnesium [Mass/volume] in Serum or Plasma 2024-06-30 14:27:10 1.8 mg/dL F 1.3-2.7 Phosphate [Mass/volume] in Serum or Plasma 2024-06-30 14:27:10 3.8 mg/dL F 2.4-5.1 Alkaline phosphatase [Enzymatic activity/volume] in Serum or Plasma 2024-06-30 14:27:10 64 U/L F 46.0-116.0 Alkaline phosphatase [Enzymatic activity/volume] in Serum or Plasma 2024-06-30 14:27:10 64 U/L F 46.0-116.0 Phosphate [Mass/volume] in Serum or Plasma 2024-06-30 14:27:10 3.8 mg/dL F 2.4-5.1 Magnesium [Mass/volume] in Serum or Plasma 2024-06-30 14:27:10 1.8 mg/dL F 1.3-2.7 Alkaline phosphatase [Enzymatic activity/volume] in Serum or Plasma 2024-06-30 14:27:10 64 U/L F 46.0-116.0 Phosphate [Mass/volume] in Serum or Plasma 2024-06-30 14:27:10 3.8 mg/dL F 2.4-5.1 Magnesium [Mass/volume] in Serum or Plasma 2024-06-30 14:27:10 1.8 mg/dL F 1.3-2.7 25-Hydroxyvitamin D3+25-Hydroxyvitamin D2 [Mass/volume] in Serum or Plasma 2024-06-04 07:26:32 51.3 ng/mL F CA CORRECTED 2024-06-04 06:37:16 8.6 mg/dL F CA/PHOS PRODUCT 2024-06-04 06:18:03 31 Calc F 21.0-53.0 CA*PO4 CORRCTD 2024-06-04 06:18:03 31 Calc F 21.0-53.0 Calcium [Mass/volume] in Serum or Plasma 2024-06-04 06:13:13 8.6 mg/dL F 8.7-10.4 Alkaline phosphatase [Enzymatic activity/volume] in Serum or Plasma 2024-06-04 06:08:34 69 U/L F 46.0-116.0 Phosphate [Mass/volume] in Serum or Plasma 2024-06-04 06:08:34 3.6 mg/dL F 2.4-5.1 Magnesium [Mass/volume] in Serum or Plasma 2024-06-04 06:08:34 1.8 mg/dL F 1.3-2.7 Parathyrin.intact [Mass/volume] in Serum or Plasma 2024-06-04 03:54:33 192 pg/mL F 18.0-80.0 CA CORRECTED 2024-05-04 07:03:13 8.4 mg/dL F CA CORRECTED 2024-05-04 07:03:13 8.4 mg/dL F CA/PHOS PRODUCT 2024-05-04 06:58:25 32.8 Calc F 21.0-53.0 CA*PO4 CORRCTD 2024-05-04 06:58:25 32.8 Calc F 21.0-53.0 CA/PHOS PRODUCT 2024-05-04 06:58:25 32.8 Calc F 21.0-53.0 CA*PO4 CORRCTD 2024-05-04 06:58:25 32.8 Calc F 21.0-53.0 Calcium [Mass/volume] in Serum or Plasma 2024-05-04 06:56:24 8.4 mg/dL F 8.7-10.4 Calcium [Mass/volume] in Serum or Plasma 2024-05-04 06:56:24 8.4 mg/dL F 8.7-10.4 Alkaline phosphatase [Enzymatic activity/volume] in Serum or Plasma 2024-05-03 16:37:31 76 U/L F 46.0-116.0 Phosphate [Mass/volume] in Serum or Plasma 2024-05-03 16:37:31 3.9 mg/dL F 2.4-5.1 Magnesium [Mass/volume] in Serum or Plasma 2024-05-03 16:37:31 1.8 mg/dL F 1.3-2.7 Alkaline phosphatase [Enzymatic activity/volume] in Serum or Plasma 2024-05-03 16:37:31 76 U/L F 46.0-116.0 Phosphate [Mass/volume] in Serum or Plasma 2024-05-03 16:37:31 3.9 mg/dL F 2.4-5.1 Magnesium [Mass/volume] in Serum or Plasma 2024-05-03 16:37:31 1.8 mg/dL F 1.3-2.7 Parathyrin.intact [Mass/volume] in Serum or Plasma 2024-03-30 20:44:10 190 pg/mL F 18.0-80.0 Parathyrin.intact [Mass/volume] in Serum or Plasma 2024-03-30 20:44:10 190 pg/mL F 18.0-80.0 Parathyrin.intact [Mass/volume] in Serum or Plasma 2024-03-30 20:44:10 190 pg/mL F 18.0-80.0 CA CORRECTED 2024-03-30 04:11:35 8.7 mg/dL F CA CORRECTED 2024-03-30 04:11:35 8.7 mg/dL F CA CORRECTED 2024-03-30 04:11:35 8.7 mg/dL F CA*PO4 CORRCTD 2024-03-30 03:59:09 32.2 Calc F 21.0-53.0 CA/PHOS PRODUCT 2024-03-30 03:59:09 32.2 Calc F 21.0-53.0 CA*PO4 CORRCTD 2024-03-30 03:59:09 32.2 Calc F 21.0-53.0 CA/PHOS PRODUCT 2024-03-30 03:59:09 32.2 Calc F 21.0-53.0 CA/PHOS PRODUCT 2024-03-30 03:59:09 32.2 Calc F 21.0-53.0 CA*PO4 CORRCTD 2024-03-30 03:59:09 32.2 Calc F 21.0-53.0 Calcium [Mass/volume] in Serum or Plasma 2024-03-30 03:55:41 8.7 mg/dL F 8.7-10.4 Calcium [Mass/volume] in Serum or Plasma 2024-03-30 03:55:41 8.7 mg/dL F 8.7-10.4 Calcium [Mass/volume] in Serum or Plasma 2024-03-30 03:55:41 8.7 mg/dL F 8.7-10.4 Phosphate [Mass/volume] in Serum or Plasma 2024-03-29 18:01:29 3.7 mg/dL F 2.4-5.1 Magnesium [Mass/volume] in Serum or Plasma 2024-03-29 18:01:29 1.8 mg/dL F 1.3-2.7 Alkaline phosphatase [Enzymatic activity/volume] in Serum or Plasma 2024-03-29 18:01:29 65 U/L F 46.0-116.0 Phosphate [Mass/volume] in Serum or Plasma 2024-03-29 18:01:29 3.7 mg/dL F 2.4-5.1 Magnesium [Mass/volume] in Serum or Plasma 2024-03-29 18:01:29 1.8 mg/dL F 1.3-2.7 Alkaline phosphatase [Enzymatic activity/volume] in Serum or Plasma 2024-03-29 18:01:29 65 U/L F 46.0-116.0 Alkaline phosphatase [Enzymatic activity/volume] in Serum or Plasma 2024-03-29 18:01:29 65 U/L F 46.0-116.0 Phosphate [Mass/volume] in Serum or Plasma 2024-03-29 18:01:29 3.7 mg/dL F 2.4-5.1 Magnesium [Mass/volume] in Serum or Plasma 2024-03-29 18:01:29 1.8 mg/dL F 1.3-2.7 Parathyrin.intact [Mass/volume] in Serum or Plasma 2024-03-17 05:18:01 299 pg/mL F 18.0-80.0 Parathyrin.intact [Mass/volume] in Serum or Plasma 2024-03-17 05:18:01 299 pg/mL F 18.0-80.0 Parathyrin.intact [Mass/volume] in Serum or Plasma 2024-03-17 05:18:01 299 pg/mL F 18.0-80.0 CA CORRECTED 2024-03-17 04:19:26 8.3 mg/dL F CA CORRECTED 2024-03-17 04:19:26 8.3 mg/dL F CA CORRECTED 2024-03-17 04:19:26 8.3 mg/dL F CA/PHOS PRODUCT 2024-03-17 04:16:20 31.5 Calc F 21.0-53.0 CA*PO4 CORRCTD 2024-03-17 04:16:20 31.5 Calc F 21.0-53.0 CA/PHOS PRODUCT 2024-03-17 04:16:20 31.5 Calc F 21.0-53.0 CA*PO4 CORRCTD 2024-03-17 04:16:20 31.5 Calc F 21.0-53.0 CA/PHOS PRODUCT 2024-03-17 04:16:20 31.5 Calc F 21.0-53.0 CA*PO4 CORRCTD 2024-03-17 04:16:20 31.5 Calc F 21.0-53.0 Calcium [Mass/volume] in Serum or Plasma 2024-03-17 04:10:08 8.3 mg/dL F 8.7-10.4 Calcium [Mass/volume] in Serum or Plasma 2024-03-17 04:10:08 8.3 mg/dL F 8.7-10.4 Calcium [Mass/volume] in Serum or Plasma 2024-03-17 04:10:08 8.3 mg/dL F 8.7-10.4 Phosphate [Mass/volume] in Serum or Plasma 2024-03-17 01:53:28 3.8 mg/dL F 2.4-5.1 Magnesium [Mass/volume] in Serum or Plasma 2024-03-17 01:53:28 1.7 mg/dL F 1.3-2.7 Alkaline phosphatase [Enzymatic activity/volume] in Serum or Plasma 2024-03-17 01:53:28 65 U/L F 46.0-116.0 Alkaline phosphatase [Enzymatic activity/volume] in Serum or Plasma 2024-03-17 01:53:28 65 U/L F 46.0-116.0 Phosphate [Mass/volume] in Serum or Plasma 2024-03-17 01:53:28 3.8 mg/dL F 2.4-5.1 Magnesium [Mass/volume] in Serum or Plasma 2024-03-17 01:53:28 1.7 mg/dL F 1.3-2.7 Alkaline phosphatase [Enzymatic activity/volume] in Serum or Plasma 2024-03-17 01:53:28 65 U/L F 46.0-116.0 Phosphate [Mass/volume] in Serum or Plasma 2024-03-17 01:53:28 3.8 mg/dL F 2.4-5.1 Magnesium [Mass/volume] in Serum or Plasma 2024-03-17 01:53:28 1.7 mg/dL F 1.3-2.7 CA CORRECTED 2024-01-29 05:22:23 8.5 mg/dL F CA CORRECTED 2024-01-29 05:22:23 8.5 mg/dL F CA CORRECTED 2024-01-29 05:22:23 8.5 mg/dL F CA/PHOS PRODUCT 2024-01-29 05:19:13 26.9 Calc F 21.0-53.0 CA*PO4 CORRCTD 2024-01-29 05:19:13 27.2 Calc F 21.0-53.0 CA*PO4 CORRCTD 2024-01-29 05:19:13 27.2 Calc F 21.0-53.0 CA/PHOS PRODUCT 2024-01-29 05:19:13 26.9 Calc F 21.0-53.0 CA/PHOS PRODUCT 2024-01-29 05:19:13 26.9 Calc F 21.0-53.0 CA*PO4 CORRCTD 2024-01-29 05:19:13 27.2 Calc F 21.0-53.0 Parathyrin.intact [Mass/volume] in Serum or Plasma 2024-01-29 05:05:28 223 pg/mL F 18.0-80.0 Parathyrin.intact [Mass/volume] in Serum or Plasma 2024-01-29 05:05:28 223 pg/mL F 18.0-80.0 Parathyrin.intact [Mass/volume] in Serum or Plasma 2024-01-29 05:05:28 223 pg/mL F 18.0-80.0 Calcium [Mass/volume] in Serum or Plasma 2024-01-29 04:56:42 8.4 mg/dL F 8.7-10.4 Calcium [Mass/volume] in Serum or Plasma 2024-01-29 04:56:42 8.4 mg/dL F 8.7-10.4 Calcium [Mass/volume] in Serum or Plasma 2024-01-29 04:56:42 8.4 mg/dL F 8.7-10.4 Alkaline phosphatase [Enzymatic activity/volume] in Serum or Plasma 2024-01-29 02:15:28 75 U/L F 46.0-116.0 Phosphate [Mass/volume] in Serum or Plasma 2024-01-29 02:15:28 3.2 mg/dL F 2.4-5.1 Magnesium [Mass/volume] in Serum or Plasma 2024-01-29 02:15:28 1.4 mg/dL F 1.3-2.7 Alkaline phosphatase [Enzymatic activity/volume] in Serum or Plasma 2024-01-29 02:15:28 75 U/L F 46.0-116.0 Phosphate [Mass/volume] in Serum or Plasma 2024-01-29 02:15:28 3.2 mg/dL F 2.4-5.1 Magnesium [Mass/volume] in Serum or Plasma 2024-01-29 02:15:28 1.4 mg/dL F 1.3-2.7 Alkaline phosphatase [Enzymatic activity/volume] in Serum or Plasma 2024-01-29 02:15:28 75 U/L F 46.0-116.0 Phosphate [Mass/volume] in Serum or Plasma 2024-01-29 02:15:28 3.2 mg/dL F 2.4-5.1 Magnesium [Mass/volume] in Serum or Plasma 2024-01-29 02:15:28 1.4 mg/dL F 1.3-2.7 CA CORRECTED 2024-01-06 06:45:02 8 mg/dL F CA CORRECTED 2024-01-06 06:45:02 8 mg/dL F CA CORRECTED 2024-01-06 06:45:02 8 mg/dL F CA*PO4 CORRCTD 2024-01-06 06:41:44 25.6 Calc F 21.0-53.0 CA/PHOS PRODUCT 2024-01-06 06:41:44 25 Calc F 21.0-53.0 CA*PO4 CORRCTD 2024-01-06 06:41:44 25.6 Calc F 21.0-53.0 CA/PHOS PRODUCT 2024-01-06 06:41:44 25 Calc F 21.0-53.0 CA/PHOS PRODUCT 2024-01-06 06:41:44 25 Calc F 21.0-53.0 CA*PO4 CORRCTD 2024-01-06 06:41:44 25.6 Calc F 21.0-53.0 Calcium [Mass/volume] in Serum or Plasma 2024-01-06 06:38:35 7.8 mg/dL F 8.7-10.4 Calcium [Mass/volume] in Serum or Plasma 2024-01-06 06:38:35 7.8 mg/dL F 8.7-10.4 Calcium [Mass/volume] in Serum or Plasma 2024-01-06 06:38:35 7.8 mg/dL F 8.7-10.4 Magnesium [Mass/volume] in Serum or Plasma 2024-01-05 22:41:34 1.3 mg/dL F 1.3-2.7 Phosphate [Mass/volume] in Serum or Plasma 2024-01-05 22:41:34 3.2 mg/dL F 2.4-5.1 Alkaline phosphatase [Enzymatic activity/volume] in Serum or Plasma 2024-01-05 22:41:34 67 U/L F 46.0-116.0 Magnesium [Mass/volume] in Serum or Plasma 2024-01-05 22:41:34 1.3 mg/dL F 1.3-2.7 Phosphate [Mass/volume] in Serum or Plasma 2024-01-05 22:41:34 3.2 mg/dL F 2.4-5.1 Alkaline phosphatase [Enzymatic activity/volume] in Serum or Plasma 2024-01-05 22:41:34 67 U/L F 46.0-116.0 Alkaline phosphatase [Enzymatic activity/volume] in Serum or Plasma 2024-01-05 22:41:34 67 U/L F 46.0-116.0 Phosphate [Mass/volume] in Serum or Plasma 2024-01-05 22:41:34 3.2 mg/dL F 2.4-5.1 Magnesium [Mass/volume] in Serum or Plasma 2024-01-05 22:41:34 1.3 mg/dL F 1.3-2.7 Parathyrin.intact [Mass/volume] in Serum or Plasma 2023-12-04 08:12:24 217 pg/mL F 18.0-80.0 Parathyrin.intact [Mass/volume] in Serum or Plasma 2023-12-04 08:12:24 217 pg/mL F 18.0-80.0 Parathyrin.intact [Mass/volume] in Serum or Plasma 2023-12-04 08:12:24 217 pg/mL F 18.0-80.0 25-Hydroxyvitamin D3+25-Hydroxyvitamin D2 [Mass/volume] in Serum or Plasma 2023-12-03 07:19:27 41.4 ng/mL F 25-Hydroxyvitamin D3+25-Hydroxyvitamin D2 [Mass/volume] in Serum or Plasma 2023-12-03 07:19:27 41.4 ng/mL F 25-Hydroxyvitamin D3+25-Hydroxyvitamin D2 [Mass/volume] in Serum or Plasma 2023-12-03 07:19:27 41.4 ng/mL F CA CORRECTED 2023-12-03 04:05:36 8.5 mg/dL F CA CORRECTED 2023-12-03 04:05:36 8.5 mg/dL F CA CORRECTED 2023-12-03 04:05:36 8.5 mg/dL F CA*PO4 CORRCTD 2023-12-03 03:48:39 27.2 Calc F 21.0-53.0 CA/PHOS PRODUCT 2023-12-03 03:48:39 27.2 Calc F 21.0-53.0 CA/PHOS PRODUCT 2023-12-03 03:48:39 27.2 Calc F 21.0-53.0 CA*PO4 CORRCTD 2023-12-03 03:48:39 27.2 Calc F 21.0-53.0 CA/PHOS PRODUCT 2023-12-03 03:48:39 27.2 Calc F 21.0-53.0 CA*PO4 CORRCTD 2023-12-03 03:48:39 27.2 Calc F 21.0-53.0 Calcium [Mass/volume] in Serum or Plasma 2023-12-03 03:46:31 8.5 mg/dL F 8.7-10.4 Calcium [Mass/volume] in Serum or Plasma 2023-12-03 03:46:31 8.5 mg/dL F 8.7-10.4 Calcium [Mass/volume] in Serum or Plasma 2023-12-03 03:46:31 8.5 mg/dL F 8.7-10.4 Magnesium [Mass/volume] in Serum or Plasma 2023-12-02 14:38:33 1.7 mg/dL F 1.3-2.7 Alkaline phosphatase [Enzymatic activity/volume] in Serum or Plasma 2023-12-02 14:38:33 77 U/L F 46.0-116.0 Alkaline phosphatase [Enzymatic activity/volume] in Serum or Plasma 2023-12-02 14:38:33 77 U/L F 46.0-116.0 Magnesium [Mass/volume] in Serum or Plasma 2023-12-02 14:38:33 1.7 mg/dL F 1.3-2.7 Alkaline phosphatase [Enzymatic activity/volume] in Serum or Plasma 2023-12-02 14:38:33 77 U/L F 46.0-116.0 Magnesium [Mass/volume] in Serum or Plasma 2023-12-02 14:38:33 1.7 mg/dL F 1.3-2.7 Phosphate [Mass/volume] in Serum or Plasma 2023-12-02 14:38:32 3.2 mg/dL F 2.4-5.1 Phosphate [Mass/volume] in Serum or Plasma 2023-12-02 14:38:32 3.2 mg/dL F 2.4-5.1 Phosphate [Mass/volume] in Serum or Plasma 2023-12-02 14:38:32 3.2 mg/dL F 2.4-5.1 Parathyrin.intact [Mass/volume] in Serum or Plasma 2023-11-13 05:06:07 300 pg/mL F 18.0-80.0 Parathyrin.intact [Mass/volume] in Serum or Plasma 2023-11-13 05:06:07 300 pg/mL F 18.0-80.0 Parathyrin.intact [Mass/volume] in Serum or Plasma 2023-11-13 05:06:07 300 pg/mL F 18.0-80.0 CA CORRECTED 2023-11-12 22:30:28 8.5 mg/dL F CA CORRECTED 2023-11-12 22:30:28 8.5 mg/dL F CA CORRECTED 2023-11-12 22:30:28 8.5 mg/dL F CA*PO4 CORRCTD 2023-11-12 22:27:32 28.9 Calc F 21.0-53.0 CA/PHOS PRODUCT 2023-11-12 22:27:32 28.9 Calc F 21.0-53.0 CA/PHOS PRODUCT 2023-11-12 22:27:32 28.9 Calc F 21.0-53.0 CA*PO4 CORRCTD 2023-11-12 22:27:32 28.9 Calc F 21.0-53.0 CA/PHOS PRODUCT 2023-11-12 22:27:32 28.9 Calc F 21.0-53.0 CA*PO4 CORRCTD 2023-11-12 22:27:32 28.9 Calc F 21.0-53.0 Calcium [Mass/volume] in Serum or Plasma 2023-11-12 22:24:47 8.5 mg/dL F 8.7-10.4 Calcium [Mass/volume] in Serum or Plasma 2023-11-12 22:24:47 8.5 mg/dL F 8.7-10.4 Calcium [Mass/volume] in Serum or Plasma 2023-11-12 22:24:47 8.5 mg/dL F 8.7-10.4 Phosphate [Mass/volume] in Serum or Plasma 2023-11-12 15:23:04 3.4 mg/dL F 2.4-5.1 Phosphate [Mass/volume] in Serum or Plasma 2023-11-12 15:23:04 3.4 mg/dL F 2.4-5.1 Phosphate [Mass/volume] in Serum or Plasma 2023-11-12 15:23:04 3.4 mg/dL F 2.4-5.1 Magnesium [Mass/volume] in Serum or Plasma 2023-11-12 15:23:03 1.7 mg/dL F 1.3-2.7 Alkaline phosphatase [Enzymatic activity/volume] in Serum or Plasma 2023-11-12 15:23:03 78 U/L F 46.0-116.0 Alkaline phosphatase [Enzymatic activity/volume] in Serum or Plasma 2023-11-12 15:23:03 78 U/L F 46.0-116.0 Magnesium [Mass/volume] in Serum or Plasma 2023-11-12 15:23:03 1.7 mg/dL F 1.3-2.7 Alkaline phosphatase [Enzymatic activity/volume] in Serum or Plasma 2023-11-12 15:23:03 78 U/L F 46.0-116.0 Magnesium [Mass/volume] in Serum or Plasma 2023-11-12 15:23:03 1.7 mg/dL F 1.3-2.7 Parathyrin.intact [Mass/volume] in Serum or Plasma 2023-10-02 05:25:34 219 pg/mL F 18.0-80.0 Parathyrin.intact [Mass/volume] in Serum or Plasma 2023-10-02 05:25:34 219 pg/mL F 18.0-80.0 Parathyrin.intact [Mass/volume] in Serum or Plasma 2023-10-02 05:25:34 219 pg/mL F 18.0-80.0 Parathyrin.intact [Mass/volume] in Serum or Plasma 2023-10-02 05:25:34 219 pg/mL F 18.0-80.0 Parathyrin.intact [Mass/volume] in Serum or Plasma 2023-10-02 05:25:34 219 pg/mL F 18.0-80.0 CA CORRECTED 2023-10-02 00:54:41 8.5 mg/dL F CA CORRECTED 2023-10-02 00:54:41 8.5 mg/dL F CA CORRECTED 2023-10-02 00:54:41 8.5 mg/dL F CA CORRECTED 2023-10-02 00:54:41 8.5 mg/dL F CA CORRECTED 2023-10-02 00:54:41 8.5 mg/dL F CA/PHOS PRODUCT 2023-10-02 00:52:55 28.1 Calc F 21.0-53.0 CA*PO4 CORRCTD 2023-10-02 00:52:55 28.1 Calc F 21.0-53.0 CA*PO4 CORRCTD 2023-10-02 00:52:55 28.1 Calc F 21.0-53.0 CA/PHOS PRODUCT 2023-10-02 00:52:55 28.1 Calc F 21.0-53.0 CA/PHOS PRODUCT 2023-10-02 00:52:55 28.1 Calc F 21.0-53.0 CA*PO4 CORRCTD 2023-10-02 00:52:55 28.1 Calc F 21.0-53.0 CA/PHOS PRODUCT 2023-10-02 00:52:55 28.1 Calc F 21.0-53.0 CA*PO4 CORRCTD 2023-10-02 00:52:55 28.1 Calc F 21.0-53.0 CA/PHOS PRODUCT 2023-10-02 00:52:55 28.1 Calc F 21.0-53.0 CA*PO4 CORRCTD 2023-10-02 00:52:55 28.1 Calc F 21.0-53.0 Calcium [Mass/volume] in Serum or Plasma 2023-10-02 00:51:46 8.5 mg/dL F 8.7-10.4 Calcium [Mass/volume] in Serum or Plasma 2023-10-02 00:51:46 8.5 mg/dL F 8.7-10.4 Calcium [Mass/volume] in Serum or Plasma 2023-10-02 00:51:46 8.5 mg/dL F 8.7-10.4 Calcium [Mass/volume] in Serum or Plasma 2023-10-02 00:51:46 8.5 mg/dL F 8.7-10.4 Calcium [Mass/volume] in Serum or Plasma 2023-10-02 00:51:46 8.5 mg/dL F 8.7-10.4 Phosphate [Mass/volume] in Serum or Plasma 2023-10-01 17:01:07 3.3 mg/dL F 2.4-5.1 Phosphate [Mass/volume] in Serum or Plasma 2023-10-01 17:01:07 3.3 mg/dL F 2.4-5.1 Phosphate [Mass/volume] in Serum or Plasma 2023-10-01 17:01:07 3.3 mg/dL F 2.4-5.1 Phosphate [Mass/volume] in Serum or Plasma 2023-10-01 17:01:07 3.3 mg/dL F 2.4-5.1 Phosphate [Mass/volume] in Serum or Plasma 2023-10-01 17:01:07 3.3 mg/dL F 2.4-5.1 Alkaline phosphatase [Enzymatic activity/volume] in Serum or Plasma 2023-10-01 17:01:05 81 U/L F 46.0-116.0 Magnesium [Mass/volume] in Serum or Plasma 2023-10-01 17:01:05 1.7 mg/dL F 1.3-2.7 Magnesium [Mass/volume] in Serum or Plasma 2023-10-01 17:01:05 1.7 mg/dL F 1.3-2.7 Alkaline phosphatase [Enzymatic activity/volume] in Serum or Plasma 2023-10-01 17:01:05 81 U/L F 46.0-116.0 Magnesium [Mass/volume] in Serum or Plasma 2023-10-01 17:01:05 1.7 mg/dL F 1.3-2.7 Alkaline phosphatase [Enzymatic activity/volume] in Serum or Plasma 2023-10-01 17:01:05 81 U/L F 46.0-116.0 Alkaline phosphatase [Enzymatic activity/volume] in Serum or Plasma 2023-10-01 17:01:05 81 U/L F 46.0-116.0 Magnesium [Mass/volume] in Serum or Plasma 2023-10-01 17:01:05 1.7 mg/dL F 1.3-2.7 Magnesium [Mass/volume] in Serum or Plasma 2023-10-01 17:01:05 1.7 mg/dL F 1.3-2.7 Alkaline phosphatase [Enzymatic activity/volume] in Serum or Plasma 2023-10-01 17:01:05 81 U/L F 46.0-116.0 25-Hydroxyvitamin D3+25-Hydroxyvitamin D2 [Mass/volume] in Serum or Plasma 2023-09-04 05:46:42 53.1 ng/mL F 25-Hydroxyvitamin D3+25-Hydroxyvitamin D2 [Mass/volume] in Serum or Plasma 2023-09-04 05:46:42 53.1 ng/mL F 25-Hydroxyvitamin D3+25-Hydroxyvitamin D2 [Mass/volume] in Serum or Plasma 2023-09-04 05:46:42 53.1 ng/mL F CA CORRECTED 2023-09-03 18:59:51 8.4 mg/dL F CA CORRECTED 2023-09-03 18:59:51 8.4 mg/dL F CA CORRECTED 2023-09-03 18:59:51 8.4 mg/dL F CA/PHOS PRODUCT 2023-09-03 18:58:19 27.7 Calc F 21.0-53.0 CA*PO4 CORRCTD 2023-09-03 18:58:19 27.7 Calc F 21.0-53.0 CA/PHOS PRODUCT 2023-09-03 18:58:19 27.7 Calc F 21.0-53.0 CA*PO4 CORRCTD 2023-09-03 18:58:19 27.7 Calc F 21.0-53.0 CA/PHOS PRODUCT 2023-09-03 18:58:19 27.7 Calc F 21.0-53.0 CA*PO4 CORRCTD 2023-09-03 18:58:19 27.7 Calc F 21.0-53.0 Calcium [Mass/volume] in Serum or Plasma 2023-09-03 18:58:05 8.4 mg/dL F 8.7-10.4 Calcium [Mass/volume] in Serum or Plasma 2023-09-03 18:58:05 8.4 mg/dL F 8.7-10.4 Calcium [Mass/volume] in Serum or Plasma 2023-09-03 18:58:05 8.4 mg/dL F 8.7-10.4 Phosphate [Mass/volume] in Serum or Plasma 2023-09-03 13:39:31 3.3 mg/dL F 2.4-5.1 Magnesium [Mass/volume] in Serum or Plasma 2023-09-03 13:39:31 1.9 mg/dL F 1.3-2.7 Alkaline phosphatase [Enzymatic activity/volume] in Serum or Plasma 2023-09-03 13:39:31 80 U/L F 46.0-116.0 Alkaline phosphatase [Enzymatic activity/volume] in Serum or Plasma 2023-09-03 13:39:31 80 U/L F 46.0-116.0 Phosphate [Mass/volume] in Serum or Plasma 2023-09-03 13:39:31 3.3 mg/dL F 2.4-5.1 Magnesium [Mass/volume] in Serum or Plasma 2023-09-03 13:39:31 1.9 mg/dL F 1.3-2.7 Alkaline phosphatase [Enzymatic activity/volume] in Serum or Plasma 2023-09-03 13:39:31 80 U/L F 46.0-116.0 Phosphate [Mass/volume] in Serum or Plasma 2023-09-03 13:39:31 3.3 mg/dL F 2.4-5.1 Magnesium [Mass/volume] in Serum or Plasma 2023-09-03 13:39:31 1.9 mg/dL F 1.3-2.7 Parathyrin.intact [Mass/volume] in Serum or Plasma 2023-07-31 05:01:12 335 pg/mL F 18.0-80.0 CA CORRECTED 2023-07-31 04:01:34 8.3 mg/dL F CA/PHOS PRODUCT 2023-07-31 03:59:14 23.2 Calc F 21.0-53.0 CA*PO4 CORRCTD 2023-07-31 03:59:14 23.2 Calc F 21.0-53.0 Calcium [Mass/volume] in Serum or Plasma 2023-07-31 03:57:28 8.3 mg/dL F 8.7-10.4 Phosphate [Mass/volume] in Serum or Plasma 2023-07-30 19:25:39 2.8 mg/dL F 2.4-5.1 Magnesium [Mass/volume] in Serum or Plasma 2023-07-30 19:25:39 1.8 mg/dL F 1.3-2.7 CA CORRECTED 2023-07-03 07:28:09 8.1 mg/dL F CA CORRECTED 2023-07-03 07:28:09 8.1 mg/dL F CA CORRECTED 2023-07-03 07:28:09 8.1 mg/dL F CA/PHOS PRODUCT 2023-07-03 07:22:31 21.3 Calc F 21.0-53.0 CA*PO4 CORRCTD 2023-07-03 07:22:31 21.9 Calc F 21.0-53.0 CA*PO4 CORRCTD 2023-07-03 07:22:31 21.9 Calc F 21.0-53.0 CA/PHOS PRODUCT 2023-07-03 07:22:31 21.3 Calc F 21.0-53.0 CA/PHOS PRODUCT 2023-07-03 07:22:31 21.3 Calc F 21.0-53.0 CA*PO4 CORRCTD 2023-07-03 07:22:31 21.9 Calc F 21.0-53.0 Calcium [Mass/volume] in Serum or Plasma 2023-07-03 07:16:18 7.9 mg/dL F 8.7-10.4 Calcium [Mass/volume] in Serum or Plasma 2023-07-03 07:16:18 7.9 mg/dL F 8.7-10.4 Calcium [Mass/volume] in Serum or Plasma 2023-07-03 07:16:18 7.9 mg/dL F 8.7-10.4 Alkaline phosphatase [Enzymatic activity/volume] in Serum or Plasma 2023-07-02 18:16:29 76 U/L F 46.0-116.0 Phosphate [Mass/volume] in Serum or Plasma 2023-07-02 18:16:29 2.7 mg/dL F 2.4-5.1 Magnesium [Mass/volume] in Serum or Plasma 2023-07-02 18:16:29 1.9 mg/dL F 1.3-2.7 Magnesium [Mass/volume] in Serum or Plasma 2023-07-02 18:16:29 1.9 mg/dL F 1.3-2.7 Phosphate [Mass/volume] in Serum or Plasma 2023-07-02 18:16:29 2.7 mg/dL F 2.4-5.1 Alkaline phosphatase [Enzymatic activity/volume] in Serum or Plasma 2023-07-02 18:16:29 76 U/L F 46.0-116.0 Phosphate [Mass/volume] in Serum or Plasma 2023-07-02 18:16:29 2.7 mg/dL F 2.4-5.1 Alkaline phosphatase [Enzymatic activity/volume] in Serum or Plasma 2023-07-02 18:16:29 76 U/L F 46.0-116.0 Magnesium [Mass/volume] in Serum or Plasma 2023-07-02 18:16:29 1.9 mg/dL F 1.3-2.7 CA CORRECTED 2023-06-05 22:02:24 8.4 mg/dL F CA CORRECTED 2023-06-05 22:02:24 8.4 mg/dL F CA CORRECTED 2023-06-05 22:02:24 8.4 mg/dL F CA CORRECTED 2023-06-05 22:02:24 8.4 mg/dL F CA*PO4 CORRCTD 2023-06-05 21:47:21 26 Calc F 21.0-53.0 CA/PHOS PRODUCT 2023-06-05 21:47:21 25.4 Calc F 21.0-53.0 CA/PHOS PRODUCT 2023-06-05 21:47:21 25.4 Calc F 21.0-53.0 CA*PO4 CORRCTD 2023-06-05 21:47:21 26 Calc F 21.0-53.0 CA/PHOS PRODUCT 2023-06-05 21:47:21 25.4 Calc F 21.0-53.0 CA*PO4 CORRCTD 2023-06-05 21:47:21 26 Calc F 21.0-53.0 CA/PHOS PRODUCT 2023-06-05 21:47:21 25.4 Calc F 21.0-53.0 CA*PO4 CORRCTD 2023-06-05 21:47:21 26 Calc F 21.0-53.0 Calcium [Mass/volume] in Serum or Plasma 2023-06-05 21:44:13 8.2 mg/dL F 8.7-10.4 Calcium [Mass/volume] in Serum or Plasma 2023-06-05 21:44:13 8.2 mg/dL F 8.7-10.4 Calcium [Mass/volume] in Serum or Plasma 2023-06-05 21:44:13 8.2 mg/dL F 8.7-10.4 Calcium [Mass/volume] in Serum or Plasma 2023-06-05 21:44:13 8.2 mg/dL F 8.7-10.4 Magnesium [Mass/volume] in Serum or Plasma 2023-06-05 20:44:27 1.7 mg/dL F 1.3-2.7 Phosphate [Mass/volume] in Serum or Plasma 2023-06-05 20:44:27 3.1 mg/dL F 2.4-5.1 Alkaline phosphatase [Enzymatic activity/volume] in Serum or Plasma 2023-06-05 20:44:27 86 U/L F 46.0-116.0 Alkaline phosphatase [Enzymatic activity/volume] in Serum or Plasma 2023-06-05 20:44:27 86 U/L F 46.0-116.0 Phosphate [Mass/volume] in Serum or Plasma 2023-06-05 20:44:27 3.1 mg/dL F 2.4-5.1 Magnesium [Mass/volume] in Serum or Plasma 2023-06-05 20:44:27 1.7 mg/dL F 1.3-2.7 Alkaline phosphatase [Enzymatic activity/volume] in Serum or Plasma 2023-06-05 20:44:27 86 U/L F 46.0-116.0 Phosphate [Mass/volume] in Serum or Plasma 2023-06-05 20:44:27 3.1 mg/dL F 2.4-5.1 Magnesium [Mass/volume] in Serum or Plasma 2023-06-05 20:44:27 1.7 mg/dL F 1.3-2.7 Alkaline phosphatase [Enzymatic activity/volume] in Serum or Plasma 2023-06-05 20:44:27 86 U/L F 46.0-116.0 Phosphate [Mass/volume] in Serum or Plasma 2023-06-05 20:44:27 3.1 mg/dL F 2.4-5.1 Magnesium [Mass/volume] in Serum or Plasma 2023-06-05 20:44:27 1.7 mg/dL F 1.3-2.7 Parathyrin.intact [Mass/volume] in Serum or Plasma 2023-06-05 05:04:17 231 pg/mL F 18.0-80.0 Parathyrin.intact [Mass/volume] in Serum or Plasma 2023-06-05 05:04:17 231 pg/mL F 18.0-80.0 Parathyrin.intact [Mass/volume] in Serum or Plasma 2023-06-05 05:04:17 231 pg/mL F 18.0-80.0 Parathyrin.intact [Mass/volume] in Serum or Plasma 2023-06-05 05:04:17 231 pg/mL F 18.0-80.0 CA CORRECTED 2023-05-07 05:19:59 8.3 mg/dL F CA CORRECTED 2023-05-07 05:19:59 8.3 mg/dL F CA CORRECTED 2023-05-07 05:19:59 8.3 mg/dL F CA*PO4 CORRCTD 2023-05-07 05:08:58 27.4 Calc F 21.0-53.0 CA/PHOS PRODUCT 2023-05-07 05:08:58 27.1 Calc F 21.0-53.0 CA/PHOS PRODUCT 2023-05-07 05:08:58 27.1 Calc F 21.0-53.0 CA*PO4 CORRCTD 2023-05-07 05:08:58 27.4 Calc F 21.0-53.0 CA/PHOS PRODUCT 2023-05-07 05:08:58 27.1 Calc F 21.0-53.0 CA*PO4 CORRCTD 2023-05-07 05:08:58 27.4 Calc F 21.0-53.0 Calcium [Mass/volume] in Serum or Plasma 2023-05-07 05:02:26 8.2 mg/dL F 8.7-10.4 Calcium [Mass/volume] in Serum or Plasma 2023-05-07 05:02:26 8.2 mg/dL F 8.7-10.4 Calcium [Mass/volume] in Serum or Plasma 2023-05-07 05:02:26 8.2 mg/dL F 8.7-10.4 Magnesium [Mass/volume] in Serum or Plasma 2023-05-06 21:16:32 1.8 mg/dL F 1.3-2.7 Phosphate [Mass/volume] in Serum or Plasma 2023-05-06 21:16:32 3.3 mg/dL F 2.4-5.1 Alkaline phosphatase [Enzymatic activity/volume] in Serum or Plasma 2023-05-06 21:16:32 80 U/L F 46.0-116.0 Alkaline phosphatase [Enzymatic activity/volume] in Serum or Plasma 2023-05-06 21:16:32 80 U/L F 46.0-116.0 Phosphate [Mass/volume] in Serum or Plasma 2023-05-06 21:16:32 3.3 mg/dL F 2.4-5.1 Magnesium [Mass/volume] in Serum or Plasma 2023-05-06 21:16:32 1.8 mg/dL F 1.3-2.7 Alkaline phosphatase [Enzymatic activity/volume] in Serum or Plasma 2023-05-06 21:16:32 80 U/L F 46.0-116.0 Phosphate [Mass/volume] in Serum or Plasma 2023-05-06 21:16:32 3.3 mg/dL F 2.4-5.1 Magnesium [Mass/volume] in Serum or Plasma 2023-05-06 21:16:32 1.8 mg/dL F 1.3-2.7 Parathyrin.intact [Mass/volume] in Serum or Plasma 2023-05-06 18:03:35 290 pg/mL F 18.0-80.0 Parathyrin.intact [Mass/volume] in Serum or Plasma 2023-05-06 18:03:35 290 pg/mL F 18.0-80.0 Parathyrin.intact [Mass/volume] in Serum or Plasma 2023-05-06 18:03:35 290 pg/mL F 18.0-80.0 CA CORRECTED 2023-04-05 05:52:07 8.2 mg/dL F CA CORRECTED 2023-04-05 05:52:07 8.2 mg/dL F CA CORRECTED 2023-04-05 05:52:07 8.2 mg/dL F CA CORRECTED 2023-04-05 05:52:07 8.2 mg/dL F CA/PHOS PRODUCT 2023-04-05 05:48:15 27.5 Calc F 21.0-53.0 CA*PO4 CORRCTD 2023-04-05 05:48:15 27.9 Calc F 21.0-53.0 CA/PHOS PRODUCT 2023-04-05 05:48:15 27.5 Calc F 21.0-53.0 CA*PO4 CORRCTD 2023-04-05 05:48:15 27.9 Calc F 21.0-53.0 CA/PHOS PRODUCT 2023-04-05 05:48:15 27.5 Calc F 21.0-53.0 CA*PO4 CORRCTD 2023-04-05 05:48:15 27.9 Calc F 21.0-53.0 CA/PHOS PRODUCT 2023-04-05 05:48:15 27.5 Calc F 21.0-53.0 CA*PO4 CORRCTD 2023-04-05 05:48:15 27.9 Calc F 21.0-53.0 Calcium [Mass/volume] in Serum or Plasma 2023-04-05 05:37:15 8.1 mg/dL F 8.7-10.4 Calcium [Mass/volume] in Serum or Plasma 2023-04-05 05:37:15 8.1 mg/dL F 8.7-10.4 Calcium [Mass/volume] in Serum or Plasma 2023-04-05 05:37:15 8.1 mg/dL F 8.7-10.4 Calcium [Mass/volume] in Serum or Plasma 2023-04-05 05:37:15 8.1 mg/dL F 8.7-10.4 Parathyrin.intact [Mass/volume] in Serum or Plasma 2023-04-04 20:33:11 306 pg/mL F 18.0-80.0 Parathyrin.intact [Mass/volume] in Serum or Plasma 2023-04-04 20:33:11 306 pg/mL F 18.0-80.0 Parathyrin.intact [Mass/volume] in Serum or Plasma 2023-04-04 20:33:11 306 pg/mL F 18.0-80.0 Parathyrin.intact [Mass/volume] in Serum or Plasma 2023-04-04 20:33:11 306 pg/mL F 18.0-80.0 Magnesium [Mass/volume] in Serum or Plasma 2023-04-04 20:06:14 1.8 mg/dL F 1.3-2.7 Phosphate [Mass/volume] in Serum or Plasma 2023-04-04 20:06:14 3.4 mg/dL F 2.4-5.1 Alkaline phosphatase [Enzymatic activity/volume] in Serum or Plasma 2023-04-04 20:06:14 71 U/L F 46.0-116.0 Alkaline phosphatase [Enzymatic activity/volume] in Serum or Plasma 2023-04-04 20:06:14 71 U/L F 46.0-116.0 Phosphate [Mass/volume] in Serum or Plasma 2023-04-04 20:06:14 3.4 mg/dL F 2.4-5.1 Magnesium [Mass/volume] in Serum or Plasma 2023-04-04 20:06:14 1.8 mg/dL F 1.3-2.7 Alkaline phosphatase [Enzymatic activity/volume] in Serum or Plasma 2023-04-04 20:06:14 71 U/L F 46.0-116.0 Phosphate [Mass/volume] in Serum or Plasma 2023-04-04 20:06:14 3.4 mg/dL F 2.4-5.1 Magnesium [Mass/volume] in Serum or Plasma 2023-04-04 20:06:14 1.8 mg/dL F 1.3-2.7 Alkaline phosphatase [Enzymatic activity/volume] in Serum or Plasma 2023-04-04 20:06:14 71 U/L F 46.0-116.0 Phosphate [Mass/volume] in Serum or Plasma 2023-04-04 20:06:14 3.4 mg/dL F 2.4-5.1 Magnesium [Mass/volume] in Serum or Plasma 2023-04-04 20:06:14 1.8 mg/dL F 1.3-2.7 25-Hydroxyvitamin D3+25-Hydroxyvitamin D2 [Mass/volume] in Serum or Plasma 2023-04-04 16:55:16 37.1 ng/mL F 25-Hydroxyvitamin D3+25-Hydroxyvitamin D2 [Mass/volume] in Serum or Plasma 2023-04-04 16:55:16 37.1 ng/mL F 25-Hydroxyvitamin D3+25-Hydroxyvitamin D2 [Mass/volume] in Serum or Plasma 2023-04-04 16:55:16 37.1 ng/mL F 25-Hydroxyvitamin D3+25-Hydroxyvitamin D2 [Mass/volume] in Serum or Plasma 2023-04-04 16:55:16 37.1 ng/mL F CA CORRECTED 2023-03-06 07:36:52 8.6 mg/dL F CA CORRECTED 2023-03-06 07:36:52 8.6 mg/dL F CA CORRECTED 2023-03-06 07:36:52 8.6 mg/dL F CA CORRECTED 2023-03-06 07:36:52 8.6 mg/dL F CA/PHOS PRODUCT 2023-03-06 06:45:54 27.7 Calc F 21.0-53.0 CA*PO4 CORRCTD 2023-03-06 06:45:54 28.4 Calc F 21.0-53.0 CA*PO4 CORRCTD 2023-03-06 06:45:54 28.4 Calc F 21.0-53.0 CA/PHOS PRODUCT 2023-03-06 06:45:54 27.7 Calc F 21.0-53.0 CA/PHOS PRODUCT 2023-03-06 06:45:54 27.7 Calc F 21.0-53.0 CA*PO4 CORRCTD 2023-03-06 06:45:54 28.4 Calc F 21.0-53.0 CA*PO4 CORRCTD 2023-03-06 06:45:54 28.4 Calc F 21.0-53.0 CA/PHOS PRODUCT 2023-03-06 06:45:54 27.7 Calc F 21.0-53.0 Calcium [Mass/volume] in Serum or Plasma 2023-03-06 06:35:39 8.4 mg/dL F 8.7-10.4 Calcium [Mass/volume] in Serum or Plasma 2023-03-06 06:35:39 8.4 mg/dL F 8.7-10.4 Calcium [Mass/volume] in Serum or Plasma 2023-03-06 06:35:39 8.4 mg/dL F 8.7-10.4 Calcium [Mass/volume] in Serum or Plasma 2023-03-06 06:35:39 8.4 mg/dL F 8.7-10.4 Alkaline phosphatase [Enzymatic activity/volume] in Serum or Plasma 2023-03-06 00:42:07 66 U/L F 46.0-116.0 Phosphate [Mass/volume] in Serum or Plasma 2023-03-06 00:42:07 3.3 mg/dL F 2.4-5.1 Magnesium [Mass/volume] in Serum or Plasma 2023-03-06 00:42:07 1.6 mg/dL F 1.3-2.7 Magnesium [Mass/volume] in Serum or Plasma 2023-03-06 00:42:07 1.6 mg/dL F 1.3-2.7 Phosphate [Mass/volume] in Serum or Plasma 2023-03-06 00:42:07 3.3 mg/dL F 2.4-5.1 Alkaline phosphatase [Enzymatic activity/volume] in Serum or Plasma 2023-03-06 00:42:07 66 U/L F 46.0-116.0 Alkaline phosphatase [Enzymatic activity/volume] in Serum or Plasma 2023-03-06 00:42:07 66 U/L F 46.0-116.0 Phosphate [Mass/volume] in Serum or Plasma 2023-03-06 00:42:07 3.3 mg/dL F 2.4-5.1 Magnesium [Mass/volume] in Serum or Plasma 2023-03-06 00:42:07 1.6 mg/dL F 1.3-2.7 Alkaline phosphatase [Enzymatic activity/volume] in Serum or Plasma 2023-03-06 00:42:07 66 U/L F 46.0-116.0 Phosphate [Mass/volume] in Serum or Plasma 2023-03-06 00:42:07 3.3 mg/dL F 2.4-5.1 Magnesium [Mass/volume] in Serum or Plasma 2023-03-06 00:42:07 1.6 mg/dL F 1.3-2.7 Parathyrin.intact [Mass/volume] in Serum or Plasma 2023-03-05 15:47:07 256 pg/mL F 18.0-80.0 Parathyrin.intact [Mass/volume] in Serum or Plasma 2023-03-05 15:47:07 256 pg/mL F 18.0-80.0 Parathyrin.intact [Mass/volume] in Serum or Plasma 2023-03-05 15:47:07 256 pg/mL F 18.0-80.0 Parathyrin.intact [Mass/volume] in Serum or Plasma 2023-03-05 15:47:07 256 pg/mL F 18.0-80.0 Parathyrin.intact [Mass/volume] in Serum or Plasma Parathyrin.intact [Mass/volume] in Serum or Plasma Parathyrin.intact [Mass/volume] in Serum or Plasma Nutrition Description Draw Date Result/Unit Status Ref Range Result Comments Potassium [Moles/volume] in Serum or Plasma 2024-11-04 08:25:16 4.7 mEq/L F 3.5-5.5 A/G RATIO 2024-11-04 05:25:22 1.7 Calc F 1.0-2.5 GLOBULIN 2024-11-04 05:25:22 2.3 g/dL F 0.9-5.0 Albumin [Mass/volume] in Serum or Plasma by Bromocresol green (BCG) dye binding method 2024-11-04 05:24:24 3.9 g/dL F 3.4-4.8 Bicarbonate [Moles/volume] in Serum or Plasma 2024-11-04 05:24:24 14 mEq/L F 20.0-31.0 Lactate dehydrogenase [Enzymatic activity/volume] in Serum or Plasma 2024-11-04 05:24:24 229 U/L F 120.0-246.0 Protein [Mass/volume] in Serum or Plasma 2024-11-04 05:24:24 6.2 g/dL F 5.7-8.2 Potassium [Moles/volume] in Serum or Plasma 2024-10-07 08:26:39 4.3 mEq/L F 3.5-5.5 A/G RATIO 2024-10-07 00:57:21 2 Calc F 1.0-2.5 GLOBULIN 2024-10-07 00:57:21 2 g/dL F 0.9-5.0 VLDL-CHOL(CALC) 2024-10-07 00:57:21 44 mg/dL F 0.0-29.0 LDL-CHOLESTEROL 2024-10-07 00:57:21 45 mg/dL F 0.0-99.0 CHOL/HDL RATIO 2024-10-07 00:57:21 4.3 Calc F 3.3-5.0 Albumin [Mass/volume] in Serum or Plasma by Bromocresol green (BCG) dye binding method 2024-10-07 00:55:28 3.9 g/dL F 3.4-4.8 Cholesterol [Mass/volume] in Serum or Plasma 2024-10-07 00:55:28 116 mg/dL F 0.0-199.0 Bicarbonate [Moles/volume] in Serum or Plasma 2024-10-07 00:55:28 19 mEq/L F 20.0-31.0 Lactate dehydrogenase [Enzymatic activity/volume] in Serum or Plasma 2024-10-07 00:55:28 221 U/L F 120.0-246.0 Protein [Mass/volume] in Serum or Plasma 2024-10-07 00:55:28 220 mg/dL F 0.0-149.0 Protein [Mass/volume] in Serum or Plasma 2024-10-07 00:55:28 5.9 g/dL F 5.7-8.2 Cholesterol in HDL [Mass/volume] in Serum or Plasma 2024-10-07 00:55:28 27 mg/dL F 40.0-60.0 Potassium [Moles/volume] in Serum or Plasma 2024-09-17 05:26:36 4 mEq/L F 3.5-5.5 A/G RATIO 2024-09-16 16:55:42 1.9 Calc F 1.0-2.5 GLOBULIN 2024-09-16 16:55:42 1.8 g/dL F 0.9-5.0 Albumin [Mass/volume] in Serum or Plasma by Bromocresol green (BCG) dye binding method 2024-09-16 16:53:25 3.5 g/dL F 3.4-4.8 Bicarbonate [Moles/volume] in Serum or Plasma 2024-09-16 16:53:23 18 mEq/L F 20.0-31.0 Lactate dehydrogenase [Enzymatic activity/volume] in Serum or Plasma 2024-09-16 16:53:23 221 U/L F 120.0-246.0 Protein [Mass/volume] in Serum or Plasma 2024-09-16 16:53:23 5.3 g/dL F 5.7-8.2 Potassium [Moles/volume] in Serum or Plasma 2024-08-04 07:43:39 4.2 mEq/L F 3.5-5.5 Potassium [Moles/volume] in Serum or Plasma 2024-08-04 07:43:39 4.2 mEq/L F 3.5-5.5 GLOBULIN 2024-08-04 02:02:01 2.4 g/dL F 0.9-5.0 A/G RATIO 2024-08-04 02:02:01 1.6 Calc F 1.0-2.5 A/G RATIO 2024-08-04 02:02:01 1.6 Calc F 1.0-2.5 GLOBULIN 2024-08-04 02:02:01 2.4 g/dL F 0.9-5.0 Albumin [Mass/volume] in Serum or Plasma by Bromocresol green (BCG) dye binding method 2024-08-04 02:01:20 3.9 g/dL F 3.4-4.8 Protein [Mass/volume] in Serum or Plasma 2024-08-04 02:01:20 6.3 g/dL F 5.7-8.2 Bicarbonate [Moles/volume] in Serum or Plasma 2024-08-04 02:01:20 18 mEq/L F 20.0-31.0 Lactate dehydrogenase [Enzymatic activity/volume] in Serum or Plasma 2024-08-04 02:01:20 237 U/L F 120.0-246.0 Albumin [Mass/volume] in Serum or Plasma by Bromocresol green (BCG) dye binding method 2024-08-04 02:01:20 3.9 g/dL F 3.4-4.8 Bicarbonate [Moles/volume] in Serum or Plasma 2024-08-04 02:01:20 18 mEq/L F 20.0-31.0 Lactate dehydrogenase [Enzymatic activity/volume] in Serum or Plasma 2024-08-04 02:01:20 237 U/L F 120.0-246.0 Protein [Mass/volume] in Serum or Plasma 2024-08-04 02:01:20 6.3 g/dL F 5.7-8.2 Potassium [Moles/volume] in Serum or Plasma 2024-07-01 02:47:36 4.2 mEq/L F 3.5-5.5 Potassium [Moles/volume] in Serum or Plasma 2024-07-01 02:47:36 4.2 mEq/L F 3.5-5.5 Potassium [Moles/volume] in Serum or Plasma 2024-07-01 02:47:36 4.2 mEq/L F 3.5-5.5 GLOBULIN 2024-06-30 14:27:57 2.4 g/dL F 0.9-5.0 A/G RATIO 2024-06-30 14:27:57 1.7 Calc F 1.0-2.5 A/G RATIO 2024-06-30 14:27:57 1.7 Calc F 1.0-2.5 GLOBULIN 2024-06-30 14:27:57 2.4 g/dL F 0.9-5.0 A/G RATIO 2024-06-30 14:27:57 1.7 Calc F 1.0-2.5 GLOBULIN 2024-06-30 14:27:57 2.4 g/dL F 0.9-5.0 Albumin [Mass/volume] in Serum or Plasma by Bromocresol green (BCG) dye binding method 2024-06-30 14:27:10 4 g/dL F 3.4-4.8 Protein [Mass/volume] in Serum or Plasma 2024-06-30 14:27:10 6.4 g/dL F 5.7-8.2 Bicarbonate [Moles/volume] in Serum or Plasma 2024-06-30 14:27:10 21 mEq/L F 20.0-31.0 Lactate dehydrogenase [Enzymatic activity/volume] in Serum or Plasma 2024-06-30 14:27:10 239 U/L F 120.0-246.0 Albumin [Mass/volume] in Serum or Plasma by Bromocresol green (BCG) dye binding method 2024-06-30 14:27:10 4 g/dL F 3.4-4.8 Bicarbonate [Moles/volume] in Serum or Plasma 2024-06-30 14:27:10 21 mEq/L F 20.0-31.0 Lactate dehydrogenase [Enzymatic activity/volume] in Serum or Plasma 2024-06-30 14:27:10 239 U/L F 120.0-246.0 Protein [Mass/volume] in Serum or Plasma 2024-06-30 14:27:10 6.4 g/dL F 5.7-8.2 Albumin [Mass/volume] in Serum or Plasma by Bromocresol green (BCG) dye binding method 2024-06-30 14:27:10 4 g/dL F 3.4-4.8 Bicarbonate [Moles/volume] in Serum or Plasma 2024-06-30 14:27:10 21 mEq/L F 20.0-31.0 Lactate dehydrogenase [Enzymatic activity/volume] in Serum or Plasma 2024-06-30 14:27:10 239 U/L F 120.0-246.0 Protein [Mass/volume] in Serum or Plasma 2024-06-30 14:27:10 6.4 g/dL F 5.7-8.2 Folate [Mass/volume] in Serum or Plasma 2024-06-04 07:26:40 15.6 ng/mL F 5.5-16.0 Cobalamin (Vitamin B12) [Mass/volume] in Serum or Plasma 2024-06-04 07:26:34 654 pg/mL F 211.0-911.0 A/G RATIO 2024-06-04 06:18:03 1.8 Calc F 1.0-2.5 GLOBULIN 2024-06-04 06:18:03 2.3 g/dL F 0.9-5.0 LDL-CHOLESTEROL 2024-06-04 06:18:03 45 mg/dL F 0.0-99.0 VLDL-CHOL(CALC) 2024-06-04 06:18:03 77 mg/dL F 0.0-29.0 CHOL/HDL RATIO 2024-06-04 06:18:03 5.5 Calc F 3.3-5.0 Potassium [Moles/volume] in Serum or Plasma 2024-06-04 06:13:13 4.6 mEq/L F 3.5-5.5 Albumin [Mass/volume] in Serum or Plasma by Bromocresol green (BCG) dye binding method 2024-06-04 06:08:34 4.2 g/dL F 3.4-4.8 Cholesterol [Mass/volume] in Serum or Plasma 2024-06-04 06:08:34 149 mg/dL F 0.0-199.0 Bicarbonate [Moles/volume] in Serum or Plasma 2024-06-04 06:08:34 19 mEq/L F 20.0-31.0 Lactate dehydrogenase [Enzymatic activity/volume] in Serum or Plasma 2024-06-04 06:08:34 225 U/L F 120.0-246.0 Protein [Mass/volume] in Serum or Plasma 2024-06-04 06:08:34 383 mg/dL F 0.0-149.0 Protein [Mass/volume] in Serum or Plasma 2024-06-04 06:08:34 6.5 g/dL F 5.7-8.2 Cholesterol in HDL [Mass/volume] in Serum or Plasma 2024-06-04 06:08:34 27 mg/dL F 40.0-60.0 Potassium [Moles/volume] in Serum or Plasma 2024-05-04 06:56:24 3.9 mEq/L F 3.5-5.5 Potassium [Moles/volume] in Serum or Plasma 2024-05-04 06:56:24 3.9 mEq/L F 3.5-5.5 A/G RATIO 2024-05-03 16:38:19 1.8 Calc F 1.0-2.5 GLOBULIN 2024-05-03 16:38:19 2.3 g/dL F 0.9-5.0 A/G RATIO 2024-05-03 16:38:19 1.8 Calc F 1.0-2.5 GLOBULIN 2024-05-03 16:38:19 2.3 g/dL F 0.9-5.0 Albumin [Mass/volume] in Serum or Plasma by Bromocresol green (BCG) dye binding method 2024-05-03 16:37:31 4.2 g/dL F 3.4-4.8 Bicarbonate [Moles/volume] in Serum or Plasma 2024-05-03 16:37:31 20 mEq/L F 20.0-31.0 Lactate dehydrogenase [Enzymatic activity/volume] in Serum or Plasma 2024-05-03 16:37:31 242 U/L F 120.0-246.0 Protein [Mass/volume] in Serum or Plasma 2024-05-03 16:37:31 6.5 g/dL F 5.7-8.2 Albumin [Mass/volume] in Serum or Plasma by Bromocresol green (BCG) dye binding method 2024-05-03 16:37:31 4.2 g/dL F 3.4-4.8 Bicarbonate [Moles/volume] in Serum or Plasma 2024-05-03 16:37:31 20 mEq/L F 20.0-31.0 Lactate dehydrogenase [Enzymatic activity/volume] in Serum or Plasma 2024-05-03 16:37:31 242 U/L F 120.0-246.0 Protein [Mass/volume] in Serum or Plasma 2024-05-03 16:37:31 6.5 g/dL F 5.7-8.2 Potassium [Moles/volume] in Serum or Plasma 2024-03-30 03:55:41 4.2 mEq/L F 3.5-5.5 Potassium [Moles/volume] in Serum or Plasma 2024-03-30 03:55:41 4.2 mEq/L F 3.5-5.5 Potassium [Moles/volume] in Serum or Plasma 2024-03-30 03:55:41 4.2 mEq/L F 3.5-5.5 GLOBULIN 2024-03-29 18:01:57 2.2 g/dL F 0.9-5.0 A/G RATIO 2024-03-29 18:01:57 1.8 Calc F 1.0-2.5 A/G RATIO 2024-03-29 18:01:57 1.8 Calc F 1.0-2.5 GLOBULIN 2024-03-29 18:01:57 2.2 g/dL F 0.9-5.0 A/G RATIO 2024-03-29 18:01:57 1.8 Calc F 1.0-2.5 GLOBULIN 2024-03-29 18:01:57 2.2 g/dL F 0.9-5.0 Albumin [Mass/volume] in Serum or Plasma by Bromocresol green (BCG) dye binding method 2024-03-29 18:01:29 4 g/dL F 3.4-4.8 Protein [Mass/volume] in Serum or Plasma 2024-03-29 18:01:29 6.2 g/dL F 5.7-8.2 Bicarbonate [Moles/volume] in Serum or Plasma 2024-03-29 18:01:29 21 mEq/L F 20.0-31.0 Lactate dehydrogenase [Enzymatic activity/volume] in Serum or Plasma 2024-03-29 18:01:29 227 U/L F 120.0-246.0 Albumin [Mass/volume] in Serum or Plasma by Bromocresol green (BCG) dye binding method 2024-03-29 18:01:29 4 g/dL F 3.4-4.8 Protein [Mass/volume] in Serum or Plasma 2024-03-29 18:01:29 6.2 g/dL F 5.7-8.2 Bicarbonate [Moles/volume] in Serum or Plasma 2024-03-29 18:01:29 21 mEq/L F 20.0-31.0 Lactate dehydrogenase [Enzymatic activity/volume] in Serum or Plasma 2024-03-29 18:01:29 227 U/L F 120.0-246.0 Albumin [Mass/volume] in Serum or Plasma by Bromocresol green (BCG) dye binding method 2024-03-29 18:01:29 4 g/dL F 3.4-4.8 Bicarbonate [Moles/volume] in Serum or Plasma 2024-03-29 18:01:29 21 mEq/L F 20.0-31.0 Lactate dehydrogenase [Enzymatic activity/volume] in Serum or Plasma 2024-03-29 18:01:29 227 U/L F 120.0-246.0 Protein [Mass/volume] in Serum or Plasma 2024-03-29 18:01:29 6.2 g/dL F 5.7-8.2 Potassium [Moles/volume] in Serum or Plasma 2024-03-17 04:10:08 4.2 mEq/L F 3.5-5.5 Potassium [Moles/volume] in Serum or Plasma 2024-03-17 04:10:08 4.2 mEq/L F 3.5-5.5 Potassium [Moles/volume] in Serum or Plasma 2024-03-17 04:10:08 4.2 mEq/L F 3.5-5.5 GLOBULIN 2024-03-17 01:53:55 2.3 g/dL F 0.9-5.0 A/G RATIO 2024-03-17 01:53:55 1.8 Calc F 1.0-2.5 A/G RATIO 2024-03-17 01:53:55 1.8 Calc F 1.0-2.5 GLOBULIN 2024-03-17 01:53:55 2.3 g/dL F 0.9-5.0 A/G RATIO 2024-03-17 01:53:55 1.8 Calc F 1.0-2.5 GLOBULIN 2024-03-17 01:53:55 2.3 g/dL F 0.9-5.0 Albumin [Mass/volume] in Serum or Plasma by Bromocresol green (BCG) dye binding method 2024-03-17 01:53:28 4.1 g/dL F 3.4-4.8 Protein [Mass/volume] in Serum or Plasma 2024-03-17 01:53:28 6.4 g/dL F 5.7-8.2 Bicarbonate [Moles/volume] in Serum or Plasma 2024-03-17 01:53:28 18 mEq/L F 20.0-31.0 Lactate dehydrogenase [Enzymatic activity/volume] in Serum or Plasma 2024-03-17 01:53:28 257 U/L F 120.0-246.0 Albumin [Mass/volume] in Serum or Plasma by Bromocresol green (BCG) dye binding method 2024-03-17 01:53:28 4.1 g/dL F 3.4-4.8 Bicarbonate [Moles/volume] in Serum or Plasma 2024-03-17 01:53:28 18 mEq/L F 20.0-31.0 Lactate dehydrogenase [Enzymatic activity/volume] in Serum or Plasma 2024-03-17 01:53:28 257 U/L F 120.0-246.0 Protein [Mass/volume] in Serum or Plasma 2024-03-17 01:53:28 6.4 g/dL F 5.7-8.2 Albumin [Mass/volume] in Serum or Plasma by Bromocresol green (BCG) dye binding method 2024-03-17 01:53:28 4.1 g/dL F 3.4-4.8 Bicarbonate [Moles/volume] in Serum or Plasma 2024-03-17 01:53:28 18 mEq/L F 20.0-31.0 Lactate dehydrogenase [Enzymatic activity/volume] in Serum or Plasma 2024-03-17 01:53:28 257 U/L F 120.0-246.0 Protein [Mass/volume] in Serum or Plasma 2024-03-17 01:53:28 6.4 g/dL F 5.7-8.2 Potassium [Moles/volume] in Serum or Plasma 2024-01-29 04:56:42 4 mEq/L F 3.5-5.5 Potassium [Moles/volume] in Serum or Plasma 2024-01-29 04:56:42 4 mEq/L F 3.5-5.5 Potassium [Moles/volume] in Serum or Plasma 2024-01-29 04:56:42 4 mEq/L F 3.5-5.5 A/G RATIO 2024-01-29 02:16:12 1.7 Calc F 1.0-2.5 GLOBULIN 2024-01-29 02:16:12 2.3 g/dL F 0.9-5.0 A/G RATIO 2024-01-29 02:16:12 1.7 Calc F 1.0-2.5 GLOBULIN 2024-01-29 02:16:12 2.3 g/dL F 0.9-5.0 A/G RATIO 2024-01-29 02:16:12 1.7 Calc F 1.0-2.5 GLOBULIN 2024-01-29 02:16:12 2.3 g/dL F 0.9-5.0 Albumin [Mass/volume] in Serum or Plasma by Bromocresol green (BCG) dye binding method 2024-01-29 02:15:28 3.9 g/dL F 3.4-4.8 Bicarbonate [Moles/volume] in Serum or Plasma 2024-01-29 02:15:28 20 mEq/L F 20.0-31.0 Lactate dehydrogenase [Enzymatic activity/volume] in Serum or Plasma 2024-01-29 02:15:28 250 U/L F 120.0-246.0 Protein [Mass/volume] in Serum or Plasma 2024-01-29 02:15:28 6.2 g/dL F 5.7-8.2 Albumin [Mass/volume] in Serum or Plasma by Bromocresol green (BCG) dye binding method 2024-01-29 02:15:28 3.9 g/dL F 3.4-4.8 Bicarbonate [Moles/volume] in Serum or Plasma 2024-01-29 02:15:28 20 mEq/L F 20.0-31.0 Lactate dehydrogenase [Enzymatic activity/volume] in Serum or Plasma 2024-01-29 02:15:28 250 U/L F 120.0-246.0 Protein [Mass/volume] in Serum or Plasma 2024-01-29 02:15:28 6.2 g/dL F 5.7-8.2 Albumin [Mass/volume] in Serum or Plasma by Bromocresol green (BCG) dye binding method 2024-01-29 02:15:28 3.9 g/dL F 3.4-4.8 Bicarbonate [Moles/volume] in Serum or Plasma 2024-01-29 02:15:28 20 mEq/L F 20.0-31.0 Lactate dehydrogenase [Enzymatic activity/volume] in Serum or Plasma 2024-01-29 02:15:28 250 U/L F 120.0-246.0 Protein [Mass/volume] in Serum or Plasma 2024-01-29 02:15:28 6.2 g/dL F 5.7-8.2 Potassium [Moles/volume] in Serum or Plasma 2024-01-06 06:38:35 3.8 mEq/L F 3.5-5.5 Potassium [Moles/volume] in Serum or Plasma 2024-01-06 06:38:35 3.8 mEq/L F 3.5-5.5 Potassium [Moles/volume] in Serum or Plasma 2024-01-06 06:38:35 3.8 mEq/L F 3.5-5.5 GLOBULIN 2024-01-05 22:42:25 2.3 g/dL F 0.9-5.0 A/G RATIO 2024-01-05 22:42:25 1.7 Calc F 1.0-2.5 GLOBULIN 2024-01-05 22:42:25 2.3 g/dL F 0.9-5.0 A/G RATIO 2024-01-05 22:42:25 1.7 Calc F 1.0-2.5 A/G RATIO 2024-01-05 22:42:25 1.7 Calc F 1.0-2.5 GLOBULIN 2024-01-05 22:42:25 2.3 g/dL F 0.9-5.0 Protein [Mass/volume] in Serum or Plasma 2024-01-05 22:41:34 6.1 g/dL F 5.7-8.2 Lactate dehydrogenase [Enzymatic activity/volume] in Serum or Plasma 2024-01-05 22:41:34 274 U/L F 120.0-246.0 Albumin [Mass/volume] in Serum or Plasma by Bromocresol green (BCG) dye binding method 2024-01-05 22:41:34 3.8 g/dL F 3.4-4.8 Bicarbonate [Moles/volume] in Serum or Plasma 2024-01-05 22:41:34 18 mEq/L F 20.0-31.0 Albumin [Mass/volume] in Serum or Plasma by Bromocresol green (BCG) dye binding method 2024-01-05 22:41:34 3.8 g/dL F 3.4-4.8 Protein [Mass/volume] in Serum or Plasma 2024-01-05 22:41:34 6.1 g/dL F 5.7-8.2 Bicarbonate [Moles/volume] in Serum or Plasma 2024-01-05 22:41:34 18 mEq/L F 20.0-31.0 Lactate dehydrogenase [Enzymatic activity/volume] in Serum or Plasma 2024-01-05 22:41:34 274 U/L F 120.0-246.0 Albumin [Mass/volume] in Serum or Plasma by Bromocresol green (BCG) dye binding method 2024-01-05 22:41:34 3.8 g/dL F 3.4-4.8 Bicarbonate [Moles/volume] in Serum or Plasma 2024-01-05 22:41:34 18 mEq/L F 20.0-31.0 Lactate dehydrogenase [Enzymatic activity/volume] in Serum or Plasma 2024-01-05 22:41:34 274 U/L F 120.0-246.0 Protein [Mass/volume] in Serum or Plasma 2024-01-05 22:41:34 6.1 g/dL F 5.7-8.2 GLOBULIN 2023-12-03 07:25:08 2.2 g/dL K 0.9-5.0 A/G RATIO 2023-12-03 07:25:08 1.9 Calc K 1.0-2.5 GLOBULIN 2023-12-03 07:25:08 2.2 g/dL K 0.9-5.0 A/G RATIO 2023-12-03 07:25:08 1.9 Calc K 1.0-2.5 A/G RATIO 2023-12-03 07:25:08 1.9 Calc K 1.0-2.5 GLOBULIN 2023-12-03 07:25:08 2.2 g/dL K 0.9-5.0 Folate [Mass/volume] in Serum or Plasma 2023-12-03 07:19:27 16.6 ng/mL F 5.5-16.0 Folate [Mass/volume] in Serum or Plasma 2023-12-03 07:19:27 16.6 ng/mL F 5.5-16.0 Folate [Mass/volume] in Serum or Plasma 2023-12-03 07:19:27 16.6 ng/mL F 5.5-16.0 Potassium [Moles/volume] in Serum or Plasma 2023-12-03 03:46:31 4.2 mEq/L F 3.5-5.5 Potassium [Moles/volume] in Serum or Plasma 2023-12-03 03:46:31 4.2 mEq/L F 3.5-5.5 Potassium [Moles/volume] in Serum or Plasma 2023-12-03 03:46:31 4.2 mEq/L F 3.5-5.5 GLOBULIN 2023-12-02 14:38:44 2.5 g/dL F 0.9-5.0 A/G RATIO 2023-12-02 14:38:44 1.6 Calc F 1.0-2.5 A/G RATIO 2023-12-02 14:38:44 1.6 Calc F 1.0-2.5 GLOBULIN 2023-12-02 14:38:44 2.5 g/dL F 0.9-5.0 A/G RATIO 2023-12-02 14:38:44 1.6 Calc F 1.0-2.5 GLOBULIN 2023-12-02 14:38:44 2.5 g/dL F 0.9-5.0 Albumin [Mass/volume] in Serum or Plasma by Bromocresol green (BCG) dye binding method 2023-12-02 14:38:33 4.1 g/dL F 3.4-4.8 Lactate dehydrogenase [Enzymatic activity/volume] in Serum or Plasma 2023-12-02 14:38:33 265 U/L F 120.0-246.0 Albumin [Mass/volume] in Serum or Plasma by Bromocresol green (BCG) dye binding method 2023-12-02 14:38:33 4.1 g/dL F 3.4-4.8 Lactate dehydrogenase [Enzymatic activity/volume] in Serum or Plasma 2023-12-02 14:38:33 265 U/L F 120.0-246.0 Albumin [Mass/volume] in Serum or Plasma by Bromocresol green (BCG) dye binding method 2023-12-02 14:38:33 4.1 g/dL F 3.4-4.8 Lactate dehydrogenase [Enzymatic activity/volume] in Serum or Plasma 2023-12-02 14:38:33 265 U/L F 120.0-246.0 Protein [Mass/volume] in Serum or Plasma 2023-12-02 14:38:32 6.6 g/dL F 5.7-8.2 Bicarbonate [Moles/volume] in Serum or Plasma 2023-12-02 14:38:32 21 mEq/L F 20.0-31.0 Bicarbonate [Moles/volume] in Serum or Plasma 2023-12-02 14:38:32 21 mEq/L F 20.0-31.0 Protein [Mass/volume] in Serum or Plasma 2023-12-02 14:38:32 6.6 g/dL F 5.7-8.2 Bicarbonate [Moles/volume] in Serum or Plasma 2023-12-02 14:38:32 21 mEq/L F 20.0-31.0 Protein [Mass/volume] in Serum or Plasma 2023-12-02 14:38:32 6.6 g/dL F 5.7-8.2 Potassium [Moles/volume] in Serum or Plasma 2023-11-12 22:24:47 4.1 mEq/L F 3.5-5.5 Potassium [Moles/volume] in Serum or Plasma 2023-11-12 22:24:47 4.1 mEq/L F 3.5-5.5 Potassium [Moles/volume] in Serum or Plasma 2023-11-12 22:24:47 4.1 mEq/L F 3.5-5.5 CHOL/HDL RATIO 2023-11-12 15:23:15 5 Calc F 3.3-5.0 VLDL-CHOL(CALC) 2023-11-12 15:23:15 59 mg/dL F 0.0-29.0 LDL-CHOLESTEROL 2023-11-12 15:23:15 58 mg/dL F 0.0-99.0 LDL-CHOLESTEROL 2023-11-12 15:23:15 58 mg/dL F 0.0-99.0 VLDL-CHOL(CALC) 2023-11-12 15:23:15 59 mg/dL F 0.0-29.0 CHOL/HDL RATIO 2023-11-12 15:23:15 5 Calc F 3.3-5.0 LDL-CHOLESTEROL 2023-11-12 15:23:15 58 mg/dL F 0.0-99.0 VLDL-CHOL(CALC) 2023-11-12 15:23:15 59 mg/dL F 0.0-29.0 CHOL/HDL RATIO 2023-11-12 15:23:15 5 Calc F 3.3-5.0 Albumin [Mass/volume] in Serum or Plasma by Bromocresol green (BCG) dye binding method 2023-11-12 15:23:04 4 g/dL F 3.4-4.8 Cholesterol in HDL [Mass/volume] in Serum or Plasma 2023-11-12 15:23:04 29 mg/dL F 40.0-60.0 Lactate dehydrogenase [Enzymatic activity/volume] in Serum or Plasma 2023-11-12 15:23:04 258 U/L F 120.0-246.0 Protein [Mass/volume] in Serum or Plasma 2023-11-12 15:23:04 293 mg/dL F 0.0-149.0 Albumin [Mass/volume] in Serum or Plasma by Bromocresol green (BCG) dye binding method 2023-11-12 15:23:04 4 g/dL F 3.4-4.8 Lactate dehydrogenase [Enzymatic activity/volume] in Serum or Plasma 2023-11-12 15:23:04 258 U/L F 120.0-246.0 Protein [Mass/volume] in Serum or Plasma 2023-11-12 15:23:04 293 mg/dL F 0.0-149.0 Cholesterol in HDL [Mass/volume] in Serum or Plasma 2023-11-12 15:23:04 29 mg/dL F 40.0-60.0 Albumin [Mass/volume] in Serum or Plasma by Bromocresol green (BCG) dye binding method 2023-11-12 15:23:04 4 g/dL F 3.4-4.8 Lactate dehydrogenase [Enzymatic activity/volume] in Serum or Plasma 2023-11-12 15:23:04 258 U/L F 120.0-246.0 Protein [Mass/volume] in Serum or Plasma 2023-11-12 15:23:04 293 mg/dL F 0.0-149.0 Cholesterol in HDL [Mass/volume] in Serum or Plasma 2023-11-12 15:23:04 29 mg/dL F 40.0-60.0 Bicarbonate [Moles/volume] in Serum or Plasma 2023-11-12 15:23:03 20 mEq/L F 20.0-31.0 Protein [Mass/volume] in Serum or Plasma 2023-11-12 15:23:03 6.3 g/dL F 5.7-8.2 Cholesterol [Mass/volume] in Serum or Plasma 2023-11-12 15:23:03 146 mg/dL F 0.0-199.0 Cholesterol [Mass/volume] in Serum or Plasma 2023-11-12 15:23:03 146 mg/dL F 0.0-199.0 Bicarbonate [Moles/volume] in Serum or Plasma 2023-11-12 15:23:03 20 mEq/L F 20.0-31.0 Protein [Mass/volume] in Serum or Plasma 2023-11-12 15:23:03 6.3 g/dL F 5.7-8.2 Cholesterol [Mass/volume] in Serum or Plasma 2023-11-12 15:23:03 146 mg/dL F 0.0-199.0 Bicarbonate [Moles/volume] in Serum or Plasma 2023-11-12 15:23:03 20 mEq/L F 20.0-31.0 Protein [Mass/volume] in Serum or Plasma 2023-11-12 15:23:03 6.3 g/dL F 5.7-8.2 Potassium [Moles/volume] in Serum or Plasma 2023-10-02 00:51:46 3.9 mEq/L F 3.5-5.5 Potassium [Moles/volume] in Serum or Plasma 2023-10-02 00:51:46 3.9 mEq/L F 3.5-5.5 Potassium [Moles/volume] in Serum or Plasma 2023-10-02 00:51:46 3.9 mEq/L F 3.5-5.5 Potassium [Moles/volume] in Serum or Plasma 2023-10-02 00:51:46 3.9 mEq/L F 3.5-5.5 Potassium [Moles/volume] in Serum or Plasma 2023-10-02 00:51:46 3.9 mEq/L F 3.5-5.5 A/G RATIO 2023-10-01 17:02:01 1.7 Calc F 1.0-2.5 GLOBULIN 2023-10-01 17:02:01 2.3 g/dL F 0.9-5.0 A/G RATIO 2023-10-01 17:02:01 1.7 Calc F 1.0-2.5 GLOBULIN 2023-10-01 17:02:01 2.3 g/dL F 0.9-5.0 GLOBULIN 2023-10-01 17:02:01 2.3 g/dL F 0.9-5.0 A/G RATIO 2023-10-01 17:02:01 1.7 Calc F 1.0-2.5 A/G RATIO 2023-10-01 17:02:01 1.7 Calc F 1.0-2.5 GLOBULIN 2023-10-01 17:02:01 2.3 g/dL F 0.9-5.0 A/G RATIO 2023-10-01 17:02:01 1.7 Calc F 1.0-2.5 GLOBULIN 2023-10-01 17:02:01 2.3 g/dL F 0.9-5.0 Albumin [Mass/volume] in Serum or Plasma by Bromocresol green (BCG) dye binding method 2023-10-01 17:01:07 4 g/dL F 3.4-4.8 Bicarbonate [Moles/volume] in Serum or Plasma 2023-10-01 17:01:07 22 mEq/L F 20.0-31.0 Lactate dehydrogenase [Enzymatic activity/volume] in Serum or Plasma 2023-10-01 17:01:07 269 U/L F 120.0-246.0 Protein [Mass/volume] in Serum or Plasma 2023-10-01 17:01:07 6.3 g/dL F 5.7-8.2 Lactate dehydrogenase [Enzymatic activity/volume] in Serum or Plasma 2023-10-01 17:01:07 269 U/L F 120.0-246.0 Albumin [Mass/volume] in Serum or Plasma by Bromocresol green (BCG) dye binding method 2023-10-01 17:01:07 4 g/dL F 3.4-4.8 Protein [Mass/volume] in Serum or Plasma 2023-10-01 17:01:07 6.3 g/dL F 5.7-8.2 Bicarbonate [Moles/volume] in Serum or Plasma 2023-10-01 17:01:07 22 mEq/L F 20.0-31.0 Albumin [Mass/volume] in Serum or Plasma by Bromocresol green (BCG) dye binding method 2023-10-01 17:01:07 4 g/dL F 3.4-4.8 Protein [Mass/volume] in Serum or Plasma 2023-10-01 17:01:07 6.3 g/dL F 5.7-8.2 Bicarbonate [Moles/volume] in Serum or Plasma 2023-10-01 17:01:07 22 mEq/L F 20.0-31.0 Lactate dehydrogenase [Enzymatic activity/volume] in Serum or Plasma 2023-10-01 17:01:07 269 U/L F 120.0-246.0 Albumin [Mass/volume] in Serum or Plasma by Bromocresol green (BCG) dye binding method 2023-10-01 17:01:07 4 g/dL F 3.4-4.8 Bicarbonate [Moles/volume] in Serum or Plasma 2023-10-01 17:01:07 22 mEq/L F 20.0-31.0 Lactate dehydrogenase [Enzymatic activity/volume] in Serum or Plasma 2023-10-01 17:01:07 269 U/L F 120.0-246.0 Protein [Mass/volume] in Serum or Plasma 2023-10-01 17:01:07 6.3 g/dL F 5.7-8.2 Lactate dehydrogenase [Enzymatic activity/volume] in Serum or Plasma 2023-10-01 17:01:07 269 U/L F 120.0-246.0 Protein [Mass/volume] in Serum or Plasma 2023-10-01 17:01:07 6.3 g/dL F 5.7-8.2 Albumin [Mass/volume] in Serum or Plasma by Bromocresol green (BCG) dye binding method 2023-10-01 17:01:07 4 g/dL F 3.4-4.8 Bicarbonate [Moles/volume] in Serum or Plasma 2023-10-01 17:01:07 22 mEq/L F 20.0-31.0 Folate [Mass/volume] in Serum or Plasma 2023-09-04 08:10:25 10 ng/mL F 5.5-16.0 Folate [Mass/volume] in Serum or Plasma 2023-09-04 08:10:25 10 ng/mL F 5.5-16.0 Folate [Mass/volume] in Serum or Plasma 2023-09-04 08:10:25 10 ng/mL F 5.5-16.0 Potassium [Moles/volume] in Serum or Plasma 2023-09-03 18:58:05 3.8 mEq/L F 3.5-5.5 Potassium [Moles/volume] in Serum or Plasma 2023-09-03 18:58:05 3.8 mEq/L F 3.5-5.5 Potassium [Moles/volume] in Serum or Plasma 2023-09-03 18:58:05 3.8 mEq/L F 3.5-5.5 A/G RATIO 2023-09-03 13:40:17 1.7 Calc F 1.0-2.5 GLOBULIN 2023-09-03 13:40:17 2.4 g/dL F 0.9-5.0 A/G RATIO 2023-09-03 13:40:17 1.7 Calc F 1.0-2.5 GLOBULIN 2023-09-03 13:40:17 2.4 g/dL F 0.9-5.0 A/G RATIO 2023-09-03 13:40:17 1.7 Calc F 1.0-2.5 GLOBULIN 2023-09-03 13:40:17 2.4 g/dL F 0.9-5.0 Albumin [Mass/volume] in Serum or Plasma by Bromocresol green (BCG) dye binding method 2023-09-03 13:39:31 4.1 g/dL F 3.4-4.8 Lactate dehydrogenase [Enzymatic activity/volume] in Serum or Plasma 2023-09-03 13:39:31 258 U/L F 120.0-246.0 Protein [Mass/volume] in Serum or Plasma 2023-09-03 13:39:31 6.5 g/dL F 5.7-8.2 Bicarbonate [Moles/volume] in Serum or Plasma 2023-09-03 13:39:31 22 mEq/L F 20.0-31.0 Albumin [Mass/volume] in Serum or Plasma by Bromocresol green (BCG) dye binding method 2023-09-03 13:39:31 4.1 g/dL F 3.4-4.8 Bicarbonate [Moles/volume] in Serum or Plasma 2023-09-03 13:39:31 22 mEq/L F 20.0-31.0 Lactate dehydrogenase [Enzymatic activity/volume] in Serum or Plasma 2023-09-03 13:39:31 258 U/L F 120.0-246.0 Protein [Mass/volume] in Serum or Plasma 2023-09-03 13:39:31 6.5 g/dL F 5.7-8.2 Albumin [Mass/volume] in Serum or Plasma by Bromocresol green (BCG) dye binding method 2023-09-03 13:39:31 4.1 g/dL F 3.4-4.8 Bicarbonate [Moles/volume] in Serum or Plasma 2023-09-03 13:39:31 22 mEq/L F 20.0-31.0 Lactate dehydrogenase [Enzymatic activity/volume] in Serum or Plasma 2023-09-03 13:39:31 258 U/L F 120.0-246.0 Protein [Mass/volume] in Serum or Plasma 2023-09-03 13:39:31 6.5 g/dL F 5.7-8.2 A/G RATIO 2023-07-30 19:25:52 1.6 Calc F 1.0-2.5 GLOBULIN 2023-07-30 19:25:52 2.5 g/dL F 0.9-5.0 Albumin [Mass/volume] in Serum or Plasma by Bromocresol green (BCG) dye binding method 2023-07-30 19:25:39 4.1 g/dL F 3.4-4.8 Bicarbonate [Moles/volume] in Serum or Plasma 2023-07-30 19:25:39 19 mEq/L F 20.0-31.0 Glucose [Mass/volume] in Serum or Plasma 2023-07-30 19:25:39 198 mg/dL F 70.0-99.0 Potassium [Moles/volume] in Serum or Plasma 2023-07-30 19:25:39 4.1 mEq/L F 3.5-5.5 Protein [Mass/volume] in Serum or Plasma 2023-07-30 19:25:39 6.6 g/dL F 5.7-8.2 A/G RATIO 2023-07-02 18:16:45 1.7 Calc F 1.0-2.5 GLOBULIN 2023-07-02 18:16:45 2.3 g/dL F 0.9-5.0 GLOBULIN 2023-07-02 18:16:45 2.3 g/dL F 0.9-5.0 A/G RATIO 2023-07-02 18:16:45 1.7 Calc F 1.0-2.5 A/G RATIO 2023-07-02 18:16:45 1.7 Calc F 1.0-2.5 GLOBULIN 2023-07-02 18:16:45 2.3 g/dL F 0.9-5.0 Albumin [Mass/volume] in Serum or Plasma by Bromocresol green (BCG) dye binding method 2023-07-02 18:16:29 3.8 g/dL F 3.4-4.8 Bicarbonate [Moles/volume] in Serum or Plasma 2023-07-02 18:16:29 20 mEq/L F 20.0-31.0 Lactate dehydrogenase [Enzymatic activity/volume] in Serum or Plasma 2023-07-02 18:16:29 239 U/L F 120.0-246.0 Potassium [Moles/volume] in Serum or Plasma 2023-07-02 18:16:29 3.9 mEq/L F 3.5-5.5 Protein [Mass/volume] in Serum or Plasma 2023-07-02 18:16:29 6.1 g/dL F 5.7-8.2 Lactate dehydrogenase [Enzymatic activity/volume] in Serum or Plasma 2023-07-02 18:16:29 239 U/L F 120.0-246.0 Albumin [Mass/volume] in Serum or Plasma by Bromocresol green (BCG) dye binding method 2023-07-02 18:16:29 3.8 g/dL F 3.4-4.8 Potassium [Moles/volume] in Serum or Plasma 2023-07-02 18:16:29 3.9 mEq/L F 3.5-5.5 Protein [Mass/volume] in Serum or Plasma 2023-07-02 18:16:29 6.1 g/dL F 5.7-8.2 Bicarbonate [Moles/volume] in Serum or Plasma 2023-07-02 18:16:29 20 mEq/L F 20.0-31.0 Albumin [Mass/volume] in Serum or Plasma by Bromocresol green (BCG) dye binding method 2023-07-02 18:16:29 3.8 g/dL F 3.4-4.8 Bicarbonate [Moles/volume] in Serum or Plasma 2023-07-02 18:16:29 20 mEq/L F 20.0-31.0 Lactate dehydrogenase [Enzymatic activity/volume] in Serum or Plasma 2023-07-02 18:16:29 239 U/L F 120.0-246.0 Potassium [Moles/volume] in Serum or Plasma 2023-07-02 18:16:29 3.9 mEq/L F 3.5-5.5 Protein [Mass/volume] in Serum or Plasma 2023-07-02 18:16:29 6.1 g/dL F 5.7-8.2 GLOBULIN 2023-06-05 20:45:01 2.4 g/dL F 0.9-5.0 A/G RATIO 2023-06-05 20:45:01 1.6 Calc F 1.0-2.5 CHOL/HDL RATIO 2023-06-05 20:45:01 5.4 Calc F 3.3-5.0 VLDL-CHOL(CALC) 2023-06-05 20:45:01 54 mg/dL F 0.0-29.0 LDL-CHOLESTEROL 2023-06-05 20:45:01 61 mg/dL F 0.0-99.0 A/G RATIO 2023-06-05 20:45:01 1.6 Calc F 1.0-2.5 GLOBULIN 2023-06-05 20:45:01 2.4 g/dL F 0.9-5.0 LDL-CHOLESTEROL 2023-06-05 20:45:01 61 mg/dL F 0.0-99.0 VLDL-CHOL(CALC) 2023-06-05 20:45:01 54 mg/dL F 0.0-29.0 CHOL/HDL RATIO 2023-06-05 20:45:01 5.4 Calc F 3.3-5.0 A/G RATIO 2023-06-05 20:45:01 1.6 Calc F 1.0-2.5 GLOBULIN 2023-06-05 20:45:01 2.4 g/dL F 0.9-5.0 VLDL-CHOL(CALC) 2023-06-05 20:45:01 54 mg/dL F 0.0-29.0 LDL-CHOLESTEROL 2023-06-05 20:45:01 61 mg/dL F 0.0-99.0 CHOL/HDL RATIO 2023-06-05 20:45:01 5.4 Calc F 3.3-5.0 A/G RATIO 2023-06-05 20:45:01 1.6 Calc F 1.0-2.5 GLOBULIN 2023-06-05 20:45:01 2.4 g/dL F 0.9-5.0 VLDL-CHOL(CALC) 2023-06-05 20:45:01 54 mg/dL F 0.0-29.0 LDL-CHOLESTEROL 2023-06-05 20:45:01 61 mg/dL F 0.0-99.0 CHOL/HDL RATIO 2023-06-05 20:45:01 5.4 Calc F 3.3-5.0 Albumin [Mass/volume] in Serum or Plasma by Bromocresol green (BCG) dye binding method 2023-06-05 20:44:27 3.8 g/dL F 3.4-4.8 Potassium [Moles/volume] in Serum or Plasma 2023-06-05 20:44:27 3.8 mEq/L F 3.5-5.5 Protein [Mass/volume] in Serum or Plasma 2023-06-05 20:44:27 6.2 g/dL F 5.7-8.2 Cholesterol [Mass/volume] in Serum or Plasma 2023-06-05 20:44:27 141 mg/dL F 0.0-199.0 Protein [Mass/volume] in Serum or Plasma 2023-06-05 20:44:27 271 mg/dL F 0.0-149.0 Bicarbonate [Moles/volume] in Serum or Plasma 2023-06-05 20:44:27 20 mEq/L F 20.0-31.0 Cholesterol in HDL [Mass/volume] in Serum or Plasma 2023-06-05 20:44:27 26 mg/dL F 40.0-60.0 Lactate dehydrogenase [Enzymatic activity/volume] in Serum or Plasma 2023-06-05 20:44:27 261 U/L F 120.0-246.0 Albumin [Mass/volume] in Serum or Plasma by Bromocresol green (BCG) dye binding method 2023-06-05 20:44:27 3.8 g/dL F 3.4-4.8 Cholesterol [Mass/volume] in Serum or Plasma 2023-06-05 20:44:27 141 mg/dL F 0.0-199.0 Bicarbonate [Moles/volume] in Serum or Plasma 2023-06-05 20:44:27 20 mEq/L F 20.0-31.0 Lactate dehydrogenase [Enzymatic activity/volume] in Serum or Plasma 2023-06-05 20:44:27 261 U/L F 120.0-246.0 Potassium [Moles/volume] in Serum or Plasma 2023-06-05 20:44:27 3.8 mEq/L F 3.5-5.5 Protein [Mass/volume] in Serum or Plasma 2023-06-05 20:44:27 6.2 g/dL F 5.7-8.2 Protein [Mass/volume] in Serum or Plasma 2023-06-05 20:44:27 271 mg/dL F 0.0-149.0 Cholesterol in HDL [Mass/volume] in Serum or Plasma 2023-06-05 20:44:27 26 mg/dL F 40.0-60.0 Albumin [Mass/volume] in Serum or Plasma by Bromocresol green (BCG) dye binding method 2023-06-05 20:44:27 3.8 g/dL F 3.4-4.8 Cholesterol [Mass/volume] in Serum or Plasma 2023-06-05 20:44:27 141 mg/dL F 0.0-199.0 Bicarbonate [Moles/volume] in Serum or Plasma 2023-06-05 20:44:27 20 mEq/L F 20.0-31.0 Lactate dehydrogenase [Enzymatic activity/volume] in Serum or Plasma 2023-06-05 20:44:27 261 U/L F 120.0-246.0 Protein [Mass/volume] in Serum or Plasma 2023-06-05 20:44:27 271 mg/dL F 0.0-149.0 Potassium [Moles/volume] in Serum or Plasma 2023-06-05 20:44:27 3.8 mEq/L F 3.5-5.5 Protein [Mass/volume] in Serum or Plasma 2023-06-05 20:44:27 6.2 g/dL F 5.7-8.2 Cholesterol in HDL [Mass/volume] in Serum or Plasma 2023-06-05 20:44:27 26 mg/dL F 40.0-60.0 Albumin [Mass/volume] in Serum or Plasma by Bromocresol green (BCG) dye binding method 2023-06-05 20:44:27 3.8 g/dL F 3.4-4.8 Cholesterol [Mass/volume] in Serum or Plasma 2023-06-05 20:44:27 141 mg/dL F 0.0-199.0 Bicarbonate [Moles/volume] in Serum or Plasma 2023-06-05 20:44:27 20 mEq/L F 20.0-31.0 Potassium [Moles/volume] in Serum or Plasma 2023-06-05 20:44:27 3.8 mEq/L F 3.5-5.5 Lactate dehydrogenase [Enzymatic activity/volume] in Serum or Plasma 2023-06-05 20:44:27 261 U/L F 120.0-246.0 Protein [Mass/volume] in Serum or Plasma 2023-06-05 20:44:27 271 mg/dL F 0.0-149.0 Protein [Mass/volume] in Serum or Plasma 2023-06-05 20:44:27 6.2 g/dL F 5.7-8.2 Cholesterol in HDL [Mass/volume] in Serum or Plasma 2023-06-05 20:44:27 26 mg/dL F 40.0-60.0 Folate [Mass/volume] in Serum or Plasma 2023-06-05 05:04:20 10.8 ng/mL F 5.5-16.0 Folate [Mass/volume] in Serum or Plasma 2023-06-05 05:04:20 10.8 ng/mL F 5.5-16.0 Folate [Mass/volume] in Serum or Plasma 2023-06-05 05:04:20 10.8 ng/mL F 5.5-16.0 Folate [Mass/volume] in Serum or Plasma 2023-06-05 05:04:20 10.8 ng/mL F 5.5-16.0 Cobalamin (Vitamin B12) [Mass/volume] in Serum or Plasma 2023-06-05 05:03:44 755 pg/mL F 211.0-911.0 Cobalamin (Vitamin B12) [Mass/volume] in Serum or Plasma 2023-06-05 05:03:44 755 pg/mL F 211.0-911.0 Cobalamin (Vitamin B12) [Mass/volume] in Serum or Plasma 2023-06-05 05:03:44 755 pg/mL F 211.0-911.0 Cobalamin (Vitamin B12) [Mass/volume] in Serum or Plasma 2023-06-05 05:03:44 755 pg/mL F 211.0-911.0 A/G RATIO 2023-05-06 21:17:16 1.6 Calc F 1.0-2.5 GLOBULIN 2023-05-06 21:17:16 2.5 g/dL F 0.9-5.0 A/G RATIO 2023-05-06 21:17:16 1.6 Calc F 1.0-2.5 GLOBULIN 2023-05-06 21:17:16 2.5 g/dL F 0.9-5.0 GLOBULIN 2023-05-06 21:17:16 2.5 g/dL F 0.9-5.0 A/G RATIO 2023-05-06 21:17:16 1.6 Calc F 1.0-2.5 Protein [Mass/volume] in Serum or Plasma 2023-05-06 21:16:32 6.4 g/dL F 5.7-8.2 Bicarbonate [Moles/volume] in Serum or Plasma 2023-05-06 21:16:32 20 mEq/L F 20.0-31.0 Albumin [Mass/volume] in Serum or Plasma by Bromocresol green (BCG) dye binding method 2023-05-06 21:16:32 3.9 g/dL F 3.4-4.8 Potassium [Moles/volume] in Serum or Plasma 2023-05-06 21:16:32 3.9 mEq/L F 3.5-5.5 Lactate dehydrogenase [Enzymatic activity/volume] in Serum or Plasma 2023-05-06 21:16:32 276 U/L F 120.0-246.0 Albumin [Mass/volume] in Serum or Plasma by Bromocresol green (BCG) dye binding method 2023-05-06 21:16:32 3.9 g/dL F 3.4-4.8 Bicarbonate [Moles/volume] in Serum or Plasma 2023-05-06 21:16:32 20 mEq/L F 20.0-31.0 Lactate dehydrogenase [Enzymatic activity/volume] in Serum or Plasma 2023-05-06 21:16:32 276 U/L F 120.0-246.0 Potassium [Moles/volume] in Serum or Plasma 2023-05-06 21:16:32 3.9 mEq/L F 3.5-5.5 Protein [Mass/volume] in Serum or Plasma 2023-05-06 21:16:32 6.4 g/dL F 5.7-8.2 Albumin [Mass/volume] in Serum or Plasma by Bromocresol green (BCG) dye binding method 2023-05-06 21:16:32 3.9 g/dL F 3.4-4.8 Bicarbonate [Moles/volume] in Serum or Plasma 2023-05-06 21:16:32 20 mEq/L F 20.0-31.0 Potassium [Moles/volume] in Serum or Plasma 2023-05-06 21:16:32 3.9 mEq/L F 3.5-5.5 Lactate dehydrogenase [Enzymatic activity/volume] in Serum or Plasma 2023-05-06 21:16:32 276 U/L F 120.0-246.0 Protein [Mass/volume] in Serum or Plasma 2023-05-06 21:16:32 6.4 g/dL F 5.7-8.2 GLOBULIN 2023-04-04 20:06:33 2.2 g/dL F 0.9-5.0 A/G RATIO 2023-04-04 20:06:33 1.8 Calc F 1.0-2.5 A/G RATIO 2023-04-04 20:06:33 1.8 Calc F 1.0-2.5 GLOBULIN 2023-04-04 20:06:33 2.2 g/dL F 0.9-5.0 A/G RATIO 2023-04-04 20:06:33 1.8 Calc F 1.0-2.5 GLOBULIN 2023-04-04 20:06:33 2.2 g/dL F 0.9-5.0 A/G RATIO 2023-04-04 20:06:33 1.8 Calc F 1.0-2.5 GLOBULIN 2023-04-04 20:06:33 2.2 g/dL F 0.9-5.0 Albumin [Mass/volume] in Serum or Plasma by Bromocresol green (BCG) dye binding method 2023-04-04 20:06:14 3.9 g/dL F 3.4-4.8 Protein [Mass/volume] in Serum or Plasma 2023-04-04 20:06:14 6.1 g/dL F 5.7-8.2 Potassium [Moles/volume] in Serum or Plasma 2023-04-04 20:06:14 4.2 mEq/L F 3.5-5.5 Lactate dehydrogenase [Enzymatic activity/volume] in Serum or Plasma 2023-04-04 20:06:14 254 U/L F 120.0-246.0 Bicarbonate [Moles/volume] in Serum or Plasma 2023-04-04 20:06:14 20 mEq/L F 20.0-31.0 Albumin [Mass/volume] in Serum or Plasma by Bromocresol green (BCG) dye binding method 2023-04-04 20:06:14 3.9 g/dL F 3.4-4.8 Bicarbonate [Moles/volume] in Serum or Plasma 2023-04-04 20:06:14 20 mEq/L F 20.0-31.0 Lactate dehydrogenase [Enzymatic activity/volume] in Serum or Plasma 2023-04-04 20:06:14 254 U/L F 120.0-246.0 Potassium [Moles/volume] in Serum or Plasma 2023-04-04 20:06:14 4.2 mEq/L F 3.5-5.5 Protein [Mass/volume] in Serum or Plasma 2023-04-04 20:06:14 6.1 g/dL F 5.7-8.2 Albumin [Mass/volume] in Serum or Plasma by Bromocresol green (BCG) dye binding method 2023-04-04 20:06:14 3.9 g/dL F 3.4-4.8 Bicarbonate [Moles/volume] in Serum or Plasma 2023-04-04 20:06:14 20 mEq/L F 20.0-31.0 Lactate dehydrogenase [Enzymatic activity/volume] in Serum or Plasma 2023-04-04 20:06:14 254 U/L F 120.0-246.0 Potassium [Moles/volume] in Serum or Plasma 2023-04-04 20:06:14 4.2 mEq/L F 3.5-5.5 Protein [Mass/volume] in Serum or Plasma 2023-04-04 20:06:14 6.1 g/dL F 5.7-8.2 Albumin [Mass/volume] in Serum or Plasma by Bromocresol green (BCG) dye binding method 2023-04-04 20:06:14 3.9 g/dL F 3.4-4.8 Bicarbonate [Moles/volume] in Serum or Plasma 2023-04-04 20:06:14 20 mEq/L F 20.0-31.0 Lactate dehydrogenase [Enzymatic activity/volume] in Serum or Plasma 2023-04-04 20:06:14 254 U/L F 120.0-246.0 Potassium [Moles/volume] in Serum or Plasma 2023-04-04 20:06:14 4.2 mEq/L F 3.5-5.5 Protein [Mass/volume] in Serum or Plasma 2023-04-04 20:06:14 6.1 g/dL F 5.7-8.2 A/G RATIO 2023-03-06 00:42:18 1.7 Calc F 1.0-2.5 GLOBULIN 2023-03-06 00:42:18 2.2 g/dL F 0.9-5.0 LDL-CHOLESTEROL 2023-03-06 00:42:18 46 mg/dL F 0.0-99.0 CHOL/HDL RATIO 2023-03-06 00:42:18 4.7 Calc F 3.3-5.0 VLDL-CHOL(CALC) 2023-03-06 00:42:18 57 mg/dL F 0.0-29.0 A/G RATIO 2023-03-06 00:42:18 1.7 Calc F 1.0-2.5 GLOBULIN 2023-03-06 00:42:18 2.2 g/dL F 0.9-5.0 CHOL/HDL RATIO 2023-03-06 00:42:18 4.7 Calc F 3.3-5.0 VLDL-CHOL(CALC) 2023-03-06 00:42:18 57 mg/dL F 0.0-29.0 LDL-CHOLESTEROL 2023-03-06 00:42:18 46 mg/dL F 0.0-99.0 A/G RATIO 2023-03-06 00:42:18 1.7 Calc F 1.0-2.5 GLOBULIN 2023-03-06 00:42:18 2.2 g/dL F 0.9-5.0 LDL-CHOLESTEROL 2023-03-06 00:42:18 46 mg/dL F 0.0-99.0 VLDL-CHOL(CALC) 2023-03-06 00:42:18 57 mg/dL F 0.0-29.0 CHOL/HDL RATIO 2023-03-06 00:42:18 4.7 Calc F 3.3-5.0 A/G RATIO 2023-03-06 00:42:18 1.7 Calc F 1.0-2.5 GLOBULIN 2023-03-06 00:42:18 2.2 g/dL F 0.9-5.0 VLDL-CHOL(CALC) 2023-03-06 00:42:18 57 mg/dL F 0.0-29.0 LDL-CHOLESTEROL 2023-03-06 00:42:18 46 mg/dL F 0.0-99.0 CHOL/HDL RATIO 2023-03-06 00:42:18 4.7 Calc F 3.3-5.0 Albumin [Mass/volume] in Serum or Plasma by Bromocresol green (BCG) dye binding method 2023-03-06 00:42:07 3.7 g/dL F 3.4-4.8 Bicarbonate [Moles/volume] in Serum or Plasma 2023-03-06 00:42:07 19 mEq/L F 20.0-31.0 Cholesterol [Mass/volume] in Serum or Plasma 2023-03-06 00:42:07 131 mg/dL F 0.0-199.0 Lactate dehydrogenase [Enzymatic activity/volume] in Serum or Plasma 2023-03-06 00:42:07 221 U/L F 120.0-246.0 Potassium [Moles/volume] in Serum or Plasma 2023-03-06 00:42:07 5.1 mEq/L F 3.5-5.5 Protein [Mass/volume] in Serum or Plasma 2023-03-06 00:42:07 284 mg/dL F 0.0-149.0 Protein [Mass/volume] in Serum or Plasma 2023-03-06 00:42:07 5.9 g/dL F 5.7-8.2 Cholesterol in HDL [Mass/volume] in Serum or Plasma 2023-03-06 00:42:07 28 mg/dL F 40.0-60.0 Albumin [Mass/volume] in Serum or Plasma by Bromocresol green (BCG) dye binding method 2023-03-06 00:42:07 3.7 g/dL F 3.4-4.8 Potassium [Moles/volume] in Serum or Plasma 2023-03-06 00:42:07 5.1 mEq/L F 3.5-5.5 Protein [Mass/volume] in Serum or Plasma 2023-03-06 00:42:07 5.9 g/dL F 5.7-8.2 Cholesterol [Mass/volume] in Serum or Plasma 2023-03-06 00:42:07 131 mg/dL F 0.0-199.0 Protein [Mass/volume] in Serum or Plasma 2023-03-06 00:42:07 284 mg/dL F 0.0-149.0 Bicarbonate [Moles/volume] in Serum or Plasma 2023-03-06 00:42:07 19 mEq/L F 20.0-31.0 Cholesterol in HDL [Mass/volume] in Serum or Plasma 2023-03-06 00:42:07 28 mg/dL F 40.0-60.0 Lactate dehydrogenase [Enzymatic activity/volume] in Serum or Plasma 2023-03-06 00:42:07 221 U/L F 120.0-246.0 Albumin [Mass/volume] in Serum or Plasma by Bromocresol green (BCG) dye binding method 2023-03-06 00:42:07 3.7 g/dL F 3.4-4.8 Cholesterol [Mass/volume] in Serum or Plasma 2023-03-06 00:42:07 131 mg/dL F 0.0-199.0 Lactate dehydrogenase [Enzymatic activity/volume] in Serum or Plasma 2023-03-06 00:42:07 221 U/L F 120.0-246.0 Bicarbonate [Moles/volume] in Serum or Plasma 2023-03-06 00:42:07 19 mEq/L F 20.0-31.0 Potassium [Moles/volume] in Serum or Plasma 2023-03-06 00:42:07 5.1 mEq/L F 3.5-5.5 Protein [Mass/volume] in Serum or Plasma 2023-03-06 00:42:07 284 mg/dL F 0.0-149.0 Protein [Mass/volume] in Serum or Plasma 2023-03-06 00:42:07 5.9 g/dL F 5.7-8.2 Cholesterol in HDL [Mass/volume] in Serum or Plasma 2023-03-06 00:42:07 28 mg/dL F 40.0-60.0 Albumin [Mass/volume] in Serum or Plasma by Bromocresol green (BCG) dye binding method 2023-03-06 00:42:07 3.7 g/dL F 3.4-4.8 Cholesterol [Mass/volume] in Serum or Plasma 2023-03-06 00:42:07 131 mg/dL F 0.0-199.0 Bicarbonate [Moles/volume] in Serum or Plasma 2023-03-06 00:42:07 19 mEq/L F 20.0-31.0 Lactate dehydrogenase [Enzymatic activity/volume] in Serum or Plasma 2023-03-06 00:42:07 221 U/L F 120.0-246.0 Potassium [Moles/volume] in Serum or Plasma 2023-03-06 00:42:07 5.1 mEq/L F 3.5-5.5 Protein [Mass/volume] in Serum or Plasma 2023-03-06 00:42:07 284 mg/dL F 0.0-149.0 Protein [Mass/volume] in Serum or Plasma 2023-03-06 00:42:07 5.9 g/dL F 5.7-8.2 Cholesterol in HDL [Mass/volume] in Serum or Plasma 2023-03-06 00:42:07 28 mg/dL F 40.0-60.0 Encounters No encounter information to report Immunizations Ordered Immunization Name Filled Immunization Name Date Status Comments Refusal Reason TST-PPD intradermal 2024-06-01 16:31:38 Influenza Vaccination 2024-06-01 04:00:00 TST-PPD intradermal 2023-07-01 14:40:00 TB RAQ 2023-07-01 04:00:00 Plan of Treatment Planned Activity Provider Planned Date Details Commen ts Diagnostic Test Pending [facility] 2024-05-27 15:02:28 Thyrotropin [Units/volume] in Serum or Plasma by Detection limit <= 0.05 mIU/L [code = 04262-9] Diagnostic Test Pending [facility] 2023-10-13 06:27:29 Hemoglobin [Mass/volume] in Blood [code = 718-7] Diagnostic Test Pending [facility] 2023-09-02 06:41:41 Alanine aminotransferase [Enzymatic activity/volume] in Serum or Plasma [code = 1742-6] Diagnostic Test Pending [facility] 2023-09-02 06:40:25 Parathyrin.intact [Mass/volume] in Serum or Plasma [code = 2731-8] Diagnostic Test Pending [facility] 2023-09-01 19:37:59 Folate [Mass/volume] in Serum or Plasma [code = 2284-8] Diagnostic Test Pending [facility] 2023-09-01 19:37:26 Reticulocytes/100 erythrocytes in Blood by Automated count [code = 39338-9] Diagnostic Test Pending [facility] 2023-09-01 19:36:56 25-Hydroxyvitamin D3+25-Hydroxyvitamin D2 [Mass/volume] in Serum or Plasma [code = 59224-2] Diagnostic Test Pending ANGELICA CARDOZO 2023-09-01 19:34:00 Hemoglobin A1c/Hemoglobin.total in Blood [code = 4548-4] Diagnostic Test Pending ANGELICA CARDOZO 2023-09-01 19:32:41 Aluminum [Mass/volume] in Serum or Plasma [code = 5574-9] Diagnostic Test Pending ANGELICA CARDOZO 2023-09-01 19:31:26 Platelets [#/volume] in Blood by Automated count [code = 777-3] Diagnostic Test Pending ANGELICA CARDOZO 2023-09-01 19:27:48 Ferritin [Mass/volume] in Serum or Plasma [code = 2276-4] Diagnostic Test Pending ANGELICA CARDOZO 2023-09-01 19:27:20 Chloride [Moles/volume] in Serum or Plasma [code = 2075-0] Diagnostic Test Pending ANGELICA CARDOZO 2024-09-18 06:37:54 Hemoglobin [Mass/volume] in Blood [code = 718-7] Diagnostic Test Pending ANGELICA CARDOZO [employer] (PD) 2024-03-29 13:39:50 CAPD [code = NSA412] Diet Order ANGELICA CARDOZOBLANKA [employer] [facility] [employer] (PD) September 30, 2023 Diet Calorie 25 kcal/kg Fluid Value 2000 mL/d Phosphorus Value 800 mg/d Potassium Value 2500 mg/d Protein Value 1.3 gm/kg Sodium Value 2000 mg/d Calculated Weight 91 kg dietary_diet_modification Carb Controlle d;
[2024-11-17 20:12] LABS: Base Excess ABG -7.7 mmol/L (0-2); HCO3 ABG 15.7 mmol/L (23-29); Oxygen Saturation ABG 99.1 % (95-97); Oxyhemoglobin 98.4 % (94-100); PCO2 ABG 25.4 mmHg (35-45); PO2 ABG 205.7 mmHg (75-85); pH ABG 7.41 (7.35-7.45)
[2024-11-17 20:14] LABS: Device SIMPLE MASK; Modified Allen's Test Pass; Site Drawn RIGHT RADIAL
[2024-11-17 20:14] LABS: Basophils Percent Auto 1.2 % (0.0-1.0); Eosinophils Absolute Auto 0.42 K/mm3 (0.02-0.50); Eosinophils Percent Auto 4.9 % (1.0-6.0); Hematocrit 31.7 % (37.0-46.0); Hemoglobin 9.7 g/dL (12.4-15.3); Immature Granulocyte Absolute 0.05 K/mm3 (0.00-0.00); Immature Granulocyte Percent A 0.6 % (0.0-0.0); Lymphocytes Absolute Auto 0.28 K/mm3 (1.10-4.50); Lymphocytes Percent Auto 3.2 % (18.0-42.0); Mean Corpuscular HGB Conc 30.6 g/dL (32-36); Mean Corpuscular Hemoglobin 24.8 pg (27.0-31.0); Mean Corpuscular Volume 81.1 fL (78.0-102.0); Mean Platelet Volume 10.7 fl (8.7-11.0); Monocytes Absolute Auto 0.89 K/mm3 (0.10-0.90); Monocytes Percent Auto 10.3 % (2.0-11.0); Neutrophils Absolute Auto 6.91 K/mm3 (1.70-7.20); Neutrophils Percent Auto 79.8 % (50.0-70.0); Platelet Count Result 165 K/mm3 (150-420); Red Blood Count 3.91 M/mm3 (4.70-6.10); Red Cell Distribution Width 19.7 % (11.6-14.4); White Blood Count 8.7 K/mm3 (4.8-10.8)
[2024-11-17 20:29] LABS: Alanine Aminotransferase 27 U/L (16-63); Albumin Level 3.3 g/dL (3.4-5.0); Alkaline Phosphatase 73 U/L (46-116); Anion Gap 15 mmol/L (4-12); Aspartate Amino Transferase 18 U/L (15-37); Bilirubin,Total 0.3 mg/dL (0.00-1.00); Blood Urea Nitrogen 74 mg/dL (7-18); Carbon Dioxide 19 mmol/L (21-32); Chloride 107 mmol/L (98-108); Estimated CRCL calculation 11 ml/min; Estimated Glomerular Filt Rate 8; Glucose 144 mg/dL (70-99); Osmolality Calculated 316 mOsm/kg (285-295); Potassium 4.2 mmol/L (3.5-5.1); Sodium 141 mmol/L (136-145); Total Protein 6.7 g/dL (6.4-8.2)
[2024-11-17 20:34] LABS: Lactic Acid Reflex 1.6 mmol/L (0.4-2.0)
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
--- OUTSIDE RECORDS SUMMARY | 2024-11-17 20:56 | XMS_ITS | Clinical Summary ---
Author Organization [facility] Address [address], [place] [address] Phone Care Team Providers Care Protection Consultant Name Role Phone Unavailable Primary Care Provider Unavailabl e Medications Medication Sig Dispensed Refills Start Date End Date Status cephalexin (KEFTAB) 500 MG tablet TAKE 2 TABLETS FOR FIRST DOSE THEN 1 TABLET EVERY 12 HOURS WHEN INSTRUCTED BY PD NURSE 7 tablet 20 11/10/2024 Active Encounters Date Type Department Care Team Description 11/07/2024 Refill [facility] [address] [address] Yaw Adam MD from Last 3 Months Social History Tobacco Use Types Packs/Day Years Used Date Smoking Tobacco: Never Assessed Sex and Gender Information Value Date Recorded Sex Assigned at Not on file Gender Identity Not on file Sexual Orientation Not on file Plan of Treatment Health Maintenance Due Date Last Done Comments Pneumococcal PPSV23/PCV13 65 + Years / Low and Medium Risk (1 of 4 - PCV) 2011 Influenza Vaccine (#1) 2024
--- OUTSIDE RECORDS SUMMARY | 2024-11-17 20:56 | XMS_ITS | Continuity of Care Document ---
Author Organization [facility] Address [address] [place] [address] Phone Care Team Providers Care Mechanical Test Engineer Name Role Phone Unavailable Unavailable Unavailable Allergies, Adverse Reactions, Alerts Substance Reaction Status Criticality SILDENAFIL CITRATE Active No Inform ation PSEUDOEPHEDRINE SULFATE Active No I nformation desloratadine Active No Information METHYLPHENIDATE HCL Active No Infor mation modafinil Active No Information CLONIDINE HCL Active No Information chocolate flavor Active No Informat ion PSEUDOEPHEDRINE HCL Active No Infor mation FEXOFENADINE HCL Active No Informat ion NITRATES Active No Information soy Active No Information monosodium glutamate Active No Info rmation alcohol Active No Information Medications Medication Instructions Dosage Effective Dates (start - stop) Status Comments Advair Diskus 250 mcg-50 mcg/dose powder for inhalation inhale 1 puff by inhalation route 2 times per day in the morning and evening approximately 12 hours apart - Active Advair Diskusinh carlos 1 puff by inhalation route 2 times per day in the morning and evening approximately 12 hours apart1 Each3 simvastatin 40 mg tablet 1 tablet by Oral route 1 time per day - Active simvastatin 1 ta blet by Oral route 1 time per day90 tab(s)3 Cardura 2 mg tablet 1 tablet by Oral route 1 time per day - Active Cardura 1 tablet by Oral route 1 time per day90 tab(s)3 Protonix 40 mg tablet,delayed release 1 tablet by Oral route 1 time per day - Active Protonix 1 table t by Oral route 1 time per day90 tab(s)3 Actos 45 mg tablet take 0.5 tablet by Oral route 1 time per day - Active Actostake 0.5 ta blet by Oral route 1 time per day90 tab(s)0 montelukast 10 mg tablet take 1 tablet (10 mg) by oral route once daily in the evening - Active montelukasttake 1 tablet (10 mg) by oral route once daily in the tablet(s)3 nifedipine ER 90 mg tablet,extended release 1 tablet by Oral route 1 time per day - Active NIFEdipine 1 tab let by Oral route 1 time per day90 tab(s)3 Januvia 50 mg tablet 1 tablet by Oral route 1 time per day - Active Januvia 1 tablet by Oral route 1 time per day90 tab(s)3 labetalol 200 mg tablet 1 tablet by Oral route 2 times per day - Active labetalol 1 tabl et by Oral route 2 times per day60 tab(s)0 nitroglycerin 0.[address] 1 tablet (0.4 mg) by sublingual route every 5 minutes until relief is obtained not to exceed 3 tablets in a 15-minute period - Active nitroglycerinpla ce 1 tablet (0.4 mg) by sublingual route every 5 minutes until relief is obtained not to exceed 3 tablets in a 15-minute [id number] tab(s)0 glimepiride 2 mg tablet take 1 tablet by Oral route 1 time per day - Active glimepiridetake 1 tablet by Oral route 1 time per day30 tab(s)0 FreeStyle Lite Strips 1 Strip by Topical route 1 time per day E11.8 Box of 100 - Active FreeStyle Lite S trips 1 Strip by Topical route 1 time per day E11.8 Box of 1001 Box2 Zyrtec 10 mg tablet 1 tablet by Oral route 1 time per day - Active ZyrTEC 1 tablet by Oral route 1 time per day30 tab(s)1 Micardis 20 mg tablet take 1 tablet (20 mg) by oral route once daily - Active Micardistake 1 t ablet (20 mg) by oral route once daily30 tab(s)0 levothyroxine 112 mcg tablet take 1 tablet (112 mcg) by oral route once daily 1 tablet daily - Active levothyroxinetak e 1 tablet (112 mcg) by oral route once daily 1 tablet daily90 tab(s)3 Tricor 145 mg tablet 1 tablet by Oral route 1 time per day - Active Tricor 1 tablet by Oral route 1 time per day90 tab(s)3 Vitamin D3 1,000 unit tablet 1 tablet by Oral route 1 time per day - Active Vitamin D3 1 tab let by Oral route 1 time per day90 tab(s)3 Results Test Name Date and Time Measure Units Reference Range Abnormal Flag Status Commen ts Panel Description: Not Available Final VITAMIN D, 25-OH, D3 00:00:00 ng/mL Final VITAMIN D, 25-OH, D3 00:00:00 ng/mL Final VITAMIN D, 25-OH, D3 00:00:00 ng/mL Final VITAMIN D, 25-OH, D3 00:00:00 ng/mL Final Panel Description: Not Available Final VITAMIN D, 25 OH TOTAL 00:00:00 ng/mL Final VITAMIN D, 25 OH TOTAL 00:00:00 ng/mL Final VITAMIN D, 25 OH TOTAL 00:00:00 ng/mL Final VITAMIN D, 25 OH TOTAL 00:00:00 ng/mL Final Panel Description: Not Available Final VITAMIN D, 25-OH, D2 00:00:00 ng/mL Final VITAMIN D, 25-OH, D2 00:00:00 ng/mL Final VITAMIN D, 25-OH, D2 00:00:00 ng/mL Final VITAMIN D, 25-OH, D2 00:00:00 ng/mL Final Panel Description: Not Available Final VITAMIN D, 25-OH, TOTAL 00:00:00 ng/mL Final VITAMIN D, 25-OH, TOTAL 00:00:00 ng/mL Final VITAMIN D, 25-OH, TOTAL 00:00:00 ng/mL Final VITAMIN D, 25-OH, TOTAL 00:00:00 ng/mL Final Panel Description: Not Available Final VITAMIN D, 25 OH, D2 00:00:00 ng/mL Final VITAMIN D, 25 OH, D2 00:00:00 ng/mL Final VITAMIN D, 25 OH, D2 00:00:00 ng/mL Final VITAMIN D, 25 OH, D2 00:00:00 ng/mL Final Panel Description: Not Available Final VITAMIN D, 25 OH, D3 00:00:00 ng/mL Final VITAMIN D, 25 OH, D3 00:00:00 ng/mL Final VITAMIN D, 25 OH, D3 00:00:00 ng/mL Final VITAMIN D, 25 OH, D3 00:00:00 ng/mL Final Advance Directives Directive Yes / No Effective Date File Name No Information Encounters Encounter Description Practice Location Reason(s) For Visit Diagnoses Date Provider Providers Copied on Encounter [facility], [address], [place], [place], [id number] , tel: [phone] [facility] Historical Location No Information 9 No Information [facility], [address], [place], [address] , [place] tel: [phone] [facility] Historical Location No Information 8 Martin James. [address], [place], [place], [address], [place]. tel:[phone] [facility], [address], [place] [address] , [place] tel: [phone] [facility] Historical Location No Information 8 Martin James. [address], [place], [place], [id number], [place]. tel:[phone] [facility], [address], [place], [address] , [place] tel: [phone] [facility] Historical Location No Information 8 Martin James. [address], [place], [place], [address], [place]. tel:[phone] [facility], [address], [place], [place], [address] , [place] tel: [phone] [facility] Historical Location No Information 8 Martin James. [address], [place], [address], [place]. tel:[phone] [facility], [address], [place], [address] , [place] tel: [phone] [facility] Historical Location No Information 8 Martin James. [address], [place], [place], [address], [place]. tel:[phone] [facility], [address], [place], [place], [address] , [place] tel: [phone] [facility] Location No Information 8 Martin James. [address], [place], [id number], [place]. 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 [address], [place], [place], [address], [place]. tel:[phone] [facility], [address], [place], [address] , [place] tel: [phone] [facility] Historical Location Dyspnea, unspecified [id number] rhinitis ICD10 8 No Information [facility], [address], [place], [place], [address] , [place] tel: [phone] [facility] Historical Location No Information 8 Martin James. [address], [place], [place], [address], [place]. tel: [phone] [facility], [address], [place], [address] , [place] tel: [phone] [facility] Historical Location No Information 8 Martin James. [address], [place], [place], [address], [place]. tel:[phone] [facility], [address], [place], [address] , [place] tel: [phone] [facility] Historical Location No Information 7 Martin James. [address], [place], [address], [place]. tel:[phone] [facility], [address], [place], [address] , [place] tel: [phone] [facility] Historical Location No Information 7 Martin James. [address], [place], [address], [place]. 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 [address], [place], [address], [place]. tel: [phone] [facility], [address], [place], [address] , [place] tel: [phone] [facility] Historical Location Hypothyroidism, unspecified [id number] fied contracted kidney 6 No Information [facility], [address], [place], [address] , [place] tel: [phone] [facility] Historical Location Lower abdominal pain, unspecified ICD10 6 No Information [facility], [address], [place], [address] , [place] tel: [phone] [facility] Historical Location Edema, unspecified FHL90Sotsn proteinuria ICD10 6 No Information [facility], [address], [place], [address] , [place] tel: [phone] [facility] Historical Location Pain in unspecified limb ICD10 6 No Information [facility], [address], [place], [address] , [place] tel: [phone] [facility] Historical Location No Information 5 No Information [facility], [address], [place], [address] , [place] tel: [phone] [facility] Historical Location No Information 5 No Information [facility], [address], [place], [address] , [place] tel: [phone] [facility] Historical Location Vitamin D deficiency, unspecified ICD10 5 No Information [facility], [address], [place], [address] , [place] tel: [phone] [facility] Historical Location Chronic kidney disease, unspecified [id number]- and ybjoo-tswqo-zuee vimal tubulo-interstit ial and tubular conditionsDisord er of lipoprotein metabolism, unspecified [id number] MASS INDEX (BMI) 30-39, ADULT 5 No Information [facility], [address], [place], [place], [address] , [place] tel: [phone] [facility] Historical Location [id number] CHRONIC KIDNEY DISEASE Sep-1 7-201 5 No Information [facility], [address], [place], [place], [address] , [place] tel:[phone] [facility] Historical Location Essential (primary) hypertension [id number] asthma, uncomplicated RIN40Ptbsx apnea, unspecified OWY29Adziqc-hwdi hageal reflux disease without esophagitis [id number]_OTHER SPECIFIED ACQUIRED HYPOTHYROIDISM No Information Family History Family Member Type Diagnosis Age At Onset No Information Immunizations Vaccine Date Status Comments Pneumococcal administered Note: PP. crw ; Source: New Immunization Record Payers Payer name Insurance type Covered libertarian ID Authoriza tion(s) No Information Social History Type Description Quantity Date Captured Comments Sex Male Smoking Status No Information Chief Complaint And Reason For Visit No Information Reason For Referral Reason For Referral No Information History Of Present Illness Encounter Date Complaint History Of Prese nt Illness No Information Functional Status Date Functional Assessmen t No Information Instructions Date Instruction Additional Infor mation No Information Assessments Type Assessment Date No Information Patient Care Teams Name Effective Dates (start - stop) Status Members No Information
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
--- OUTSIDE RECORDS SUMMARY | 2024-11-17 20:56 | XMS_ITS ---
Care Plan - [facility] Created on: November 17, 2024 Rizwan Riggins, Efren Mackey : 1945 Sex: Male Author Organization [facility] Address [address] [place] [address] Phone Care Team Providers Care Unix Systems Administrator Name Role Phone George Hawthorne Primary Care Provider [phone] Butch Echeverria DO Unavailable [phone]
--- OUTSIDE RECORDS SUMMARY | 2024-11-17 20:56 | XMS_ITS | Clinical Summary ---
Author Organization [facility] Address [address] [place] [address] Phone Care Team Providers Care Fleet Operations Manager Name Role Phone George Hawthorne Primary Care Provider [phone] Butch Echeverria DO Unavailable [phone] Reason for Visit and Chief Complaint DIABETES EDUCATION Plan of Treatment No Plan of Treatment Recorded Assessments Includes: Assessments from this encounter No Assessments Recorded Medical Equipment - Implanted Devices Includes: Current Devices No Medical Equipment Recorded Medications Administered Includes: Administered Medications from this encounter No Administered Medications Recorded Results Includes: Results discussed during this encounter No Results Recorded For Specified Dates History of Present Illness Includes: History of Present Illness from this encounter No History of Present Illness Recorded Social History No Social History Recorded - Smoking Status Unknown Procedures and Surgical History Includes: Procedures from this encounter Procedures Code Diagnosis Performing Provider Service Location Service Date ENCOUNTER RESOLUTION ENCRE ENCOUNTER RESOLUTION [facility] 09/10/2020 Last Documented On 1 2:11PM ; [facility] Medical History Includes: Medical History addressed during this encounter No Medical History Recorded Family History Includes: Family History addressed during this encounter No Family History Recorded Review of Systems Includes: Review of Systems from this encounter No Review of Systems Recorded Mental Status Includes: Mental Status from this encounter No Mental Status Recorded Functional Status Includes: Functional Status from this encounter No Functional Status Recorded Physical Exam Includes: Physical Exam from this encounter No Physical Exam Recorded Encounters Encounter Provider Location Date Check-In Time Check- Out Time Diagnosis DIABETES EDUCATION [facility] 0 9:57AM 11:25AM Insurance Includes: Active Insurance Policies Plan Name Member ID Group # Subscriber Relationship Effect brent Dates 1 - Medicare Part B Claims [id number] Efren Astorga Jr. Self 2 - for Life [id number] Efren Astorga Jr. Self Clinical Notes Includes: Clinical Notes from this encounter No Clinical Notes Recorded
--- OUTSIDE RECORDS SUMMARY | 2024-11-17 20:57 | XMS_ITS | Referral Summary ---
Author Organization [facility] Address [address] [place] [address] Care Team Providers Care Customer Field Representative Name Role Phone Unavailable Primary Care Provider Unavailabl e Social History Tobacco Use Types Packs/Day Years Used Date Smoking Tobacco: Never Assessed Sex and Gender Information Value Date Recorded Sex Assigned at Not on file Legal Sex Male 8:38 AM EST Gender Identity Not on file Sexual Orientation Not on file Plan of Treatment Not on file
--- OUTSIDE RECORDS SUMMARY | 2024-11-17 20:57 | XMS_ITS ---
Author Name Donnie Henderson Address [address] [place] [id number] Organization [facility] Address [address] [place] [id number] Care Team Providers Care Sign Out Clerk Name Role Phone Donnie Henderson Primary Care Physician George Ernandez Unavailable Unavailable Grabiel Purcell Unavailable Unavailable Miguel Escobar Unavailable Unavailable Donnie Henderson Preferred Provider Unavailabl e Allergies and Adverse Reactions Name Reaction Notes Ritalin Chest pain Aggie can't urinate NO LATEX ALLERGY Claritin Can't urinate Clonidine unknown Metoprolol Tartrate unknown metoprolol succinate unknown Medications Active Name Start Date Estimated Comple tion Date SIG Comments Synthroid 112 mcg oral tablet take 1 tablet (112 mcg) by oral route once daily pantoprazole 40 mg oral tablet,delayed release (DR/EC) take 1 tablet (40 mg ) by oral route once daily aspirin 81 mg oral tablet,delayed release (DR/EC) take 1 tablet (81 mg ) by oral route once daily hydralazine 50 mg tablet take 1.5 tablets by oral route 3 times a day furosemide 40 mg tablet take 1 tablet (40 mg) by oral route 2 times per day calcitriol 0.25 mcg capsule take 1 capsule (0.25 mcg) by oral route on Thursday and Thursday Lantus Solostar U-100 Insulin 100 unit/mL (3 mL) subcutaneous pen inject by subcutane ous route as per insulin protocol Vitamin D3 50 mcg (2,000 unit) capsule take 2 capsules by oral route daily atorvastatin 80 mg tablet take 1 tablet (80 mg ) by oral route once daily insulin lispro (U-100) 100 unit/mL subcutaneous pen inject by subcutaneo us route per prescriber's instructions. Insulin dosing requires individualization. Januvia 25 mg tablet take 1 tablet (25 mg) by oral route once daily Cardura 8 mg tablet take 1 t ablet (8 mg) by oral route twice daily amlodipine 5 mg tablet take 1 tablet (5 mg) by oral route once daily Xarelto 20 mg tablet 09/06/2024 12/05/2024 take 1 tablet (20 mg) by oral route once daily with the evening meal for 90 days Name Start Date Expiration Date SIG Comments montelukast 10 mg oral tablet take 1 tablet (10 mg ) by oral route once daily in the evening Cardura 2 mg oral tablet sherrie e 1 tablet (2 mg) by oral route once daily amlodipine 10 mg oral tablet take 1 tablet (10 mg ) by oral route once daily warfarin 5 mg tablet take 1 tablet (5 mg) by oral route once daily S, T, S. Take 1.5 tablets (7.5 mg) by oral route once daily M, W, and F changed Discontinued Name Start Date Discontinued Date SIG Comment s simvastatin 40 mg oral tablet 05/06/2022 take 1 tablet (40 mg) by oral route once daily in the evening glimepiride 4 mg oral tablet 11/13/2022 take 1 tablet (4 mg) by oral route once daily Januvia 50 mg oral tablet 09/12/2022 ta ke 1 tablet (50 mg) by oral route once daily hydralazine 50 mg oral tablet 05/27/2021 furosemide 40 mg oral tablet 05/27/2021 warfarin 5 mg oral tablet 05/27/2021 clopidogrel 75 mg oral tablet 11/01/2020 take 1 tablet (75 mg) by oral route once daily Vitamin D3 Complete 18 mg iron-800 mcg-150 mg oral tablet 05/27/2021 isosorbide dinitrate 30 mg oral tablet 05/06/2022 take 1 tablet (30 mg) by oral route 2 times per day Lantus U-100 Insulin 100 unit/mL subcutaneous solution 05/27/2021 cyclobenzaprine 10 mg tablet 05/06/2022 take 1 tablet by oral route 3 times a day as needed sodium bicarbonate 650 mg tablet 10/07/2022 take 1 tablet by oral route daily Januvia 50 mg tablet 11/13/2022 take 1 tablet (50 mg) by oral route once daily lisinopril 20 mg tablet 06/16/2023 take 1 tablet (20 mg) by oral route once daily simvastatin 40 mg tablet 06/16/2023 sherrie e 1 tablet (40 mg) by oral route once daily in the evening Duplicate warfarin 5 mg tablet 08/15/2024 take 1 tablet (5 mg) by oral route once daily Problem List Description Status Onset Diabetes mellitus Active HTN (hypertension) Active Renal Failure Active Hyperlipidemia Active CAD (coronary artery disease) Active AV fistula Active 05/27/2021 Umbilical hernia Active ESRD (end stage renal disease) Active Carotid artery stenosis Active Vital Signs Date Time BP-Sys(mm[Hg] BP-Ellen(mm[Hg]) HR(bpm) RR(rpm) Temp WT HT HC BMI BSA BMI Percentile O2 Sat(%) 024 11:05 :00 AM 160 mm[Hg] 80 mm[Hg] 250 lbs 74 in 32.0 978 kg/m 2 2.43 32 m2 2022 10:28 :00 AM 192 mm[Hg] 72 mm[Hg] 240 lbs 74 in 30.8 1 kg/m 2 2.38 m2 2022 11:02 :00 AM 130 mm[Hg] 60 mm[Hg] 248 .25 lbs 74 in 31.8 7 kg/m 2 2.42 m2 2022 11:16 :00 AM 178 mm[Hg] 70 mm[Hg] 241 lbs 74 in 30.9 423 kg/m 2 2.38 9 m2 2022 10:05 :00 AM 164 mm[Hg] 80 mm[Hg] 241 lbs 09/09 9:20: 00 AM 176 mm[Hg] 88 mm[Hg] 247 lbs 74 in 31.7 126 kg/m 2 2.41 86 m2 08/20 9:27: 00 AM 178 mm[Hg] 86 mm[Hg] 247 lbs 74 in 31.7 1 kg/m 2 2.42 m2 2021 8:53: 00 AM 162 mm[Hg] 70 mm[Hg] 247 lbs 74 in 31.7 126 kg/m 2 2.41 86 m2 022 9:11: 00 AM 160 mm[Hg] 70 mm[Hg] 246 lbs 74 in 31.5 8 kg/m 2 2.41 m2 2020 11:34 :00 AM 172 mm[Hg] 82 mm[Hg] 249 .25 lbs 74 in 32.0 015 kg/m 2 2.42 96 m2 021 3:28: 00 PM 150 mm[Hg] 80 mm[Hg] 235 lbs 74 in 30.1 7 kg/m 2 2.36 m2 08/15 3:33: 00 PM 140 mm[Hg] 60 mm[Hg] 250 lbs 74 in 32.0 978 kg/m 2 2.43 32 m2 07/20 2:16: 00 PM 146 mm[Hg] 76 mm[Hg] 244 lbs 019 2:07: 00 PM 140 mm[Hg] 70 mm[Hg] 244 lbs 74 in 31.3 274 kg/m 2 2.40 39 m2 Social History Name Description Comments 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, 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 Tobacco Never smoker 11/13/22 Does not drink alcohol Denies illicit substance abuse Caffeine Current every day 1-2 cpd History of Procedures Date Ordered Description Order Status 04/28/2019 12:00 AM Pre-op AVF Vessel Ma pping Prior To Hemodialysis Graft Placement (includes arterial inflow & venous outflow) Reviewed 06/02/2019 12:00 AM ARTERY-VEIN NONAUTOGRAFT Revie wed 07/04/2019 12:00 AM DOPPLER FLOW TESTING Reviewed 07/20/2020 12:00 AM DOPPLER FLOW TESTING Reviewe d 05/01/2021 12:00 AM DOPPLER FLOW TESTING Reviewed 04/24/2022 12:00 AM DOPPLER FLOW TESTING Reviewed 08/06/2022 12:00 AM DOPPLER FLOW TESTING Reviewed 10/05/2022 12:00 AM DOPPLER FLOW TESTING Reviewed 08/20/2022 12:00 AM COMPLETE CBC AUTOMATED Revie wed 08/20/2022 12:00 AM METABOLIC PANEL TOTAL CA Rev iewed 08/20/2022 12:00 AM ELECTROCARDIOGRAM COMPLETE R eviewed 08/20/2022 12:00 AM US VASC ACCESS SITS VSL QUINTERO NCY NDL ENTRY Reviewed 08/20/2022 12:00 AM Fistulagram with Angioplasty Reviewed 08/20/2022 12:00 AM LIG/BANDING ANGIOACCESS LEYDA RIOVENOUS FISTULA Reviewed 08/20/2022 12:00 AM INSJ TUNNELED CVC W/O SUBQ P ORT/LINING VAMPER AGE 5 YR/> Reviewed 08/20/2022 12:00 AM FLUORO CENTRAL VENOUS ACCESS DEV PLACEMENT Reviewed 08/20/2022 12:00 AM Moderate Sedation, first 15 minutes Reviewed 08/20/2022 12:00 AM Moderate Sedation, each dmitri tional 15 minutes Reviewed 09/03/2022 12:00 AM DOPPLER FLOW TESTING Reviewed 06/01/2023 12:00 AM DOPPLER FLOW TESTING Reviewed 02/02/2023 12:[address] ABD & PELV W/CONTRAST Revie wed 12/15/2023 12:00 AM EXTRACRANIAL BILAT STUDY Revi ewed 12/28/2023 12:00 AM EXTRACRANIAL BILAT STUDY Revie wed 07/07/2024 12:00 AM DOPPLER FLOW TESTING Reviewe d 07/07/2024 12:00 AM DOPPLER FLOW TESTING Reviewe d 08/10/2024 12:00 AM DOPPLER FLOW TESTING Reviewe d Results Summary Date and Description Results 05/06/2022 9:11 AM Weight For Length Pe rcentile 0.1 {percentile}Body Mass Index Percentile for Age and Sex 0.1 {percentile} 08/05/2022 8:53 AM Weight For Length Pe rcentile 0.1 {percentile}Body Mass Index Percentile for Age and Sex 0.1 {percentile} 08/20/2022 9:27 AM Weight For Length Pe rcentile 0.1 {percentile}Body Mass Index Percentile for Age and Sex 0.1 {percentile} 08/20/2022 10:10 AM Sodium Level 140.0 m mol/LPotassium Level 4.10 mmol/LChloride Level 102.0 mmol/LCO2 Content 24.70 mmol/LGlucose Level 178.0 mg/dLBUN 39.50 mg/dLCreatinine 3.50 mg/dLCalcium Level 9.40 mg/dLAnion Gap 13.40Glom Filtration Rate 16.1 mL/minGFR -[place] 18.6BUN/Creat Ratio 11.32WBC 10.730 x10E3/uLRBC 4.430 x10E6/uLHemoglobin 11.70 g/dLHematocrit 37.80 %MCV 85.30 fLMCH 26.40 pgMCHC 31.0 g/dLRDW 16.10 %Platelet Count 170.0 x10E3/uLMPV 11.70 fLNRBC # 0.00NRBC % 0.0 09/09/2022 9:20 AM Weight For Length Pe rcentile 0.1 {percentile}Body Mass Index Percentile for Age and Sex 0.1 {percentile} 11/13/2022 11:16 AM Weight For Length Pe rcentile 0.1 {percentile}Body Mass Index Percentile for Age and Sex 0.1 {percentile} History of Past Illness Name Date of Onset Comments Renal Failure Diabetes mellitus HTN (hypertension) Hyperlipidemia CAD (coronary artery disease) End stage renal disease Apr 28 2019 8:04AM Chronic renal failure Jun 02 2019 2:51PM End stage renal disease Jul 04 2019 11:45AM Diabetes mellitus Jul 20 2019 2:36PM HTN (hypertension) Jul 20 2019 2:36PM Follow up Jul 20 2019 2:36PM HTN (hypertension) Aug 15 2019 4:28PM Renal Failure Aug 15 2019 4:28PM AV fistula 05/27/2021 Umbilical hernia ESRD (end stage renal disease) 06/16/2023 Diabetes mellitus May 27 2021 11:59AM HTN (hypertension) May 27 2021 11:59AM Renal Failure May 27 2021 11:59AM Hyperlipidemia May 27 2021 11:59AM AV fistula May 27 2021 11:59AM Carotid artery stenosis Chronic kidney disease, stage 4 (severe) Apr 24 2022 4:41PM Chronic kidney disease, stage 5 Apr 24 2022 4:41 PM AV fistula stenosis May 06 2022 12:28PM AV fistula May 06 2022 12:28PM Diabetes mellitus May 06 2022 12:28PM HTN (hypertension) May 06 2022 12:28PM Renal Failure May 06 2022 12:28PM Hyperlipidemia May 06 2022 12:28PM CAD (coronary artery disease) May 06 2022 12:28PM AV fistula Aug 05 2022 9:11AM Diabetes mellitus Aug 05 2022 9:11AM HTN (hypertension) Aug 05 2022 9:11AM Renal Failure Aug 05 2022 9:11AM Hyperlipidemia Aug 05 2022 9:11AM CAD (coronary artery disease) Aug 05 2022 9:11AM Preop testing Aug 20 2022 10:02AM AV fistula Aug 20 2022 10:04AM Diabetes mellitus Aug 20 2022 10:04AM HTN (hypertension) Aug 20 2022 10:04AM Renal Failure Aug 20 2022 10:04AM Hyperlipidemia Aug 20 2022 10:04AM CAD (coronary artery disease) Aug 20 2022 10:04A M AV fistula Aug 20 2022 4:33PM Diabetes mellitus Aug 20 2022 4:33PM AV fistula stenosis Sep 09 2022 10:22AM AV fistula Sep 09 2022 10:22AM Diabetes mellitus Sep 09 2022 10:22AM HTN (hypertension) Sep 09 2022 10:22AM Renal Failure Sep 09 2022 10:22AM Hyperlipidemia Sep 09 2022 10:22AM CAD (coronary artery disease) Sep 09 2022 10:22A M Umbilical hernia Sep 09 2022 10:22AM Dialysis patient Sep 09 2022 10:22AM AV fistula Oct 07 2022 10:45AM Diabetes mellitus Oct 07 2022 10:45AM HTN (hypertension) Oct 07 2022 10:45AM Renal Failure Oct 07 2022 10:45AM Hyperlipidemia Oct 07 2022 10:45AM CAD (coronary artery disease) Oct 07 2022 10:45A M Umbilical hernia Oct 07 2022 10:45AM Peritoneal dialysis catheter in place Oct 07 10:45AM Dialysis patient Oct 07 2022 10:45AM AV fistula Nov 13 2022 4:46PM Diabetes mellitus Nov 13 2022 4:46PM HTN (hypertension) Nov 13 2022 4:46PM Renal Failure Nov 13 2022 4:46PM Hyperlipidemia Nov 13 2022 4:46PM CAD (coronary artery disease) Nov 13 2022 4:46PM Umbilical hernia Nov 13 2022 4:46PM Dialysis patient Nov 13 2022 4:46PM Abdominal pain Feb 02 2023 9:29AM Abdominal pain Feb 12 2023 11:16AM AV fistula Feb 12 2023 11:16AM Diabetes mellitus Feb 12 2023 11:16AM HTN (hypertension) Feb 12 2023 11:16AM Renal Failure Feb 12 2023 11:16AM Hyperlipidemia Feb 12 2023 11:16AM CAD (coronary artery disease) Feb 12 2023 11:16A M Umbilical hernia Feb 12 2023 11:16AM Peritoneal dialysis catheter in place February 12 11:16AM AV fistula Jun 16 2023 9:54AM Diabetes mellitus Jun 16 2023 9:54AM HTN (hypertension) Jun 16 2023 9:54AM ESRD (end stage renal disease) Jun 16 2023 9:54A M Arteriovenous fistula stenosis Jun 16 2023 9:54A M Occlusion and stenosis of bilateral carotid leyda lawson Dec 28 2023 3:40PM AV fistula Jan 04 2024 11:22AM ESRD (end stage renal disease) Jan 04 2024 11:22A M Arteriovenous fistula stenosis, subsequent encou nter Jan 04 2024 11:22AM Occlusion and stenosis of bilateral carotid leyda lawson Jan 04 2024 11:22AM A-V fistula Jan 04 2024 11:22AM Abdominal pain Jan 04 2024 11:22AM AV fistula Jan 06 2024 2:21PM ESRD (end stage renal disease) Jan 06 2024 2:21P M Arteriovenous fistula stenosis, subsequent encou nter Jan 06 2024 2:21PM AV fistula Aug 12 2024 2:03PM Renal Failure Aug 12 2024 2:03PM AV fistula Aug 15 2024 12:52PM Diabetes mellitus Aug 15 2024 12:52PM HTN (hypertension) Aug 15 2024 12:52PM Renal Failure Aug 15 2024 12:52PM Hyperlipidemia Aug 15 2024 12:52PM CAD (coronary artery disease) Aug 15 2024 12:52P M Umbilical hernia Aug 15 2024 12:52PM Carotid artery stenosis Aug 15 2024 12:52PM DVT (deep venous thrombosis) Aug 15 2024 12:52PM Occlusion and stenosis of bilateral carotid leyda lawson Aug 22 2024 4:21PM AV fistula Aug 22 2024 4:21PM Payers Insurance Name Company Name Plan Name Plan Number Policy Num juanito Policy Group Number Start Date Medicare Medicare [id number] Monday, 2022 [facility] [id number] 2021 History of Encounters Visit Date Visit Type Provider 08/30/2024 Office Visit Ita oneal PA-C 08/17/2024 [facility] Tushar rayo MD 08/15/[address] Donnie silveira MD 08/10/2024 DONA silveira MD 01/06/2024 DONA silveira MD 01/04/2024 Office Visit Jori Smith PA-C 12/28/2023 DONA silveira MD 06/16/2023 Office Visit Jori Smith PA-C 06/16/2023 DONA silveira MD 02/12/2023 Office Visit Anika Zhou NEEDLE MAKER 11/13/[address] Donnie silveira MD 10/07/2022 Office Visit Anika Zhou NEEDLE MAKER 10/07/[address] Donnie silveira MD 09/15/2022 [facility] Tushar rayo MD 09/09/2022 Office Visit Anika Zhou NEEDLE MAKER 09/09/[address] Donnie silveira MD 09/03/2022 [facility] [address] Donnie silveira MD 08/20/[address] Donnie silveira MD 08/20/2022 Office Visit 08/20/[address] Donnie silveira MD 08/05/2022 Office Visit Daja wang PA-C 08/05/[address] Donnie silveira MD 05/06/2022 Office Visit Anika Zhou NEEDLE MAKER 05/06/[address] Donnie silveira MD 05/27/2021 Office Visit Mrs. Radha Altamirano istreraquel NEEDLE MAKER, 05/27/2021 N[facility] Mrs. Radha Altamirano istreri NEEDLE MAKER, 11/01/[address] Donnie silveira MD 11/01/[address] Donnie silveira MD 08/15/[address] Donnie silveira MD 08/15/[address] Donnie silveira MD 07/20/[address] Donnie silveira MD 07/20/[address] Donnie silveira MD 07/01/[address] Donnie silveira MD 07/01/[address] [facility] [address] oDnnie silveira MD 06/02/[address] Donnie silveira MD 06/02/[address] Donnie silveira MD
--- OUTSIDE RECORDS SUMMARY | 2024-11-17 20:57 | XMS_ITS ---
Author Organization [facility] Address [address] [place] [address] Phone Care Team Providers Care Fact Checker Name Role Phone George Hawthorne Primary Care Provider [phone] Jacki BERNAL Butch A Unavailable [phone] Plan of Treatment No Plan of Treatment Recorded Assessments Includes: Assessments for all patient encounters No Assessments Recorded Medical Equipment - Implanted Devices Includes: Current and historical Devices No Medical Equipment Recorded Medications Administered Includes: Administered Medications in patient's chart No Administered Medications Recorded Results Includes: Results through 11/17/2024 No Results Recorded For Specified Dates History of Present Illness History of Present Illness not supported for this document type No History of Present Illness Recorded Social History No Social History Recorded - Smoking Status Unknown Procedures and Surgical History Includes: Procedures through 11/17/2024 Procedures Code Diagnosis Performing Provider Service Location Service Date ENCOUNTER RESOLUTION ENCRE ENCOUNTER RESOLUTION Perfume And Toilet Water Maker [facility] 09/10/2020 Last Documented On 1 2:11PM ; [facility] ENCOUNTER RESOLUTION ENCRE ENCOUNTER RESOLUTION Perfume And Toilet Water Maker [facility] 08/22/2020 Last Documented On 1 1:13PM ; [facility] Event Recording Dr Salvador & Interp [id number] Shortness of breath Stephanie Carrillo MD [facility] 07/05/2019 Last Documented On 9 2:11PM ; [facility] Echocardiology Transthroacic Real Time with Color Flow Doppl (Professional Comp.) 22003 Dyspnea, unspecified Stephanie Carrillo MD [facility] 04/26/2019 Last Documented On 9 1:55PM ; [facility] Cardio Stress Test/supervision Only [id number] Chest pain, unspecified Butch Echeverria DO [facility] 01/18/2019 Last Documented On 9 10:48AM ; [facility] Cardio Stress Test/interp & Report [id number] Chest pain, unspecified Butch Echeverria DO [facility] 01/18/2019 Last Documented On 9 10:48AM ; [facility] Medical History Includes: Medical History in patient's chart No Medical History Recorded Family History Includes: Family History in patient's chart No Family History Recorded Review of Systems Review of Systems not supported for this document type No Review of Systems Recorded Mental Status No Mental Status Recorded Functional Status No Functional Status Recorded Physical Exam Physical Exam not supported for this document type No Physical Exam Recorded Encounters Includes: Encounters through 11/17/2024 Encounter Provider Location Date Check-In Time Check- Out Time Diagnosis DIABETES EDUCATION Perfume And Toilet Water Maker [facility] 0 9:57AM 11:25AM DIABETES EDUCATION Perfume And Toilet Water Maker [facility] 0 1:59PM 3:05PM Insurance Includes: Active Insurance Policies Plan Name Member ID Group # Subscriber Relationship Effect brent Dates 1 - Medicare Part B Claims [id number] Efren Astorga Jr. Self 2 - for Life [id number] Efren Astorga Jr. Self Clinical Notes Includes: Signed Clinical Notes starting from 09/14/2022 No Clinical Notes Recorded
--- OUTSIDE RECORDS SUMMARY | 2024-11-17 20:57 | XMS_ITS | Clinical Summary ---
Author Organization [facility] Address [address] [place] [address] Phone Care Team Providers Care Glass Unloading Equipment Tender Name Role Phone George Hawthorne Primary Care Provider [phone] Butch Echeverria DO Unavailable [phone] Reason for Visit and Chief [...] Service Date ENCOUNTER RESOLUTION ENCRE ENCOUNTER RESOLUTION Obstetric Assistant [facility] 08/22/2020 Last Documented On 1 1:13PM ; [facility] Medical History Includes: Medical History addressed during [...] Time Check- Out Time Diagnosis DIABETES EDUCATION Obstetric Assistant [facility] 0 1:59PM 3:05PM Insurance Includes: Active Insurance Policies Plan Name Member ID Group # Subscriber Relationship Effect brent Dates 1 - Medicare Part B Claims [id number] Efren Astorga Jr. Self 2 - for Life [id number] Efren Astorga Jr. Self Clinical Notes Includes: Clinical Notes from this encounter No Clinical Notes Recorded
--- OUTSIDE RECORDS SUMMARY | 2024-11-17 20:57 | XMS_ITS | Clinical Summary ---
Author Organization [facility] Address [address] [place] [address] Care Team Providers Care Dryer And Washer Mechanic Name Role Phone Unavailable Primary Care Provider Unavailabl e Social History Tobacco Use Types Packs/Day Years Used Date Smoking Tobacco: Never Assessed Sex and Gender Information Value Date Recorded Sex Assigned at Not on file Legal Sex Male 8:38 AM EST Gender Identity Not on file Sexual Orientation Not on file Plan of Treatment Health Maintenance Due Date Last Done Comments Hepatitis C Antibody Screening 1945 DTaP/Tdap/Td Vaccine (1 - Tdap) 1965 Health Maintenance Exam (Adult) 02/08/1968 Pneumococcal Vaccine 65 plus (1 of 1 - PCV) 02/08/1996 Shingrix Vaccine (1 of 2) 02/08/1996 Advance Care Planning Documentation 2011 RSV Vaccine (Adult) (1 - 1-d ose 75+ series) 2021 Flu Vaccine (#1) 04/28/2024 COVID-19 Vaccine ( - 2023-2 5 season) 2024 Hepatitis B Vaccine Aged Out No longe r eligible based on patient's age to complete this topic
--- OUTSIDE RECORDS SUMMARY | 2024-11-17 20:57 | XMS_ITS | Continuity of Care Document ---
Author Name [facility] Organization [facility] Care Team Providers Care Continuing Education Director Name Role Phone [facility] Unavailable Unavailable Medications Combined list of outpatient medications from Department of Defense and Veterans Affairs facilities.Medications provided include 1) outpatient medications from the last 15 months, and 2) patient-reported medications. Medication Details Route Status Patient Instructions Prescription Expires Prescription Number Last Dispense Date Ordering Provider Order Date Order Qty Source AMLODIPINE BESYLATE (AMLODIPINE BESYLATE), 10 MG, TABLET, ORAL, [facility], 1000 ea. BOTTLE Active [id number] 4 2023 90 Pharmac y Data Transac tion Service Facilit y AMLODIPINE BESYLATE (AMLODIPINE BESYLATE), 10 MG, TABLET, ORAL, [facility], 1000 ea. BOTTLE Active [id number] 4 2023 90 Pharmac y Data Transac tion Service Facilit y CEPHALEXIN (CEPHALEXIN MONOHYDRATE ), 500 MG, CAPSULE, ORAL, [facility], 500 ea. BOTTLE Active [id number] 4 2023 7 Pharmac y Data Transac tion Service Facilit y DOXAZOSIN MESYLATE (doxazosin mesylate), 2 MG, TABLET, ORAL, [employer] 100 ea. BOTTLE Active [id number] 4 2023 180 Pharmac y Data Transac tion Service Facilit y DOXAZOSIN MESYLATE (DOXAZOSIN MESYLATE), 8 MG, TABLET, ORAL, [employer], 100 ea. BOTTLE Cancele d [id number] : 2023 0 Pharmac y Data Transac tion Service Facilit y DOXYCYCLINE HYCLATE (doxycyclin e hyclate), 100 MG, CAPSULE, ORAL, [facility], 500 ea. BOTTLE Cancele d [id number] : 2023 0 Pharmac y Data Transac tion Service Facilit y FREESTYLE LITE TEST STRIP (blood sugar diagnostic) , STRIP, MISCELL, [facility], 50 ea. BOX Active [id number] 4 2023 300 Pharmac y Data Transac tion Service Facilit y FREESTYLE LITE TEST STRIP (blood sugar diagnostic) , STRIP, MISCELL, [facility], 50 ea. BOX Active [id number] 4 2023 300 Pharmac y Data Transac tion Service Facilit y HUMALOG (INSULIN LISPRO), 100 U/ML, INSULN PEN, SUB-Q, [employer] 3 ml SYRINGE Active [id number] 4 2023 60 Pharmac y Data Transac tion Service Facilit y HUMALOG (INSULIN LISPRO), 100 U/ML, INSULN PEN, SUB-Q, [employer] 3 ml SYRINGE Active [id number] 4 2023 60 Pharmac y Data Transac tion Service Facilit y LANTUS SOLOSTAR (INSULIN GLARGINE, M.REC.ANLOG ), 100/ML (3), INSULN PEN, SUB-Q, [facility], 3 ml SYRINGE Active [id number] 4 2023 30 Pharmac y Data Transac tion Service Facilit y LEVOTHYROXI NE SODIUM (levothyrox ine sodium), 112 MCG, TABLET, ORAL, [employer], 100 ea. BOTTLE Active [id number] 4 2023 90 Pharmac y Data Transac tion Service Facilit y LEVOTHYROXI NE SODIUM (levothyrox ine sodium), 112 MCG, TABLET, ORAL, [employer], 100 ea. BOTTLE Active [id number] 4 2023 90 Pharmac y Data Transac tion Service Facilit y PANTOPRAZOL E SODIUM (pantoprazo le sodium), 40 MG, TABLET DR, ORAL, [employer] 1000 ea. BOTTLE Active [id number] 4 2023 90 Pharmac y Data Transac tion Service Facilit y PANTOPRAZOL E SODIUM (pantoprazo le sodium), 40 MG, TABLET DR, ORAL, [employer] 1000 ea. BOTTLE Active [id number] 4 2023 90 Pharmac y Data Transac tion Service Facilit y SERTRALINE HCL (sertraline HCl), 25 MG, TABLET, ORAL, [employer], 180 ea. BOTTLE Active [id number] 4 2023 90 Pharmac y Data Transac tion Service Facilit y SERTRALINE HCL (sertraline HCl), 25 MG, TABLET, ORAL, [employer], 180 ea. BOTTLE Active [id number] 4 2023 90 Pharmac y Data Transac tion Service Facilit y SURE COMFORT PEN NEEDLE (pen needle, diabetic), 31 GX3/16 , DIS NEEDLE, MISCELL, [facility], 100 ea. BOX Active [id number] 12/18/19 2 4 2023 100 Pharmac y Data Transac tion Service Facilit y SURE COMFORT PEN NEEDLE (pen needle, diabetic), 31 GX3/16 , DIS NEEDLE, MISCELL, [facility] [facility], 100 ea. BOX Active [id number] 02/23/20 2 4 2023 100 Pharmac y Data Transac tion Service Facilit y WARFARIN SODIUM (warfarin sodium), 5 MG, TABLET, ORAL, [employer] 1000 ea. BOTTLE Active [id number] 4 2023 90 Pharmac y Data Transac tion Service Facilit y WARFARIN SODIUM (warfarin sodium), 5 MG, TABLET, ORAL, [employer] 1000 ea. BOTTLE Active [id number] 4 2023 90 Pharmac y Data Transac tion Service Facilit y WARFARIN SODIUM (warfarin sodium), 5 MG, TABLET, ORAL, [employer] 1000 ea. BOTTLE Active [id number] 4 2023 30 Pharmac y Data Transac tion Service Facilit y WARFARIN SODIUM (warfarin sodium), 5 MG, TABLET, ORAL, [employer] 1000 ea. BOTTLE Active [id number] 4 2023 30 Pharmac y Data Transac tion Service Facilit y Social History Combined list of available smoking, tobacco, and other social history from Department of Defense and Veterans Affairs facilities. Social History Type Response Date Comment [facility] e This section is an empty social history section. DoD
[2024-11-17 21:15] LABS: Influenza A QL RT-PCR Positive (Negative); Influenza B QL RT-PCR Negative (Negative); RSV RNA, RT-PCR Negative (Negative); SARS-CoV-2 RNA PCR Negative (Negative)
[2024-11-17 21:19] LABS: Add Urine Microscopic? YES; Appearance Urine Clear (Clear); Bilirubin Urine Negative (Negative); Blood Urine Trace-intact (Negative); Color Urine Light Yellow (Yellow); Glucose Urine UA Negative (Negative); Ketones Urine Negative (Negative); Leukocyte Esterase Ur Negative LEU/UL (Negative); Nitrate Urine Negative (Negative); Protein Urine Trace (Negative); Specific Grav Ur 1.015 (1.010-1.020); Urobilinogen Urine 0.2 mg/dL (0.2-1.0); pH Urine 5.5 (5.0-8.0)
[2024-11-17 21:23] VITALS: PULSE 71; RESP 16; O2SAT 71
[2024-11-17] MEDS: OSELTAMIVIR PHOSPHATE 75 MG CAPSULE PO (21:24)
[2024-11-17 21:26] LABS: Bacteria Urine None seen /hpf; RBC Urine 0-2 /hpf (0-2); Squamous Epithelial Cell Urine None seen /hpf (Few); WBC Urine 0-3 /hpf (0-3)
[2024-11-17 21:30] VITALS: O2SAT 95
--- NOTE | 2024-11-17 21:50 | PC.NURSE ---
per patient, peritoneal dialysis days are thursday, thursday and thursday. Patient puts dialysate on heating pad to heat solution, starts dwelling time around noon, PD to gravity, dwell time is 4-duarte hours, generally empties around 4-5pm on dialysis days. Patients dialysate is at [place] [facility] so that it doesnt freeze, along with family cats.
[2024-11-17 22:04] VITALS: BMI 32.1
[2024-11-18] VITALS: BP 149/70; PULSE 71; RESP 18; TEMP 37.2; O2SAT 96
[2024-11-18] MEDS: LEVOTHYROXINE SODIUM 112 MCG TABLET PO (06:11)
[2024-11-18 08:00] VITALS: BP 140/58; PULSE 93; RESP 20; TEMP 37.2; O2SAT 98
[2024-11-18 08:21] LABS: Glucose Point of Care 115 mg/dl (65-105)
[2024-11-18 08:22] LABS: Basophils Absolute Auto 0.07 K/mm3 (0.00-0.10); Eosinophils Absolute Auto 0.19 K/mm3 (0.02-0.50); Eosinophils Percent Auto 2.6 % (1.0-6.0); Hematocrit 31.3 % (37.0-46.0); Hemoglobin 9.6 g/dL (12.4-15.3); Immature Granulocyte Absolute 0.05 K/mm3 (0.00-0.00); Immature Granulocyte Percent A 0.7 % (0.0-0.0); Lymphocytes Absolute Auto 0.33 K/mm3 (1.10-4.50); Lymphocytes Percent Auto 4.6 % (18.0-42.0); Mean Corpuscular HGB Conc 30.7 g/dL (32-36); Mean Corpuscular Hemoglobin 24.8 pg (27.0-31.0); Mean Corpuscular Volume 80.9 fL (78.0-102.0); Monocytes Absolute Auto 0.88 K/mm3 (0.10-0.90); Monocytes Percent Auto 12.2 % (2.0-11.0); Neutrophils Absolute Auto 5.67 K/mm3 (1.70-7.20); Neutrophils Percent Auto 78.9 % (50.0-70.0); Platelet Count Result 170 K/mm3 (150-420); Red Blood Count 3.87 M/mm3 (4.70-6.10); White Blood Count 7.2 K/mm3 (4.8-10.8)
[2024-11-18 08:34] LABS: Base Excess ABG -5.4 mmol/L (0-2); Carboxyhemoglobin 1.3 % (0-1.5); HCO3 ABG 17.6 mmol/L (23-29); Methemoglobin ABG 0 % (0-1.5); Oxygen Content ABG 23.1 %vol (16.0-22.0); Oxygen Saturation ABG 97.6 % (95-97); Oxyhemoglobin 96.3 % (94-100); PCO2 ABG 28.9 mmHg (35-45); PO2 ABG 101.6 mmHg (75-85); Reduced Hemoglobin 2.4 % (0-1.5)
[2024-11-18 08:35] LABS: Modified Allen's Test Pass; Site Drawn RIGHT RADIAL
[2024-11-18 08:36] LABS: Device NASAL CANNULA; Liters per Minute 2.5 LPM
[2024-11-18 08:43] LABS: Alanine Aminotransferase 26 U/L (16-63); Albumin Level 3.1 g/dL (3.4-5.0); Alkaline Phosphatase 69 U/L (46-116); Anion Gap 14 mmol/L (4-12); Aspartate Amino Transferase 23 U/L (15-37); Bilirubin,Total 0.3 mg/dL (0.00-1.00); Blood Urea Nitrogen 72 mg/dL (7-18); Carbon Dioxide 20 mmol/L (21-32); Chloride 106 mmol/L (98-108); Estimated CRCL calculation 11 ml/min; Estimated Glomerular Filt Rate 8; Glucose 121 mg/dL (70-99); Osmolality Calculated 312 mOsm/kg (285-295); Potassium 4.5 mmol/L (3.5-5.1); Sodium 140 mmol/L (136-145); Total Protein 6.6 g/dL (6.4-8.2)
[2024-11-18] MEDS: FUROSEMIDE 40 MG TABLET 80 MG PO (10:50)
[2024-11-18] MEDS: ATORVASTATIN 40 MG TABLET 80 MG PO (10:50)
[2024-11-18] MEDS: PANTOPRAZOLE 40 MG TABLET PO (10:50)
[2024-11-18] MEDS: OSELTAMIVIR PHOSPHATE 30 MG CAPSULE PO (10:51)
[2024-11-18] MEDS: amLODIPine BESYLATE 5 MG TABLET 10 MG PO (10:51)
[2024-11-18] MEDS: INSULIN GLARGINE (*BKC) 1,000 UNITS/10 ML VIAL 50 UNITS SUB-Q (10:52)
[2024-11-18] MEDS: lisinopriL 5 MG TABLET PO (10:52)
[2024-11-18] MEDS: DOXYCYCLINE HYCLATE 100 MG TABLET PO (10:53)
[2024-11-18] MEDS: DOXAZOSIN MESYLATE 2 MG TABLET PO (10:53)
[2024-11-18] MEDS: SITagliptin PHOSPHATE 25 MG TABLET PO (10:53)
[2024-11-18] MEDS: CLOPIDOGREL BISULFATE 75 MG TABLET PO (10:54)
[2024-11-18 11:49] LABS: Glucose Point of Care 215 mg/dl (65-105)
--- NOTE | 2024-11-18 12:40 | PC.NURSE ---
Today at 1010 informed COMPENSATION AGENT we needed clarification on Humalog insulin with meal.
--- NOTE | 2024-11-18 13:34 | PC.NURSE ---
Patient went from OBS to inpatient at 1249.
--- NOTE | 2024-11-18 15:46 | P.HP_ITS ---
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 Patient states that he had upper respiratory symptoms for the past week. He endorses nonproductive cough, shortness a breath. He denies any fever, chills, nausea, vomiting, diarrhea, abdominal pain, chest pain. Patient states that he and his were passing through our area traveling to [place] in their camper when his became ill. he states that on the way they had a flat tire and was on the side of the road for quite a while waiting for a repairman. He stated whenever the flat tire happened it messed up the exhaust on the vehicle which they did not think anything of it at the time. They ended up stopping at a [employer] station in [place] and his started to not feel well. his called 911. When EMS arrived they found that her carbon monoxide detector was going off and called the fire department out to check the camper. They were brought in to [facility] for further evaluation of potential carbon monoxide poisoning. Workup in the hospital included a chest x-ray which was negative for any acute cardiopulmonary disease. Initial labs showed a white blood cell count of 8.7, hemoglobin 9.7, bicarb 19, anion gap 15, creatinine 6.79, EGFR 8. UA was obtained which showed trace urine protein, trace urine blood, otherwise negative. Respiratory panel was positive for influenza A. initial ABG showed a pH of 7.41, pCO2 25.4, PO2 205.7, bicarb 15.7, carboxyhemoglobin was not checked while in ED. patient was started on Tamiflu and given a dose of doxycycline while in the ED. Review of Systems Review of Systems: All systems reviewed & are unremarkable except as noted in HPI and below PMFSH Past Medical History Medical History (Updated 11/18/24 @ 15:58 by Angelic Richard, KIKE) BPH (benign prostatic hyperplasia) Type 2 diabetes mellitus Hypothyroidism Hypertension Coronary artery disease End stage renal disease Surgical History Surgical History (Updated 11/18/24 @ 15:58 by Angelic Richard APRN) Status post lobectomy of lung S/P CABG x 2 S/P TAVR (transcatheter aortic valve replacement) H/O prostatectomy Social History Social History (Updated 11/18/24 @ 16:00 by Angelic Richard APRN) Social History: 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 Patient resides with his in [place]. He has 2 cats. Smoking status: Never smoker Second hand tobacco smoke exposure: No Alcohol intake: never Substance use: never Do You Feel Safe in your Home?: Yes Lack of Transportation: No Lack of Food: Never True Current Housing: I Have Housing Concerned About Future Housing: No Difficulty Paying Gas/Electric Bills: No Difficulty Paying for Meds: No Currently Unemployed: No Education: Master's Degree or Higher Difficulty w/ Childcare or Family Care: No Living arrangements: with family Additional living arrangements comments: Occupation/Education: retired Gender identity (if verbalized by the patient): Male Sexual Orientation (if Verbalized by the Patient): Straight or Heterosexual Spiritual care concerns: No Meds Home Medications and Allergies Home Medications ?Medication ?Instructions ?Recorded ?Confirmed ?Type amlodipine 10 mg tablet 10 mg PO DAILY 11/17/24 11/17/24 History atorvastatin 80 mg tablet 80 mg PO DAILY 11/17/24 11/17/24 History blood sugar diagnostic (FreeStyle 11/17/24 11/17/24 History Lite Strips) clopidogrel 75 mg tablet 75 mg PO DAILY 11/17/24 11/17/24 History doxazosin 2 mg tablet 2 mg PO DAILY 11/17/24 11/17/24 History doxycycline hyclate 100 mg capsule 100 mg PO DAILY 11/17/24 11/17/24 History furosemide 80 mg tablet 80 mg PO DAILY 11/17/24 11/17/24 History insulin glargine 100 unit/mL (3 50 unit subcut QAM 11/17/24 11/17/24 History mL) subcutaneous pen (Lantus Solostar U-100 Insulin) insulin lispro 100 unit/mL 20 unit subcut TID 11/17/24 11/18/24 History subcutaneous pen (Humalog KwikPen (U-100) Insulin) levothyroxine 112 mcg tablet 112 mcg PO DAILY 11/17/24 11/17/24 History (Synthroid) lidocaine-prilocaine 2.5 %-2.5 % 2.5 g topical .prior to blood 11/17/24 11/17/24 History topical cream draws PRN blood draws lisinopril 5 mg tablet 5 mg PO DAILY 11/17/24 11/17/24 History pantoprazole 40 mg tablet,delayed 40 mg PO DAILY 11/17/24 11/17/24 History release sitagliptin phosphate 25 mg tablet 25 mg PO DAILY 11/17/24 11/17/24 History (Januvia) vitamin B comp no.3-folic acid 1 1 tablet PO DAILY 11/17/24 11/17/24 History mg-vit C 60 mg-biotin 300 mcg tablet ([facility]) Allergies Allergy/AdvReac Type Severity Reaction Status Date / Time fexofenadine (From Aggie) AdvReac Severe unable to Verified 11/17/24 20:38 urinate loratadine (From Claritin) AdvReac Severe unable to Verified 11/17/24 20:38 urinate Vital Signs Vital Signs - 24 hr 11/17/24 19:53 11/17/24 21:23 11/17/24 21:30 Temperature 99.6 F Pulse Rate 105 H 71 Respiratory Rate 20 16 Blood Pressure 142/80 H Pulse Oximetry 100 71 L 95 Oxygen Delivery Non-Rebreather Mask Nasal Cannula Oxygen Flow Rate 10 2 11/18/24 00:00 11/18/24 08:00 Temperature 99.0 F 99.0 F Pulse Rate 71 93 Respiratory Rate 18 20 Blood Pressure 149/70 H 140/58 L Pulse Oximetry 96 98 Oxygen Delivery Nasal Cannula Nasal Cannula Oxygen Flow Rate 2 2 Exam Narrative: General: In no acute distress, well nourished Head: atraumatic, no encephalopathy Eyes: PERRLA, sclera clear ENT: moist mucous membranes, nasal passages clear Neck: supple, no JVD, no adenopathy, trachea midline Cardiac: Normal S1 and S2. No murmur, gallops or friction rubs, peripheral pulses intact. Respiratory: Lungs clear to auscultation, no adventitious lung sounds, currently on 2 L nasal cannula Gastrointestinal: soft, non-distended, non-tender, normoactive bowel sounds. : voiding without difficulty. Extremities: moves all extremities well, left lower extremity swelling Skin: clean, dry, intact. No wounds or lesions. Neuro: Alert and oriented x4, cranial nerves intact, no neuro deficits. Psych: normal mood, normal affect, interactive H&P: Results Labs Labs: Short CBC 11/17/24 11/18/24 Range/Units 20:09 08:16 WBC 8.7 7.2 (4.8-10.8) K/mm3 Hgb 9.7 L 9.6 L (12.4-15.3) g/dL Hct 31.7 L 31.3 L (37.0-46.0) % Plt Count 165 170 (150-420) K/mm3 BMP 11/17/24 11/18/24 20:08 08:16 Sodium 141 140 Potassium 4.2 4.5 Chloride 107 106 Carbon Dioxide 19 L 20 L BUN 74 H 72 H Creatinine 6.79 H* 6.61 H* Glucose 144 H 121 H Calcium 8.0 L 8.0 L Liver Function 11/17/24 11/18/24 Range/Units 20:08 08:16 Total Bilirubin 0.3 0.3 (0.00-1.00) mg/dL AST 18 23 (15-37) U/L ALT 27 26 (16-63) U/L Alkaline Phosphatase 73 69 (46-116) U/L Albumin 3.3 L 3.1 L (3.4-5.0) g/dL Urine 11/17/24 Range/Units 21:16 Urine Color Light yellow (Yellow) Urine Appearance Clear (Clear) Urine pH 5.5 (5.0-8.0) Ur Specific [place] 1.015 (1.010-1.020) Urine Protein Trace H (Negative) Urine Glucose (UA) Negative (Negative) Imaging Chest x-ray: Radiologist's impression: EXAMINATION: XR chest 1V portable DATE: 11/17/2024 20:12 INDICATION: Cough and congestion. TECHNIQUE: A single frontal view of the chest was obtained. COMPARISON: None. FINDINGS: There is no pneumonia, pleural effusion, or pneumothorax. The heart size is normal. Median sternotomy wires and mediastinal surgical clips are seen, likely from prior coronary artery bypass grafting. IMPRESSION: 1. No acute cardiopulmonary disease. Reviewed, dictated and finalized at location A. [employer] PROFESSIONAL Assessment and Plan Assessment and plan (1) Acute hypoxic respiratory failure: Code(s): J96.01 - Acute respiratory failure with hypoxia Status: Acute Assessment and Plan: * chest x-ray was negative * currently on 2.5 L nasal cannula * continue to wean O2 for sat greater than 92% * initial ABG showed a pH of 7.41, pCO2 25.4, PO2 205.7, bicarb 15.7, carboxyhemoglobin was not checked while in the ED * repeat ABG today showed a pH of 7.40, pCO2 28.9, PO2 101.6, bicarb 17.6, carboxyhemoglobin 1.3 on 2.5 L nasal cannula * patient was given a dose of Tamiflu while in the ED however his symptoms started 1 week ago and Tamiflu was discontinued * continue DuoNeb p.r.n. * continue pep therapy and incentive spirometry * Mucinex ordered (2) Accidental poisoning by carbon monoxide: Qualifiers: Encounter type: initial encounter Qualified Code(s): T58.91XA - Toxic effect of carbon monoxide from unspecified source, accidental (unintentional), initial encounter Code(s): T58.91XA - Toxic effect of carbon monoxide from unspecified source, accidental (unintentional), initial encounter Status: Acute Assessment and Plan: see above (3) Influenza: Code(s): J11.1 - Influenza due to unidentified influenza virus with other respiratory manifestations Status: Acute Assessment and Plan: * respiratory panel positive for influenza A * patient's symptoms started 1 week ago and Tamiflu was discontinued (4) End stage renal disease: Code(s): N18.6 - End stage renal disease Status: Acute Assessment and Plan: * continue Lasix 80 mg daily * patient does peritoneal dialysis 3 times a week * current creatinine 6.61, EGFR 8 * patient is due for peritoneal dialysis today however he does not have his peritoneal dialysis supplies with him. currently his supplies are being housed at the fire department/ambulance center in [place], [place]. We did reach the patient's son who is traveling from [place] to come assist with his father and mother who are currently hospitalized here. we will plan for peritoneal dialysis here tomorrow when the son arrives with the supplies * continue to trend labs (5) S/P TAVR (transcatheter aortic valve replacement): Code(s): Z95.2 - Presence of prosthetic heart valve Status: Acute Assessment and Plan: * currently on Plavix and aspirin * patient states that he was on anticoagulation however had a GI bleed and was taken off by his community board member (6) Coronary artery disease: Code(s): I25.10 - Atherosclerotic heart disease of [place] coronary artery without angina pectoris Status: Acute Assessment and Plan: * history of 2 vessel CABG * continue atorvastatin 80 mg daily * continue Plavix (7) Type 2 diabetes mellitus: Code(s): E11.9 - Type 2 diabetes mellitus without complications Status: Acute Assessment and Plan: * Blood sugars ranging 121-215 * will obtain hemoglobin A1c * Accu checks AC/HS * high-dose SSI ordered * mealtime insulin 18 units t.i.d. with meals * Lantus 50 units ordered for daily * hypoglycemic protocol in place * Diabetic diet ordered * Hold sitagliptin (8) Hypothyroidism: Code(s): E03.9 - Hypothyroidism, unspecified Status: Acute Assessment and Plan: * continue Synthroid (9) Hypertension: Code(s): I10 - Essential (primary) hypertension Status: Acute Assessment and Plan: * blood pressures ranging 140/58 to 149/70 * continue amlodipine Quality VTE Prophylaxis VTE prophylaxis: pharmacologic ordered Hospitalist [facility] Advance Care Plan I have confirmed that the patient's Advanced Care Plan is present, code status is documented, or surrogate decision maker is listed in patient medical record.: Yes Medication Reconciliation I have utilized all available resources to obtain, update and review the patients current medications (includes all prescriptions, OTC, herbals, cannabis, and nutritional supplements).: Yes
[2024-11-18 16:00] VITALS: BP 139/53; PULSE 91; RESP 16; TEMP 37.4; O2SAT 96
[2024-11-18 17:29] LABS: Glucose Point of Care 116 mg/dl (65-105)
[2024-11-18] MEDS: guaiFENesin 12 HR 600 MG TABCR 1200 MG PO (21:02)
[2024-11-18 21:10] LABS: Glucose Point of Care 203 mg/dl (65-105)
[2024-11-19] VITALS: BP 102/60; PULSE 82; RESP 20; TEMP 37.7; O2SAT 97
--- NOTE | 2024-11-19 00:20 | PC.NURSE ---
Pt is resting in bed and his oxygen is off at this time. SAO2 is 97% on room air and pt doesnt voice any c/o shortness of breath.
--- NOTE | 2024-11-19 02:17 | PC.NURSE ---
Pt asleep and no signs of respiratory distress noted.
[2024-11-19 05:30] VITALS: O2SAT 96
[2024-11-19] MEDS: LEVOTHYROXINE SODIUM 112 MCG TABLET PO (06:22)
--- NOTE | 2024-11-19 06:25 | PC.NURSE ---
Pt given synthroid 112 mcg PO as ordered.
[2024-11-19 08:00] VITALS: BP 126/74; PULSE 88; RESP 20; TEMP 36.6; O2SAT 96
[2024-11-19 08:07] LABS: Glucose Point of Care 111 mg/dl (65-105)
[2024-11-19] MEDS: ENOXAPARIN 30 MG/0.3 ML SYRINGE SUB-Q (09:54)
[2024-11-19] MEDS: amLODIPine BESYLATE 5 MG TABLET 10 MG PO (09:54)
[2024-11-19] MEDS: FUROSEMIDE 40 MG TABLET 80 MG PO (09:55)
[2024-11-19] MEDS: CLOPIDOGREL BISULFATE 75 MG TABLET PO (09:55)
[2024-11-19] MEDS: guaiFENesin 12 HR 600 MG TABCR 1200 MG PO ×2 (09:55→20:42)
[2024-11-19] MEDS: ATORVASTATIN 40 MG TABLET 80 MG PO (09:55)
[2024-11-19] MEDS: PANTOPRAZOLE 40 MG TABLET PO (09:55)
[2024-11-19] MEDS: lisinopriL 5 MG TABLET PO (09:56)
[2024-11-19] MEDS: DOXAZOSIN MESYLATE 2 MG TABLET PO (09:56)
[2024-11-19] MEDS: INSULIN HUMAN LISPRO (*BKC) 1,000 UNITS/10 ML VIAL 18 UNITS SUB-Q ×3 (10:02→17:13)
[2024-11-19 10:58] LABS: Basophils Absolute Auto 0.05 K/mm3 (0.00-0.10); Basophils Percent Auto 1.1 % (0.0-1.0); Eosinophils Absolute Auto 0.34 K/mm3 (0.02-0.50); Eosinophils Percent Auto 7.2 % (1.0-6.0); Hematocrit 34.4 % (37.0-46.0); Hemoglobin 10.4 g/dL (12.4-15.3); Immature Granulocyte Absolute 0.02 K/mm3 (0.00-0.00); Immature Granulocyte Percent A 0.4 % (0.0-0.0); Lymphocytes Absolute Auto 0.43 K/mm3 (1.10-4.50); Lymphocytes Percent Auto 9.1 % (18.0-42.0); Mean Corpuscular HGB Conc 30.2 g/dL (32-36); Mean Corpuscular Hemoglobin 24.6 pg (27.0-31.0); Mean Corpuscular Volume 81.5 fL (78.0-102.0); Mean Platelet Volume 10.8 fl (8.7-11.0); Monocytes Absolute Auto 0.64 K/mm3 (0.10-0.90); Monocytes Percent Auto 13.6 % (2.0-11.0); Neutrophils Absolute Auto 3.24 K/mm3 (1.70-7.20); Neutrophils Percent Auto 68.6 % (50.0-70.0); Platelet Count Result 159 K/mm3 (150-420); Red Blood Count 4.22 M/mm3 (4.70-6.10); Red Cell Distribution Width 19.6 % (11.6-14.4); White Blood Count 4.7 K/mm3 (4.8-10.8)
[2024-11-19 11:12] LABS: Alanine Aminotransferase 26 U/L (16-63); Albumin Level 3.1 g/dL (3.4-5.0); Alkaline Phosphatase 67 U/L (46-116); Anion Gap 14 mmol/L (4-12); Aspartate Amino Transferase 22 U/L (15-37); Bilirubin,Total 0.4 mg/dL (0.00-1.00); Blood Urea Nitrogen 70 mg/dL (7-18); Calcium 8.2 mg/dL (8.5-10.1); Carbon Dioxide 21 mmol/L (21-32); Chloride 105 mmol/L (98-108); Estimated CRCL calculation 12 ml/min; Estimated Glomerular Filt Rate 9; Glucose 168 mg/dL (70-99); Magnesium 1.8 mg/dL (1.8-2.4); Osmolality Calculated 314 mOsm/kg (285-295); Potassium 4.4 mmol/L (3.5-5.1); Sodium 140 mmol/L (136-145)
[2024-11-19 11:54] LABS: Glucose Point of Care 121 mg/dl (65-105)
--- NOTE | 2024-11-19 11:56 | P.DS_ITS ---
DS: Admitting Diagnosis Discharge Date 11/19/24 Admitting Diagnosis acute hypoxic respiratory failure accidental poisoning bicarb in monoxide influenza a end-stage renal disease history of TAVR coronary artery disease type 2 diabetes mellitus hypothyroidism DS: Discharge Diagnosis Discharge Diagnosis (1) Acute hypoxic respiratory failure: Code(s): J96.01 - Acute respiratory failure with hypoxia Status: Acute (2) Accidental poisoning by carbon monoxide: Qualifiers: Encounter type: initial encounter Qualified Code(s): T58.91XA - Toxic effect of carbon monoxide from unspecified source, accidental (unintentional), initial encounter Code(s): T58.91XA - Toxic effect of carbon monoxide from unspecified source, accidental (unintentional), initial encounter Status: Acute (3) Influenza: Code(s): J11.1 - Influenza due to unidentified influenza virus with other respiratory manifestations Status: Acute (4) End stage renal disease: Code(s): N18.6 - End stage renal disease Status: Acute (5) S/P TAVR (transcatheter aortic valve replacement): Code(s): Z95.2 - Presence of prosthetic heart valve Status: Acute (6) Coronary artery disease: Code(s): I25.10 - Atherosclerotic heart disease of [place] coronary artery without angina pectoris Status: Acute (7) Type 2 diabetes mellitus: Code(s): E11.9 - Type 2 diabetes mellitus without complications Status: Acute (8) Hypothyroidism: Code(s): E03.9 - Hypothyroidism, unspecified Status: Acute (9) Hypertension: Code(s): I10 - Essential (primary) hypertension Status: Acute DS: Summary Hospital Course Reason for hospitalization: acute hypoxic respiratory failure accidental poisoning bicarb in monoxide influenza a end-stage renal disease history of TAVR coronary artery disease type 2 diabetes mellitus hypothyroidism Hospital Course: This is a 79-year-old male with a significant past medical history hypertension, coronary artery disease, hyperlipidemia, hypothyroidism, type 2 diabetes mellitus, end-stage renal disease on peritoneal dialysis, history of TAVR on Plavix and aspirin, history of 2 vessel CABG, BPH status post prostatectomy, right middle lobectomy due to a mass in 2006 which was benign who presented to the hospital with shortness a breath /dyspnea. Patient states that he had upper respiratory symptoms for the past week. He endorses nonproductive cough, shortness a breath. He denies any fever, chills, nausea, vomiting, diarrhea, abdominal pain, chest pain. Patient states that he and his were passing through our area traveling to [place] in their camper when his became ill. he states that on the way they had a flat tire and was on the side of the road for quite a while waiting for a repairman. He stated whenever the flat tire happened it messed up the exhaust on the vehicle which they did not think anything of it at the time. They ended up stopping at a [employer] gas station in [facility] and his started to not feel well. his called 911. When EMS arrived they found that her carbon monoxide detector was going off and called the fire department out to check the camper. They were brought in to [facility] for further evaluation of potential carbon monoxide poisoning. Workup in the hospital included a chest x-ray which was negative for any acute cardiopulmonary disease. Initial labs showed a white blood cell count of 8.7, hemoglobin 9.7, bicarb 19, anion gap 15, creatinine 6.79, EGFR 8. UA was obtained which showed trace urine protein, trace urine blood, otherwise negative. Respiratory panel was positive for influenza A. initial ABG showed a pH of 7.41, pCO2 25.4, PO2 205.7, bicarb 15.7, carboxyhemoglobin was not checked while in ED. patient was started on Tamiflu and given a dose of doxycycline while in the ED. 11/19/2024 patient was weaned off the oxygen overnight. He is stating he feels much better. His vital signs are stable, he is afebrile, currently on room. He was taken off of the Tamiflu considering his symptoms started a week ago. He had no indication for antibiotics at this time. His son is in the area and has brought his supplies for peritoneal dialysis and we will start this today since he missed his dialysis yesterday. He is stable for discharge at this time. He will need to follow up with his primary care doctor in 1 week. final diagnosis: acute hypoxic respiratory failure, carbon monoxide poisoning, influenza a Status at Discharge Cognitive/behavioral status at discharge: alert oriented x4 Functional status at discharge: independent ambulation Overall status at discharge: patient is progressing back to baseline Time Spent with Patient Time attestation: Total time spent providing and/or coordinating discharge services: Time spent: Greater than 30 minutes Exam Narrative: General: In no acute distress, well nourished Cardiac: Normal S1 and S2. No murmur, gallops or friction rubs, peripheral pulses intact. Respiratory: Lungs clear to auscultation, no adventitious lung sounds, currently on room air Gastrointestinal: soft, non-distended, non-tender, normoactive bowel sounds. : currently on peritoneal dialysis 3 times a week Neuro: Alert and oriented x4 DS: Data Data Completed and Pending Completed studies during hospitalization: chest x-ray Pending studies at discharge: none Labs on day of discharge: Labs from last 24 hours 11/19/24 11/19/24 11/19/24 11:38 10:51 08:06 WBC 4.7 L RBC 4.22 L Hgb 10.4 L Hct 34.4 L MCV 81.5 MCH 24.6 L MCHC 30.2 L RDW 19.6 H Plt Count 159 MPV 10.8 Immature Gran % (Auto) 0.4 H Neut % (Auto) 68.6 Lymph % (Auto) 9.1 L Glades % (Auto) 13.6 H Eos % (Auto) 7.2 H Baso % (Auto) 1.1 H Lymph # (Auto) 0.43 L Glades # (Auto) 0.64 Eos # (Auto) 0.34 Baso # (Auto) 0.05 Abs Immat Gran (auto) 0.02 H Absolute Neuts (auto) 3.24 Absolute Nucleated RBC 0.00 Nucleated RBC % 0.0 Sodium 140 Potassium 4.4 Chloride 105 Carbon Dioxide 21 Anion Gap 14 H BUN 70 H Creatinine 6.38 H* Estim Creat Clear Calc 12 Estimated GFR 9 L Glucose 168 H POC Capillary Glucose 121 H 111 H Calculated Osmolality 314 H Calcium 8.2 L Magnesium 1.8 Total Bilirubin 0.4 AST 22 ALT 26 Alkaline Phosphatase 67 Total Protein 7.0 Albumin 3.1 L 11/18/24 11/18/24 21:09 17:27 WBC RBC Hgb Hct MCV MCH MCHC RDW Plt Count MPV Immature Gran % (Auto) Neut % (Auto) Lymph % (Auto) Glades % (Auto) Eos % (Auto) Baso % (Auto) Lymph # (Auto) Glades # (Auto) Eos # (Auto) Baso # (Auto) Abs Immat Gran (auto) Absolute Neuts (auto) Absolute Nucleated RBC Nucleated RBC % Sodium Potassium Chloride Carbon Dioxide Anion Gap BUN Creatinine Estim Creat Clear Calc Estimated GFR Glucose POC Capillary Glucose 203 H 116 H Calculated Osmolality Calcium Magnesium Total Bilirubin AST ALT Alkaline Phosphatase Total Protein Albumin Procedures/Treatments: none Discharge Plan Discharge Attending physician on discharge: Galindo Joseph Discharging Clinician: Angelic Richard Anticipated Discharge Date/Time: 11/19/24 11:55 Patient Disposition: Home, Self-Care Activity: as tolerated Diet: as tolerated, heart healthy and diabetic Discharge Instructions: * continue peritoneal dialysis like you normally do at home. * Follow up with your primary care doctor in 1 week * You were diagnosed with influenza A * Make sure you stay up to date on your vaccines including Influenza, COVID, RSV, Pneumococcal Patient Instructions: Influenza (DC) Patient Language: Arabic Stand Alone Forms: General Discharge Information Follow-up/Referrals: Marine,George Hathaway [Other] - 1 week Discharge Medications: Continued atorvastatin 80 mg tablet 80 mg PO DAILY doxycycline hyclate 100 mg capsule 100 mg PO DAILY clopidogrel 75 mg tablet 75 mg PO DAILY (DME) FreeStyle Lite Strips Strip MISCELLANEOUS lidocaine-prilocaine 2.5-2.5 % cream 2.5 g topical .prior to blood draws PRN (Reason: blood draws) Rx Instructions: Apply 1 hour prior to blood draws furosemide 80 mg tablet 80 mg PO DAILY amlodipine 10 mg tablet 10 mg PO DAILY pantoprazole 40 mg tablet,delayed release (DR/EC) 40 mg PO DAILY lisinopril 5 mg tablet 5 mg PO DAILY doxazosin 2 mg tablet 2 mg PO DAILY levothyroxine [Synthroid] 112 mcg tablet 112 mcg PO DAILY insulin lispro [Humalog KwikPen Insulin] 100 unit/mL insulin pen 20 unit SUBCUT TID Januvia 25 mg tablet 25 mg PO DAILY insulin glargine [Lantus Solostar U-100 Insulin] 100 unit/mL (3 mL) insulin pen 50 unit SUBCUT QAM Paola-Cezar Rx 1-60-300 mg-mg-mcg tablet 1 tablet PO DAILY Date of admission: 11/18/24 12:49 Primary Care Provider: MarineGeorge Admitting Provider: Galindo Joseph Attending physician on admission: Galindo Joseph Condition: Guarded Prognosis Quality VTE Prophylaxis VTE prophylaxis: pharmacologic ordered Hospitalist MIPS Heart Failure (Exclusion) Patient has history of Heart Transplant or Left Ventricular Assistive Device?: No IF YES, STOP HERE Heart Failure (Qualifier) Patient has current or prior documentation of LVEF less than or equal to 40%, or mod/servere depressed LVSF?: No IF NO, STOP HERE
[2024-11-19 16:00] VITALS: BP 126/70; PULSE 76; RESP 16; TEMP 36.5
[2024-11-19 17:10] LABS: Glucose Point of Care 115 mg/dl (65-105)
[2024-11-19 20:55] LABS: Glucose Point of Care 125 mg/dl (65-105)
[2024-11-20] VITALS: BP 147/62; PULSE 80; RESP 20; TEMP 36.2; O2SAT 94
--- NOTE | 2024-11-20 00:10 | PC.NURSE ---
Pt resting quietly in bed and doesnt voice any c/o shortness of breath. Pt's SAO2 is 94% on room air and no signs of respiratory distress noted.
--- NOTE | 2024-11-20 02:24 | PC.NURSE ---
Pt asleep and no signs of shortness of breath noted.
--- NOTE | 2024-11-20 04:15 | PC.NURSE ---
Pt asleep and no signs of respiratory distress noted.
[2024-11-20] MEDS: LEVOTHYROXINE SODIUM 112 MCG TABLET PO (06:43)
[2024-11-20 08:00] VITALS: BP 132/67; PULSE 85; RESP 18; TEMP 36.9; O2SAT 96
[2024-11-20] MEDS: INSULIN GLARGINE (*BKC) 1,000 UNITS/10 ML VIAL 50 UNITS SUB-Q (09:03)
[2024-11-20] MEDS: INSULIN HUMAN LISPRO (*BKC) 1,000 UNITS/10 ML VIAL 18 UNITS SUB-Q ×2 (09:07→12:21)
[2024-11-20 09:08] LABS: Glucose Point of Care 180 mg/dl (65-105)
[2024-11-20] MEDS: FUROSEMIDE 40 MG TABLET 80 MG PO (09:08)
[2024-11-20] MEDS: ATORVASTATIN 40 MG TABLET 80 MG PO (09:08)
[2024-11-20] MEDS: amLODIPine BESYLATE 5 MG TABLET 10 MG PO (09:09)
[2024-11-20] MEDS: PANTOPRAZOLE 40 MG TABLET PO (09:10)
[2024-11-20] MEDS: lisinopriL 5 MG TABLET PO (09:10)
[2024-11-20] MEDS: guaiFENesin 12 HR 600 MG TABCR 1200 MG PO (09:10)
[2024-11-20] MEDS: CLOPIDOGREL BISULFATE 75 MG TABLET PO (09:10)
[2024-11-20] MEDS: DOXAZOSIN MESYLATE 2 MG TABLET PO (09:11)
[2024-11-20] MEDS: ACETAMINOPHEN 325 MG TABLET 650 MG PO (10:49)
--- NOTE | 2024-11-20 11:34 | PC.NURSE ---
Patient completed his peritoneal dialysis, 1550 out per scale, tolerated well.
[2024-11-20 11:58] LABS: Glucose Point of Care 153 mg/dl (65-105)
--- NOTE | 2024-11-20 12:34 | PM.DS ---
DS: Admitting Diagnosis Discharge Date 11/20/24 Admitting Diagnosis acute hypoxic respiratory failure accidental poisoning bicarb in monoxide influenza a end-stage renal disease history of TAVR coronary artery disease type 2 diabetes mellitus hypothyroidism DS: Summary Hospital Course Reason for hospitalization: acute hypoxic respiratory failure accidental poisoning bicarb in monoxide influenza a end-stage renal disease history of TAVR coronary artery disease type 2 diabetes mellitus hypothyroidism Hospital Course: This is a 79-year-old male with a significant past medical history hypertension, coronary artery disease, hyperlipidemia, hypothyroidism, type 2 diabetes mellitus, end-stage renal disease on peritoneal dialysis, history of TAVR on Plavix and aspirin, history of 2 vessel CABG, BPH status post prostatectomy, right middle lobectomy due to a mass in 2006 which was benign who presented to the hospital with shortness a breath /dyspnea. Patient states that he had upper respiratory symptoms for the past week. He endorses nonproductive cough, shortness a breath. He denies any fever, chills, nausea, vomiting, diarrhea, abdominal pain, chest pain. Patient states that he and his were passing through our area traveling to [place] in their camper when his became ill. he states that on the way they had a flat tire and was on the side of the road for quite a while waiting for a repairman. He stated whenever the flat tire happened it messed up the exhaust on the vehicle which they did not think anything of it at the time. They ended up stopping at a [employer] gas station in [facility] and his started to not feel well. his called 911. When EMS arrived they found that her carbon monoxide detector was going off and called the fire department out to check the camper. They were brought in to [facility] for further evaluation of potential carbon monoxide poisoning. Workup in the hospital included a chest x-ray which was negative for any acute cardiopulmonary disease. Initial labs showed a white blood cell count of 8.7, hemoglobin 9.7, bicarb 19, anion gap 15, creatinine 6.79, EGFR 8. UA was obtained which showed trace urine protein, trace urine blood, otherwise negative. Respiratory panel was positive for influenza A. initial ABG showed a pH of 7.41, pCO2 25.4, PO2 205.7, bicarb 15.7, carboxyhemoglobin was not checked while in ED. patient was started on Tamiflu and given a dose of doxycycline while in the ED. 11/19/24: Planned for discharge today however patient started in with vomiting and diarrhea. We kept for another night due to his symptoms and concerns for dehydration if it continues. 11/20/2024 He is stating he feels much better. His vital signs are stable, he is afebrile, currently on room. He was taken off of the Tamiflu considering his symptoms started a week ago. He had no indication for antibiotics at this time. His son is in the area and has brought his supplies for peritoneal dialysis and we will start this today since he missed his dialysis yesterday. He is stable for discharge at this time. He will need to follow up with his primary care doctor in 1 week. he completed peritoneal dialysis overnight and this morning final diagnosis: acute hypoxic respiratory failure, carbon monoxide poisoning, influenza a Time Spent with Patient Time attestation: Total time spent providing and/or coordinating discharge services: Exam Narrative: General: In no acute distress, well nourished Cardiac: Normal S1 and S2. No murmur, gallops or friction rubs, peripheral pulses intact. Respiratory: Lungs clear to auscultation, no adventitious lung sounds, currently on room air Gastrointestinal: soft, non-distended, non-tender, normoactive bowel sounds. : currently on peritoneal dialysis 3 times a week Neuro: Alert and oriented x4 DS: Data Data Completed and Pending Completed studies during hospitalization: chest x-ray Pending studies at discharge: none Labs on day of discharge: Labs from last 24 hours 11/20/24 11/20/24 11/19/24 11:52 09:03 20:52 POC Capillary Glucose 153 H 180 H 125 H 11/19/24 17:07 POC Capillary Glucose 115 H Procedures/Treatments: none Discharge Plan Discharge Attending physician on discharge: Galindo Joseph Discharging Clinician: Angelic Richard Anticipated Discharge Date/Time: 11/20/24 12:34 Patient Disposition: Home, Self-Care Activity: as tolerated Diet: as tolerated, heart healthy and diabetic Discharge Instructions: continue peritoneal dialysis like you normally do at home. Follow up with your primary care doctor in 1 week You were diagnosed with influenza A Make sure you stay up to date on your vaccines including Influenza, COVID, RSV, Pneumococcal Patient Instructions: Influenza (DC) Patient Language: Persian Stand Alone Forms: General Discharge Information Follow-up/Referrals: Marine,George Hathaway [Other] - 1 week Discharge Medications: Continued atorvastatin 80 mg tablet 80 mg PO DAILY doxycycline hyclate 100 mg capsule 100 mg PO DAILY clopidogrel 75 mg tablet 75 mg PO DAILY (DME) FreeStyle Lite Strips Strip MISCELLANEOUS lidocaine-prilocaine 2.5-2.5 % cream 2.5 g topical .prior to blood draws PRN (Reason: blood draws) Rx Instructions: Apply 1 hour prior to blood draws furosemide 80 mg tablet 80 mg PO DAILY amlodipine 10 mg tablet 10 mg PO DAILY pantoprazole 40 mg tablet,delayed release (DR/EC) 40 mg PO DAILY lisinopril 5 mg tablet 5 mg PO DAILY doxazosin 2 mg tablet 2 mg PO DAILY levothyroxine [Synthroid] 112 mcg tablet 112 mcg PO DAILY insulin lispro [Humalog KwikPen Insulin] 100 unit/mL insulin pen 20 unit SUBCUT TID Januvia 25 mg tablet 25 mg PO DAILY insulin glargine [Lantus Solostar U-100 Insulin] 100 unit/mL (3 mL) insulin pen 50 unit SUBCUT QAM Paola-C[facility]ar Rx 1-60-300 mg-mg-mcg tablet 1 tablet PO DAILY Date of admission: 11/18/24 12:49 Primary Care Provider: AmritGeorge Admitting Provider: Galindo Joseph Attending physician on admission: Angelic Richard Condition: Improved Hospitalist MIPS Heart Failure (Exclusion) Patient has history of Heart Transplant or Left Ventricular Assistive Device?: No IF YES, STOP HERE Heart Failure (Qualifier) Patient has current or prior documentation of LVEF less than or equal to 40%, or mod/servere depressed LVSF?: No IF NO, STOP HERE
--- NOTE | 2024-11-20 13:40 | PC.NURSE ---
Discharge to home with son, isolation practice reviewed, discharge instructions reviewed, is alert and oriented x4 agreeable to discharge
--- NOTE | 2024-11-22 13:10 | PC.NURSE ---
Feeling better but still has a cough, all scripts filled, no questions
== END 2024-11-20 13:40 | disposition home or self-care (01) | DRG 917 ==
LOC: CHSED 21:21 → CHS2ND 21:44
PROVIDERS: Admitting Provider Internal Medicine; Emergency Provider Emergency Medicine; Visit Provider Nurse Practitioner Acute Care
DX: T58.01XA Toxic effect of carbon monoxide from motor vehicle exhaust, accidental (unintentional), initial encounter (principal); J96.01 Acute respiratory failure with hypoxia; N18.6 End stage renal disease; I12.0 Hypertensive chronic kidney disease with stage 5 chronic kidney disease or end stage renal disease; J10.1 Influenza due to other identified influenza virus with other respiratory manifestations; I25.10 Atherosclerotic heart disease of native coronary artery without angina pectoris; E03.9 Hypothyroidism, unspecified; E11.22 Type 2 diabetes mellitus with diabetic chronic kidney disease; E78.5 Hyperlipidemia, unspecified; R11.2 Nausea with vomiting, unspecified; R19.7 Diarrhea, unspecified; Z95.2 Presence of prosthetic heart valve; Z99.2 Dependence on renal dialysis; Z95.1 Presence of aortocoronary bypass graft; Z79.02 Long term (current) use of antithrombotics/antiplatelets; Z79.4 Long term (current) use of insulin
CPT/HCPCS: 36415; 36600; 71045; 80053; 81001; 82375; 82805; 82948; 83050; 83605; 83735; 85018; 85025; 87637; 90945; 94667; 99285; A9270; G0378; J1650; J1815